=== PATIENT | male | born 1965 | race American Indian/Alaskan Native ===

== ENCOUNTER 2020-04-05 21:59 | Inpatient (IN) | payer MEDICARE ==
[2020-04-06] MEDS ORDERED: ONDANSETRON 4 MG/2 ML INJ IV ONE (01:53)
[2020-04-06] MEDS ORDERED: MORPHINE 4 MG/1 ML INJ IV ONE (01:53)
[2020-04-06] MEDS ORDERED: ASPIRIN 325 MG TAB PO ONE (01:53)
--- NOTE | 2020-04-06 02:37 | XRay Report ---
CHEST 1 VIEW INDICATION: dyspnea, chest pain; bilateral leg swelling. COMPARISON: 4 days prior FINDINGS: Support devices: None. Heart: Stable cardiomegaly. Lungs/Pleura: Minimal edema. No consolidation or effusion. Additional findings: None. IMPRESSION: 1. Stable cardiomegaly with minimal edema. Signer Name: Chad Gomez MD Signed: 04/06/2020 2:33 AM Workstation Name: [id number]
[2020-04-06 02:45] LABS: Basophils % (Auto) 0.8 % (0.0-1.8); Eosinophils # (Auto) 0.3 K/mm3 (0.0-0.4); Eosinophils % (Auto) 4.7 % (0.0-4.3); Hematocrit 34.4 % (35.5-45.6); Hemoglobin 11.4 gm/dl (11.8-15.2); Lymphocytes # (Auto) 0.5 K/mm3 (1.2-5.4); Lymphocytes % (Auto) 9.3 % (13.4-35.0); Mean Corpuscular HGB Conc 33 % (32-34); Mean Corpuscular Volume 91 fl (84-94); Monocytes # (Auto) 0.5 K/mm3 (0.0-0.8); Monocytes % (Auto) 7.8 % (0.0-7.3); Platelet Count 207 K/mm3 (140-440); Red Blood Count 3.78 M/mm3 (3.65-5.03); Red Cell Distribution Width 17.2 % (13.2-15.2)
[2020-04-06 03:09] LABS: Albumin 3.9 g/dL (3.9-5)
--- NOTE | 2020-04-06 03:10 | Emergency Department Report ---
HPI - General Chief Complaint: Urogenital-Male Time Seen by Provider: 04/06/20 01:56 - HPI HPI: 54-year-old -Italian male presents to the emergency department via EMS with a complaint of shortness of breath, some chest tightness, and worsening of generalized and scrotal swelling that he has been dealing with. The patient was here on 04/02 and admitted for similar symptoms and his last dialysis appears to be that day. He is currently unassigned to any trade manager or dialysis clinic. He has hemodialysis access to the left groin. He is a tobacco smoker. He also has a history of CHF, COPD. He has not taken anything for his symptoms prior to presentation today. ED Past Medical Hx - Past Medical History Hx Congestive Heart Failure: Yes Hx Renal Disease: Yes Hx COPD: Yes (Patient states likely) Additional medical history: Hemodialysis - Surgical History Additional Surgical History: Placement of dialysis access - Social History Smoking Status: Never Smoker Substance Use Type: None ED Review of Systems ROS: Stated complaint: SHARAN TESTICAL SWELLING Other details as noted in HPI Comment: All other systems reviewed and negative Constitutional: denies: chills, fever Eyes: denies: eye pain, vision change ENT: denies: ear pain, throat pain Respiratory: shortness of breath. denies: cough Cardiovascular: chest pain, edema Gastrointestinal: denies: abdominal pain, vomiting Genitourinary: testicular pain. denies: dysuria Musculoskeletal: denies: back pain, arthralgia Skin: denies: rash, lesions Neurological: denies: headache, weakness Physical Exam - Physical Exam Vital Signs: Vital Signs 04/05/20 22:31 Temperature 98.0 F Pulse Rate 83 Respiratory 20 Rate Blood Pressure 128/84 O2 Sat by Pulse 97 Oximetry Physical Exam: GENERAL: The patient is well-developed well-nourished. HENT: Normocephalic. Atraumatic. Patient has moist mucous membranes. EYES: Extraocular motions are intact. NECK: Supple. Trachea is midline. CHEST/LUNGS: Coarse breath sounds. No tachypnea or accessory muscle use. There is no respiratory distress noted. HEART/CARDIOVASCULAR: Regular. There is no tachycardia. There is no murmur. ABDOMEN: Abdomen is soft, nontender. Patient has normal bowel sounds. There is no abdominal distention. SKIN: Skin is warm and dry. There is nonpitting edema to the bilateral lower extremities, the groin and lower portion of the abdomen. NEURO: The patient is awake, alert, and oriented. The patient is cooperative. The patient has no focal neurologic deficits. Normal speech. MUSCULOSKELETAL: There is no tenderness or deformity. There is no limitation range of motion. : There is moderate to severe nonpitting edema of the scrotum. No erythema, fluctuance, rash or lesions. ED Course Vital Signs 04/05/20 22:31 Temperature 98.0 F Pulse Rate 83 Respiratory 20 Rate Blood Pressure 128/84 O2 Sat by Pulse 97 Oximetry - Reevaluation(s) Reevaluation #1: 04/06/20 05:54 Labs 04/06/20 04/06/20 04/06/20 02:16 02:23 02:23 WBC 5.8 RBC 3.78 Hgb 11.4 L Hct 34.4 L MCV 91 MCH 30 MCHC 33 RDW 17.2 H Plt Count 207 Lymph % (Auto) 9.3 L [place] % (Auto) 7.8 H Eos % (Auto) 4.7 H Baso % (Auto) 0.8 Lymph # 0.5 L [place] # 0.5 Eos # 0.3 Baso # 0.0 Seg Neutrophils % 77.4 H Seg Neutrophils # 4.5 Sodium 139 Potassium 5.4 H Chloride 96.8 L Carbon Dioxide 22 Anion Gap 26 BUN 66 H Creatinine 9.3 H Estimated GFR 7 BUN/Creatinine Ratio 7 Glucose 93 Calcium 5.5 L* Total Bilirubin 0.30 AST 16 ALT 13 Alkaline Phosphatase 89 Troponin T 0.069 H Total Protein 7.6 Albumin 3.9 Albumin/Globulin Ratio 1.1 Triglycerides 55 Cholesterol 114 LDL Cholesterol Direct 67 HDL Cholesterol 45 Cholesterol/HDL Ratio 2.53 ED Medical Decision Making - Lab Data Result diagrams: 04/06/20 02:23 04/06/20 02:23 - EKG Data -: EKG Interpreted by Me EKG shows normal: sinus rhythm, axis, intervals (Prolonged QTC), QRS complexes (Low voltage QRS), ST-T waves (Flattened T waves) - EKG Data When compared to previous EKG there are: no significant change Interpretation: unchanged when compared t (04/02/20) - Radiology Data Radiology results: report reviewed, image reviewed interpreted by me: Chest x-ray shows some pulmonary vascular congestion and cardiomegaly. No pneumonia or pneumothorax. Scrotal Ultrasound HISTORY: Testicular pain and swelling. TECHNIQUE: Grayscale and color imaging performed. COMPARISON: None FINDINGS: Both testicles are normal in size and appearance. There is severe diffuse scrotal wall edema with trace bilateral hydroceles which are likely reactive. Each epididymis is normal. IMPRESSION: Severe diffuse scrotal wall edema. Normal testicles. - Medical Decision Making This patient presents with some shortness of breath, chest tightness and increased edema, especially to the groin. A testicular ultrasound was done that shows significant scrotal wall edema but no testicular abnormalities, including no torsion. EKG does not show any signs of ST elevation [place]. Chest x-ray shows some pulmonary vascular congestion but no pneumonia, pneumothorax, or overt pleural effusions. Patient's labs shows renal insufficiency consistent with his end-stage renal disease on hemodialysis. First troponin is slightly elevated at 0.069. This troponin elevation may be secondary to his chronic renal insufficiency. However, given his complaint of chest tightness, the patient will be admitted to the hospital for further evaluation and treatment, and may need to receive dialysis as well. He has been presented to the overnight hospitalist, Dr. Prado. Critical Care Time: No Critical care attestation.: If time is entered above; I have spent that time in minutes in the direct care of this critically ill patient, excluding procedure time. ED Disposition Clinical Impression: End-stage renal disease needing dialysis, Anasarca, Hyperkalemia, Scrotal edema, Acute chest pain Disposition: OP ADMIT IP TO THIS HOSP Is pt being admited?: Yes Condition: Fair Time of Disposition: 04:51 Heart Score - HEART Score History: Slightly suspicious EKG: Non-specific Age: 45-65 Risk factors: 1-2 risk factors Troponin: 1-3x normal limit HEART Score: 4 - Critical Actions Critical Actions: 4-6 pts:12-16.6% risk of adverse cardiac event. Should be admitted
[2020-04-06] MEDS ORDERED: IPRATROPIUM/ALBUTEROL SULFATE 3 ML AMPUL.NEB IH ONE ×2 (03:12→06:14)
[2020-04-06 03:19] LABS: Calcium 5.5 mg/dL (8.4-10.2)
--- NOTE | 2020-04-06 04:20 | Ultrasound Report ---
Scrotal Ultrasound HISTORY: Testicular pain and swelling. TECHNIQUE: Grayscale and color imaging performed. COMPARISON: None FINDINGS: Both testicles are normal in size and appearance. There is severe diffuse scrotal wall robby a with trace bilateral hydroceles which are likely reactive. Each epididymis is normal. IMPRESSION: Severe diffuse scrotal wall edema. Normal testicles. Signer Name: Chad Gomez MD Signed: 04/06/2020 4:16 AM Workstation Name: [id number]
[2020-04-06 05:07] LABS: Chol/HDL Ratio 2.53 %
--- NOTE | 2020-04-06 07:42 | History and Physical Report ---
History of Present Illness Date of examination: 04/06/20 Date of admission: 04/06/20 Chief complaint: CHEST PAIN, MISSED DIALYSIS History of present illness: Patient is a 54-year-old -[place]aur[place] male presenting to the hospital complaining of shortness of breath, some chest tightness with worsening generalized scrotal swelling. The patient with underlying history of hypertension, congestive heart failure, COPD end-stage renal disease unfortunately does not follow with any [place] last dialysis was done at this hospital before that it was done at [facility]. Patient also reports that he is homeless. Grossly noncompliant. The chest pain he reported he reports is a 3/10 in intensity only worse with lying down flat. He denies any exertional chest pain but notes exertional dyspnea. Past History Past Medical History: COPD, hypertension, hyperlipidemia Past Surgical History: Other (Patient unknown if he has had any prior surgery. Except a left upper extremity AV graft) Social history: no significant social history Family history: no significant family history Medications and Allergies Allergies Allergy/AdvReac Type Severity Reaction Status Date / Time No Known Allergies Allergy Unverified 04/02/20 06:54 Review of Systems Constitutional: weight gain, fatigue, weakness, lethargy, no fever, no chills, no sweats, no malaise Cardiovascular: chest pain, orthopnea, edema, shortness of breath, no palpi tations, no rapid/irregular heart beat Respiratory: shortness of breath, congestion, no cough, no cough with sputum, no excessive sputum Gastrointestinal: no abdominal pain Musculoskeletal: no neck stiffness, no neck pain, no shooting arm pain, no arm numbness/tingling, no shooting leg pain Integumentary: no rash, no pruritis, no redness, no sores, no wounds Neurological: no transient paralysis, no weakness, no parathesias, no numbness Psychiatric: change in appetite Endocrine: no excessive thirst Hematologic/Lymphatic: no easy bruising Allergic/Immunologic: no urticaria Exam - Physical Exam Narrative exam: VITAL SIGNS: Reviewed. GENERAL: The patient appears normally developed, disheveled in appearance with anasarca vital signs as documented. HEAD: No signs of head trauma. EYES: Pupils are equal. Extraocular motions intact. EARS: Hearing grossly intact. MOUTH: Oropharynx is normal. NECK: No adenopathy, no JVD. CHEST: Chest with clear breath sounds bilaterally. No wheezes, rales, or rhonchi. CARDIAC: Regular rate and rhythm. S1 and S2, without murmurs, gallops, or rubs. VASCULAR: No Edema. Peripheral pulses normal and equal in all extremities. ABDOMEN: Soft, non tender and non distended. No rebound or guarding, and no masses palpated. Bowel Sounds normal. MUSCULOSKELETAL: Good range of motion of all major joints. Extremities without clubbing, cyanosis or edema. NEUROLOGIC EXAM: Alert and oriented x 3 No focal sensory or strength deficits. Speech normal. Follows commands. PSYCHIATRIC: Mood normal. SKIN: detail exam as documented in skin assessment - Constitutional Vitals: Temp Pulse Resp BP Pulse Ox 98.0 F 83 15 128/84 97 04/05/20 22:31 04/06/20 03:13 04/06/20 03:13 04/05/20 22:31 04/05/20 22:31 Results - Labs CBC & Chem 7: 04/06/20 02:23 04/06/20 02:23 Labs: Laboratory Last Values WBC 5.8 K/mm3 (4.5-11.0) 04/06/20 02:23 RBC 3.78 M/mm3 (3.65-5.03) 04/06/20 02:23 Hgb 11.4 gm/dl (11.8-15.2) L 04/06/20 02:23 Hct 34.4 % (35.5-45.6) L 04/06/20 02:23 MCV 91 fl (84-94) 04/06/20 02:23 MCH 30 pg (28-32) 04/06/20 02:23 MCHC 33 % (32-34) 04/06/20 02:23 RDW 17.2 % (13.2-15.2) H 04/06/20 02:23 Plt Count 207 K/mm3 (140-440) 04/06/20 02:23 Lymph % (Auto) 9.3 % (13.4-35.0) L 04/06/20 02:23 [place] % (Auto) 7.8 % (0.0-7.3) H 04/06/20 02:23 Eos % (Auto) 4.7 % (0.0-4.3) H 04/06/20 02:23 Baso % (Auto) 0.8 % (0.0-1.8) 04/06/20 02:23 Lymph # 0.5 K/mm3 (1.2-5.4) L 04/06/20 02:23 [place] # 0.5 K/mm3 (0.0-0.8) 04/06/20 02:23 Eos # 0.3 K/mm3 (0.0-0.4) 04/06/20 02:23 Baso # 0.0 K/mm3 (0.0-0.1) 04/06/20 02:23 Seg Neutrophils % 77.4 % (40.0-70.0) H 04/06/20 02:23 Seg Neutrophils # 4.5 K/mm3 (1.8-7.7) 04/06/20 02:23 Sodium 139 mmol/L (137-145) 04/06/20 02:23 Potassium 5.4 mmol/L (3.6-5.0) H 04/06/20 02:23 Chloride 96.8 mmol/L (98-107) L 04/06/20 02:23 Carbon Dioxide 22 mmol/L (22-30) 04/06/20 02:23 Anion Gap 26 mmol/L 04/06/20 02:23 BUN 66 mg/dL (9-20) H 04/06/20 02:23 Creatinine 9.3 mg/dL (0.8-1.5) H 04/06/20 02:23 Estimated GFR 7 ml/min 04/06/20 02:23 BUN/Creatinine Ratio 7 % 04/06/20 02:23 Glucose 93 mg/dL (75-100) 04/06/20 02:23 Calcium 5.5 mg/dL (8.4-10.2) L* 04/06/20 02:23 Total Bilirubin 0.30 mg/dL (0.1-1.2) 04/06/20 02:23 AST 16 units/L (5-40) 04/06/20 02:23 ALT 13 units/L (7-56) 04/06/20 02:23 Alkaline Phosphatase 89 units/L (35-129) 04/06/20 02:23 Troponin T 0.069 ng/mL (0.00-0.029) H 04/06/20 02:16 Total Protein 7.6 g/dL (6.3-8.2) 04/06/20 02:23 Albumin 3.9 g/dL (3.9-5) 04/06/20 02:23 Albumin/Globulin Ratio 1.1 % 04/06/20 02:23 Triglycerides 55 mg/dL (2-149) 04/06/20 02:16 Cholesterol 114 mg/dL (50-199) 04/06/20 02:16 LDL Cholesterol Direct 67 mg/dL (50-130) 04/06/20 02:16 HDL Cholesterol 45 mg/dL (40-59) 04/06/20 02:16 Cholesterol/HDL Ratio 2.53 % 04/06/20 02:16 Assessment and Plan Assessment and plan: Patient is a 54-year-old -[place]aur[place] male presenting to the hospital complaining of shortness of breath, some chest tightness with worsening generalized scrotal swelling. The patient with underlying history of hypertension, congestive heart failure, COPD end-stage renal disease unfortunately does not follow with any [place] last dialysis was done at this hospital before that it was done at [facility]. Patient also reports that he is homeless. Grossly noncompliant. The chest pain he reported he reports is a 3/10 in intensity only worse with lying down flat. He denies any exertional chest pain but notes exertional dyspnea. Atypical Chest pain Volume overload Pulmonary Vascular Congestion Type 2 [place] ESRD on hemodialysis Hyperkalemia Generalized anasarca Hypocalcemia Plan: Admit to telemetry Obtain nephrology and cardiology consult Case management for assistance considering homelessness Obtain and resume appropriate home medications Strict I's and O's and daily weights Monitor electrolytes Extensive counseling provided to the patient about need for medication compliance and health compliance in general DVT and GI prophylaxis Advance Directives: Yes Plan of care discussed with patient/family: Yes
[2020-04-06] MEDS ORDERED: ACETAMINOPHEN 325 MG TAB PO PRN (08:00)
[2020-04-06] MEDS ORDERED: NITROGLYCERIN 0.4 MG TAB SUBL SL PRN (08:00)
[2020-04-06] MEDS ORDERED: MORPHINE 4 MG/1 ML INJ IV PRN (08:00)
[2020-04-06] MEDS ORDERED: ONDANSETRON 4 MG/2 ML INJ IV PRN (08:00)
[2020-04-06] MEDS ORDERED: MORPHINE 2 MG/1 ML INJ ONE (09:26)
[2020-04-06] MEDS: MORPHINE 2 MG/1 ML INJ IV PRN (10:02)
[2020-04-06] MEDS: SENNOSIDES 8.6 MG TAB PO SCH ×2 (10:02→21:46)
--- NOTE | 2020-04-06 10:59 | Consultation ---
History of Present Illness Consult date: 04/06/20 Consult reason: elevated troponin History of present illness: This is a 54-year old male with end-stage renal disease on dialysis. Patient was recently hospitalized with anasarca, volume overload secondary to missed dialysis session but left AMA before outpatient dialysis clinic could be arranged. Patient returns with volume overload and is re-admitted for management. Nephrology consultation is pending. A cardiac consultation has been requested for mild elevation of troponin. This is likely in the setting of renal disease. Patient is somnolent. There were no reports of chest pain. An ECG is sinus rhythm with low voltage, nonspecific T wave abnormalities. Medications and Allergies Allergies Allergy/AdvReac Type Severity Reaction Status Date / Time No Known Allergies Allergy Unverified 04/02/20 06:54 Active Meds: Active Medications Acetaminophen (Tylenol) 650 mg PO Q4H PRN PRN Reason: Pain MILD(1-3)/Fever >100.5/[place] Atorvastatin Calcium (Lipitor) 40 mg PO QHS [facility] Morphine Sulfate (Morphine) 2 mg IV Q4H PRN PRN Reason: Pain, Moderate (4-6) Last Admin: 04/06/20 10:02 Dose: 2 mg Documented by: Morphine Sulfate (Morphine) 4 mg IV Q4H PRN PRN Reason: Pain , Severe (7-10) Nitroglycerin (Nitrostat) 0.4 mg SL Q5M PRN PRN Reason: Chest Pain Ondansetron HCl (Zofran) 4 mg IV Q4H PRN PRN Reason: Nausea And Vomiting Senna (Senokot) 8.6 mg PO Q12HR [facility] Last Admin: 04/06/20 10:02 Dose: 8.6 mg Documented by: Sodium Chloride (Sodium Chloride Flush Syringe 10 Ml) 10 ml IV BID [facility] Last Admin: 04/06/20 10:02 Dose: 10 ml Documented by: Sodium Chloride (Sodium Chloride Flush Syringe 10 Ml) 10 ml IV PRN PRN PRN Reason: LINE FLUSH Sodium Chloride (Sodium Chloride Flush Syringe 10 Ml) 10 ml IV PRN PRN PRN Reason: LINE FLUSH Physical Examination Vital Signs Temp Pulse Resp BP Pulse Ox 98.0 F 83 20 128/84 97 04/05/20 22:31 04/05/20 22:31 04/05/20 22:31 04/05/20 22:31 04/05/20 22:31 Cardiac: Positive: Reg Rate and Rhythm Results 04/06/20 02:23 04/06/20 02:23 Cardiac Enzymes 04/06/20 Range/Units 02:23 AST 16 (5-40) units/L Lipids 04/06/20 Range/Units 02:16 Triglycerides 55 (2-149) mg/dL Cholesterol 114 (50-199) mg/dL HDL Cholesterol 45 (40-59) mg/dL Cholesterol/HDL Ratio 2.53 % CBC 04/06/20 Range/Units 02:23 WBC 5.8 (4.5-11.0) K/mm3 RBC 3.78 (3.65-5.03) M/mm3 Hgb 11.4 L (11.8-15.2) gm/dl Hct 34.4 L (35.5-45.6) % Plt Count 207 (140-440) K/mm3 Lymph # 0.5 L (1.2-5.4) K/mm3 [place] # 0.5 (0.0-0.8) K/mm3 Eos # 0.3 (0.0-0.4) K/mm3 Baso # 0.0 (0.0-0.1) K/mm3 Comprehensive Metabolic Panel 04/06/20 Range/Units 02:23 Sodium 139 (137-145) mmol/L Potassium 5.4 H (3.6-5.0) mmol/L Chloride 96.8 L (98-107) mmol/L Carbon Dioxide 22 (22-30) mmol/L BUN 66 H (9-20) mg/dL Creatinine 9.3 H (0.8-1.5) mg/dL Glucose 93 (75-100) mg/dL Calcium 5.5 L* (8.4-10.2) mg/dL AST 16 (5-40) units/L ALT 13 (7-56) units/L Alkaline Phosphatase 89 (35-129) units/L Total Protein 7.6 (6.3-8.2) g/dL Albumin 3.9 (3.9-5) g/dL Assessment and Plan Elevated troponin, nonspecific likely in the setting of renal failure Volume overload End stage renal disease
[2020-04-06] MEDS ORDERED: SODIUM CHLORIDE 0.9% 100 ML IV PRN (14:30)
[2020-04-06] MEDS ORDERED: SODIUM CHLORIDE*PRIMING MACHINE ONLY FOR DIALYSIS MC ONE (19:25)
[2020-04-06] MEDS: MORPHINE 4 MG/1 ML INJ IV PRN (21:47)
[2020-04-07] MEDS: MORPHINE 4 MG/1 ML INJ IV PRN ×3 (04:13→20:02)
[2020-04-07 05:34] LABS: Basophils % (Auto) 0.6 % (0.0-1.8); Eosinophils # (Auto) 0.2 K/mm3 (0.0-0.4); Eosinophils % (Auto) 5.4 % (0.0-4.3); Hematocrit 32.5 % (35.5-45.6); Hemoglobin 10.6 gm/dl (11.8-15.2); Lymphocytes # (Auto) 0.5 K/mm3 (1.2-5.4); Lymphocytes % (Auto) 11.3 % (13.4-35.0); Mean Corpuscular HGB Conc 33 % (32-34); Mean Corpuscular Volume 92 fl (84-94); Monocytes # (Auto) 0.4 K/mm3 (0.0-0.8); Platelet Count 195 K/mm3 (140-440); Red Blood Count 3.54 M/mm3 (3.65-5.03); Red Cell Distribution Width 17.3 % (13.2-15.2)
[2020-04-07] MEDS ORDERED: SODIUM CHLORIDE 0.9% 100 ML IV PRN (08:02)
--- NOTE | 2020-04-07 08:21 | Progress Note ---
Assessment and Plan Assessment and plan: Patient is a 54-year-old -[place] male presenting to the hospital complaining of shortness of breath, some chest tightness with worsening generalized scrotal swelling. The patient with underlying history of hypertension, congestive heart failure, COPD end-stage renal disease unfortunately does not follow with any geriatric nursing assistant last dialysis was done at this hospital before that it was done at [facility]. Patient also reports that he is homeless. Grossly noncompliant. The chest pain he reported he reports is a 3/10 in intensity only worse with lying down flat. He denies any exertional chest pain but notes exertional dyspnea. Echo reviewed EF of 20 to 25% moderate pulmonary hypertension moderate to severe tricuspid regurgitation moderate to severe mitral regurgitation Atypical Chest pain secondary to volume overload Volume overload Pulmonary Vascular Congestion Acute on chronic systolic congestive heart failure secondary to volume overload Dilated cardiomyopathy Pronounced scrotal edema Type 2 SC ESRD on hemodialysis Hyperkalemia Generalized anasarca Hypocalcemia Left femoral permacath Anemia of chronic disease Plan: Continue HD per Nephrology Continues with a sense of entitlement and wants things done his own way. He did have dialysis done yesterday 03/07/2020 and today again. Is planned to have dialysis tomorrow also due to severe anasarca Care for permacath discussed in detail with the patient. Compliance stressed again 50 minutes of counseling provided Scrotal support Obtain nephrology Case management for assistance considering homelessness Obtain and resume appropriate home medications Strict I's and O's and daily weights Monitor electrolytes Extensive counseling provided to the patient about need for medication complian ce and health compliance in general DVT and GI prophylaxis History Interval history: Patient seen and examined this morning he was not happy that the transporter did not want to transport him on his bed to dialysis. Despite my explanation the patient is adamant about this. Otherwise he denies any chest pain he reports "I am still swollen". Hospitalist Physical - Physical exam Narrative exam: VITAL SIGNS: Reviewed. GENERAL: The patient appears normally developed, anasarca vital signs as documented. HEAD: No signs of head trauma. EYES: Pupils are equal. Extraocular motions intact. EARS: Hearing grossly intact. MOUTH: Oropharynx is normal. NECK: No adenopathy, no JVD. CHEST: Chest with clear breath sounds bilaterally. No wheezes, rales, or rhonchi. CARDIAC: Regular rate and rhythm. S1 and S2, without murmurs, gallops, or rubs. VASCULAR: No Edema. Peripheral pulses normal and equal in all extremities. ABDOMEN: Soft, non tender and non distended. No rebound or guarding, and no masses palpated. Bowel Sounds normal. MUSCULOSKELETAL: Left femoral line enlarged scrotum but nontender no erythema. Good range of motion of all major joints. Extremities without clubbing, cyanosis or edema. NEUROLOGIC EXAM: Alert and oriented x 3 No focal sensory or strength deficits. Speech normal. Follows commands. PSYCHIATRIC: Mood normal. SKIN: detail exam as documented in skin assessment - Constitutional Vitals: Temp Pulse Resp BP Pulse Ox 97.5 F L 80 18 123/82 98 04/07/20 03:46 04/07/20 04:26 04/07/20 03:46 04/07/20 03:46 04/07/20 03:46 HEART Score - HEART Score EKG: Non-specific Age: 45-65 Risk factors: 1-2 risk factors Troponin: Troponin T 0.069 ng/mL (0.00-0.029) H 04/06/20 02:16 Troponin: 1-3x normal limit - Critical Actions Critical Actions: 4-6 pts:12-16.6% risk of adverse cardiac event. Should be admitted Results - Labs CBC & Chem 7: 04/07/20 04:47 04/07/20 04:47 Labs: Laboratory Last Values WBC 4.5 K/mm3 (4.5-11.0) 04/07/20 04:47 RBC 3.54 M/mm3 (3.65-5.03) L 04/07/20 04:47 Hgb 10.6 gm/dl (11.8-15.2) L 04/07/20 04:47 Hct 32.5 % (35.5-45.6) L 04/07/20 04:47 MCV 92 fl (84-94) 04/07/20 04:47 MCH 30 pg (28-32) 04/07/20 04:47 MCHC 33 % (32-34) 04/07/20 04:47 RDW 17.3 % (13.2-15.2) H 04/07/20 04:47 Plt Count 195 K/mm3 (140-440) 04/07/20 04:47 Lymph % (Auto) 11.3 % (13.4-35.0) L 04/07/20 04:47 Meriwether % (Auto) 8.0 % (0.0-7.3) H 04/07/20 04:47 Eos % (Auto) 5.4 % (0.0-4.3) H 04/07/20 04:47 Baso % (Auto) 0.6 % (0.0-1.8) 04/07/20 04:47 Lymph # 0.5 K/mm3 (1.2-5.4) L 04/07/20 04:47 Meriwether # 0.4 K/mm3 (0.0-0.8) 04/07/20 04:47 Eos # 0.2 K/mm3 (0.0-0.4) 04/07/20 04:47 Baso # 0.0 K/mm3 (0.0-0.1) 04/07/20 04:47 Seg Neutrophils % 74.7 % (40.0-70.0) H 04/07/20 04:47 Seg Neutrophils # 3.4 K/mm3 (1.8-7.7) 04/07/20 04:47 Sodium 136 mmol/L (137-145) L 04/07/20 04:47 Potassium 5.0 mmol/L (3.6-5.0) 04/07/20 04:47 Chloride 95.9 mmol/L (98-107) L 04/07/20 04:47 Carbon Dioxide 24 mmol/L (22-30) 04/07/20 04:47 Anion Gap 21 mmol/L 04/07/20 04:47 BUN 46 mg/dL (9-20) H 04/07/20 04:47 Creatinine 7.7 mg/dL (0.8-1.5) H 04/07/20 04:47 Estimated GFR 9 ml/min 04/07/20 04:47 BUN/Creatinine Ratio 6 % 04/07/20 04:47 Glucose 107 mg/dL (75-100) H 04/07/20 04:47 Calcium 6.0 mg/dL (8.4-10.2) L 04/07/20 04:47 Total Bilirubin 0.30 mg/dL (0.1-1.2) 04/06/20 02:23 AST 16 units/L (5-40) 04/06/20 02:23 ALT 13 units/L (7-56) 04/06/20 02:23 Alkaline Phosphatase 89 units/L (35-129) 04/06/20 02:23 Troponin T 0.069 ng/mL (0.00-0.029) H 04/06/20 02:16 Total Protein 7.6 g/dL (6.3-8.2) 04/06/20 02:23 Albumin 3.9 g/dL (3.9-5) 04/06/20 02:23 Albumin/Globulin Ratio 1.1 % 04/06/20 02:23 Triglycerides 55 mg/dL (2-149) 04/06/20 02:16 Cholesterol 114 mg/dL (50-199) 04/06/20 02:16 LDL Cholesterol Direct 67 mg/dL (50-130) 04/06/20 02:16 HDL Cholesterol 45 mg/dL (40-59) 04/06/20 02:16 Cholesterol/HDL Ratio 2.53 % 04/06/20 02:16 - Diagnostic Impressions Diagnostic Impressions: Echocardiogram 04/06/20 12:31 Transthoracic Echocardiogram Conclusions *4-chamber dilated cardiomyopathy. *Global left ventricular systolic function is severely decreased. *The estimated ejection fraction is 20-25%. *Mild concentric left ventricular hypertrophy is observed. *There is moderate to severe mitral regurgitation. *There is moderate to severe tricuspid regurgitation. *There is at least moderate pulmonary hypertension. *The right ventricular systolic pressure is calculated at 52 mmHg. Findings Left Ventricle: The left ventricular chamber size is moderately dilated. Mild concentric left ventricular hypertrophy is observed. Global left ventricular systolic function is severely decreased. The estimated ejection fraction is 20-25%. Left Atrium: The left atrium is moderately dilated. Right Ventricle: The right ventricle is mildly dilated. Right Atrium: The right atrium is mildly dilated. Aortic Valve: The aortic valve is trileaflet. The aortic valve leaflets are mildly thickened. There is no evidence of aortic regurgitation. There is no evidence of aortic stenosis. Mitral Valve: The mitral valve leaflets are mildly thickened. There is moderate to severe mitral regurgitation. There is no evidence of mitral stenosis. Tricuspid Valve: The tricuspid valve leaflets are normal. There is moderate to severe tricuspid regurgitation. The right ventricular systolic pressure is calculated at 52 mmHg. There is evidence of moderate pulmonary hypertension. Pulmonic Valve: There is mild pulmonic regurgitation. Pericardium: There is no pericardial effusion. Aorta: There is no dilatation of the ascending aorta. There is no dilatation of the aortic root. Venous: The inferior vena cava appears normal in size. Measurements Chambers 2D Name Value Normal Range IVSd (2D) 0.83 cm (0.6 - 1.1) LVPWd (2D) 0.85 cm (0.6 - 1.1) LVIDd (2D) 6.33 cm (3.7 - 5.6) LVIDs (2D) 5.16 cm (2 - 3.8) LV FS (2D) 18.42 % - EF Teichholz (2D) 37.34 % - Ao root diameter (2D) 3.66 cm (2 - 3.7) Volumes/Mass Name Value Normal Range LA ESV SP 4CH (A/L) 63.31 ml - LA ESV SP 2CH (A/L) 64.57 ml - LA ESV BP (A/L) 66.59 ml - LA ESV SP 4CH (MOD) 59.55 ml - LA ESV SP 2CH (MOD) 60.41 ml - Diastolic/Systolic Function Name Value Normal Range MV E-wave Vmax 1.38 m/sec - MV deceleration time 182.92 msec - MV A-wave Vmax 0.54 m/sec - MV E:A ratio 2.53 ratio - Aortic Valve Name Value Normal Range AV Vmax 1.17 m/sec - AV VTI 21.79 cm - AV peak gradient 5.49 mmHg - AV mean gradient 2.87 mmHg - LVOT diameter 2.05 cm - LVOT Vmax 0.7 m/sec - LVOT VTI 16.23 cm - LVOT peak gradient 1.94 mmHg - LVOT mean gradient 1.11 mmHg - SV LVOT 53.42 ml - MICH (continuity Vmax) 1.96 cm2 - MICH (continuity VTI) 2.45 cm2 - Mitral Valve Name Value Normal Range MR Vmax 4.03 m/sec - MR VTI 120.84 cm - Tricuspid Valve Name Value Normal Range TR Vmax 3.32 m/sec - TR peak gradient 44.07 mmHg - RVSP 52 mmHg - IVC diameter 2.01 cm (1.2 - 2.3) Pulmonic Valve/Qp:Qs Name Value Normal Range PV Vmax 0.87 m/sec - PV peak gradient 3.05 mmHg - WA end-diastolic Vmax 1.22 m/sec - PV acceleration time 102.76 msec - Lee/IV: IV Catheter Type [Right Hand] INT / Saline Lock IV Catheter Type [Left Leg] INT / Saline Lock Active Medications - Current Medications Current Medications: Generic Name Dose Route Start Last Admin Trade Name Freq PRN Reason Stop Dose Admin Acetaminophen 650 mg 04/06/20 08:00 Tylenol PO Q4H PRN Pain MILD(1-3)/Fever >100.5/MALDONADO Atorvastatin Calcium 40 mg 04/06/20 22:00 04/06/20 21:46 Lipitor PO 40 mg QHS [facility] Administration Sodium Chloride 100 mls @ 999 mls/hr 04/06/20 14:30 Nacl 0.9% IV PEDRITO PRN Hypotension Sodium Chloride 100 mls @ 999 mls/hr 04/07/20 08:02 Nacl 0.9% IV PEDRITO PRN Hypotension Morphine Sulfate 2 mg 04/06/20 08:00 04/06/20 10:02 Morphine IV 2 mg Q4H PRN Administration Pain, Moderate (4-6) Morphine Sulfate 4 mg 04/06/20 08:25 04/07/20 04:13 Morphine IV 4 mg Q4H PRN Administration Pain , Severe (7-10) Nitroglycerin 0.4 mg 04/06/20 08:00 Nitrostat SL Q5M PRN Chest Pain Ondansetron HCl 4 mg 04/06/20 08:00 Zofran IV Q4H PRN Nausea And Vomiting Pneumococcal Polyvalent Vaccine 0.5 ml 04/07/20 12:00 Pneumovax 23 IM 04/07/20 12:01 .ONCE ONE Senna 8.6 mg 04/06/20 10:00 04/06/20 21:46 Senokot PO 8.6 mg Q12HR [facility]IO Administration Sodium Chloride 10 ml 04/06/20 10:00 04/06/20 21:46 Sodium Chloride Flush Syringe 10 Ml IV 10 ml BID [facility]ORIO Administration Sodium Chloride 10 ml 04/06/20 08:00 Sodium Chloride Flush Syringe 10 Ml IV PRN PRN LINE FLUSH Sodium Chloride 10 ml 04/06/20 08:00 Sodium Chloride Flush Syringe 10 Ml IV PRN PRN LINE FLUSH
[2020-04-07] MEDS: SENNOSIDES 8.6 MG TAB PO SCH ×2 (09:10→22:29)
--- NOTE | 2020-04-07 09:51 | XRay Report ---
CHEST 1 VIEW INDICATION / CLINICAL INFORMATION: volume overload. COMPARISON: 04/06/2020 FINDINGS: SUPPORT DEVICES: None. HEART / MEDIASTINUM: There is prominence the cardiac silhouette LUNGS / PLEURA: There is mild venous congestion and mild interstitial edema.. No pneumothorax. ADDITIONAL FINDINGS: No significant additional findings. IMPRESSION: 1. No significant change. Signer Name: Mikael Pantoja MD Signed: 04/07/2020 9:46 AM Workstation Name: [id number]
--- NOTE | 2020-04-07 09:52 | Progress Note ---
Assessment and Plan Elevated troponin, nonspecific likely in the setting of renal failure Volume overload End stage renal disease Dilated Cardiomyopathy, hx per pt an echo this admission reports a 4 chamber dilated cardiomyopathy. There is at least moderate MR, at least moderate TR and moderate pulmonary hypertension, RSVP 52 mmHg. LVEF 20-25%. Dialysis for fluid management. Medical management for dilated cardiomyopathy as tolerated. Obtain prior cardiac records for review. Subjective Date of service: 04/07/20 Interval history: Patient is resting in bed comfortably. No distress noted. For planned dialysis today. Objective Vital Signs Temp Pulse Resp BP BP Pulse Ox 04/07/20 08:32 97.8 F 22 97/65 04/07/20 04:26 80 04/07/20 03:46 97.5 F L 77 18 123/82 98 04/06/20 23:24 97.4 F L 79 18 124/81 97 04/06/20 20:19 97.5 F L 79 20 124/85 97 04/06/20 19:25 98.2 F 75 18 136/80 04/06/20 18:31 74 128/78 04/06/20 18:15 54 L 132/94 04/06/20 18:00 67 124/80 04/06/20 17:45 69 104/66 04/06/20 17:30 69 109/81 04/06/20 17:15 78 116/81 04/06/20 17:00 77 115/70 04/06/20 16:45 76 107/71 04/06/20 16:30 77 119/100 04/06/20 16:15 73 129/82 04/06/20 16:00 73 127/82 04/06/20 15:45 79 148/90 04/06/20 15:35 98.0 F 73 18 115/73 04/06/20 10:32 18 04/06/20 10:02 20 - Physical Examination General: No Apparent Distress HEENT: Positive: PERRL Neck: Positive: trachea midline Cardiac: Positive: Reg Rate and Rhythm - Labs and Meds CBC 04/07/20 Range/Units 04:47 WBC 4.5 (4.5-11.0) K/mm3 RBC 3.54 L (3.65-5.03) M/mm3 Hgb 10.6 L (11.8-15.2) gm/dl Hct 32.5 L (35.5-45.6) % Plt Count 195 (140-440) K/mm3 Lymph # 0.5 L (1.2-5.4) K/mm3 [place] # 0.4 (0.0-0.8) K/mm3 Eos # 0.2 (0.0-0.4) K/mm3 Baso # 0.0 (0.0-0.1) K/mm3 Comprehensive Metabolic Panel 04/07/20 Range/Units 04:47 Sodium 136 L (137-145) mmol/L Potassium 5.0 (3.6-5.0) mmol/L Chloride 95.9 L (98-107) mmol/L Carbon Dioxide 24 (22-30) mmol/L BUN 46 H (9-20) mg/dL Creatinine 7.7 H (0.8-1.5) mg/dL Glucose 107 H (75-100) mg/dL Calcium 6.0 L (8.4-10.2) mg/dL
[2020-04-07] MEDS ORDERED: hydrALAZINE 25 MG TAB PO SCH (11:00)
[2020-04-07] MEDS ORDERED: PNEUMOCOCCAL 23 Valent 0.5 ML VIAL IM ONE (12:00)
--- NOTE | 2020-04-07 14:15 | Consultation ---
History of Present Illness - Reason for Consult Consult date: 04/07/20 end stage renal disease - History of Present Illness Pleasant 54 y/o obese AAM with PMHx of ESRD in the setting of HTN, CHF, non compliance, presents to the ED secondary to volume overload. He does not have a regular dialysis unit at this time, primarily stemming from his overall non compliance with treatments. he dialyzes via a left femoral permcath which per patient was placed more than 3 years ago. He does not rememb er ever having it exchanged. Patient was dialyzed yesterday and was brought back this afternoon for extra sequential UF treatment. Past History Past Medical History: COPD, hypertension, hyperlipidemia Past Surgical History: Other (Patient unknown if he has had any prior surgery. Except a left upper extremity AV graft) Social history: no significant social history Family history: no significant family history Medications and Allergies Allergies Allergy/AdvReac Type Severity Reaction Status Date / Time No Known Allergies Allergy Unverified 04/02/20 06:54 Active Meds: Active Medications Acetaminophen (Tylenol) 650 mg PO Q4H PRN PRN Reason: Pain MILD(1-3)/Fever >100.5/MALDONADO Aspirin (Baby Aspirin) 81 mg PO QDAY [facility] Atorvastatin Calcium (Lipitor) 40 mg PO QHS [facility] Last Admin: 04/06/20 21:46 Dose: 40 mg Documented by: Carvedilol (Coreg) 3.125 mg PO BID [facility] Hydralazine HCl (Apresoline) 25 mg PO Q12HR [facility] Sodium Chloride (Nacl 0.9%) 100 mls @ 999 mls/hr IV PEDRITO PRN PRN Reason: Hypotension Morphine Sulfate (Morphine) 2 mg IV Q4H PRN PRN Reason: Pain, Moderate (4-6) Last Admin: 04/06/20 10:02 Dose: 2 mg Documented by: Morphine Sulfate (Morphine) 4 mg IV Q4H PRN PRN Reason: Pain , Severe (7-10) Last Admin: 04/07/20 09:14 Dose: 4 mg Documented by: Nitroglycerin (Nitrostat) 0.4 mg SL Q5M PRN PRN Reason: Chest Pain Ondansetron HCl (Zofran) 4 mg IV Q4H PRN PRN Reason: Nausea And Vomiting Senna (Senokot) 8.6 mg PO Q12HR [facility] Last Admin: 04/07/20 09:10 Dose: 8.6 mg Documented by: Sodium Chloride (Sodium Chloride Flush Syringe 10 Ml) 10 ml IV BID [facility] Last Admin: 04/07/20 09:10 Dose: 10 ml Documented by: Sodium Chloride (Sodium Chloride Flush Syringe 10 Ml) 10 ml IV PRN PRN PRN Reason: LINE FLUSH Review of Systems All systems: negative Constitutional: fatigue, weakness Cardiovascular: shortness of breath, leg edema Exam - Vital Signs Vital signs: Vital Signs Temp Pulse Resp BP Pulse Ox 98.0 F 83 20 128/84 97 04/05/20 22:31 04/05/20 22:31 04/05/20 22:31 04/05/20 22:31 04/05/20 22:31 - General Appearance General appearance: well-developed, well-nourished, obese EENT: ATNC, PERRL Neck: Present: neck supple Respiratory: Decreased Breath Sounds Heart: regular, S1S2 Gastrointestinal: Present: normal Integumentary: other (scrotal edema, B/L LE edema, (2+ pitting) ) Neurologic: no focal deficit Musculoskeletal: Present: deferred Psychiatric: cooperative Results - Lab Results 04/07/20 04:47 04/07/20 04:47 Most recent lab results Calcium 6.0 mg/dL (8.4-10.2) L 04/07/20 04:47 Assessment and Plan - Patient Problems (1) End-stage renal disease needing dialysis Current Visit: Yes Status: Chronic Plan to address problem: Will place on TTS HD schedule, and assess daily for HD needs in order to optimize his volume status. (2) Anasarca Current Visit: Yes Status: Acute Plan to address problem: Will attempt to optimize his volume status with daily HD for three days. He is receiving his second consecutive session today, for sequential UF. (3) Hyperkalemia Current Visit: Yes Status: Chronic Plan to address problem: Dialyzed with 2K bath. Counseled on importance of low K diet. (4) Scrotal edema Current Visit: Yes Status: Acute Plan to address problem: In the setting of significant volume overload. Will monitor to see for improvement as we aggressively remove with HD and extra sequential UF sessions. (5) Pulmonary edema Current Visit: No Status: Acute Qualifiers: Chronicity: acute Qualified Code(s): J81.0 - Acute pulmonary edema Plan to address problem: S/P Isolated UF session today for 3L goal. Plan to have HD tomorrow with goal of 2-3L UF as tolerated.
[2020-04-07] MEDS ORDERED: SODIUM CHLORIDE*PRIMING MACHINE ONLY FOR DIALYSIS MC ONE (15:37)
[2020-04-07] MEDS: carvediloL 3.125 MG TAB PO SCH ×2 (16:30→22:49)
[2020-04-07] MEDS: ASPIRIN 81 MG TAB CHEW PO SCH (16:34)
[2020-04-07] MEDS: ISOSORB DINIT/HYDRALAZINE 20-37.5MG TAB PO SCH (22:49)
[2020-04-08] MEDS: MORPHINE 2 MG/1 ML INJ IV PRN ×2 (01:55→09:32)
[2020-04-08 05:34] LABS: Hematocrit 32.3 % (35.5-45.6); Hemoglobin 10.7 gm/dl (11.8-15.2); Mean Corpuscular HGB Conc 33 % (32-34); Mean Corpuscular Volume 92 fl (84-94); Platelet Count 176 K/mm3 (140-440); Red Blood Count 3.52 M/mm3 (3.65-5.03); Red Cell Distribution Width 16.7 % (13.2-15.2)
[2020-04-08 06:03] LABS: Calcium 5.6 mg/dL (8.4-10.2)
[2020-04-08] MEDS ORDERED: CALCIUM GLUCONATE 2,000 MG in SODIUM CHLORIDE 0.9% 100 ML IV ONE (06:16)
[2020-04-08] MEDS: ISOSORB DINIT/HYDRALAZINE 20-37.5MG TAB PO SCH ×3 (06:28→21:30)
[2020-04-08] MEDS ORDERED: CALCIUM CHLORIDE 1,000 MG in SODIUM CHLORIDE 0.9% 100 ML IV ONE (08:30)
[2020-04-08] MEDS ORDERED: SODIUM POLYSTYRENE 15 GM/60 ML ORAL LIQD PO ONE (08:30)
[2020-04-08] MEDS: ASPIRIN 81 MG TAB CHEW PO SCH (09:30)
[2020-04-08] MEDS: SENNOSIDES 8.6 MG TAB PO SCH ×2 (09:31→21:31)
[2020-04-08] MEDS: carvediloL 3.125 MG TAB PO SCH ×2 (09:31→21:30)
--- NOTE | 2020-04-08 10:11 | Progress Note ---
Assessment and Plan - Patient Problems (1) Acute on chronic systolic heart failure Current Visit: Yes Status: Acute Plan to address problem: The patient has chronic systolic left ventricular failure, currently his ejection fraction is 20 to 25%. Heart failure was exacerbated by several missed dialysis sessions. Before engaging in further ischemic work-up, we will request the medical records from [place], to review any recent cardiac ischemic work-up. Subjective Date of service: 04/08/20 Interval history: The patient is comfortable, reports persistence of scrotal edema, but shortness of breath has improved. He now remembers that within the past 6 months he had what appears to have been a pharmacologic stress test with myocardial perfusion imaging at [place], in response to his diagnosis of congestive heart failure. Objective Vital Signs Temp Pulse Resp BP BP Pulse Ox 04/08/20 09:46 96 04/08/20 09:32 17 04/08/20 09:31 78 110/89 04/08/20 05:24 98.6 F 78 20 101/63 94 04/08/20 02:16 76 04/08/20 01:55 20 04/08/20 00:08 98.5 F 74 20 109/72 97 04/07/20 22:00 100 04/07/20 20:05 97.7 F 76 20 102/70 96 04/07/20 16:00 97.5 F L 85 19 136/88 98 04/07/20 15:00 97.7 F 70 18 105/74 04/07/20 14:55 70 105/74 04/07/20 14:45 68 105/58 04/07/20 14:30 68 107/60 04/07/20 14:15 70 97/60 04/07/20 14:00 71 110/61 04/07/20 13:45 72 99/52 04/07/20 13:30 74 94/52 04/07/20 13:15 69 107/66 04/07/20 13:00 73 105/71 04/07/20 12:45 75 120/68 04/07/20 12:30 76 127/69 04/07/20 12:25 74 123/70 04/07/20 12:20 97.5 F L 76 18 115/60 04/07/20 12:00 97.2 F L 78 18 132/86 99 - Physical Examination General: No Apparent Distress HEENT: Positive: PERRL Neck: Positive: neck supple Cardiac: Positive: Reg Rate and Rhythm Lungs: Positive: Decreased Breath Sounds Neuro: Positive: Grossly Intact Abdomen: Positive: Soft Skin: Positive: Clear Extremities: Present: +2 Edema - Labs and Meds CBC 04/08/20 Range/Units 04:36 WBC 4.7 (4.5-11.0) K/mm3 RBC 3.52 L (3.65-5.03) M/mm3 Hgb 10.7 L (11.8-15.2) gm/dl Hct 32.3 L (35.5-45.6) % Plt Count 176 (140-440) K/mm3 Comprehensive Metabolic Panel 04/08/20 Range/Units 04:36 Sodium 131 L (137-145) mmol/L Potassium 6.0 H (3.6-5.0) mmol/L Chloride 93.3 L (98-107) mmol/L Carbon Dioxide 21 L (22-30) mmol/L BUN 55 H (9-20) mg/dL Creatinine 8.4 H (0.8-1.5) mg/dL Glucose 106 H (75-100) mg/dL Calcium 5.6 L* (8.4-10.2) mg/dL
--- NOTE | 2020-04-08 10:27 | Progress Note ---
Assessment and Plan - Patient Problems (1) End-stage renal disease needing dialysis Current Visit: Yes Status: Chronic Plan to address problem: Cont TTS HD schedule, and assess daily for HD needs in order to optimize his volume status. (2) Anasarca Current Visit: Yes Status: Acute Plan to address problem: he had additional HD on 04/08 with sequential UF for volume optimization (3) Hyperkalemia Current Visit: Yes Status: Chronic Plan to address problem: To dialyze with 2K bath. Counseled on importance of low K diet. (4) Scrotal edema Current Visit: Yes Status: Acute Plan to address problem: In the setting of significant volume overload. Will monitor to see for improvement as we aggressively remove with HD and extra sequential UF sessions. (5) Pulmonary edema Current Visit: No Status: Acute Qualifiers: Chronicity: acute Qualified Code(s): J81.0 - Acute pulmonary edema Plan to address problem: Plan to have HD today with goal of 2-3L UF as tolerated. Subjective Date of service: 04/08/20 Principal diagnosis: ESRD Interval history: pt awake, alert, in no acute distress Objective - Vital Signs Vital signs: Vital Signs - 12hr 04/08/20 04/08/20 04/08/20 00:08 01:55 02:16 Temperature 98.5 F Pulse Rate 74 76 Respiratory 20 20 Rate Blood Pressure 109/72 O2 Sat by Pulse 97 Oximetry 04/08/20 04/08/20 04/08/20 05:24 09:31 09:32 Temperature 98.6 F Pulse Rate 78 78 Respiratory 20 17 Rate Blood Pressure 101/63 110/89 O2 Sat by Pulse 94 Oximetry 04/08/20 09:46 Temperature Pulse Rate Respiratory Rate Blood Pressure O2 Sat by Pulse 96 Oximetry - General Appearance General appearance: well-developed, well-nourished, appears stated age EENT: ATNC, PERRL, mucous membranes moist Neck: no JVD Respiratory: Present: Decreased Breath Sounds Cardiology: regular, S1S2 Gastrointestinal: normoactive bowel sounds, obese Integumentary: no rash Neurologic: no focal deficit, alert and oriented x3, strength 5/5, CN 3-12 intact Psychiatric: mood/affect appropriate, cooperative - Lab 04/08/20 04:36 04/08/20 04:36 Most recent lab results Calcium 5.6 mg/dL (8.4-10.2) L* 04/08/20 04:36 Medications & Allergies - Medications Allergies/Adverse Reactions: Allergies No Known Allergies Allergy (Unverified 04/02/20 06:54) Active Medications: Generic Name Dose Route Start Last Admin Trade Name Freq PRN Reason Stop Dose Admin Acetaminophen 650 mg 04/06/20 08:00 Tylenol PO Q4H PRN Pain MILD(1-3)/Fever >100.5/MALDONADO Aspirin 81 mg 04/07/20 11:00 04/08/20 09:30 Baby Aspirin PO 81 mg QDAY [facility] Administration Atorvastatin Calcium 40 mg 04/06/20 22:00 04/07/20 22:29 Lipitor PO 40 mg QHS [facility] Administration Carvedilol 3.125 mg 04/07/20 11:00 04/08/20 09:31 Coreg PO 3.125 mg BID [facility] Administration Sodium Chloride 100 mls @ 999 mls/hr 04/08/20 10:30 Nacl 0.9% IV PEDRITO PRN Hypotension Isosorbide Dinitrate/Hydralazine 1 each 04/07/20 22:00 04/08/20 06:28 Bidil 20/37.5mg PO Not Given Q8HR [facility] Morphine Sulfate 2 mg 04/06/20 08:00 04/08/20 09:32 Morphine IV 2 mg Q4H PRN Administration Pain, Moderate (4-6) Morphine Sulfate 4 mg 04/06/20 08:25 04/07/20 20:02 Morphine IV 4 mg Q4H PRN Administration Pain , Severe (7-10) Nitroglycerin 0.4 mg 04/06/20 08:00 Nitrostat SL Q5M PRN Chest Pain Ondansetron HCl 4 mg 04/06/20 08:00 Zofran IV Q4H PRN Nausea And Vomiting Senna 8.6 mg 04/06/20 10:00 04/08/20 09:31 Senokot PO 8.6 mg Q12HR [facility] Administration Sodium Chloride 10 ml 04/06/20 10:00 04/07/20 22:28 Sodium Chloride Flush Syringe 10 Ml IV 10 ml BID [facility] Administration Sodium Chloride 10 ml 04/06/20 08:00 04/07/20 20:03 Sodium Chloride Flush Syringe 10 Ml IV 10 ml PRN PRN Administration LINE FLUSH
[2020-04-08] MEDS ORDERED: SODIUM CHLORIDE 0.9% 100 ML IV PRN (10:30)
--- NOTE | 2020-04-08 11:56 | Progress Note ---
Assessment and Plan Assessment and plan: Patient is a 54-year-old -[place] male presenting to the hospital complaining of shortness of breath, some chest tightness with worsening generalized scrotal swelling. The patient with underlying history of hypertension, congestive heart failure, COPD end-stage renal disease unfortunately does not follow with any programming coordinator last dialysis was done at this hospital before that it was done at [facility]. Patient also reports that he is homeless. Grossly noncompliant. The chest pain he reported he reports is a 3/10 in intensity only worse with lying down flat. He denies any exertional chest pain but notes exertional dyspnea. Echo reviewed EF of 20 to 25% moderate pulmonary hypertension moderate to severe tricuspid regurgitation moderate to severe mitral regurgitation 04/08/20: chest pain is resolved, respiratory rate is also improved, still with anascar and difficulty ambulating. Replace calcium, Testicular ultrasound shows just edema and mild bilateral hydrocele. possible additional dialysis today for a third day. Atypical Chest pain secondary to volume overload-pain is resolved Volume overload Pulmonary Vascular Congestion Acute on chronic systolic congestive heart failure secondary to volume overload Dilated cardiomyopathy Pronounced scrotal edema Type 2 ME ESRD on hemodialysis Hyperkalemia Generalized anasarca Hypocalcemia Left femoral permacath Anemia of chronic disease Plan: Continue HD per Nephrology Continues with a sense of entitlement and wants things done his own way. He did have dialysis done yesterday 03/07/2020 and today again. Is planned to have dialysis tomorrow also due to severe anasarca Care for permacath discussed in detail with the patient. Compliance stressed again 50 minutes of counseling provided Scrotal support Obtain nephrology Case management for assistance considering homelessness Obtain and resume appropriate home medications Strict I's and O's and daily weights Monitor electrolytes Extensive counseling provided to the patient about need for medication compliance and health compliance in general DVT and GI prophylaxis History Interval history: Patient seen and examined this morning " I cant walk around with my Nuts this big" no complaints of testicular pain but pressure due to the edema Hospitalist Physical - Physical exam Narrative exam: VITAL SIGNS: Reviewed. GENERAL: The patient appears normally developed, anasarca vital signs as documented. HEAD: No signs of head trauma. EYES: Pupils are equal. Extraocular motions intact. EARS: Hearing grossly intact. MOUTH: Oropharynx is normal. NECK: No adenopathy, no JVD. CHEST: Chest with clear breath sounds bilaterally. No wheezes, rales, or rhonchi. CARDIAC: Regular rate and rhythm. S1 and S2, without murmurs, gallops, or rubs. VASCULAR: ++Edema. Peripheral pulses normal and equal in all extremities. ABDOMEN: Soft, non tender and non distended. No rebound or guarding, and no masses palpated. Bowel Sounds normal. MUSCULOSKELETAL: Left femoral line. enlarged scrotum but nontender no erythema. Good range of motion of all major joints. Extremities without clubbing, cyanosis. ++ edema. NEUROLOGIC EXAM: Alert and oriented x 3 No focal sensory or strength deficits. Speech normal. Follows commands. PSYCHIATRIC: Mood normal. SKIN: detail exam as documented in skin assessment - Constitutional Vitals: Temp Pulse Resp BP Pulse Ox 98.6 F 78 17 110/89 96 04/08/20 05:24 04/08/20 09:31 04/08/20 09:32 04/08/20 09:31 04/08/20 09:46 HEART Score - HEART Score EKG: Non-specific Age: 45-65 Risk factors: 1-2 risk factors Troponin: Troponin T 0.069 ng/mL (0.00-0.029) H 04/06/20 02:16 Troponin: 1-3x normal limit - Critical Actions Critical Actions: 4-6 pts:12-16.6% risk of adverse cardiac event. Should be admitted Results - Labs CBC & Chem 7: 04/08/20 04:36 04/08/20 04:36 Labs: Laboratory Last Values WBC 4.7 K/mm3 (4.5-11.0) 04/08/20 04:36 RBC 3.52 M/mm3 (3.65-5.03) L 04/08/20 04:36 Hgb 10.7 gm/dl (11.8-15.2) L 04/08/20 04:36 Hct 32.3 % (35.5-45.6) L 04/08/20 04:36 MCV 92 fl (84-94) 04/08/20 04:36 MCH 30 pg (28-32) 04/08/20 04:36 MCHC 33 % (32-34) 04/08/20 04:36 RDW 16.7 % (13.2-15.2) H 04/08/20 04:36 Plt Count 176 K/mm3 (140-440) 04/08/20 04:36 Lymph % (Auto) 11.3 % (13.4-35.0) L 04/07/20 04:47 [place] % (Auto) 8.0 % (0.0-7.3) H 04/07/20 04:47 Eos % (Auto) 5.4 % (0.0-4.3) H 04/07/20 04:47 Baso % (Auto) 0.6 % (0.0-1.8) 04/07/20 04:47 Lymph # 0.5 K/mm3 (1.2-5.4) L 04/07/20 04:47 [place] # 0.4 K/mm3 (0.0-0.8) 04/07/20 04:47 Eos # 0.2 K/mm3 (0.0-0.4) 04/07/20 04:47 Baso # 0.0 K/mm3 (0.0-0.1) 04/07/20 04:47 Seg Neutrophils % 74.7 % (40.0-70.0) H 04/07/20 04:47 Seg Neutrophils # 3.4 K/mm3 (1.8-7.7) 04/07/20 04:47 Sodium 131 mmol/L (137-145) L 04/08/20 04:36 Potassium 6.0 mmol/L (3.6-5.0) H 04/08/20 04:36 Chloride 93.3 mmol/L (98-107) L 04/08/20 04:36 Carbon Dioxide 21 mmol/L (22-30) L 04/08/20 04:36 Anion Gap 23 mmol/L 04/08/20 04:36 BUN 55 mg/dL (9-20) H 04/08/20 04:36 Creatinine 8.4 mg/dL (0.8-1.5) H 04/08/20 04:36 Estimated GFR 8 ml/min 04/08/20 04:36 BUN/Creatinine Ratio 7 % 04/08/20 04:36 Glucose 106 mg/dL (75-100) H 04/08/20 04:36 Calcium 5.6 mg/dL (8.4-10.2) L* 04/08/20 04:36 Total Bilirubin 0.30 mg/dL (0.1-1.2) 04/06/20 02:23 AST 16 units/L (5-40) 04/06/20 02:23 ALT 13 units/L (7-56) 04/06/20 02:23 Alkaline Phosphatase 89 units/L (35-129) 04/06/20 02:23 Troponin T 0.069 ng/mL (0.00-0.029) H 04/06/20 02:16 Total Protein 7.6 g/dL (6.3-8.2) 04/06/20 02:23 Albumin 3.9 g/dL (3.9-5) 04/06/20 02:23 Albumin/Globulin Ratio 1.1 % 04/06/20 02:23 Triglycerides 55 mg/dL (2-149) 04/06/20 02:16 Cholesterol 114 mg/dL (50-199) 04/06/20 02:16 LDL Cholesterol Direct 67 mg/dL (50-130) 04/06/20 02:16 HDL Cholesterol 45 mg/dL (40-59) 04/06/20 02:16 Cholesterol/HDL Ratio 2.53 % 04/06/20 02:16 Nasal Screen MRSA (PCR) Negative (Negative) 04/07/20 04:25 - Diagnostic Impressions Diagnostic Impressions: Echocardiogram 04/06/20 12:31 Transthoracic Echocardiogram Conclusions *4-chamber dilated cardiomyopathy. *Global left ventricular systolic function is severely decreased. *The estimated ejection fraction is 20-25%. *Mild concentric left ventricular hypertrophy is observed. *There is moderate to severe mitral regurgitation. *There is moderate to severe tricuspid regurgitation. *There is at least moderate pulmonary hypertension. *The right ventricular systolic pressure is calculated at 52 mmHg. Findings Left Ventricle: The left ventricular chamber size is moderately dilated. Mild concentric left ventricular hypertrophy is observed. Global left ventricular systolic function is severely decreased. The estimated ejection fraction is 20-25%. Left Atrium: The left atrium is moderately dilated. Right Ventricle: The right ventricle is mildly dilated. Right Atrium: The right atrium is mildly dilated. Aortic Valve: The aortic valve is trileaflet. The aortic valve leaflets are mildly thickened. There is no evidence of aortic regurgitation. There is no evidence of aortic stenosis. Mitral Valve: The mitral valve leaflets are mildly thickened. There is moderate to severe mitral regurgitation. There is no evidence of mitral stenosis. Tricuspid Valve: The tricuspid valve leaflets are normal. There is moderate to severe tricuspid regurgitation. The right ventricular systolic pressure is calculated at 52 mmHg. There is evidence of moderate pulmonary hypertension. Pulmonic Valve: There is mild pulmonic regurgitation. Pericardium: There is no pericardial effusion. Aorta: There is no dilatation of the ascending aorta. There is no dilatation of the aortic root. Venous: The inferior vena cava appears normal in size. Measurements Chambers 2D Name Value Normal Range IVSd (2D) 0.83 cm (0.6 - 1.1) LVPWd (2D) 0.85 cm (0.6 - 1.1) LVIDd (2D) 6.33 cm (3.7 - 5.6) LVIDs (2D) 5.16 cm (2 - 3.8) LV FS (2D) 18.42 % - EF Teichholz (2D) 37.34 % - Ao root diameter (2D) 3.66 cm (2 - 3.7) Volumes/Mass Name Value Normal Range LA ESV SP 4CH (A/L) 63.31 ml - LA ESV SP 2CH (A/L) 64.57 ml - LA ESV BP (A/L) 66.59 ml - LA ESV SP 4CH (MOD) 59.55 ml - LA ESV SP 2CH (MOD) 60.41 ml - Diastolic/Systolic Function Name Value Normal Range MV E-wave Vmax 1.38 m/sec - MV deceleration time 182.92 msec - MV A-wave Vmax 0.54 m/sec - MV E:A ratio 2.53 ratio - Aortic Valve Name Value Normal Range AV Vmax 1.17 m/sec - AV VTI 21.79 cm - AV peak gradient 5.49 mmHg - AV mean gradient 2.87 mmHg - LVOT diameter 2.05 cm - LVOT Vmax 0.7 m/sec - LVOT VTI 16.23 cm - LVOT peak gradient 1.94 mmHg - LVOT mean gradient 1.11 mmHg - SV LVOT 53.42 ml - MICH (continuity Vmax) 1.96 cm2 - MICH (continuity VTI) 2.45 cm2 - Mitral Valve Name Value Normal Range MR Vmax 4.03 m/sec - MR VTI 120.84 cm - Tricuspid Valve Name Value Normal Range TR Vmax 3.32 m/sec - TR peak gradient 44.07 mmHg - RVSP 52 mmHg - IVC diameter 2.01 cm (1.2 - 2.3) Pulmonic Valve/Qp:Qs Name Value Normal Range PV Vmax 0.87 m/sec - PV peak gradient 3.05 mmHg - NJ end-diastolic Vmax 1.22 m/sec - PV acceleration time 102.76 msec - Lee/IV: IV Catheter Type [Right Hand] INT / Saline Lock IV Catheter Type [Left Leg] INT / Saline Lock Active Medications - Current Medications Current Medications: Generic Name Dose Route Start Last Admin Trade Name Freq PRN Reason Stop Dose Admin Acetaminophen 650 mg 04/06/20 08:00 Tylenol PO Q4H PRN Pain MILD(1-3)/Fever >100.5/MALDONADO Aspirin 81 mg 04/07/20 11:00 04/08/20 09:30 Baby Aspirin PO 81 mg QDAY LIBORIO Administration Atorvastatin Calcium 40 mg 04/06/20 22:00 04/07/20 22:29 Lipitor PO 40 mg QHS LIBORIO Administration Carvedilol 3.125 mg 04/07/20 11:00 04/08/20 09:31 Coreg PO 3.125 mg BID LIBORIO Administration Sodium Chloride 100 mls @ 999 mls/hr 04/08/20 10:30 Nacl 0.9% IV PEDRITO PRN Hypotension Isosorbide Dinitrate/Hydralazine 1 each 04/07/20 22:00 04/08/20 06:28 Bidil 20/37.5mg PO Not Given Q8HR [facility] Morphine Sulfate 2 mg 04/06/20 08:00 04/08/20 09:32 Morphine IV 2 mg Q4H PRN Administration Pain, Moderate (4-6) Morphine Sulfate 4 mg 04/06/20 08:25 04/07/20 20:02 Morphine IV 4 mg Q4H PRN Administration Pain , Severe (7-10) Nitroglycerin 0.4 mg 04/06/20 08:00 Nitrostat SL Q5M PRN Chest Pain Ondansetron HCl 4 mg 04/06/20 08:00 Zofran IV Q4H PRN Nausea And Vomiting Senna 8.6 mg 04/06/20 10:00 04/08/20 09:31 Senokot PO 8.6 mg Q12HR LIBORIO Administration Sodium Chloride 10 ml 04/06/20 10:00 04/07/20 22:28 Sodium Chloride Flush Syringe 10 Ml IV 10 ml BID LIBORIO Administration Sodium Chloride 10 ml 04/06/20 08:00 04/07/20 20:03 Sodium Chloride Flush Syringe 10 Ml IV 10 ml PRN PRN Administration LINE FLUSH Nutrition/Malnutrition Assess - Dietary Evaluation Nutrition/Malnutrition Findings: Nutrition Notes Start: 04/07/20 14:04 Freq: Status: Active Protocol: Document 04/07/20 14:04 LM (Rec: 04/07/20 14:09 LM [id number]) Nutrition Notes Need for Assessment generated from: MD Order Initial or Follow up Brief Note Current Diagnosis CKD (stage V CKD),COPD, Hypertension Current Diet Renal Labs/Tests Na 136 BUN 46 Cr 7.7 Pertinent Medications Reviewed Height 5 ft 9 in Weight 121 kg Cocoa Body Weight (kg) 72.72 BMI 39.4 Weight Status Obese Subjective/Other Information MD consult for malnutrition. Unable to reach pt 2x. Pt in HD. Per H&P pt is homeless. Pt with edema. Fluid Accumulation Mild (non-severe) Nutrition Intervention Follow-Up By: 04/10/20 Additional Comments F/U for assessment
[2020-04-08] MEDS: MORPHINE 4 MG/1 ML INJ IV PRN ×2 (13:37→19:59)
[2020-04-09 04:42] LABS: Hematocrit 32.2 % (35.5-45.6); Hemoglobin 10.9 gm/dl (11.8-15.2); Mean Corpuscular HGB Conc 34 % (32-34); Mean Corpuscular Volume 90 fl (84-94); Red Blood Count 3.59 M/mm3 (3.65-5.03); Red Cell Distribution Width 16.4 % (13.2-15.2)
[2020-04-09 04:46] LABS: Platelet Count 178 K/mm3 (140-440)
[2020-04-09] MEDS: ISOSORB DINIT/HYDRALAZINE 20-37.5MG TAB PO SCH ×4 (06:23→21:46)
[2020-04-09] MEDS ORDERED: DEXTROSE 50% IN WATER (25GM) 50 ML VIAL IV STA (07:15)
[2020-04-09] MEDS ORDERED: SODIUM BICARBONATE 2 MEQ/2 ML SYRINGE IV STA (07:15)
[2020-04-09] MEDS ORDERED: INSULIN NPH/REGULAR 70/30 INJ SUB-Q ONE (08:00)
[2020-04-09] MEDS ORDERED: CALCIUM GLUCONATE 1,000 MG in SODIUM CHLORIDE 0.9% 100 ML IV ONE (08:00)
[2020-04-09] MEDS ORDERED: SODIUM BICARB 8.4% 50 MEQ/50 ML SYRINGE IV ONE (08:00)
[2020-04-09] MEDS ORDERED: DEXTROSE 50% IN WATER (25GM) 50 ML SYRINGE IV ONE (08:00)
[2020-04-09] MEDS ORDERED: SODIUM POLYSTYRENE 15 GM/60 ML ORAL LIQD PO ONE (08:30)
[2020-04-09] MEDS: SENNOSIDES 8.6 MG TAB PO SCH ×2 (09:15→21:46)
[2020-04-09] MEDS: ASPIRIN 81 MG TAB CHEW PO SCH (09:15)
[2020-04-09] MEDS: carvediloL 3.125 MG TAB PO SCH ×2 (09:16→21:46)
--- NOTE | 2020-04-09 10:22 | Progress Note ---
Assessment and Plan - Patient Problems (1) End-stage renal disease needing dialysis Current Visit: Yes Status: Chronic Plan to address problem: another HD today for correction of hyperkalemia and volume control, to cont HD TTS schedule thereafter (2) Anasarca Current Visit: Yes Status: Acute Plan to address problem: he had additional HD on 04/08 with sequential UF for volume optimization (3) Hyperkalemia Current Visit: Yes Status: Chronic Plan to address problem: To dialyze with 1K bath first hour then 2K bath. Counseled on importance of low K diet. (4) Scrotal edema Current Visit: Yes Status: Acute Plan to address problem: In the setting of significant volume overload. Will monitor to see for improvement as we aggressively remove with HD and extra sequential UF sessions. (5) Pulmonary edema Current Visit: No Status: Acute Qualifiers: Chronicity: acute Qualified Code(s): J81.0 - Acute pulmonary edema Plan to address problem: Plan to have HD today with goal of 2-3L UF as tolerated. Subjective Date of service: 04/09/20 Principal diagnosis: ESRD Interval history: pt awake, alert, in no acute distress. had HD yesterday however persistent hyperkalemia noted this AM Objective - Vital Signs Vital signs: Vital Signs - 12hr 04/08/20 04/09/20 04/09/20 23:29 04:42 06:24 Temperature 98.0 F 98.0 F Pulse Rate 75 74 Respiratory 18 18 Rate Blood Pressure 97/71 98/60 98/60 O2 Sat by Pulse 100 97 Oximetry 04/09/20 04/09/20 04/09/20 07:55 09:05 09:16 Temperature 98.6 F Pulse Rate 75 71 Respiratory 20 Rate Blood Pressure 92/56 110/64 O2 Sat by Pulse 97 97 Oximetry - General Appearance General appearance: well-developed, well-nourished, appears stated age EENT: ATNC, PERRL, mucous membranes moist Neck: no JVD Respiratory: Present: Decreased Breath Sounds Cardiology: regular, S1S2 Gastrointestinal: normoactive bowel sounds Integumentary: no rash, other (+ edema ) Neurologic: no focal deficit, alert and oriented x3, strength 5/5, CN 3-12 intact Psychiatric: mood/affect appropriate, cooperative - Lab 04/09/20 03:52 04/09/20 03:52 Most recent lab results Calcium 6.0 mg/dL (8.4-10.2) L 04/09/20 03:52 Medications & Allergies - Medications Allergies/Adverse Reactions: Allergies No Known Allergies Allergy (Unverified 04/02/20 06:54) Active Medications: Generic Name Dose Route Start Last Admin Trade Name Freq PRN Reason Stop Dose Admin Acetaminophen 650 mg 04/06/20 08:00 Tylenol PO Q4H PRN Pain MILD(1-3)/Fever >100.5/MALDONADO Aspirin 81 mg 04/07/20 11:00 04/09/20 09:15 Baby Aspirin PO 81 mg QDAY LIBORIO Administration Atorvastatin Calcium 40 mg 04/06/20 22:00 04/08/20 21:30 Lipitor PO 40 mg QHS LIBORIO Administration Carvedilol 3.125 mg 04/07/20 11:00 04/09/20 09:16 Coreg PO 3.125 mg BID LIBORIO Administration Sodium Chloride 100 mls @ 999 mls/hr 04/09/20 11:00 Nacl 0.9% IV PEDRITO PRN Hypotension Isosorbide Dinitrate/Hydralazine 1 each 04/07/20 22:00 04/09/20 06:24 Bidil 20/37.5mg PO Not Given Q8HR [place] Morphine Sulfate 2 mg 04/06/20 08:00 04/08/20 09:32 Morphine IV 2 mg Q4H PRN Administration Pain, Moderate (4-6) Morphine Sulfate 4 mg 04/06/20 08:25 04/08/20 19:59 Morphine IV 4 mg Q4H PRN Administration Pain , Severe (7-10) Nitroglycerin 0.4 mg 04/06/20 08:00 Nitrostat SL Q5M PRN Chest Pain Ondansetron HCl 4 mg 04/06/20 08:00 Zofran IV Q4H PRN Nausea And Vomiting Senna 8.6 mg 04/06/20 10:00 04/09/20 09:15 Senokot PO 8.6 mg Q12HR [place]OR[place] Administration Sodium Chloride 10 ml 04/06/20 10:00 04/09/20 09:16 Sodium Chloride Flush Syringe 10 Ml IV 10 ml BID LIBORIO Administration Sodium Chloride 10 ml 04/06/20 08:00 04/07/20 20:03 Sodium Chloride Flush Syringe 10 Ml IV 10 ml PRN PRN Administration LINE FLUSH
[2020-04-09] MEDS ORDERED: SODIUM CHLORIDE 0.9% 100 ML IV PRN (11:00)
[2020-04-09] MEDS: MORPHINE 2 MG/1 ML INJ IV PRN (12:51)
--- NOTE | 2020-04-09 13:25 | Progress Note ---
Assessment and Plan Assessment and plan: Patient is a 54-year-old -[place] male presenting to the hospital complaining of shortness of breath, some chest tightness with worsening generalized scrotal swelling. 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 Patient also reports that he is homeless. Grossly noncompliant. The chest pain he reported he reports is a 3/10 in intensity only worse with lying down flat. He denies any exertional chest pain but notes exertional dyspnea. Echo reviewed EF of 20 to 25% moderate pulmonary hypertension moderate to severe tricuspid regurgitation moderate to severe mitral regurgitation 04/08/20: chest pain is resolved, respiratory rate is also improved, still with anascar and difficulty ambulating. Replace calcium, Testicular ultrasound shows just edema and mild bilateral hydrocele. possible additional dialysis today for a third day. 04/09: Continue HD, kayxalate today again for Persistent Hyperkalemia. Atypical Chest pain secondary to volume overload-pain is resolved Volume overload Pulmonary Vascular Congestion Acute on chronic systolic congestive heart failure secondary to volume overload Dilated cardiomyopathy Pronounced scrotal edema Type 2 IA ESRD on hemodialysis Hyperkalemia Generalized anasarca Hypocalcemia Left femoral permacath Anemia of chronic disease Plan: Continue HD per Nephrology Continues with a sense of entitlement and wants things done his own way. He did have dialysis done yesterday 03/07/2020 and today again. Is planned to maldonado ve dialysis tomorrow also due to severe anasarca Care for permacath discussed in detail with the patient. Compliance stressed again 50 minutes of counseling provided Scrotal support Obtain nephrology Case management for assistance considering homelessness Obtain and resume appropriate home medications Strict I's and O's and daily weights Monitor electrolytes Extensive counseling provided to the patient about need for medication compliance and health compliance in general DVT and GI prophylaxis History Interval history: Patient seen and examined this morning. Noted ambulating although with slow. No worsening symptoms Hospitalist Physical - Physical exam Narrative exam: VITAL SIGNS: Reviewed. GENERAL: The patient appears normally developed, anasarca vital signs as documented. HEAD: No signs of head trauma. EYES: Pupils are equal. Extraocular motions intact. EARS: Hearing grossly intact. MOUTH: Oropharynx is normal. NECK: No adenopathy, no JVD. CHEST: Chest with clear breath sounds bilaterally. No wheezes, rales, or rhonchi. CARDIAC: Regular rate and rhythm. S1 and S2, without murmurs, gallops, or rubs. VASCULAR: +Edema. Peripheral pulses normal and equal in all extremities. ABDOMEN: Soft, non tender and non distended. No rebound or guarding, and no masses palpated. Bowel Sounds normal. MUSCULOSKELETAL: Left femoral line. enlarged scrotum but nontender no erythema. Good range of motion of all major joints. Extremities without clubbing, c yanosis. + edema. NEUROLOGIC EXAM: Alert and oriented x 3 No focal sensory or strength deficits . Speech normal. Follows commands. PSYCHIATRIC: Mood normal. SKIN: detail exam as documented in skin assessment - Constitutional Vitals: Temp Pulse Resp BP Pulse Ox 98.6 F 72 16 102/60 100 04/09/20 11:13 04/09/20 12:00 04/09/20 12:51 04/09/20 11:13 04/09/20 11:13 HEART Score - HEART Score EKG: Non-specific Age: 45-65 Risk factors: 1-2 risk factors Troponin: Troponin T 0.069 ng/mL (0.00-0.029) H 04/06/20 02:16 Troponin: 1-3x normal limit - Critical Actions Critical Actions: 4-6 pts:12-16.6% risk of adverse cardiac event. Should be admitted Results - Labs CBC & Chem 7: 04/09/20 03:52 04/09/20 03:52 Labs: Laboratory Last Values WBC 4.6 K/mm3 (4.5-11.0) 04/09/20 03:52 RBC 3.59 M/mm3 (3.65-5.03) L 04/09/20 03:52 Hgb 10.9 gm/dl (11.8-15.2) L 04/09/20 03:52 Hct 32.2 % (35.5-45.6) L 04/09/20 03:52 MCV 90 fl (84-94) 04/09/20 03:52 MCH 31 pg (28-32) 04/09/20 03:52 MCHC 34 % (32-34) 04/09/20 03:52 RDW 16.4 % (13.2-15.2) H 04/09/20 03:52 Plt Count 178 K/mm3 (140-440) 04/09/20 03:52 Lymph % (Auto) 11.3 % (13.4-35.0) L 04/07/20 04:47 Parke % (Auto) 8.0 % (0.0-7.3) H 04/07/20 04:47 Eos % (Auto) 5.4 % (0.0-4.3) H 04/07/20 04:47 Baso % (Auto) 0.6 % (0.0-1.8) 04/07/20 04:47 Lymph # 0.5 K/mm3 (1.2-5.4) L 04/07/20 04:47 Parke # 0.4 K/mm3 (0.0-0.8) 04/07/20 04:47 Eos # 0.2 K/mm3 (0.0-0.4) 04/07/20 04:47 Baso # 0.0 K/mm3 (0.0-0.1) 04/07/20 04:47 Seg Neutrophils % 74.7 % (40.0-70.0) H 04/07/20 04:47 Seg Neutrophils # 3.4 K/mm3 (1.8-7.7) 04/07/20 04:47 Sodium 124 mmol/L (137-145) L D 04/09/20 03:52 Potassium 6.1 mmol/L (3.6-5.0) H* 04/09/20 03:52 Chloride 89.4 mmol/L (98-107) L 04/09/20 03:52 Carbon Dioxide 18 mmol/L (22-30) L 04/09/20 03:52 Anion Gap 23 mmol/L 04/09/20 03:52 BUN 37 mg/dL (9-20) H 04/09/20 03:52 Creatinine 6.3 mg/dL (0.8-1.5) H 04/09/20 03:52 Estimated GFR 11 ml/min 04/09/20 03:52 BUN/Creatinine Ratio 6 % 04/09/20 03:52 Glucose 87 mg/dL (75-100) 04/09/20 03:52 Calcium 6.0 mg/dL (8.4-10.2) L 04/09/20 03:52 Total Bilirubin 0.30 mg/dL (0.1-1.2) 04/06/20 02:23 AST 16 units/L (5-40) 04/06/20 02:23 ALT 13 units/L (7-56) 04/06/20 02:23 Alkaline Phosphatase 89 units/L (35-129) 04/06/20 02:23 Troponin T 0.069 ng/mL (0.00-0.029) H 04/06/20 02:16 Total Protein 7.6 g/dL (6.3-8.2) 04/06/20 02:23 Albumin 3.9 g/dL (3.9-5) 04/06/20 02:23 Albumin/Globulin Ratio 1.1 % 04/06/20 02:23 Triglycerides 55 mg/dL (2-149) 04/06/20 02:16 Cholesterol 114 mg/dL (50-199) 04/06/20 02:16 LDL Cholesterol Direct 67 mg/dL (50-130) 04/06/20 02:16 HDL Cholesterol 45 mg/dL (40-59) 04/06/20 02:16 Cholesterol/HDL Ratio 2.53 % 04/06/20 02:16 Nasal Screen MRSA (PCR) Negative (Negative) 04/07/20 04:25 - Diagnostic Impressions Diagnostic Impressions: Echocardiogram 04/06/20 12:31 Transthoracic Echocardiogram Conclusions *4-chamber dilated cardiomyopathy. *Global left ventricular systolic function is severely decreased. *The estimated ejection fraction is 20-25%. *Mild concentric left ventricular hypertrophy is observed. *There is moderate to severe mitral regurgitation. *There is moderate to severe tricuspid regurgitation. *There is at least moderate pulmonary hypertension. *The right ventricular systolic pressure is calculated at 52 mmHg. Findings Left Ventricle: The left ventricular chamber size is moderately dilated. Mild concentric left ventricular hypertrophy is observed. Global left ventricular systolic function is severely decreased. The estimated ejection fraction is 20-25%. Left Atrium: The left atrium is moderately dilated. Right Ventricle: The right ventricle is mildly dilated. Right Atrium: The right atrium is mildly dilated. Aortic Valve: The aortic valve is trileaflet. The aortic valve leaflets are mildly thickened. There is no evidence of aortic regurgitation. There is no evidence of aortic stenosis. Mitral Valve: The mitral valve leaflets are mildly thickened. There is moderate to severe mitral regurgitation. There is no evidence of mitral stenosis. Tricuspid Valve: The tricuspid valve leaflets are normal. There is moderate to severe tricuspid regurgitation. The right ventricular systolic pressure is calculated at 52 mmHg. There is evidence of moderate pulmonary hypertension. Pulmonic Valve: There is mild pulmonic regurgitation. Pericardium: There is no pericardial effusion. Aorta: There is no dilatation of the ascending aorta. There is no dilatation of the aortic root. Venous: The inferior vena cava appears normal in size. Measurements Chambers 2D Name Value Normal Range IVSd (2D) 0.83 cm (0.6 - 1.1) LVPWd (2D) 0.85 cm (0.6 - 1.1) LVIDd (2D) 6.33 cm (3.7 - 5.6) LVIDs (2D) 5.16 cm (2 - 3.8) LV FS (2D) 18.42 % - EF Teichholz (2D) 37.34 % - Ao root diameter (2D) 3.66 cm (2 - 3.7) Volumes/Mass Name Value Normal Range LA ESV SP 4CH (A/L) 63.31 ml - LA ESV SP 2CH (A/L) 64.57 ml - LA ESV BP (A/L) 66.59 ml - LA ESV SP 4CH (MOD) 59.55 ml - LA ESV SP 2CH (MOD) 60.41 ml - Diastolic/Systolic Function Name Value Normal Range MV E-wave Vmax 1.38 m/sec - MV deceleration time 182.92 msec - MV A-wave Vmax 0.54 m/sec - MV E:A ratio 2.53 ratio - Aortic Valve Name Value Normal Range AV Vmax 1.17 m/sec - AV VTI 21.79 cm - AV peak gradient 5.49 mmHg - AV mean gradient 2.87 mmHg - LVOT diameter 2.05 cm - LVOT Vmax 0.7 m/sec - LVOT VTI 16.23 cm - LVOT peak gradient 1.94 mmHg - LVOT mean gradient 1.11 mmHg - SV LVOT 53.42 ml - MICH (continuity Vmax) 1.96 cm2 - MICH (continuity VTI) 2.45 cm2 - Mitral Valve Name Value Normal Range MR Vmax 4.03 m/sec - MR VTI 120.84 cm - Tricuspid Valve Name Value Normal Range TR Vmax 3.32 m/sec - TR peak gradient 44.07 mmHg - RVSP 52 mmHg - IVC diameter 2.01 cm (1.2 - 2.3) Pulmonic Valve/Qp:Qs Name Value Normal Range PV Vmax 0.87 m/sec - PV peak gradient 3.05 mmHg - FL end-diastolic Vmax 1.22 m/sec - PV acceleration time 102.76 msec - Lee/IV: Voiding Method Toilet IV Catheter Type [Right Hand] INT / Saline Lock IV Catheter Type [Left Leg] INT / Saline Lock Active Medications - Current Medications Current Medications: Generic Name Dose Route Start Last Admin Trade Name Freq PRN Reason Stop Dose Admin Acetaminophen 650 mg 04/06/20 08:00 Tylenol PO Q4H PRN Pain MILD(1-3)/Fever >100.5/MALDONADO Aspirin 81 mg 04/07/20 11:00 04/09/20 09:15 Baby Aspirin PO 81 mg QDAY LIBORIO Administration Atorvastatin Calcium 40 mg 04/06/20 22:00 04/08/20 21:30 Lipitor PO 40 mg QHS LIBORIO Administration Carvedilol 3.125 mg 04/07/20 11:00 04/09/20 09:16 Coreg PO 3.125 mg BID LIBORIO Administration Sodium Chloride 100 mls @ 999 mls/hr 04/09/20 11:00 Nacl 0.9% IV PEDRITO PRN Hypotension Isosorbide Dinitrate/Hydralazine 1 each 04/07/20 22:00 04/09/20 06:24 Bidil 20/37.5mg PO Not Given Q8HR LIBORIO Morphine Sulfate 2 mg 04/06/20 08:00 04/09/20 12:51 Morphine IV 2 mg Q4H PRN Administration Pain, Moderate (4-6) Morphine Sulfate 4 mg 04/06/20 08:25 04/08/20 19:59 Morphine IV 4 mg Q4H PRN Administration Pain , Severe (7-10) Nitroglycerin 0.4 mg 04/06/20 08:00 Nitrostat SL Q5M PRN Chest Pain Ondansetron HCl 4 mg 04/06/20 08:00 Zofran IV Q4H PRN Nausea And Vomiting Senna 8.6 mg 04/06/20 10:00 04/09/20 09:15 Senokot PO 8.6 mg Q12HR LIBORIO Administration Sodium Chloride 10 ml 04/06/20 10:00 04/09/20 09:16 Sodium Chloride Flush Syringe 10 Ml IV 10 ml BID LIBORIO Administration Sodium Chloride 10 ml 04/06/20 08:00 04/07/20 20:03 Sodium Chloride Flush Syringe 10 Ml IV 10 ml PRN PRN Administration LINE FLUSH Nutrition/Malnutrition Assess - Dietary Evaluation Nutrition/Malnutrition Findings: Nutrition Notes Start: 04/07/20 14:04 Freq: Status: Active Protocol: Document 04/07/20 14:04 LM (Rec: 04/07/20 14:09 LM [id number]) Nutrition Notes Need for Assessment generated from: MD Order Initial or Follow up Brief Note Current Diagnosis CKD (stage V CKD),COPD, Hypertension Current Diet Renal Labs/Tests Na 136 BUN 46 Cr 7.7 Pertinent Medications Reviewed Height 5 ft 9 in Weight 121 kg [place] Body Weight (kg) 72.72 BMI 39.4 Weight Status Obese Subjective/Other Information MD consult for malnutrition. Unable to reach pt 2x. Pt in HD. Per H&P pt is homeless. Pt with edema. Fluid Accumulation Mild (non-severe) Nutrition Intervention Follow-Up By: 04/10/20 Additional Comments F/U for assessment
--- NOTE | 2020-04-09 16:24 | Progress Note ---
Assessment and Plan - Patient Problems (1) Acute on chronic systolic heart failure Current Visit: Yes Status: Acute Plan to address problem: The patient has chronic systolic left ventricular failure, currently his ejection fraction is 20 to 25%. Heart failure was exacerbated by several missed dialysis sessions. Before engaging in further ischemic work-up, we will request the medical records from [place], to review any recent cardiac ischemic work-up. Subjective Date of service: 04/09/20 Principal diagnosis: ESRD Interval history: The patient is comfortable, reports persistence of scrotal edema, but shortness of breath has improved. He now remembers that within the past 6 months he had what appears to have been a pharmacologic stress test with myocardial perfusion imaging at [place], in response to his diagnosis of congestive heart failure. Objective Vital Signs Temp Pulse Pulse Resp BP Pulse Ox 04/09/20 14:59 75 120/74 04/09/20 13:21 14 04/09/20 12:51 16 04/09/20 12:00 72 04/09/20 11:13 98.6 F 78 18 102/60 100 04/09/20 10:00 79 17 97 04/09/20 09:16 71 110/64 04/09/20 09:05 97 04/09/20 07:55 98.6 F 75 20 92/56 97 04/09/20 06:24 98/60 04/09/20 04:42 98.0 F 74 18 98/60 97 04/08/20 23:29 98.0 F 75 18 97/71 100 04/08/20 22:00 83 18 99 04/08/20 21:00 78 04/08/20 19:56 98.0 F 83 18 108/68 99 - Physical Examination General: No Apparent Distress HEENT: Positive: PERRL Neck: Positive: neck supple Cardiac: Positive: Reg Rate and Rhythm Lungs: Positive: Decreased Breath Sounds Neuro: Positive: Grossly Intact Abdomen: Positive: Soft Skin: Positive: Clear Extremities: Present: +2 Edema - Labs and Meds CBC 04/09/20 Range/Units 03:52 WBC 4.6 (4.5-11.0) K/mm3 RBC 3.59 L (3.65-5.03) M/mm3 Hgb 10.9 L (11.8-15.2) gm/dl Hct 32.2 L (35.5-45.6) % Plt Count 178 (140-440) K/mm3 Comprehensive Metabolic Panel 04/09/20 Range/Units 03:52 Sodium 124 L D (137-145) mmol/L Potassium 6.1 H* (3.6-5.0) mmol/L Chloride 89.4 L (98-107) mmol/L Carbon Dioxide 18 L (22-30) mmol/L BUN 37 H (9-20) mg/dL Creatinine 6.3 H (0.8-1.5) mg/dL Glucose 87 (75-100) mg/dL Calcium 6.0 L (8.4-10.2) mg/dL
[2020-04-09] MEDS: MORPHINE 4 MG/1 ML INJ IV PRN (21:47)
[2020-04-10] MEDS: MORPHINE 2 MG/1 ML INJ IV PRN ×2 (03:29→10:00)
[2020-04-10] MEDS: ISOSORB DINIT/HYDRALAZINE 20-37.5MG TAB PO SCH ×3 (05:40→21:16)
[2020-04-10 06:21] LABS: Calcium 5.6 mg/dL (8.4-10.2)
[2020-04-10] MEDS ORDERED: CALCIUM GLUCONATE 2,000 MG in SODIUM CHLORIDE 0.9% 100 ML IV ONE (06:29)
[2020-04-10] MEDS: carvediloL 3.125 MG TAB PO SCH ×3 (08:54→21:17)
[2020-04-10] MEDS: SENNOSIDES 8.6 MG TAB PO SCH ×3 (08:54→21:17)
[2020-04-10] MEDS: ASPIRIN 81 MG TAB CHEW PO SCH ×2 (08:54→09:03)
--- NOTE | 2020-04-10 09:01 | Progress Note ---
Assessment and Plan Assessment and plan: Patient is a 54-year-old -[place] male presenting to the hospital complaining of shortness of breath, some chest tightness with worsening generalized scrotal swelling. The patient with underlying history of hypertension, congestive heart failure, COPD end-stage renal disease unfortunately does not follow with any regional extension service specialist last dialysis was done at this hospital before that it was done at [facility]. Patient also reports that he is homeless. Grossly noncompliant. The chest pain he reported he reports is a 3/10 in intensity only worse with lying down flat. He denies any exertional chest pain but notes exertional dyspnea. Echo reviewed EF of 20 to 25% moderate pulmonary hypertension moderate to severe tricuspid regurgitation moderate to severe mitral regurgitation 04/08/20: chest pain is resolved, respiratory rate is also improved, still with anascar and difficulty ambulating. Replace calcium, Testicular ultrasound shows just edema and mild bilateral hydrocele. possible additional dialysis today for a third day. 04/09: Continue HD, kayxalate today again for Persistent 04/10: Patient continues with refractory hypocalcemia despite multiple replacement on dialysis today receiving calcium gluconate. Also with persistent hyperkalemia will continue with management of dialysis. Patient has had 3 straight days of dialysis will discuss with nephrology if additional will be done today to help with his severe anasarca. Cardiology is awaiting records [facility] to plan for any other ischemic work-up. Due to electrolyte abnormalities patient continues to require inpatient care Atypical Chest pain secondary to volume overload-pain is resolved Volume overload Pulmonary Vascular Congestion Acute on chronic systolic congestive heart failure secondary to volume overload Dilated cardiomyopathy Pronounced scrotal edema Type 2 GA ESRD on hemodialysis Hyperkalemia Generalized anasarca Hypocalcemia Left femoral permacath Anemia of chronic disease Plan: Continue HD per Nephrology Continues with a sense of entitlement and wants things done his own way. He did have dialysis done yesterday 03/07/2020 and today again. Is planned to have dialysis tomorrow also due to severe anasarca Care for permacath discussed in detail with the patient. Compliance stressed again 50 minutes of counseling provided Scrotal support Obtain nephrology Case management for assistance considering homelessness Obtain and resume appropriate home medications Strict I's and O's and daily weights Monitor electrolytes Extensive counseling provided to the patient about need for medication compliance and health compliance in general DVT and GI prophylaxis History Interval history: Patient seen and examined this morning no new complaints. Hospitalist Physical - Physical exam Narrative exam: VITAL SIGNS: Reviewed. GENERAL: The patient appears normally developed, anasarca vital signs as documented. HEAD: No signs of head trauma. EYES: Pupils are equal. Extraocular motions intact. EARS: Hearing grossly intact. MOUTH: Oropharynx is normal. NECK: No adenopathy, no JVD. CHEST: Chest with clear breath sounds bilaterally. No wheezes, rales, or rhonchi. CARDIAC: Regular rate and rhythm. S1 and S2, without murmurs, gallops, or rubs. VASCULAR: +Edema. Peripheral pulses normal and equal in all extremities. ABDOMEN: Soft, non tender and non distended. No rebound or guarding, and no masses palpated. Bowel Sounds normal. MUSCULOSKELETAL: Left femoral line. enlarged scrotum but nontender no erythema. Good range of motion of all major joints. Extremities without clubbing, cyanosis. + edema. NEUROLOGIC EXAM: Alert and oriented x 3 No focal sensory or strength deficits. Speech normal. Follows commands. PSYCHIATRIC: Mood normal. SKIN: detail exam as documented in skin assessment - Constitutional Vitals: Temp Pulse Resp BP Pulse Ox 98.1 F 72 21 119/80 100 04/10/20 07:51 04/10/20 07:51 04/10/20 07:51 04/10/20 07:51 04/10/20 07:51 HEART Score - HEART Score EKG: Non-specific Age: 45-65 Risk factors: 1-2 risk factors Troponin: Troponin T 0.069 ng/mL (0.00-0.029) H 04/06/20 02:16 Troponin: 1-3x normal limit - Critical Actions Critical Actions: 4-6 pts:12-16.6% risk of adverse cardiac event. Should be admitted Results - Labs CBC & Chem 7: 04/09/20 03:52 04/10/20 05:24 Labs: Laboratory Last Values WBC 4.6 K/mm3 (4.5-11.0) 04/09/20 03:52 RBC 3.59 M/mm3 (3.65-5.03) L 04/09/20 03:52 Hgb 10.9 gm/dl (11.8-15.2) L 04/09/20 03:52 Hct 32.2 % (35.5-45.6) L 04/09/20 03:52 MCV 90 fl (84-94) 04/09/20 03:52 MCH 31 pg (28-32) 04/09/20 03:52 MCHC 34 % (32-34) 04/09/20 03:52 RDW 16.4 % (13.2-15.2) H 04/09/20 03:52 Plt Count 178 K/mm3 (140-440) 04/09/20 03:52 Lymph % (Auto) 11.3 % (13.4-35.0) L 04/07/20 04:47 [place] % (Auto) 8.0 % (0.0-7.3) H 04/07/20 04:47 Eos % (Auto) 5.4 % (0.0-4.3) H 04/07/20 04:47 Baso % (Auto) 0.6 % (0.0-1.8) 04/07/20 04:47 Lymph # 0.5 K/mm3 (1.2-5.4) L 04/07/20 04:47 [place] # 0.4 K/mm3 (0.0-0.8) 04/07/20 04:47 Eos # 0.2 K/mm3 (0.0-0.4) 04/07/20 04:47 Baso # 0.0 K/mm3 (0.0-0.1) 04/07/20 04:47 Seg Neutrophils % 74.7 % (40.0-70.0) H 04/07/20 04:47 Seg Neutrophils # 3.4 K/mm3 (1.8-7.7) 04/07/20 04:47 Sodium 129 mmol/L (137-145) L 04/10/20 05:24 Potassium 5.4 mmol/L (3.6-5.0) H 04/10/20 05:24 Chloride 88.9 mmol/L (98-107) L 04/10/20 05:24 Carbon Dioxide 25 mmol/L (22-30) D 04/10/20 05:24 Anion Gap 21 mmol/L 04/10/20 05:24 BUN 48 mg/dL (9-20) H 04/10/20 05:24 Creatinine 7.6 mg/dL (0.8-1.5) H 04/10/20 05:24 Estimated GFR 9 ml/min 04/10/20 05:24 BUN/Creatinine Ratio 6 % 04/10/20 05:24 Glucose 110 mg/dL (75-100) H 04/10/20 05:24 Calcium 5.6 mg/dL (8.4-10.2) L* 04/10/20 05:24 Total Bilirubin 0.30 mg/dL (0.1-1.2) 04/06/20 02:23 AST 16 units/L (5-40) 04/06/20 02:23 ALT 13 units/L (7-56) 04/06/20 02:23 Alkaline Phosphatase 89 units/L (35-129) 04/06/20 02:23 Troponin T 0.069 ng/mL (0.00-0.029) H 04/06/20 02:16 Total Protein 7.6 g/dL (6.3-8.2) 04/06/20 02:23 Albumin 3.9 g/dL (3.9-5) 04/06/20 02:23 Albumin/Globulin Ratio 1.1 % 04/06/20 02:23 Triglycerides 55 mg/dL (2-149) 04/06/20 02:16 Cholesterol 114 mg/dL (50-199) 04/06/20 02:16 LDL Cholesterol Direct 67 mg/dL (50-130) 04/06/20 02:16 HDL Cholesterol 45 mg/dL (40-59) 04/06/20 02:16 Cholesterol/HDL Ratio 2.53 % 04/06/20 02:16 Nasal Screen MRSA (PCR) Negative (Negative) 04/07/20 04:25 - Diagnostic Impressions Diagnostic Impressions: Echocardiogram 04/06/20 12:31 Transthoracic Echocardiogram Conclusions *4-chamber dilated cardiomyopathy. *Global left ventricular systolic function is severely decreased. *The estimated ejection fraction is 20-25%. *Mild concentric left ventricular hypertrophy is observed. *There is moderate to severe mitral regurgitation. *There is moderate to severe tricuspid regurgitation. *There is at least moderate pulmonary hypertension. *The right ventricular systolic pressure is calculated at 52 mmHg. Findings Left Ventricle: The left ventricular chamber size is moderately dilated. Mild concentric left ventricular hypertrophy is observed. Global left ventricular systolic function is severely decreased. The estimated ejection fraction is 20-25%. Left Atrium: The left atrium is moderately dilated. Right Ventricle: The right ventricle is mildly dilated. Right Atrium: The right atrium is mildly dilated. Aortic Valve: The aortic valve is trileaflet. The aortic valve leaflets are mildly thickened. There is no evidence of aortic regurgitation. There is no evidence of aortic stenosis. Mitral Valve: The mitral valve leaflets are mildly thickened. There is moderate to severe mitral regurgitation. There is no evidence of mitral stenosis. Tricuspid Valve: The tricuspid valve leaflets are normal. There is moderate to severe tricuspid regurgitation. The right ventricular systolic pressure is calculated at 52 mmHg. There is evidence of moderate pulmonary hypertension. Pulmonic Valve: There is mild pulmonic regurgitation. Pericardium: There is no pericardial effusion. Aorta: There is no dilatation of the ascending aorta. There is no dilatation of the aortic root. Venous: The inferior vena cava appears normal in size. Measurements Chambers 2D Name Value Normal Range IVSd (2D) 0.83 cm (0.6 - 1.1) LVPWd (2D) 0.85 cm (0.6 - 1.1) LVIDd (2D) 6.33 cm (3.7 - 5.6) LVIDs (2D) 5.16 cm (2 - 3.8) LV FS (2D) 18.42 % - EF Teichholz (2D) 37.34 % - Ao root diameter (2D) 3.66 cm (2 - 3.7) Volumes/Mass Name Value Normal Range LA ESV SP 4CH (A/L) 63.31 ml - LA ESV SP 2CH (A/L) 64.57 ml - LA ESV BP (A/L) 66.59 ml - LA ESV SP 4CH (MOD) 59.55 ml - LA ESV SP 2CH (MOD) 60.41 ml - Diastolic/Systolic Function Name Value Normal Range MV E-wave Vmax 1.38 m/sec - MV deceleration time 182.92 msec - MV A-wave Vmax 0.54 m/sec - MV E:A ratio 2.53 ratio - Aortic Valve Name Value Normal Range AV Vmax 1.17 m/sec - AV VTI 21.79 cm - AV peak gradient 5.49 mmHg - AV mean gradient 2.87 mmHg - LVOT diameter 2.05 cm - LVOT Vmax 0.7 m/sec - LVOT VTI 16.23 cm - LVOT peak gradient 1.94 mmHg - LVOT mean gradient 1.11 mmHg - SV LVOT 53.42 ml - MICH (continuity Vmax) 1.96 cm2 - MICH (continuity VTI) 2.45 cm2 - Mitral Valve Name Value Normal Range MR Vmax 4.03 m/sec - MR VTI 120.84 cm - Tricuspid Valve Name Value Normal Range TR Vmax 3.32 m/sec - TR peak gradient 44.07 mmHg - RVSP 52 mmHg - IVC diameter 2.01 cm (1.2 - 2.3) Pulmonic Valve/Qp:Qs Name Value Normal Range PV Vmax 0.87 m/sec - PV peak gradient 3.05 mmHg - CO end-diastolic Vmax 1.22 m/sec - PV acceleration time 102.76 msec - Lee/IV: Voiding Method Toilet IV Catheter Type [Right Hand] INT / Saline Lock IV Catheter Type [Left Leg] INT / Saline Lock Active Medications - Current Medications Current Medications: Generic Name Dose Route Start Last Admin Trade Name Freq PRN Reason Stop Dose Admin Acetaminophen 650 mg 04/06/20 08:00 Tylenol PO Q4H PRN Pain MILD(1-3)/Fever >100.5/MALDONADO Aspirin 81 mg 04/07/20 11:00 04/10/20 08:54 Baby Aspirin PO 81 mg QDAY LIBOROI Administration Atorvastatin Calcium 40 mg 04/06/20 22:00 04/09/20 21:46 Lipitor PO 40 mg QHS LIBORIO Administration Carvedilol 3.125 mg 04/07/20 11:00 04/10/20 08:54 Coreg PO 3.125 mg BID LIBORIO Administration Sodium Chloride 100 mls @ 999 mls/hr 04/09/20 11:00 Nacl 0.9% IV PEDRITO PRN Hypotension Isosorbide Dinitrate/Hydralazine 1 each 04/07/20 22:00 04/10/20 05:40 Bidil 20/37.5mg PO Not Given Q8HR LIBORIO Morphine Sulfate 2 mg 04/06/20 08:00 04/10/20 03:29 Morphine IV 2 mg Q4H PRN Administration Pain, Moderate (4-6) Morphine Sulfate 4 mg 04/06/20 08:25 04/09/20 21:47 Morphine IV 4 mg Q4H PRN Administration Pain , Severe (7-10) Nitroglycerin 0.4 mg 04/06/20 08:00 Nitrostat SL Q5M PRN Chest Pain Ondansetron HCl 4 mg 04/06/20 08:00 Zofran IV Q4H PRN Nausea And Vomiting Senna 8.6 mg 04/06/20 10:00 04/10/20 08:54 Senokot PO 8.6 mg Q12HR LIBORIO Administration Sodium Chloride 10 ml 04/06/20 10:00 04/10/20 08:54 Sodium Chloride Flush Syringe 10 Ml IV 10 ml BID LIBORIO Administration Sodium Chloride 10 ml 04/06/20 08:00 04/07/20 20:03 Sodium Chloride Flush Syringe 10 Ml IV 10 ml PRN PRN Administration LINE FLUSH Nutrition/Malnutrition Assess - Dietary Evaluation Nutrition/Malnutrition Findings: Nutrition Notes Start: 04/07/20 14:04 Freq: Status: Active Protocol: Document 04/07/20 14:04 LM (Rec: 04/07/20 14:09 LM [id number]) Nutrition Notes Need for Assessment generated from: MD Order Initial or Follow up Brief Note Current Diagnosis CKD (stage V CKD),COPD, Hypertension Current Diet Renal Labs/Tests Na 136 BUN 46 Cr 7.7 Pertinent Medications Reviewed Height 5 ft 9 in Weight 121 kg [place] Body Weight (kg) 72.72 BMI 39.4 Weight Status Obese Subjective/Other Information MD consult for malnutrition. Unable to reach pt 2x. Pt in HD. Per H&P pt is homeless. Pt with edema. Fluid Accumulation Mild (non-severe) Nutrition Intervention Follow-Up By: 04/10/20 Additional Comments F/U for assessment
--- NOTE | 2020-04-10 10:50 | Progress Note ---
Assessment and Plan - Patient Problems (1) Acute on chronic systolic heart failure Current Visit: Yes Status: Acute Plan to address problem: fluid removal on dialysis. Continue beta-blockerand nitrates. (2) Anasarca Current Visit: Yes Status: Acute Plan to address problem: fluid removal on dialysis again today. Should be okay to discharge from renal standpoint after dialysis. Counseled the patient about adherence. (3) End-stage renal disease needing dialysis Current Visit: Yes Status: Chronic Plan to address problem: Hemodialysis again today. (4) Pulmonary edema Current Visit: No Status: Acute Qualifiers: Chronicity: acute Qualified Code(s): J81.0 - Acute pulmonary edema Plan to address problem: improved with fluid removal on dialysis. Subjective Date of service: 04/10/20 Principal diagnosis: ESRD Interval history: patient seen sitting up in bed. Having his breakfast. Denies any complaints. No chest pain or shortness of breath. Feels better Objective - Exam Narrative Exam: middle-aged -Citizen Of [place] male sitting up in bed in no acute distress HEENT: Normocephalic atraumatic, pupils equal round reactive to light Normal oropharynx, Neck: Supple, no venous distention, no goiter CVS: S1S2 RRR No murmur, No rub or gallop Lungs: Clear to auscultation, no use of accessory muscles of respiration Abdomen: Full, soft, nontender, no organomegaly no bruit, bowel sounds are present Extremities: 2+ pitting edema, no cyanosis or clubbing Urinary: Deferred Musculo-skeletal: No joint deformities or swelling Neuro: Awake, alert, no focal deficits - Vital Signs Vital signs: Vital Signs - 12hr 04/09/20 04/10/20 04/10/20 23:09 04:20 04:25 Temperature 98.0 F 98.0 F Pulse Rate 77 76 83 Respiratory 18 18 Rate Blood Pressure 108/72 98/65 O2 Sat by Pulse 96 100 Oximetry 04/10/20 04/10/20 04/10/20 05:40 07:51 09:37 Temperature 98.1 F Pulse Rate 72 Respiratory 21 Rate Blood Pressure 98/65 119/80 O2 Sat by Pulse 100 98 Oximetry - Lab 04/09/20 03:52 04/10/20 05:24 Most recent lab results Calcium 5.6 mg/dL (8.4-10.2) L* 04/10/20 05:24 Medications & Allergies - Medications Allergies/Adverse Reactions: Allergies No Known Allergies Allergy (Unverified 04/02/20 06:54) Active Medications: Generic Name Dose Route Start Last Admin Trade Name Freq PRN Reason Stop Dose Admin Acetaminophen 650 mg 04/06/20 08:00 Tylenol PO Q4H PRN Pain MILD(1-3)/Fever >100.5/MALDONADO Aspirin 81 mg 04/07/20 11:00 04/10/20 09:03 Baby Aspirin PO Not Given QDAY [facility] Atorvastatin Calcium 40 mg 04/06/20 22:00 04/09/20 21:46 Lipitor PO 40 mg QHS LIBORIO Administration Carvedilol 3.125 mg 04/07/20 11:00 04/10/20 10:02 Coreg PO Not Given BID [facility] Sodium Chloride 100 mls @ 999 mls/hr 04/09/20 11:00 Nacl 0.9% IV PEDRITO PRN Hypotension Isosorbide Dinitrate/Hydralazine 1 each 04/07/20 22:00 04/10/20 05:40 Bidil 20/37.5mg PO Not Given Q8HR [facility] Morphine Sulfate 2 mg 04/06/20 08:00 04/10/20 10:00 Morphine IV 2 mg Q4H PRN Administration Pain, Moderate (4-6) Morphine Sulfate 4 mg 04/06/20 08:25 04/09/20 21:47 Morphine IV 4 mg Q4H PRN Administration Pain , Severe (7-10) Nitroglycerin 0.4 mg 04/06/20 08:00 Nitrostat SL Q5M PRN Chest Pain Ondansetron HCl 4 mg 04/06/20 08:00 Zofran IV Q4H PRN Nausea And Vomiting Senna 8.6 mg 04/06/20 10:00 04/10/20 10:03 Senokot PO Not Given Q12HR [facility] Sodium Chloride 10 ml 04/06/20 10:00 04/10/20 10:03 Sodium Chloride Flush Syringe 10 Ml IV Not Given BID LIBORIO Sodium Chloride 10 ml 04/06/20 08:00 04/07/20 20:03 Sodium Chloride Flush Syringe 10 Ml IV 10 ml PRN PRN Administration LINE FLUSH
--- NOTE | 2020-04-10 11:31 | Progress Note ---
Assessment and Plan Elevated troponin, nonspecific likely in the setting of renal failure Volume overload End stage renal disease Dilated Cardiomyopathy, hx per pt an echo this admission reports a 4 chamber dilated cardiomyopathy. There is at least moderate MR, at least moderate TR and moderate pulmonary hypertension, RSVP 52 mmHg. LVEF 20-25%. unable to retrieve cardiac records from [place]. Dialysis for fluid management. Continue medical management for dilated cardiomyopathy as tolerated. Subjective Date of service: 04/10/20 Principal diagnosis: ESRD Interval history: Patient is resting in bed comfortably. No distress noted. For planned dialysis today. Unable to retrieve cardiac records from [place]. Objective Vital Signs Temp Pulse Pulse Resp BP Pulse Ox 04/10/20 09:37 98 04/10/20 07:51 98.1 F 72 21 119/80 100 04/10/20 05:40 98/65 04/10/20 04:25 83 04/10/20 04:20 98.0 F 76 18 98/65 100 04/09/20 23:09 98.0 F 77 18 108/72 96 04/09/20 22:00 73 18 100 04/09/20 19:37 72 04/09/20 19:36 98.0 F 73 18 104/67 100 04/09/20 15:36 97.9 F 85 18 122/73 98 04/09/20 15:00 120/74 04/09/20 14:59 75 120/74 04/09/20 13:21 14 04/09/20 12:51 16 04/09/20 12:00 72 - Physical Examination General: No Apparent Distress HEENT: Positive: PERRL Neck: Positive: neck supple Cardiac: Positive: Reg Rate and Rhythm Neuro: Positive: Grossly Intact Extremities: Present: +1 Edema - Labs and Meds Comprehensive Metabolic Panel 04/10/20 Range/Units 05:24 Sodium 129 L (137-145) mmol/L Potassium 5.4 H (3.6-5.0) mmol/L Chloride 88.9 L (98-107) mmol/L Carbon Dioxide 25 D (22-30) mmol/L BUN 48 H (9-20) mg/dL Creatinine 7.6 H (0.8-1.5) mg/dL Glucose 110 H (75-100) mg/dL Calcium 5.6 L* (8.4-10.2) mg/dL
[2020-04-10 20:01] LABS: Hepatitis B Surface Antigen Non-Reactive (Negative); Hepatitis C Virus Antibody Non-Reactive (NonReactive)
[2020-04-11] MEDS: MORPHINE 2 MG/1 ML INJ IV PRN ×2 (01:13→09:40)
[2020-04-11] MEDS: ISOSORB DINIT/HYDRALAZINE 20-37.5MG TAB PO SCH ×3 (06:03→21:47)
--- NOTE | 2020-04-11 08:44 | Progress Note ---
Assessment and Plan - Patient Problems (1) Acute on chronic systolic heart failure Current Visit: Yes Status: Acute Plan to address problem: fluid removal on dialysis. Continue beta-al and nitrates. (2) Anasarca Current Visit: Yes Status: Acute Plan to address problem: Daily dialysis. May need to consider evaluating for IVC stenosis. Counseled th e patient about adherence. (3) End-stage renal disease needing dialysis Current Visit: Yes Status: Chronic Plan to address problem: Hemodialysis again today. (4) Pulmonary edema Current Visit: No Status: Acute Qualifiers: Chronicity: acute Qualified Code(s): J81.0 - Acute pulmonary edema Plan to address problem: improved with fluid removal on dialysis. Subjective Date of service: 04/11/20 Principal diagnosis: ESRD Interval history: patient seen sitting up in bed. Still complains of swelling especially in the scrotum. "Something is wrong Doc". No chest pain or shortness of breath. Objective - Exam Narrative Exam: middle-aged -[place] male sitting up in bed in no acute distress HEENT: Normocephalic atraumatic, pupils equal round reactive to light Normal oropharynx, Neck: Supple, no venous distention, no goiter CVS: S1S2 RRR No murmur, No rub or gallop Lungs: Diminished breath sounds in the lower zones no use of accessory muscles of respiration Abdomen: Full, soft, nontender, no organomegaly no bruit, bowel sounds are present Extremities: 3+ pitting edema, no cyanosis or clubbing Urinary: Scrotal edema ++ Musculo-skeletal: No joint deformities or swelling Neuro: Awake, alert, no focal deficits - Vital Signs Vital signs: Vital Signs - 12hr 04/10/20 04/10/20 04/10/20 21:16 21:17 21:18 Temperature Pulse Rate 70 70 Respiratory Rate Blood Pressure 121/73 121/73 O2 Sat by Pulse 97 Oximetry 04/10/20 04/10/20 04/11/20 22:00 23:46 03:37 Temperature 97.7 F 97.4 F L Pulse Rate 73 75 Respiratory 18 19 18 Rate Blood Pressure 109/72 103/69 O2 Sat by Pulse 97 93 Oximetry 04/11/20 04/11/20 04/11/20 06:03 08:35 08:38 Temperature 97.7 F Pulse Rate 75 79 74 Respiratory 20 Rate Blood Pressure 103/69 114/72 O2 Sat by Pulse 100 Oximetry - Lab 04/09/20 03:52 04/10/20 05:24 Most recent lab results Calcium 5.6 mg/dL (8.4-10.2) L* 04/10/20 05:24 Medications & Allergies - Medications Allergies/Adverse Reactions: Allergies No Known Allergies Allergy (Unverified 04/02/20 06:54) Active Medications: Generic Name Dose Route Start Last Admin Trade Name Freq PRN Reason Stop Dose Admin Acetaminophen 650 mg 04/06/20 08:00 Tylenol PO Q4H PRN Pain MILD(1-3)/Fever >100.5/MALDONADO Aspirin 81 mg 04/07/20 11:00 04/10/20 09:03 Baby Aspirin PO Not Given QDAY [facility] Atorvastatin Calcium 40 mg 04/06/20 22:00 04/10/20 21:16 Lipitor PO 40 mg QHS LIBORIO Administration Carvedilol 3.125 mg 04/07/20 11:00 04/10/20 21:17 Coreg PO 3.125 mg BID LIBORIO Administration Sodium Chloride 100 mls @ 999 mls/hr 04/09/20 11:00 Nacl 0.9% IV PEDRITO PRN Hypotension Isosorbide Dinitrate/Hydralazine 1 each 04/07/20 22:00 04/11/20 06:03 Bidil 20/37.5mg PO Not Given Q8HR [facility] Morphine Sulfate 2 mg 04/06/20 08:00 04/11/20 01:13 Morphine IV 2 mg Q4H PRN Administration Pain, Moderate (4-6) Morphine Sulfate 4 mg 04/06/20 08:25 04/09/20 21:47 Morphine IV 4 mg Q4H PRN Administration Pain , Severe (7-10) Nitroglycerin 0.4 mg 04/06/20 08:00 Nitrostat SL Q5M PRN Chest Pain Ondansetron HCl 4 mg 04/06/20 08:00 Zofran IV Q4H PRN Nausea And Vomiting Senna 8.6 mg 04/06/20 10:00 04/10/20 21:17 Senokot PO 8.6 mg Q12HR LIBORIO Administration Sodium Chloride 10 ml 04/06/20 10:00 04/10/20 21:17 Sodium Chloride Flush Syringe 10 Ml IV 10 ml BID LIBORIO Administration Sodium Chloride 10 ml 04/06/20 08:00 04/07/20 20:03 Sodium Chloride Flush Syringe 10 Ml IV 10 ml PRN PRN Administration LINE FLUSH
[2020-04-11 09:01] LABS: Hemolysis Index 137
[2020-04-11 09:10] LABS: Calcium TNR mg/dL (8.4-10.2)
[2020-04-11 09:11] LABS: BUN/Creatinine Ratio TNR; Blood Urea Nitrogen TNR mg/dL (9-20)
[2020-04-11] MEDS: SENNOSIDES 8.6 MG TAB PO SCH ×2 (09:31→21:47)
[2020-04-11] MEDS: ASPIRIN 81 MG TAB CHEW PO SCH (09:33)
[2020-04-11] MEDS: carvediloL 3.125 MG TAB PO SCH ×2 (09:34→21:47)
--- NOTE | 2020-04-11 09:34 | Progress Note ---
Assessment and Plan Elevated troponin, nonspecific likely in the setting of renal failure Volume overload End stage renal disease Dilated Cardiomyopathy, hx per pt an echo this admission reports a 4 chamber dilated cardiomyopathy. There is at least moderate MR, at least moderate TR and moderate pulmonary hypertension, RSVP 52 mmHg. LVEF 20-25%. unable to retrieve previous cardiac records from [place] as reported by patient. Recommendations: Dialysis for fluid management. Continue medical management for dilated cardiomyopathy as tolerated. Subjective Date of service: 04/11/20 Principal diagnosis: ESRD Interval history: Patient is resting in bed comfortably. No distress noted. For planned dialysis today. Objective Vital Signs Temp Pulse Resp BP BP Pulse Ox 04/11/20 08:38 74 04/11/20 08:35 97.7 F 79 20 114/72 100 04/11/20 06:03 75 103/69 04/11/20 03:37 97.4 F L 75 18 103/69 93 04/10/20 23:46 97.7 F 73 19 109/72 97 04/10/20 22:00 18 04/10/20 21:18 97 04/10/20 21:17 70 121/73 04/10/20 21:16 70 121/73 04/10/20 19:29 97.4 F L 70 20 121/73 98 04/10/20 16:00 97.3 F L 73 20 126/76 100 04/10/20 15:42 74 04/10/20 12:24 98.9 F 74 20 128/67 98 04/10/20 09:37 98 - Physical Examination General: No Apparent Distress HEENT: Positive: PERRL Neck: Positive: neck supple Cardiac: Positive: Reg Rate and Rhythm Neuro: Positive: Grossly Intact Extremities: Present: +1 Edema - Labs and Meds Comprehensive Metabolic Panel 04/11/20 Range/Units 08:26 Sodium TNR Potassium TNR Chloride TNR Carbon Dioxide TNR BUN TNR Creatinine TNR Glucose TNR Calcium TNR
[2020-04-11 10:48] LABS: Calcium 5.2 mg/dL (8.4-10.2)
[2020-04-11 11:08] LABS: Hematocrit 32.3 % (35.5-45.6); Hemoglobin 10.6 gm/dl (11.8-15.2); Mean Corpuscular HGB Conc 33 % (32-34); Mean Corpuscular Volume 91 fl (84-94); Platelet Count 176 K/mm3 (140-440); Red Blood Count 3.57 M/mm3 (3.65-5.03); Red Cell Distribution Width 16.3 % (13.2-15.2)
[2020-04-11 15:52] LABS: Calcium 8.1 mg/dL (8.4-10.2)
[2020-04-11] MEDS ORDERED: SODIUM CHLORIDE*PRIMING MACHINE ONLY FOR DIALYSIS MC ONE (16:19)
--- NOTE | 2020-04-11 21:06 | Progress Note ---
Assessment and Plan Assessment and plan: Patient is a 54-year-old -[place] male presenting to the hospital complaining of shortness of breath, some chest tightness with worsening generalized scrotal swelling. 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 Patient also reports that he is homeless. Grossly noncompliant. The chest pain he reported he reports is a 3/10 in intensity only worse with lying down flat. He denies any exertional chest pain but notes exertional dyspnea. Echo reviewed EF of 20 to 25% moderate pulmonary hypertension moderate to severe tricuspid regurgitation moderate to severe mitral regurgitation 04/08/20: chest pain is resolved, respiratory rate is also improved, still with anascar and difficulty ambulating. Replace calcium, Testicular ultrasound shows just edema and mild bilateral hydrocele. possible additional dialysis today for a third day. 04/09: Continue HD, kayxalate today again for Persistent 04/10: Patient continues with refractory hypocalcemia despite multiple replacement on dialysis today receiving calcium gluconate. Also with persistent hyperkalemia will continue with management of dialysis. Patient has had 3 straight days of dialysis will discuss with nephrology if additional will be done today to help with his severe anasarca. Cardiology is awaiting records [facility] to plan for any other ischemic work-up. Due to electrolyte abnormalities patient continues to require inpatient care 04/11: Severe hyperkalemia potassium of 10, stat hemodialysis, severe hypocalcemia --Severe hyperkalemia; Stat hemodialysis today, nephrology following Follow electrolytes --ESRD on hemodialysis; HD per schedule and as needed Nephrology following --Atypical Chest pain secondary to volume overload- pain is resolved --NSTEMI; type II Positive troponins probably secondary to end-stage renal disease Cardiology following, medical management --Dilated cardiomyopathy/EF 20 to 25% Hemodialysis for fluid removal, continue current management --Acute on chronic systolic CHF secondary to volume overload EF 20 to 25%, continue anti-failure medications Input output monitoring, hemodialysis --Type 2 MS; Accu-Chek sliding scale coverage ADA diet Insulin as needed --Anemia of chronic disease; Monitor H&H transfuse as needed Procrit during dialysis --Morbid obesity; BMI 39.5 Partly secondary to fluid overload Supportive care Generalized anasarca Hypocalcemia Left femoral permacath Monitor closely and adjust the management as needed Bsa Officer recommendations noted and appreciated Plan of care reviewed with the patient and his nurse History Interval history: Patient seen and examined after she returned from the dialysis Patient feels slightly better still complains of shortness of breath Generalized edema,Denies chest pain nausea Vital signs noted Hospitalist Physical - Constitutional Vitals: Temp Pulse Resp BP Pulse Ox 97.7 F 81 20 117/77 96 04/11/20 20:22 04/11/20 20:22 04/11/20 20:22 04/11/20 20:22 04/11/20 20:42 General appearance: Present: mild distress, well-nourished, obese - EENT Eyes: Present: PERRL, EOM intact - Neck Neck: Present: supple, normal ROM - Respiratory Respiratory effort: normal Respiratory: bilateral: diminished, rales, negative: rhonchi, wheezing - Cardiovascular Rhythm: regular Heart Sounds: Present: S1 & S2 - Extremities Extremities: no ischemia Extremity abnormal: edema - Abdominal General gastrointestinal: soft, non-tender, non-distended, normal bowel sounds - Integumentary Integumentary: Present: clear, warm - Psychiatric Psychiatric: appropriate mood/affect, cooperative - Neurologic Neurologic: moves all extremities HEART Score - HEART Score EKG: Non-specific Age: 45-65 Risk factors: 1-2 risk factors Troponin: Troponin T 0.069 ng/mL (0.00-0.029) H 04/06/20 02:16 Troponin: 1-3x normal limit - Critical Actions Critical Actions: 4-6 pts:12-16.6% risk of adverse cardiac event. Should be admitted Results - Labs CBC & Chem 7: 04/11/20 10:50 04/12/20 14:21 Labs: Laboratory Last Values WBC 5.0 K/mm3 (4.5-11.0) 04/11/20 10:50 RBC 3.57 M/mm3 (3.65-5.03) L 04/11/20 10:50 Hgb 10.6 gm/dl (11.8-15.2) L 04/11/20 10:50 Hct 32.3 % (35.5-45.6) L 04/11/20 10:50 MCV 91 fl (84-94) 04/11/20 10:50 MCH 30 pg (28-32) 04/11/20 10:50 MCHC 33 % (32-34) 04/11/20 10:50 RDW 16.3 % (13.2-15.2) H 04/11/20 10:50 Plt Count 176 K/mm3 (140-440) 04/11/20 10:50 Lymph % (Auto) 11.3 % (13.4-35.0) L 04/07/20 04:47 [place] % (Auto) 8.0 % (0.0-7.3) H 04/07/20 04:47 Eos % (Auto) 5.4 % (0.0-4.3) H 04/07/20 04:47 Baso % (Auto) 0.6 % (0.0-1.8) 04/07/20 04:47 Lymph # 0.5 K/mm3 (1.2-5.4) L 04/07/20 04:47 [place] # 0.4 K/mm3 (0.0-0.8) 04/07/20 04:47 Eos # 0.2 K/mm3 (0.0-0.4) 04/07/20 04:47 Baso # 0.0 K/mm3 (0.0-0.1) 04/07/20 04:47 Seg Neutrophils % 74.7 % (40.0-70.0) H 04/07/20 04:47 Seg Neutrophils # 3.4 K/mm3 (1.8-7.7) 04/07/20 04:47 Sodium 132 mmol/L (137-145) L D 04/11/20 15:23 Potassium 4.6 mmol/L (3.6-5.0) D 04/11/20 15:23 Chloride 92.4 mmol/L (98-107) L 04/11/20 15:23 Carbon Dioxide 25 mmol/L (22-30) 04/11/20 15:23 Anion Gap 19 mmol/L 04/11/20 15:23 BUN 30 mg/dL (9-20) H 04/11/20 15:23 Creatinine 5.6 mg/dL (0.8-1.5) H 04/11/20 15:23 Estimated GFR 13 ml/min 04/11/20 15:23 BUN/Creatinine Ratio 5 % 04/11/20 15:23 Glucose 99 mg/dL (75-100) 04/11/20 15:23 Calcium 8.1 mg/dL (8.4-10.2) L D 04/11/20 15:23 Total Bilirubin 0.30 mg/dL (0.1-1.2) 04/06/20 02:23 AST 16 units/L (5-40) 04/06/20 02:23 ALT 13 units/L (7-56) 04/06/20 02:23 Alkaline Phosphatase 89 units/L (35-129) 04/06/20 02:23 Troponin T 0.069 ng/mL (0.00-0.029) H 04/06/20 02:16 Total Protein 7.6 g/dL (6.3-8.2) 04/06/20 02:23 Albumin 3.9 g/dL (3.9-5) 04/06/20 02:23 Albumin/Globulin Ratio 1.1 % 04/06/20 02:23 Triglycerides 55 mg/dL (2-149) 04/06/20 02:16 Cholesterol 114 mg/dL (50-199) 04/06/20 02:16 LDL Cholesterol Direct 67 mg/dL (50-130) 04/06/20 02:16 HDL Cholesterol 45 mg/dL (40-59) 04/06/20 02:16 Cholesterol/HDL Ratio 2.53 % 04/06/20 02:16 Nasal Screen MRSA (PCR) Negative (Negative) 04/07/20 04:25 Hepatitis A IgM Ab Non-reactive (NonReactive) 04/10/20 19:05 Hep Bs Antigen Non-reactive (Negative) 04/10/20 19:05 Hep B Core IgM Ab Non-reactive (NonReactive) 04/10/20 19:05 Hepatitis C Antibody Non-reactive (NonReactive) 04/10/20 19:05 - Diagnostic Impressions Diagnostic Impressions: Echocardiogram 04/06/20 12:31 Transthoracic Echocardiogram Conclusions *4-chamber dilated cardiomyopathy. *Global left ventricular systolic function is severely decreased. *The estimated ejection fraction is 20-25%. *Mild concentric left ventricular hypertrophy is observed. *There is moderate to severe mitral regurgitation. *There is moderate to severe tricuspid regurgitation. *There is at least moderate pulmonary hypertension. *The right ventricular systolic pressure is calculated at 52 mmHg. Findings Left Ventricle: The left ventricular chamber size is moderately dilated. Mild concentric left ventricular hypertrophy is observed. Global left ventricular systolic function is severely decreased. The estimated ejection fraction is 20-25%. Left Atrium: The left atrium is moderately dilated. Right Ventricle: The right ventricle is mildly dilated. Right Atrium: The right atrium is mildly dilated. Aortic Valve: The aortic valve is trileaflet. The aortic valve leaflets are mildly thickened. There is no evidence of aortic regurgitation. There is no evidence of aortic stenosis. Mitral Valve: The mitral valve leaflets are mildly thickened. There is moderate to severe mitral regurgitation. There is no evidence of mitral stenosis. Tricuspid Valve: The tricuspid valve leaflets are normal. There is moderate to severe tricuspid regurgitation. The right ventricular systolic pressure is calculated at 52 mmHg. There is evidence of moderate pulmonary hypertension. Pulmonic Valve: There is mild pulmonic regurgitation. Pericardium: There is no pericardial effusion. Aorta: There is no dilatation of the ascending aorta. There is no dilatation of the aortic root. Venous: The inferior vena cava appears normal in size. Measurements Chambers 2D Name Value Normal Range IVSd (2D) 0.83 cm (0.6 - 1.1) LVPWd (2D) 0.85 cm (0.6 - 1.1) LVIDd (2D) 6.33 cm (3.7 - 5.6) LVIDs (2D) 5.16 cm (2 - 3.8) LV FS (2D) 18.42 % - EF Teichholz (2D) 37.34 % - Ao root diameter (2D) 3.66 cm (2 - 3.7) Volumes/Mass Name Value Normal Range LA ESV SP 4CH (A/L) 63.31 ml - LA ESV SP 2CH (A/L) 64.57 ml - LA ESV BP (A/L) 66.59 ml - LA ESV SP 4CH (MOD) 59.55 ml - LA ESV SP 2CH (MOD) 60.41 ml - Diastolic/Systolic Function Name Value Normal Range MV E-wave Vmax 1.38 m/sec - MV deceleration time 182.92 msec - MV A-wave Vmax 0.54 m/sec - MV E:A ratio 2.53 ratio - Aortic Valve Name Value Normal Range AV Vmax 1.17 m/sec - AV VTI 21.79 cm - AV peak gradient 5.49 mmHg - AV mean gradient 2.87 mmHg - LVOT diameter 2.05 cm - LVOT Vmax 0.7 m/sec - LVOT VTI 16.23 cm - LVOT peak gradient 1.94 mmHg - LVOT mean gradient 1.11 mmHg - SV LVOT 53.42 ml - MICH (continuity Vmax) 1.96 cm2 - MICH (continuity VTI) 2.45 cm2 - Mitral Valve Name Value Normal Range MR Vmax 4.03 m/sec - MR VTI 120.84 cm - Tricuspid Valve Name Value Normal Range TR Vmax 3.32 m/sec - TR peak gradient 44.07 mmHg - RVSP 52 mmHg - IVC diameter 2.01 cm (1.2 - 2.3) Pulmonic Valve/Qp:Qs Name Value Normal Range PV Vmax 0.87 m/sec - PV peak gradient 3.05 mmHg - NE end-diastolic Vmax 1.22 m/sec - PV acceleration time 102.76 msec - Lee/IV: Voiding Method Toilet IV Catheter Type [Right Hand] INT / Saline Lock IV Catheter Type [Left Leg] INT / Saline Lock Active Medications - Current Medications Current Medications: Generic Name Dose Route Start Last Admin Trade Name Freq PRN Reason Stop Dose Admin Acetaminophen 650 mg 04/06/20 08:00 Tylenol PO Q4H PRN Pain MILD(1-3)/Fever >100.5/MALDONADO Aspirin 81 mg 04/07/20 11:00 04/11/20 09:33 Baby Aspirin PO Not Given QDAY [facility] Atorvastatin Calcium 40 mg 04/06/20 22:00 04/10/20 21:16 Lipitor PO 40 mg QHS [facility] Administration Carvedilol 3.125 mg 04/07/20 11:00 04/11/20 09:34 Coreg PO 3.125 mg BID LIBORIO Administration Sodium Chloride 100 mls @ 999 mls/hr 04/09/20 11:00 Nacl 0.9% IV PEDRITO PRN Hypotension Isosorbide Dinitrate/Hydralazine 1 each 04/07/20 22:00 04/11/20 14:25 Bidil 20/37.5mg PO Not Given Q8HR [facility] Morphine Sulfate 2 mg 04/06/20 08:00 04/11/20 09:40 Morphine IV 2 mg Q4H PRN Administration Pain, Moderate (4-6) Morphine Sulfate 4 mg 04/06/20 08:25 04/09/20 21:47 Morphine IV 4 mg Q4H PRN Administration Pain , Severe (7-10) Nitroglycerin 0.4 mg 04/06/20 08:00 Nitrostat SL Q5M PRN Chest Pain Ondansetron HCl 4 mg 04/06/20 08:00 Zofran IV Q4H PRN Nausea And Vomiting Senna 8.6 mg 04/06/20 10:00 04/11/20 09:31 Senokot PO 8.6 mg Q12HR LIBORIO Administration Sodium Chloride 10 ml 04/06/20 10:00 04/11/20 09:32 Sodium Chloride Flush Syringe 10 Ml IV 10 ml BID LIBORIO Administration Sodium Chloride 10 ml 04/06/20 08:00 04/07/20 20:03 Sodium Chloride Flush Syringe 10 Ml IV 10 ml PRN PRN Administration LINE FLUSH Nutrition/Malnutrition Assess - Dietary Evaluation Nutrition/Malnutrition Findings: Nutrition Notes Start: 04/07/20 14:04 Freq: Status: Active Protocol: Document 04/11/20 14:48 LM (Rec: 04/11/20 14:49 LM [id number]) Nutrition Notes Initial or Follow up Brief Note Current Diagnosis CKD (stage V CKD),COPD, Hypertension Current Diet Renal Subjective/Other Information Pt in HD. Per chart pt has 75- 100% intakes. Nutrition Intervention Follow-Up By: 04/12/20 Additional Comments F/U for full assessment
[2020-04-12] MEDS: MORPHINE 2 MG/1 ML INJ IV PRN ×2 (02:30→13:24)
[2020-04-12] MEDS: ISOSORB DINIT/HYDRALAZINE 20-37.5MG TAB PO SCH ×3 (05:39→23:41)
[2020-04-12] MEDS: ASPIRIN 81 MG TAB CHEW PO SCH ×2 (09:46→13:19)
[2020-04-12] MEDS: SENNOSIDES 8.6 MG TAB PO SCH ×2 (09:46→23:41)
[2020-04-12] MEDS: carvediloL 3.125 MG TAB PO SCH ×3 (09:48→23:46)
--- NOTE | 2020-04-12 10:33 | Progress Note ---
Assessment and Plan Elevated troponin, nonspecific likely in the setting of renal failure Volume overload End stage renal disease Dilated Cardiomyopathy, hx per pt an echo this admission reports a 4 chamber dilated cardiomyopathy. There is at least moderate MR, at least moderate TR and moderate pulmonary hypertension, RSVP 52 mmHg. LVEF 20-25%. unable to retrieve previous cardiac records from [place] as reported by patient. Recommendations: Dialysis for fluid management. Continue medical management for dilated cardiomyopathy as tolerated. Subjective Date of service: 04/12/20 Principal diagnosis: ESRD Interval history: Patient is resting in bed comfortably. No distress noted. Edema is slow to improve. Objective Vital Signs Temp Pulse Resp BP BP Pulse Ox Pulse Ox 04/12/20 09:48 75 112/53 04/12/20 05:39 102/63 04/12/20 04:09 97.8 F 69 18 102/63 96 04/12/20 04:00 97.8 F 69 18 102/63 04/12/20 01:00 78 04/11/20 22:58 98.3 F 78 20 114/78 98 04/11/20 22:00 18 04/11/20 21:47 85 132/73 04/11/20 20:42 96 04/11/20 20:22 97.7 F 81 20 117/77 93 04/11/20 16:51 98.6 F 72 18 120/72 96 04/11/20 14:30 98.0 F 80 18 140/78 99 04/11/20 14:15 82 140/78 04/11/20 14:00 80 142/80 04/11/20 13:45 82 140/80 04/11/20 13:30 81 142/80 04/11/20 13:15 85 150/88 04/11/20 13:00 85 140/80 04/11/20 12:45 83 132/81 04/11/20 12:30 81 140/78 04/11/20 12:15 81 140/78 04/11/20 12:00 78 131/69 04/11/20 11:45 86 121/76 04/11/20 11:30 79 125/69 04/11/20 11:15 76 134/65 04/11/20 11:00 76 133/74 04/11/20 10:45 76 117/74 - Physical Examination General: No Apparent Distress HEENT: Positive: PERRL Cardiac: Positive: Reg Rate and Rhythm Neuro: Positive: Grossly Intact Extremities: Present: +1 Edema - Labs and Meds CBC 04/11/20 Range/Units 10:50 WBC 5.0 (4.5-11.0) K/mm3 RBC 3.57 L (3.65-5.03) M/mm3 Hgb 10.6 L (11.8-15.2) gm/dl Hct 32.3 L (35.5-45.6) % Plt Count 176 (140-440) K/mm3 Comprehensive Metabolic Panel 04/11/20 04/11/20 Range/Units 10:18 15:23 Sodium 125 L 132 L D (137-145) mmol/L Potassium 10.0 H* D 4.6 D (3.6-5.0) mmol/L Chloride 87.8 L 92.4 L (98-107) mmol/L Carbon Dioxide 22 25 (22-30) mmol/L BUN 56 H 30 H (9-20) mg/dL Creatinine 8.8 H 5.6 H (0.8-1.5) mg/dL Glucose 129 H 99 (75-100) mg/dL Calcium 5.2 L* 8.1 L D (8.4-10.2) mg/dL
--- NOTE | 2020-04-12 10:42 | Progress Note ---
Assessment and Plan - Patient Problems (1) Acute on chronic systolic heart failure Current Visit: Yes Status: Acute Plan to address problem: fluid removal on dialysis. Daily Hemodialysis/Isolated UFR. Continue beta- al and nitrates. (2) Anasarca Current Visit: Yes Status: Acute Plan to address problem: Daily dialysis. Will get CT abdomen to exclude IVC stenosis. Counseled the patient about adherence with Rx. (3) End-stage renal disease needing dialysis Current Visit: Yes Status: Chronic Plan to address problem: Hemodialysis again today. (4) Pulmonary edema Current Visit: No Status: Acute Qualifiers: Chronicity: acute Qualified Code(s): J81.0 - Acute pulmonary edema Plan to address problem: improved with fluid removal on dialysis. Subjective Date of service: 04/12/20 Principal diagnosis: ESRD Interval history: patient seen sitting up in bed. Still complains of swelling especially in the scrotum. He feels it is gettging worse . No chest pain or shortness of breath. Objective - Exam Narrative Exam: middle-aged -Armenian male sitting up in bed in no acute distress HEENT: Normocephalic atraumatic, pupils equal round reactive to light Normal oropharynx, Neck: Supple, no venous distention, no goiter CVS: S1S2 RRR No murmur, No rub or gallop Lungs: Diminished breath sounds in the lower zones no use of accessory muscles of respiration Abdomen: Full, soft, nontender, no organomegaly no bruit, bowel sounds are pres ent Extremities: 3+ pitting edema, no cyanosis or clubbing Urinary: Scrotal edema ++ Musculo-skeletal: No joint deformities or swelling Neuro: Awake, alert, no focal deficits - Vital Signs Vital signs: Vital Signs - 12hr 04/11/20 04/12/20 04/12/20 22:58 01:00 04:00 Temperature 98.3 F 97.8 F Pulse Rate 78 78 69 Respiratory 20 18 Rate Blood Pressure 114/78 Blood Pressure 102/63 [Right] O2 Sat by Pulse 98 Oximetry 04/12/20 04/12/20 04/12/20 04:09 05:39 09:48 Temperature 97.8 F Pulse Rate 69 75 Respiratory 18 Rate Blood Pressure 102/63 102/63 112/53 Blood Pressure [Right] O2 Sat by Pulse 96 Oximetry - Lab 04/11/20 10:50 04/11/20 15:23 Most recent lab results Calcium 8.1 mg/dL (8.4-10.2) L D 04/11/20 15:23 Medications & Allergies - Medications Allergies/Adverse Reactions: Allergies No Known Allergies Allergy (Unverified 04/02/20 06:54) Active Medications: Generic Name Dose Route Start Last Admin Trade Name Freq PRN Reason Stop Dose Admin Acetaminophen 650 mg 04/06/20 08:00 Tylenol PO Q4H PRN Pain MILD(1-3)/Fever >100.5/MALDONADO Aspirin 81 mg 04/07/20 11:00 04/11/20 09:33 Baby Aspirin PO Not Given QDAY [facility] Atorvastatin Calcium 40 mg 04/06/20 22:00 04/11/20 21:47 Lipitor PO 40 mg QHS [facility] Administration Calcium Acetate 1,334 mg 04/12/20 14:00 Phoslo PO TID [facility] Carvedilol 3.125 mg 04/07/20 11:00 04/12/20 09:48 Coreg PO Not Given BID [facility] Sodium Chloride 100 mls @ 999 mls/hr 04/09/20 11:00 Nacl 0.9% IV PEDRITO PRN Hypotension Isosorbide Dinitrate/Hydralazine 1 each 04/07/20 22:00 04/12/20 05:39 Bidil 20/37.5mg PO Not Given Q8HR [facility] Morphine Sulfate 2 mg 04/06/20 08:00 04/12/20 02:30 Morphine IV 2 mg Q4H PRN Administration Pain, Moderate (4-6) Morphine Sulfate 4 mg 04/06/20 08:25 04/09/20 21:47 Morphine IV 4 mg Q4H PRN Administration Pain , Severe (7-10) Nitroglycerin 0.4 mg 04/06/20 08:00 Nitrostat SL Q5M PRN Chest Pain Ondansetron HCl 4 mg 04/06/20 08:00 Zofran IV Q4H PRN Nausea And Vomiting Senna 8.6 mg 04/06/20 10:00 04/12/20 09:46 Senokot PO 8.6 mg Q12HR [facility] Administration Sodium Chloride 10 ml 04/06/20 10:00 04/12/20 09:46 Sodium Chloride Flush Syringe 10 Ml IV 10 ml BID [facility] Administration Sodium Chloride 10 ml 04/06/20 08:00 04/07/20 20:03 Sodium Chloride Flush Syringe 10 Ml IV 10 ml PRN PRN Administration LINE FLUSH
[2020-04-12] MEDS ORDERED: LORazepam 2 MG/ML VIAL IV STA (12:43)
[2020-04-12] MEDS: CALCIUM ACETATE 667 MG CAP PO SCH ×2 (12:45→18:45)
--- NOTE | 2020-04-12 15:14 | Progress Note ---
Assessment and Plan Assessment and plan: 04/08/20: chest pain is resolved, respiratory rate is also improved, still with anascar and difficulty ambulating. Replace calcium, Testicular ultrasound shows just edema and mild bilateral hydrocele. possible additional dialysis today for a third day. 04/09: Continue HD, kayxalate today again for Persistent 04/10: Patient continues with refractory hypocalcemia despite multiple replacement on dialysis today receiving calcium gluconate. Also with persistent hyperkalemia will continue with management of dialysis. Patient has had 3 straight days of dialysis will discuss with nephrology if additional will be done today to help with his severe anasarca. Cardiology is awaiting records [facility] to plan for any other ischemic work-up. Due to electrolyte abnormalities patient continues to require inpatient care 04/11: Severe hyperkalemia potassium of 10, stat hemodialysis, severe hypocalcemia 04/12: Patient feels slightly better, continues to have shortness of breath fluid overload, nephrology recommended CTA abdomen and pelvis --Fluid overload, secondary to ESRD As well as severe cardiomyopathy EF of 20 to 25% Management per nephrology and cardiology Optimize medications, HD per schedule --Hypocalcemia; corrected Closely monitor --Severe hyperkalemia; slightly improved Potassium today 5.5, 1 dose Kayexalate Monitor electrolytes --ESRD on hemodialysis; HD per schedule and as needed Nephrology following --Atypical Chest pain secondary to volume overload- pain is resolved --NSTEMI; type II Positive troponins probably secondary to end-stage renal disease Cardiology following, medical management --Dilated cardiomyopathy/EF 20 to 25% Hemodialysis for fluid removal, continue current management --Acute on chronic systolic CHF secondary to volume overload EF 20 to 25%, continue anti-failure medications Input output monitoring, hemodialysis --Type 2 [place]; Accu-Chek sliding scale coverage ADA diet Insulin as needed --Anemia of chronic disease; Monitor H&H transfuse as needed Procrit during dialysis --Morbid obesity; BMI 39.5 Partly due to fluid overload Continue hemodialysis, supportive care Monitor closely and adjust the management as needed Flatware Maker recommendations noted and appreciated Disposition; per nephrology, cardiology DC when medically stable Plan of care reviewed with the patient and his nurse History Interval history: Patient seen and examined in his room this morning Patient's chart, tests and medications reviewed Patient complains of shortness of breath, Denies chest pain Vital signs noted Hospitalist Physical - Constitutional Vitals: Temp Pulse Resp BP Pulse Ox 97.6 F 61 18 118/78 96 04/12/20 13:02 04/12/20 13:08 04/12/20 13:02 04/12/20 13:02 04/12/20 04:09 General appearance: Present: mild distress, well-nourished, obese - EENT Eyes: Present: PERRL, EOM intact - Neck Neck: Present: supple, normal ROM - Respiratory Respiratory effort: normal Respiratory: bilateral: diminished, rales, negative: rhonchi, wheezing - Cardiovascular Rhythm: regular Heart Sounds: Present: S1 & S2 - Extremities Extremities: no ischemia Extremity abnormal: edema - Abdominal General gastrointestinal: soft, non-tender, non-distended, normal bowel sounds - Integumentary Integumentary: Present: clear, warm - Psychiatric Psychiatric: appropriate mood/affect, cooperative - Neurologic Neurologic: moves all extremities HEART Score - HEART Score EKG: Non-specific Age: 45-65 Risk factors: 1-2 risk factors Troponin: Troponin T 0.069 ng/mL (0.00-0.029) H 04/06/20 02:16 Troponin: 1-3x normal limit - Critical Actions Critical Actions: 4-6 pts:12-16.6% risk of adverse cardiac event. Should be adm itted Results - Labs CBC & Chem 7: 04/11/20 10:50 04/12/20 14:21 Labs: Laboratory Last Values WBC 5.0 K/mm3 (4.5-11.0) 04/11/20 10:50 RBC 3.57 M/mm3 (3.65-5.03) L 04/11/20 10:50 Hgb 10.6 gm/dl (11.8-15.2) L 04/11/20 10:50 Hct 32.3 % (35.5-45.6) L 04/11/20 10:50 MCV 91 fl (84-94) 04/11/20 10:50 MCH 30 pg (28-32) 04/11/20 10:50 MCHC 33 % (32-34) 04/11/20 10:50 RDW 16.3 % (13.2-15.2) H 04/11/20 10:50 Plt Count 176 K/mm3 (140-440) 04/11/20 10:50 Lymph % (Auto) 11.3 % (13.4-35.0) L 04/07/20 04:47 [place] % (Auto) 8.0 % (0.0-7.3) H 04/07/20 04:47 Eos % (Auto) 5.4 % (0.0-4.3) H 04/07/20 04:47 Baso % (Auto) 0.6 % (0.0-1.8) 04/07/20 04:47 Lymph # 0.5 K/mm3 (1.2-5.4) L 04/07/20 04:47 [place] # 0.4 K/mm3 (0.0-0.8) 04/07/20 04:47 Eos # 0.2 K/mm3 (0.0-0.4) 04/07/20 04:47 Baso # 0.0 K/mm3 (0.0-0.1) 04/07/20 04:47 Seg Neutrophils % 74.7 % (40.0-70.0) H 04/07/20 04:47 Seg Neutrophils # 3.4 K/mm3 (1.8-7.7) 04/07/20 04:47 Sodium 132 mmol/L (137-145) L D 04/11/20 15:23 Potassium 4.6 mmol/L (3.6-5.0) D 04/11/20 15:23 Chloride 92.4 mmol/L (98-107) L 04/11/20 15:23 Carbon Dioxide 25 mmol/L (22-30) 04/11/20 15:23 Anion Gap 19 mmol/L 04/11/20 15:23 BUN 30 mg/dL (9-20) H 04/11/20 15:23 Creatinine 5.6 mg/dL (0.8-1.5) H 04/11/20 15:23 Estimated GFR 13 ml/min 04/11/20 15:23 BUN/Creatinine Ratio 5 % 04/11/20 15:23 Glucose 99 mg/dL (75-100) 04/11/20 15:23 Calcium 8.1 mg/dL (8.4-10.2) L D 04/11/20 15:23 Ionized Calcium 2.9 mg/dL (4.8-5.6) L* 04/10/20 09:33 Total Bilirubin 0.30 mg/dL (0.1-1.2) 04/06/20 02:23 AST 16 units/L (5-40) 04/06/20 02:23 ALT 13 units/L (7-56) 04/06/20 02:23 Alkaline Phosphatase 89 units/L (35-129) 04/06/20 02:23 Troponin T 0.069 ng/mL (0.00-0.029) H 04/06/20 02:16 Total Protein 7.6 g/dL (6.3-8.2) 04/06/20 02:23 Albumin 3.9 g/dL (3.9-5) 04/06/20 02:23 Albumin/Globulin Ratio 1.1 % 04/06/20 02:23 Triglycerides 55 mg/dL (2-149) 04/06/20 02:16 Cholesterol 114 mg/dL (50-199) 04/06/20 02:16 LDL Cholesterol Direct 67 mg/dL (50-130) 04/06/20 02:16 HDL Cholesterol 45 mg/dL (40-59) 04/06/20 02:16 Cholesterol/HDL Ratio 2.53 % 04/06/20 02:16 Nasal Screen MRSA (PCR) Negative (Negative) 04/07/20 04:25 Hepatitis A IgM Ab Non-reactive (NonReactive) 04/10/20 19:05 Hep Bs Antigen Non-reactive (Negative) 04/10/20 19:05 Hep B Core IgM Ab Non-reactive (NonReactive) 04/10/20 19:05 Hepatitis C Antibody Non-reactive (NonReactive) 04/10/20 19:05 - Diagnostic Impressions Diagnostic Impressions: Echocardiogram 04/06/20 12:31 Transthoracic Echocardiogram Conclusions *4-chamber dilated cardiomyopathy. *Global left ventricular systolic function is severely decreased. *The estimated ejection fraction is 20-25%. *Mild concentric left ventricular hypertrophy is observed. *There is moderate to severe mitral regurgitation. *There is moderate to severe tricuspid regurgitation. *There is at least moderate pulmonary hypertension. *The right ventricular systolic pressure is calculated at 52 mmHg. Findings Left Ventricle: The left ventricular chamber size is moderately dilated. Mild concentric left ventricular hypertrophy is observed. Global left ventricular systolic function is severely decreased. The estimated ejection fraction is 20-25%. Left Atrium: The left atrium is moderately dilated. Right Ventricle: The right ventricle is mildly dilated. Right Atrium: The right atrium is mildly dilated. Aortic Valve: The aortic valve is trileaflet. The aortic valve leaflets are mildly thickened. There is no evidence of aortic regurgitation. There is no evidence of aortic stenosis. Mitral Valve: The mitral valve leaflets are mildly thickened. There is moderate to severe mitral regurgitation. There is no evidence of mitral stenosis. Tricuspid Valve: The tricuspid valve leaflets are normal. There is moderate to severe tricuspid regurgitation. The right ventricular systolic pressure is calculated at 52 mmHg. There is evidence of moderate pulmonary hypertension. Pulmonic Valve: There is mild pulmonic regurgitation. Pericardium: There is no pericardial effusion. Aorta: There is no dilatation of the ascending aorta. There is no dilatation of the aortic root. Venous: The inferior vena cava appears normal in size. Measurements Chambers 2D Name Value Normal Range IVSd (2D) 0.83 cm (0.6 - 1.1) LVPWd (2D) 0.85 cm (0.6 - 1.1) LVIDd (2D) 6.33 cm (3.7 - 5.6) LVIDs (2D) 5.16 cm (2 - 3.8) LV FS (2D) 18.42 % - EF Teichholz (2D) 37.34 % - Ao root diameter (2D) 3.66 cm (2 - 3.7) Volumes/Mass Name Value Normal Range LA ESV SP 4CH (A/L) 63.31 ml - LA ESV SP 2CH (A/L) 64.57 ml - LA ESV BP (A/L) 66.59 ml - LA ESV SP 4CH (MOD) 59.55 ml - LA ESV SP 2CH (MOD) 60.41 ml - Diastolic/Systolic Function Name Value Normal Range MV E-wave Vmax 1.38 m/sec - MV deceleration time 182.92 msec - MV A-wave Vmax 0.54 m/sec - MV E:A ratio 2.53 ratio - Aortic Valve Name Value Normal Range AV Vmax 1.17 m/sec - AV VTI 21.79 cm - AV peak gradient 5.49 mmHg - AV mean gradient 2.87 mmHg - LVOT diameter 2.05 cm - LVOT Vmax 0.7 m/sec - LVOT VTI 16.23 cm - LVOT peak gradient 1.94 mmHg - LVOT mean gradient 1.11 mmHg - SV LVOT 53.42 ml - MICH (continuity Vmax) 1.96 cm2 - MICH (continuity VTI) 2.45 cm2 - Mitral Valve Name Value Normal Range MR Vmax 4.03 m/sec - MR VTI 120.84 cm - Tricuspid Valve Name Value Normal Range TR Vmax 3.32 m/sec - TR peak gradient 44.07 mmHg - RVSP 52 mmHg - IVC diameter 2.01 cm (1.2 - 2.3) Pulmonic Valve/Qp:Qs Name Value Normal Range PV Vmax 0.87 m/sec - PV peak gradient 3.05 mmHg - CO end-diastolic Vmax 1.22 m/sec - PV acceleration time 102.76 msec - Lee/IV: Voiding Method Toilet IV Catheter Type [Right INT / Saline Lock Antecubital] IV Catheter Type [Right Hand] INT / Saline Lock IV Catheter Type [Left Leg] INT / Saline Lock Active Medications - Current Medications Current Medications: Generic Name Dose Route Start Last Admin Trade Name Freq PRN Reason Stop Dose Admin Acetaminophen 650 mg 04/06/20 08:00 Tylenol PO Q4H PRN Pain MILD(1-3)/Fever >100.5/MALDONADO Aspirin 81 mg 04/07/20 11:00 04/12/20 13:19 Baby Aspirin PO Not Given QDAY [facility] Atorvastatin Calcium 40 mg 04/06/20 22:00 04/11/20 21:47 Lipitor PO 40 mg QHS [facility] Administration Calcium Acetate 1,334 mg 04/12/20 12:00 04/12/20 12:45 Phoslo PO Not Given TIDWM [facility] Carvedilol 3.125 mg 04/07/20 11:00 04/12/20 09:48 Coreg PO Not Given BID [facility] Sodium Chloride 100 mls @ 999 mls/hr 04/09/20 11:00 Nacl 0.9% IV PEDRITO PRN Hypotension Isosorbide Dinitrate/Hydralazine 1 each 04/07/20 22:00 04/12/20 15:10 Bidil 20/37.5mg PO Not Given Q8HR [facility] Morphine Sulfate 2 mg 04/06/20 08:00 04/12/20 13:24 Morphine IV 2 mg Q4H PRN Administration Pain, Moderate (4-6) Morphine Sulfate 4 mg 04/06/20 08:25 04/09/20 21:47 Morphine IV 4 mg Q4H PRN Administration Pain , Severe (7-10) Nitroglycerin 0.4 mg 04/06/20 08:00 Nitrostat SL Q5M PRN Chest Pain Ondansetron HCl 4 mg 04/06/20 08:00 Zofran IV Q4H PRN Nausea And Vomiting Senna 8.6 mg 04/06/20 10:00 04/12/20 09:46 Senokot PO 8.6 mg Q12HR LIBORIO Administration Sodium Chloride 10 ml 04/06/20 10:00 04/12/20 09:46 Sodium Chloride Flush Syringe 10 Ml IV 10 ml BID LIBORIO Administration Sodium Chloride 10 ml 04/06/20 08:00 04/07/20 20:03 Sodium Chloride Flush Syringe 10 Ml IV 10 ml PRN PRN Administration LINE FLUSH Nutrition/Malnutrition Assess - Dietary Evaluation Nutrition/Malnutrition Findings: Nutrition Notes Start: 04/07/20 14:04 Freq: Status: Active Protocol: Document 04/12/20 14:29 LM (Rec: 04/12/20 14:32 LM [id number]) Nutrition Notes Initial or Follow up Brief Note Current Diagnosis CKD (stage V CKD),COPD, Hypertension Current Diet Renal Subjective/Other Information Unable to reach pt. Pt receiving HD again today. Nutrition Intervention Follow-Up By: 04/13/20 Additional Comments F/U for full assessment
[2020-04-12] MEDS ORDERED: SODIUM CHLORIDE 0.9% 100 ML IV PRN (15:21)
[2020-04-12 15:42] LABS: Calcium 6.7 mg/dL (8.4-10.2)
--- NOTE | 2020-04-12 16:12 | Cat Scan Report ---
CT angio abdomen pelvis INDICATION / CLINICAL INFORMATION: MAIN: ESRD with swelling LE/Scrotum. R/o IVC Stenosis 100 ML OMNI 300. TECHNIQUE: Axial CT images were obtained after injection of IV contrast using CTA protocol. 3 plane MIP / 3D rec onstructions were produced. All CT scans at this location are performed using CT dose reduction for A JEFF by means of automated exposure control. COMPARISON: None available. FINDINGS: There is basilar atelectasis and moderate right middle lobe consolidation. Cardiomegaly is seen witho ut pericardial effusion. Kidneys are atrophic and cystic consistent with renal failure. The celiac an d SMA axes appear normal. There is minimal plaque formation at the origins of the renal arteries. The BERNARDO is widely patent as well. The infrarenal aorta is unremarkable with minimal plaque formation and no aneurysm. CTA of the pelvis shows unremarkable iliac arteries. Left femoral dialysis catheter is in place with the tip in the region of the inferior vena cava. The study is performed in the arterial phase so I ca nnot definitely evaluate for caval occlusion but the cava is grossly intact. No collateral vessels t o suggest occlusion. There is only slight to moderate subcutaneous edema present in the upper thighs. IMPRESSION: 1. No significant arterial abnormality. A left femoral venous dialysis catheter is in place extending into the inferior vena cava. The IVC is not opacified but I do not see any secondary signs of caval occlusion. Signer Name: Dami De La Vega MD Signed: 04/12/2020 4:07 PM Workstation Name: [id number]
[2020-04-12] MEDS ORDERED: SODIUM POLYSTYRENE 15 GM/60 ML ORAL LIQD PO NR (20:18)
[2020-04-13] MEDS: MORPHINE 2 MG/1 ML INJ IV PRN ×4 (00:53→22:23)
[2020-04-13] MEDS: ISOSORB DINIT/HYDRALAZINE 20-37.5MG TAB PO SCH ×3 (05:03→22:21)
[2020-04-13 05:53] LABS: Calcium 7.3 mg/dL (8.4-10.2)
--- NOTE | 2020-04-13 07:33 | Progress Note ---
Assessment and Plan - Patient Problems (1) Acute on chronic systolic heart failure Current Visit: Yes Status: Acute Plan to address problem: fluid removal on dialysis. Daily Hemodialysis/Isolated UFR. Continue beta- al and nitrates. Reinforced sodium and fluid restriction. Needs a sign at bedside (2) Anasarca Current Visit: Yes Status: Acute Plan to address problem: Daily dialysis. Counseled the patient about adherence with Sodium and fluid restriction. (3) End-stage renal disease needing dialysis Current Visit: Yes Status: Chronic Plan to address problem: Hemodialysis again today. (4) Pulmonary edema Current Visit: No Status: Acute Qualifiers: Chronicity: acute Qualified Code(s): J81.0 - Acute pulmonary edema Plan to address problem: improved with fluid removal on dialysis. (5) Anemia in chronic kidney disease Current Visit: Yes Status: Acute Plan to address problem: Continue erythropoietin with dialysis. Follow-up hemoglobin (6) Hypocalcemia Current Visit: Yes Status: Acute Plan to address problem: Continue dialysis on a high calcium bath with oral calcium supplementation. Follow-up calcium. Check serum intact PTH Subjective Date of service: 04/13/20 Principal diagnosis: ESRD Interval history: patient seen sitting up in bed. Still complains of swelling especially in the scrotum. He feels it is not getting better. No chest pain or shortness of breath. Discussed CT results with him. No IVC stenosis. Objective - Exam Narrative Exam: middle-aged -[place]aj[place] male sitting up in bed in no acute distress HEENT: Normocephalic atraumatic, pupils equal round reactive to light Normal oropharynx, Neck: Supple, no venous distention, no goiter CVS: S1S2 RRR No murmur, No rub or gallop Lungs: Diminished breath sounds in the lower zones no use of accessory muscles of respiration Abdomen: Full, soft, nontender, no organomegaly no bruit, bowel sounds are present Extremities: 3+ pitting edema, no cyanosis or clubbing Urinary: Scrotal edema ++ Musculo-skeletal: No joint deformities or swelling Neuro: Awake, alert, no focal deficits - Vital Signs Vital signs: Vital Signs - 12hr 04/12/20 04/12/20 04/12/20 21:01 22:00 23:41 Temperature Pulse Rate 77 43 L Respiratory Rate Blood Pressure 157/100 O2 Sat by Pulse 100 Oximetry 04/12/20 04/13/2020 23:46 00:00 00:16 Temperature 98.0 F Pulse Rate 43 L 71 Respiratory 18 Rate Blood Pressure 157/100 129/80 O2 Sat by Pulse 97 Oximetry 04/13/20 04/13/20 04/13/20 00:53 03:48 05:03 Temperature 98.1 F Pulse Rate 83 83 Respiratory 20 19 Rate Blood Pressure 115/69 115/69 O2 Sat by Pulse 100 Oximetry 04/13/20 05:04 Temperature Pulse Rate Respiratory 20 Rate Blood Pressure O2 Sat by Pulse Oximetry - Lab 04/11/20 10:50 04/13/20 05:00 Most recent lab results Calcium 7.3 mg/dL (8.4-10.2) L 04/13/20 05:00 Medications & Allergies - Medications Allergies/Adverse Reactions: Allergies No Known Allergies Allergy (Unverified 04/02/20 06:54) Active Medications: Generic Name Dose Route Start Last Admin Trade Name Freq PRN Reason Stop Dose Admin Acetaminophen 650 mg 04/06/20 08:00 Tylenol PO Q4H PRN Pain MILD(1-3)/Fever >100.5/MALDONADO Aspirin 81 mg 04/07/20 11:00 04/12/20 13:19 Baby Aspirin PO Not Given QDAY [facility] Atorvastatin Calcium 40 mg 04/06/20 22:00 04/12/20 23:41 Lipitor PO 40 mg QHS [facility] Administration Calcium Acetate 1,334 mg 04/12/20 12:00 04/12/20 18:45 Phoslo PO Not Given TIDWM [facility] Carvedilol 3.125 mg 04/07/20 11:00 04/12/20 23:46 Coreg PO Not Given BID [facility] Sodium Chloride 100 mls @ 999 mls/hr 04/12/20 15:21 Nacl 0.9% IV PEDRITO PRN Hypotension Isosorbide Dinitrate/Hydralazine 1 each 04/07/20 22:00 04/13/20 05:03 Bidil 20/37.5mg PO 1 each Q8HR [facility] Administration Morphine Sulfate 2 mg 04/06/20 08:00 04/13/20 05:04 Morphine IV 2 mg Q4H PRN Administration Pain, Moderate (4-6) Morphine Sulfate 4 mg 04/06/20 08:25 04/09/20 21:47 Morphine IV 4 mg Q4H PRN Administration Pain , Severe (7-10) Nitroglycerin 0.4 mg 04/06/20 08:00 Nitrostat SL Q5M PRN Chest Pain Ondansetron HCl 4 mg 04/06/20 08:00 Zofran IV Q4H PRN Nausea And Vomiting Senna 8.6 mg 04/06/20 10:00 04/12/20 23:41 Senokot PO 8.6 mg Q12HR [facility] Administration Sodium Chloride 10 ml 04/06/20 10:00 04/13/20 01:27 Sodium Chloride Flush Syringe 10 Ml IV 10 ml BID [facility] Administration Sodium Chloride 10 ml 04/06/20 08:00 04/07/20 20:03 Sodium Chloride Flush Syringe 10 Ml IV 10 ml PRN PRN Administration LINE FLUSH
[2020-04-13] MEDS: CALCIUM ACETATE 667 MG CAP PO SCH ×3 (08:57→16:11)
[2020-04-13] MEDS: ASPIRIN 81 MG TAB CHEW PO SCH ×2 (09:00→09:01)
[2020-04-13] MEDS: SENNOSIDES 8.6 MG TAB PO SCH ×2 (09:00→22:22)
[2020-04-13] MEDS: carvediloL 3.125 MG TAB PO SCH ×2 (09:00→22:22)
--- NOTE | 2020-04-13 10:41 | Progress Note ---
Assessment and Plan Assessment and plan: --Fluid overload, secondary to ESRD As well as severe cardiomyopathy EF of 20 to 25% Management per nephrology and cardiology Optimize medications, HD per schedule --Hypocalcemia; corrected Closely monitor --Severe hyperkalemia; slightly improved Potassium today 5.5, 1 dose Kayexalate Monitor electrolytes --ESRD on hemodialysis; HD per schedule and as needed Nephrology following --Atypical Chest pain secondary to volume overload- pain is resolved --NSTEMI; type II Positive troponins probably secondary to end-stage renal disease Cardiology following, medical management --Dilated cardiomyopathy/EF 20 to 25% Hemodialysis for fluid removal, continue current management --Acute on chronic systolic CHF secondary to volume overload EF 20 to 25%, continue anti-failure medications Input output monitoring, hemodialysis --Type 2 LA; Accu-Chek sliding scale coverage ADA diet Insulin as needed --Anemia of chronic disease; Monitor H&H transfuse as needed Procrit during dialysis --Morbid obesity; BMI 39.5 Partly due to fluid overload Continue hemodialysis, supportive care Monitor closely and adjust the management as needed [employer]el[employer] Rec[employer]iter recommendations noted and appreciated Plan of care reviewed with the patient and his nurse Disposition; discharge when cleared by nephrology History Interval history: Patient seen and examined in his room today, patient's chart and medications reviewed Patient is concerned about scrotal edema, very minimal improvement Denies chest pain or shortness of breath Vital signs reviewed Hospitalist Physical - Constitutional Vitals: Temp Pulse Resp BP Pulse Ox 98.1 F 85 18 102/59 94 04/13/20 07:19 04/13/20 09:00 04/13/20 07:19 04/13/20 09:00 04/13/20 07:19 General appearance: Present: mild distress, well-nourished, obese - EENT Eyes: Present: PERRL, EOM intact - Neck Neck: Present: supple, normal ROM - Respiratory Respiratory effort: normal Respiratory: bilateral: diminished, negative: rales, rhonchi, wheezing - Cardiovascular Rhythm: regular Heart Sounds: Present: S1 & S2 - Extremities Extremities: no ischemia, No edema - Abdominal General gastrointestinal: soft, non-tender, non-distended, normal bowel sounds - Integumentary Integumentary: Present: clear, warm - Psychiatric Psychiatric: appropriate mood/affect, cooperative - Neurologic Neurologic: CNII-XII intact, moves all extremities HEART Score - HEART Score EKG: Non-specific Age: 45-65 Risk factors: 1-2 risk factors Troponin: Troponin T 0.069 ng/mL (0.00-0.029) H 04/06/20 02:16 Troponin: 1-3x normal limit - Critical Actions Critical Actions: 4-6 pts:12-16.6% risk of adverse cardiac event. Should be a dmitted Results - Labs CBC & Chem 7: 04/11/20 10:50 04/13/20 05:00 Labs: Laboratory Last Values WBC 5.0 K/mm3 (4.5-11.0) 04/11/20 10:50 RBC 3.57 M/mm3 (3.65-5.03) L 04/11/20 10:50 Hgb 10.6 gm/dl (11.8-15.2) L 04/11/20 10:50 Hct 32.3 % (35.5-45.6) L 04/11/20 10:50 MCV 91 fl (84-94) 04/11/20 10:50 MCH 30 pg (28-32) 04/11/20 10:50 MCHC 33 % (32-34) 04/11/20 10:50 RDW 16.3 % (13.2-15.2) H 04/11/20 10:50 Plt Count 176 K/mm3 (140-440) 04/11/20 10:50 Lymph % (Auto) 11.3 % (13.4-35.0) L 04/07/20 04:47 [place] % (Auto) 8.0 % (0.0-7.3) H 04/07/20 04:47 Eos % (Auto) 5.4 % (0.0-4.3) H 04/07/20 04:47 Baso % (Auto) 0.6 % (0.0-1.8) 04/07/20 04:47 Lymph # 0.5 K/mm3 (1.2-5.4) L 04/07/20 04:47 [place] # 0.4 K/mm3 (0.0-0.8) 04/07/20 04:47 Eos # 0.2 K/mm3 (0.0-0.4) 04/07/20 04:47 Baso # 0.0 K/mm3 (0.0-0.1) 04/07/20 04:47 Seg Neutrophils % 74.7 % (40.0-70.0) H 04/07/20 04:47 Seg Neutrophils # 3.4 K/mm3 (1.8-7.7) 04/07/20 04:47 Sodium 134 mmol/L (137-145) L 04/13/20 05:00 Potassium 4.7 mmol/L (3.6-5.0) 04/13/20 05:00 Chloride 93.9 mmol/L (98-107) L 04/13/20 05:00 Carbon Dioxide 26 mmol/L (22-30) 04/13/20 05:00 Anion Gap 19 mmol/L 04/13/20 05:00 BUN 34 mg/dL (9-20) H 04/13/20 05:00 Creatinine 6.6 mg/dL (0.8-1.5) H 04/13/20 05:00 Estimated GFR 11 ml/min 04/13/20 05:00 BUN/Creatinine Ratio 5 % 04/13/20 05:00 Glucose 112 mg/dL (75-100) H 04/13/20 05:00 Calcium 7.3 mg/dL (8.4-10.2) L 04/13/20 05:00 Ionized Calcium 2.9 mg/dL (4.8-5.6) L* 04/10/20 09:33 Total Bilirubin 0.30 mg/dL (0.1-1.2) 04/06/20 02:23 AST 16 units/L (5-40) 04/06/20 02:23 ALT 13 units/L (7-56) 04/06/20 02:23 Alkaline Phosphatase 89 units/L (35-129) 04/06/20 02:23 Troponin T 0.069 ng/mL (0.00-0.029) H 04/06/20 02:16 Total Protein 7.6 g/dL (6.3-8.2) 04/06/20 02:23 Albumin 3.9 g/dL (3.9-5) 04/06/20 02:23 Albumin/Globulin Ratio 1.1 % 04/06/20 02:23 Triglycerides 55 mg/dL (2-149) 05/14/20 02:16 Cholesterol 114 mg/dL (50-199) 04/06/20 02:16 LDL Cholesterol Direct 67 mg/dL (50-130) 04/06/20 02:16 HDL Cholesterol 45 mg/dL (40-59) 04/06/20 02:16 Cholesterol/HDL Ratio 2.53 % 04/06/20 02:16 Nasal Screen MRSA (PCR) Negative (Negative) 04/07/20 04:25 Hepatitis A IgM Ab Non-reactive (NonReactive) 04/10/20 19:05 Hep Bs Antigen Non-reactive (Negative) 04/10/20 19:05 Hep B Core IgM Ab Non-reactive (NonReactive) 04/10/20 19:05 Hepatitis C Antibody Non-reactive (NonReactive) 04/10/20 19:05 - Diagnostic Impressions Diagnostic Impressions: Echocardiogram 04/06/20 12:31 Transthoracic Echocardiogram Conclusions *4-chamber dilated cardiomyopathy. *Global left ventricular systolic function is severely decreased. *The estimated ejection fraction is 20-25%. *Mild concentric left ventricular hypertrophy is observed. *There is moderate to severe mitral regurgitation. *There is moderate to severe tricuspid regurgitation. *There is at least moderate pulmonary hypertension. *The right ventricular systolic pressure is calculated at 52 mmHg. Findings Left Ventricle: The left ventricular chamber size is moderately dilated. Mild concentric left ventricular hypertrophy is observed. Global left ventricular systolic function is severely decreased. The estimated ejection fraction is 20-25%. Left Atrium: The left atrium is moderately dilated. Right Ventricle: The right ventricle is mildly dilated. Right Atrium: The right atrium is mildly dilated. Aortic Valve: The aortic valve is trileaflet. The aortic valve leaflets are mildly thickened. There is no evidence of aortic regurgitation. There is no evidence of aortic stenosis. Mitral Valve: The mitral valve leaflets are mildly thickened. There is moderate to severe mitral regurgitation. There is no evidence of mitral stenosis. Tricuspid Valve: The tricuspid valve leaflets are normal. There is moderate to severe tricuspid regurgitation. The right ventricular systolic pressure is calculated at 52 mmHg. There is evidence of moderate pulmonary hypertension. Pulmonic Valve: There is mild pulmonic regurgitation. Pericardium: There is no pericardial effusion. Aorta: There is no dilatation of the ascending aorta. There is no dilatation of the aortic root. Venous: The inferior vena cava appears normal in size. Measurements Chambers 2D Name Value Normal Range IVSd (2D) 0.83 cm (0.6 - 1.1) LVPWd (2D) 0.85 cm (0.6 - 1.1) LVIDd (2D) 6.33 cm (3.7 - 5.6) LVIDs (2D) 5.16 cm (2 - 3.8) LV FS (2D) 18.42 % - EF Teichholz (2D) 37.34 % - Ao root diameter (2D) 3.66 cm (2 - 3.7) Volumes/Mass Name Value Normal Range LA ESV SP 4CH (A/L) 63.31 ml - LA ESV SP 2CH (A/L) 64.57 ml - LA ESV BP (A/L) 66.59 ml - LA ESV SP 4CH (MOD) 59.55 ml - LA ESV SP 2CH (MOD) 60.41 ml - Diastolic/Systolic Function Name Value Normal Range MV E-wave Vmax 1.38 m/sec - MV deceleration time 182.92 msec - MV A-wave Vmax 0.54 m/sec - MV E:A ratio 2.53 ratio - Aortic Valve Name Value Normal Range AV Vmax 1.17 m/sec - AV VTI 21.79 cm - AV peak gradient 5.49 mmHg - AV mean gradient 2.87 mmHg - LVOT diameter 2.05 cm - LVOT Vmax 0.7 m/sec - LVOT VTI 16.23 cm - LVOT peak gradient 1.94 mmHg - LVOT mean gradient 1.11 mmHg - SV LVOT 53.42 ml - MICH (continuity Vmax) 1.96 cm2 - MICH (continuity VTI) 2.45 cm2 - Mitral Valve Name Value Normal Range MR Vmax 4.03 m/sec - MR VTI 120.84 cm - Tricuspid Valve Name Value Normal Range TR Vmax 3.32 m/sec - TR peak gradient 44.07 mmHg - RVSP 52 mmHg - IVC diameter 2.01 cm (1.2 - 2.3) Pulmonic Valve/Qp:Qs Name Value Normal Range PV Vmax 0.87 m/sec - PV peak gradient 3.05 mmHg - CO end-diastolic Vmax 1.22 m/sec - PV acceleration time 102.76 msec - Lee/IV: Voiding Method Toilet IV Catheter Type [Right INT / Saline Lock Antecubital] IV Catheter Type [Right Hand] INT / Saline Lock IV Catheter Type [Left Leg] INT / Saline Lock Active Medications - Current Medications Current Medications: Generic Name Dose Route Start Last Admin Trade Name Freq PRN Reason Stop Dose Admin Acetaminophen 650 mg 04/06/20 08:00 Tylenol PO Q4H PRN Pain MILD(1-3)/Fever >100.5/MALDONADO Aspirin 81 mg 04/07/20 11:00 04/13/20 09:01 Baby Aspirin PO Not Given QDAY LIBORIO Atorvastatin Calcium 40 mg 04/06/20 22:00 04/12/20 23:41 Lipitor PO 40 mg QHS LIBORIO Administration Calcium Acetate 1,334 mg 04/12/20 12:00 04/13/20 08:57 Phoslo PO 1,334 mg TIDWM LIBORIO Administration Carvedilol 3.125 mg 04/07/20 11:00 04/13/20 09:00 Coreg PO 3.125 mg BID LIBORIO Administration Sodium Chloride 100 mls @ 999 mls/hr 04/12/20 15:21 Nacl 0.9% IV PEDRITO PRN Hypotension Isosorbide Dinitrate/Hydralazine 1 each 04/07/20 22:00 04/13/20 05:03 Bidil 20/37.5mg PO 1 each Q8HR LIBORIO Administration Morphine Sulfate 2 mg 04/06/20 08:00 04/13/20 05:04 Morphine IV 2 mg Q4H PRN Administration Pain, Moderate (4-6) Morphine Sulfate 4 mg 04/06/20 08:25 04/09/20 21:47 Morphine IV 4 mg Q4H PRN Administration Pain , Severe (7-10) Nitroglycerin 0.4 mg 04/06/20 08:00 Nitrostat SL Q5M PRN Chest Pain Ondansetron HCl 4 mg 04/06/20 08:00 Zofran IV Q4H PRN Nausea And Vomiting Senna 8.6 mg 04/06/20 10:00 04/13/20 09:00 Senokot PO 8.6 mg Q12HR LIBORIO Administration Sodium Chloride 10 ml 04/06/20 10:00 04/13/20 09:03 Sodium Chloride Flush Syringe 10 Ml IV 10 ml BID LIBORIO Administration Sodium Chloride 10 ml 04/06/20 08:00 04/07/20 20:03 Sodium Chloride Flush Syringe 10 Ml IV 10 ml PRN PRN Administration LINE FLUSH Nutrition/Malnutrition Assess - Dietary Evaluation Nutrition/Malnutrition Findings: Nutrition Notes Start: 04/07/20 14:04 Freq: Status: Active Protocol: Document 04/12/20 14:29 LM (Rec: 04/12/20 14:32 LM [id number]) Nutrition Notes Initial or Follow up Brief Note Current Diagnosis CKD (stage V CKD),COPD, Hypertension Current Diet Renal Subjective/Other Information Unable to reach pt. Pt receiving HD again today. Nutrition Intervention Follow-Up By: 04/13/20 Additional Comments F/U for full assessment
--- NOTE | 2020-04-13 10:57 | Progress Note ---
Assessment and Plan Elevated troponin, nonspecific likely in the setting of renal failure Volume overload End stage renal disease Dilated Cardiomyopathy, hx per pt an echo this admission reports a 4 chamber dilated cardiomyopathy. There is at least moderate MR, at least moderate TR and moderate pulmonary hypertension, RSVP 52 mmHg. LVEF 20-25%. unable to retrieve previous cardiac records from [place] as reported by patient. Recommendations: Dialysis for fluid management. Continue medical management for dilated cardiomyopathy as tolerated. Subjective Date of service: 04/13/20 Principal diagnosis: ESRD Interval history: Patient is resting in bed comfortably. Objective Vital Signs Temp Pulse Resp BP Pulse Ox 04/13/20 09:00 85 102/59 04/13/20 07:19 98.1 F 85 18 102/59 94 04/13/20 05:04 20 04/13/20 05:03 83 115/69 04/13/20 03:48 98.1 F 83 19 115/69 100 04/13/20 00:53 20 04/13/20 00:16 98.0 F 18 129/80 04/13/20 00:00 71 97 04/12/20 23:46 43 L 157/100 04/12/20 23:41 43 L 157/100 04/12/20 22:00 100 04/12/20 21:01 77 04/12/20 19:24 97.8 F 43 L 16 157/100 81 L 04/12/20 18:10 98.0 F 60 18 154/79 04/12/20 18:00 40 L 132/74 04/12/20 17:45 72 130/70 04/12/20 17:30 73 136/71 04/12/20 17:15 69 159/83 04/12/20 17:00 61 134/88 04/12/20 16:45 68 149/78 04/12/20 16:30 67 155/76 04/12/20 16:15 52 L 131/78 04/12/20 16:00 89 142/77 04/12/20 15:45 71 125/73 04/12/20 15:30 70 139/79 04/12/20 15:15 71 133/74 04/12/20 15:00 69 141/77 04/12/20 14:45 71 128/71 04/12/20 14:30 97.6 F 69 18 140/54 04/12/20 13:08 61 04/12/20 13:02 97.6 F 18 118/78 04/12/20 11:35 95 - Physical Examination General: No Apparent Distress HEENT: Positive: PERRL Neck: Positive: neck supple Cardiac: Positive: Reg Rate and Rhythm Neuro: Positive: Grossly Intact Extremities: Present: +1 Edema - Labs and Meds Comprehensive Metabolic Panel 04/12/20 04/13/20 Range/Units 14:21 05:00 Sodium 130 L 134 L (137-145) mmol/L Potassium 5.5 H 4.7 (3.6-5.0) mmol/L Chloride 89.4 L 93.9 L (98-107) mmol/L Carbon Dioxide 25 26 (22-30) mmol/L BUN 41 H 34 H (9-20) mg/dL Creatinine 6.9 H 6.6 H (0.8-1.5) mg/dL Glucose 91 112 H (75-100) mg/dL Calcium 6.7 L D 7.3 L (8.4-10.2) mg/dL
[2020-04-13] MEDS ORDERED: SODIUM CHLORIDE*PRIMING MACHINE ONLY FOR DIALYSIS MC ONE (11:29)
[2020-04-14] MEDS: ISOSORB DINIT/HYDRALAZINE 20-37.5MG TAB PO SCH ×3 (05:06→22:38)
[2020-04-14] MEDS: MORPHINE 2 MG/1 ML INJ IV PRN ×4 (05:12→20:55)
[2020-04-14 05:38] LABS: Calcium 7.4 mg/dL (8.4-10.2)
--- NOTE | 2020-04-14 08:22 | Progress Note ---
Assessment and Plan - Patient Problems (1) Acute on chronic systolic heart failure Current Visit: Yes Status: Acute Plan to address problem: fluid removal on dialysis. Daily Hemodialysis/Isolated UFR. Continue beta- al and nitrates. Reinforced sodium and fluid restriction. (2) Anasarca Current Visit: Yes Status: Acute Plan to address problem: Daily dialysis. Counseled the patient about adherence with Sodium and fluid restriction. (3) End-stage renal disease needing dialysis Current Visit: Yes Status: Chronic Plan to address problem: Hemodialysis again today. (4) Pulmonary edema Current Visit: No Status: Acute Qualifiers: Chronicity: acute Qualified Code(s): J81.0 - Acute pulmonary edema Plan to address problem: improved with fluid removal on dialysis. (5) Anemia in chronic kidney disease Current Visit: Yes Status: Acute Plan to address problem: Continue erythropoietin with dialysis. Follow-up hemoglobin (6) Hypocalcemia Current Visit: Yes Status: Acute Plan to address problem: calcium is improving. Parathyroid hormone level was low. Continue dialysis on a high calcium bath with oral calcium supplementation. Follow-up calcium. Subjective Date of service: 04/14/20 Principal diagnosis: ESRD Interval history: patient seen lying in bed. Still complains of swelling especially in the scrotum. He feels it is not getting better. No chest pain or shortness of breath. Objective - Exam Narrative Exam: middle-aged -[place] male sitting up in bed in no acute distress HEENT: Normocephalic atraumatic, pupils equal round reactive to light Normal oropharynx, Neck: Supple, no venous distention, no goiter CVS: S1S2 RRR No murmur, No rub or gallop Lungs: Diminished breath sounds in the lower zones no use of accessory muscles of respiration Abdomen: Full, soft, nontender, no organomegaly no bruit, bowel sounds are pres ent Extremities: 3+ pitting edema, no cyanosis or clubbing Urinary: Scrotal edema ++ Musculo-skeletal: No joint deformities or swelling Neuro: Awake, alert, no focal deficits - Vital Signs Vital signs: Vital Signs - 12hr 04/13/20 04/13/20 04/13/20 21:03 22:00 22:21 Temperature Pulse Rate 76 Respiratory 18 Rate Respiratory Rate [Back] Blood Pressure 106/73 O2 Sat by Pulse 99 99 Oximetry 04/13/20 04/13/20 04/13/20 22:22 22:23 23:58 Temperature 98.5 F Pulse Rate 76 75 Respiratory 18 20 Rate Respiratory Rate [Back] Blood Pressure 106/73 111/72 O2 Sat by Pulse 100 Oximetry 04/14/20 04/14/20 04/14/20 03:59 05:00 05:06 Temperature 98.1 F Pulse Rate 70 70 Respiratory 18 Rate Respiratory 18 Rate [Back] Blood Pressure 120/76 120/76 O2 Sat by Pulse 96 Oximetry 04/14/20 05:12 Temperature Pulse Rate Respiratory 18 Rate Respiratory Rate [Back] Blood Pressure O2 Sat by Pulse Oximetry - Lab 04/11/20 10:50 04/14/20 04:26 Most recent lab results Calcium 7.4 mg/dL (8.4-10.2) L 04/14/20 04:26 Phosphorus 3.80 mg/dL (2.5-4.5) 04/14/20 04:26 Medications & Allergies - Medications Allergies/Adverse Reactions: Allergies No Known Allergies Allergy (Unverified 04/02/20 06:54) Active Medications: Generic Name Dose Route Start Last Admin Trade Name Freq PRN Reason Stop Dose Admin Acetaminophen 650 mg 04/06/20 08:00 Tylenol PO Q4H PRN Pain MILD(1-3)/Fever >100.5/MALDONADO Aspirin 81 mg 04/07/20 11:00 04/13/20 09:01 Baby Aspirin PO Not Given QDAY [facility] Atorvastatin Calcium 40 mg 04/06/20 22:00 04/13/20 22:22 Lipitor PO 40 mg QHS LIBORIO Administration Calcium Acetate 1,334 mg 04/12/20 12:00 04/13/20 16:11 Phoslo PO 1,334 mg TIDWM LIBORIO Administration Carvedilol 3.125 mg 04/07/20 11:00 04/13/20 22:22 Coreg PO 3.125 mg BID LIBORIO Administration Sodium Chloride 100 mls @ 999 mls/hr 04/12/20 15:21 Nacl 0.9% IV PEDRITO PRN Hypotension Isosorbide Dinitrate/Hydralazine 1 each 04/07/20 22:00 04/14/20 05:06 Bidil 20/37.5mg PO 1 each Q8HR LIBORIO Administration Morphine Sulfate 2 mg 04/06/20 08:00 04/14/20 05:12 Morphine IV 2 mg Q4H PRN Administration Pain, Moderate (4-6) Morphine Sulfate 4 mg 04/06/20 08:25 04/09/20 21:47 Morphine IV 4 mg Q4H PRN Administration Pain , Severe (7-10) Nitroglycerin 0.4 mg 04/06/20 08:00 Nitrostat SL Q5M PRN Chest Pain Ondansetron HCl 4 mg 04/06/20 08:00 Zofran IV Q4H PRN Nausea And Vomiting Senna 8.6 mg 04/06/20 10:00 04/13/20 22:22 Senokot PO 8.6 mg Q12HR LIBORIO Administration Sodium Chloride 10 ml 04/06/20 10:00 04/13/20 22:23 Sodium Chloride Flush Syringe 10 Ml IV 10 ml BID LIBORIO Administration Sodium Chloride 10 ml 04/06/20 08:00 04/07/20 20:03 Sodium Chloride Flush Syringe 10 Ml IV 10 ml PRN PRN Administration LINE FLUSH
[2020-04-14] MEDS: CALCIUM ACETATE 667 MG CAP PO SCH ×3 (08:45→17:32)
[2020-04-14] MEDS: SENNOSIDES 8.6 MG TAB PO SCH ×2 (09:00→22:36)
[2020-04-14] MEDS: carvediloL 3.125 MG TAB PO SCH ×2 (09:01→22:38)
[2020-04-14] MEDS: ASPIRIN 81 MG TAB CHEW PO SCH (09:03)
--- NOTE | 2020-04-14 09:57 | Progress Note ---
Assessment and Plan Elevated troponin, nonspecific likely in the setting of renal failure Volume overload End stage renal disease Dilated Cardiomyopathy, hx per pt an echo this admission reports a 4 chamber dilated cardiomyopathy. There is at least moderate MR, at least moderate TR and moderate pulmonary hypertension, RSVP 52 mmHg. LVEF 20-25%. unable to retrieve previous cardiac records from [place] as reported by patient. Recommendations: Dialysis for fluid management. Continue medical management for dilated cardiomyopathy as tolerated. Otherwise, conservative cardiac management. Subjective Date of service: 04/14/20 Principal diagnosis: ESRD Interval history: Patient is resting in bed comfortably. For dialysis today. Objective Vital Signs Temp Pulse Resp Resp BP BP Pulse Ox 04/14/20 09:25 98 04/14/20 09:01 82 108/62 04/14/20 08:55 18 99 04/14/20 08:07 97.6 F 77 20 108/62 95 04/14/20 08:00 97.6 F 69 20 108/62 98 04/14/20 05:12 18 04/14/20 05:06 70 120/76 04/14/20 05:00 18 04/14/20 03:59 98.1 F 70 18 120/76 96 04/13/20 23:58 98.5 F 75 20 111/72 100 04/13/20 22:23 18 04/13/20 22:22 76 106/73 04/13/20 22:21 76 106/73 04/13/20 22:00 18 99 04/13/20 21:03 99 04/13/20 20:19 98.3 F 76 18 106/73 99 04/13/20 20:10 80 04/13/20 16:11 78 138/96 04/13/20 15:48 98.0 F 80 18 109/64 86 04/13/20 14:40 98.8 F 69 18 138/96 04/13/20 14:30 71 148/44 04/13/20 14:15 76 128/83 04/13/20 14:00 71 122/61 04/13/20 13:45 76 127/70 04/13/20 13:30 72 127/70 04/13/20 13:15 74 127/74 04/13/20 13:00 75 127/72 04/13/20 12:45 76 117/65 05/21/20 12:30 75 117/66 05/21/20 12:15 77 107/66 04/13/20 12:00 76 125/69 04/13/20 11:45 76 111/72 04/13/20 11:30 79 131/71 04/13/20 11:15 74 136/72 04/13/20 11:00 97.9 F 76 18 141/74 Pulse Ox 04/14/20 09:25 04/14/20 09:01 04/14/20 08:55 04/14/20 08:07 04/14/20 08:00 04/14/20 05:12 04/14/20 05:06 04/14/20 05:00 04/14/20 03:59 04/13/20 23:58 04/13/20 22:23 04/13/20 22:22 04/13/20 22:21 04/13/20 22:00 04/13/20 21:03 04/13/20 20:19 04/13/20 20:10 04/13/20 16:11 04/13/20 15:48 04/13/20 14:40 100 04/13/20 14:30 04/13/20 14:15 04/13/20 14:00 04/13/20 13:45 04/13/20 13:30 04/13/20 13:15 04/13/20 13:00 04/13/20 12:45 04/13/20 12:30 04/13/20 12:15 04/13/20 12:00 04/13/20 11:45 04/13/20 11:30 04/13/20 11:15 04/13/20 11:00 100 - Physical Examination General: No Apparent Distress HEENT: Positive: PERRL Neck: Positive: neck supple Cardiac: Positive: Reg Rate and Rhythm Neuro: Positive: Grossly Intact Extremities: Present: +1 Edema - Labs and Meds Comprehensive Metabolic Panel 04/14/20 Range/Units 04:26 Sodium 134 L (137-145) mmol/L Potassium 4.6 (3.6-5.0) mmol/L Chloride 91.8 L (98-107) mmol/L Carbon Dioxide 28 (22-30) mmol/L BUN 27 H (9-20) mg/dL Creatinine 5.3 H (0.8-1.5) mg/dL Glucose 102 H (75-100) mg/dL Calcium 7.4 L (8.4-10.2) mg/dL
--- NOTE | 2020-04-14 11:07 | Progress Note ---
Assessment and Plan Assessment and plan: --Fluid overload, secondary to ESRD As well as severe cardiomyopathy EF of 20 to 25% Nephrology planning daily hemodialysis in view of Extensive fluid overload --ESRD on hemodialysis; Daily HD per nephrology Salt and water restriction --Hypocalcemia; corrected Closely monitor --Severe hyperkalemia; slightly improved Potassium today 5.5, 1 dose Kayexalate Monitor electrolytes --Atypical Chest pain secondary to volume overload- pain is resolved --NSTEMI; type II Positive troponins probably secondary to end-stage renal disease Cardiology following, medical management --Dilated cardiomyopathy/EF 20 to 25% Hemodialysis for fluid removal, continue current management --Acute on chronic systolic CHF secondary to volume overload EF 20 to 25%, continue anti-failure medications Input output monitoring, hemodialysis --Type 2 TN; Accu-Chek sliding scale coverage ADA diet Insulin as needed --Anemia of chronic disease; Monitor H&H transfuse as needed Procrit during dialysis --Morbid obesity; BMI 39.5 Partly due to fluid overload Continue hemodialysis, supportive care Monitor closely and adjust the management as needed 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 And Export 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 recommendations noted and appreciated Plan of care reviewed with the patient and his nurse Disposition; discharge when cleared by nephrology History Interval history: Patient seen and examined at the bedside this morning Patient's chart medications reviewed Patient received hemodialysis today Feels slightly better Denies chest pain Vital signs reviewed Hospitalist Physical - Constitutional Vitals: Temp Pulse Resp BP Pulse Ox 97.6 F 72 18 123/56 98 04/14/20 09:30 04/14/20 10:45 04/14/20 09:30 04/14/20 10:45 04/14/20 09:30 General appearance: Present: mild distress, well-nourished, obese - EENT Eyes: Present: PERRL, EOM intact - Neck Neck: Present: supple, normal ROM - Respiratory Respiratory effort: normal Respiratory: bilateral: diminished, rales, negative: rhonchi, wheezing - Cardiovascular Rhythm: regular Heart Sounds: Present: S1 & S2 - Extremities Extremities: no ischemia, No edema Peripheral Pulses: within normal limits - Integumentary Integumentary: Present: clear, warm - Psychiatric Psychiatric: appropriate mood/affect, cooperative - Neurologic Neurologic: moves all extremities HEART Score - HEART Score EKG: Non-specific Age: 45-65 Risk factors: 1-2 risk factors Troponin: Troponin T 0.069 ng/mL (0.00-0.029) H 04/06/20 02:16 Troponin: 1-3x normal limit - Critical Actions Critical Actions: 4-6 pts:12-16.6% risk of adverse cardiac event. Should be admitted Results - Labs CBC & Chem 7: 04/11/20 10:50 04/14/20 04:26 Labs: Laboratory Last Values WBC 5.0 K/mm3 (4.5-11.0) 04/11/20 10:50 RBC 3.57 M/mm3 (3.65-5.03) L 04/11/20 10:50 Hgb 10.6 gm/dl (11.8-15.2) L 04/11/20 10:50 Hct 32.3 % (35.5-45.6) L 04/11/20 10:50 MCV 91 fl (84-94) 04/11/20 10:50 MCH 30 pg (28-32) 04/11/20 10:50 MCHC 33 % (32-34) 04/11/20 10:50 RDW 16.3 % (13.2-15.2) H 04/11/20 10:50 Plt Count 176 K/mm3 (140-440) 04/11/20 10:50 Lymph % (Auto) 11.3 % (13.4-35.0) L 04/07/20 04:47 [place] % (Auto) 8.0 % (0.0-7.3) H 04/07/20 04:47 Eos % (Auto) 5.4 % (0.0-4.3) H 04/07/20 04:47 Baso % (Auto) 0.6 % (0.0-1.8) 04/07/20 04:47 Lymph # 0.5 K/mm3 (1.2-5.4) L 04/07/20 04:47 [place] # 0.4 K/mm3 (0.0-0.8) 04/07/20 04:47 Eos # 0.2 K/mm3 (0.0-0.4) 04/07/20 04:47 Baso # 0.0 K/mm3 (0.0-0.1) 04/07/20 04:47 Seg Neutrophils % 74.7 % (40.0-70.0) H 04/07/20 04:47 Seg Neutrophils # 3.4 K/mm3 (1.8-7.7) 04/07/20 04:47 Sodium 134 mmol/L (137-145) L 04/14/20 04:26 Potassium 4.6 mmol/L (3.6-5.0) 04/14/20 04:26 Chloride 91.8 mmol/L (98-107) L 04/14/20 04:26 Carbon Dioxide 28 mmol/L (22-30) 04/14/20 04:26 Anion Gap 19 mmol/L 04/14/20 04:26 BUN 27 mg/dL (9-20) H 04/14/20 04:26 Creatinine 5.3 mg/dL (0.8-1.5) H 04/14/20 04:26 Estimated GFR 14 ml/min 04/14/20 04:26 BUN/Creatinine Ratio 5 % 04/14/20 04:26 Glucose 102 mg/dL (75-100) H 04/14/20 04:26 Calcium 7.4 mg/dL (8.4-10.2) L 04/14/20 04:26 Ionized Calcium 2.9 mg/dL (4.8-5.6) L* 04/10/20 09:33 Phosphorus 3.80 mg/dL (2.5-4.5) 04/14/20 04:26 Total Bilirubin 0.30 mg/dL (0.1-1.2) 04/06/20 02:23 AST 16 units/L (5-40) 04/06/20 02:23 ALT 13 units/L (7-56) 04/06/20 02:23 Alkaline Phosphatase 89 units/L (35-129) 04/06/20 02:23 Troponin T 0.069 ng/mL (0.00-0.029) H 04/06/20 02:16 Total Protein 7.6 g/dL (6.3-8.2) 04/06/20 02:23 Albumin 3.9 g/dL (3.9-5) 04/06/20 02:23 Albumin/Globulin Ratio 1.1 % 04/06/20 02:23 Triglycerides 55 mg/dL (2-149) 04/06/20 02:16 Cholesterol 114 mg/dL (50-199) 04/06/20 02:16 LDL Cholesterol Direct 67 mg/dL (50-130) 04/06/20 02:16 HDL Cholesterol 45 mg/dL (40-59) 04/06/20 02:16 Cholesterol/HDL Ratio 2.53 % 04/06/20 02:16 PTH Intact 25.13 pg/mL (15-65) 04/14/20 04:26 Nasal Screen MRSA (PCR) Negative (Negative) 04/07/20 04:25 Hepatitis A IgM Ab Non-reactive (NonReactive) 04/10/20 19:05 Hep Bs Antigen Non-reactive (Negative) 04/10/20 19:05 Hep B Core IgM Ab Non-reactive (NonReactive) 04/10/20 19:05 Hepatitis C Antibody Non-reactive (NonReactive) 04/10/20 19:05 - Diagnostic Impressions Diagnostic Impressions: Echocardiogram 04/06/20 12:31 Transthoracic Echocardiogram Conclusions *4-chamber dilated cardiomyopathy. *Global left ventricular systolic function is severely decreased. *The estimated ejection fraction is 20-25%. *Mild concentric left ventricular hypertrophy is observed. *There is moderate to severe mitral regurgitation. *There is moderate to severe tricuspid regurgitation. *There is at least moderate pulmonary hypertension. *The right ventricular systolic pressure is calculated at 52 mmHg. Findings Left Ventricle: The left ventricular chamber size is moderately dilated. Mild concentric left ventricular hypertrophy is observed. Global left ventricular systolic function is severely decreased. The estimated ejection fraction is 20-25%. Left Atrium: The left atrium is moderately dilated. Right Ventricle: The right ventricle is mildly dilated. Right Atrium: The right atrium is mildly dilated. Aortic Valve: The aortic valve is trileaflet. The aortic valve leaflets are mildly thickened. There is no evidence of aortic regurgitation. There is no evidence of aortic stenosis. Mitral Valve: The mitral valve leaflets are mildly thickened. There is moderate to severe mitral regurgitation. There is no evidence of mitral stenosis. Tricuspid Valve: The tricuspid valve leaflets are normal. There is moderate to severe tricuspid regurgitation. The right ventricular systolic pressure is calculated at 52 mmHg. There is evidence of moderate pulmonary hypertension. Pulmonic Valve: There is mild pulmonic regurgitation. Pericardium: There is no pericardial effusion. Aorta: There is no dilatation of the ascending aorta. There is no dilatation of the aortic root. Venous: The inferior vena cava appears normal in size. Measurements Chambers 2D Name Value Normal Range IVSd (2D) 0.83 cm (0.6 - 1.1) LVPWd (2D) 0.85 cm (0.6 - 1.1) LVIDd (2D) 6.33 cm (3.7 - 5.6) LVIDs (2D) 5.16 cm (2 - 3.8) LV FS (2D) 18.42 % - EF Teichholz (2D) 37.34 % - Ao root diameter (2D) 3.66 cm (2 - 3.7) Volumes/Mass Name Value Normal Range LA ESV SP 4CH (A/L) 63.31 ml - LA ESV SP 2CH (A/L) 64.57 ml - LA ESV BP (A/L) 66.59 ml - LA ESV SP 4CH (MOD) 59.55 ml - LA ESV SP 2CH (MOD) 60.41 ml - Diastolic/Systolic Function Name Value Normal Range MV E-wave Vmax 1.38 m/sec - MV deceleration time 182.92 msec - MV A-wave Vmax 0.54 m/sec - MV E:A ratio 2.53 ratio - Aortic Valve Name Value Normal Range AV Vmax 1.17 m/sec - AV VTI 21.79 cm - AV peak gradient 5.49 mmHg - AV mean gradient 2.87 mmHg - LVOT diameter 2.05 cm - LVOT Vmax 0.7 m/sec - LVOT VTI 16.23 cm - LVOT peak gradient 1.94 mmHg - LVOT mean gradient 1.11 mmHg - SV LVOT 53.42 ml - MICH (continuity Vmax) 1.96 cm2 - MICH (continuity VTI) 2.45 cm2 - Mitral Valve Name Value Normal Range MR Vmax 4.03 m/sec - MR VTI 120.84 cm - Tricuspid Valve Name Value Normal Range TR Vmax 3.32 m/sec - TR peak gradient 44.07 mmHg - RVSP 52 mmHg - IVC diameter 2.01 cm (1.2 - 2.3) Pulmonic Valve/Qp:Qs Name Value Normal Range PV Vmax 0.87 m/sec - PV peak gradient 3.05 mmHg - WV end-diastolic Vmax 1.22 m/sec - PV acceleration time 102.76 msec - Lee/IV: Voiding Method Urinal IV Catheter Type [Right INT / Saline Lock Antecubital] IV Catheter Type [Right Hand] INT / Saline Lock IV Catheter Type [Left Leg] INT / Saline Lock Active Medications - Current Medications Current Medications: Generic Name Dose Route Start Last Admin Trade Name Freq PRN Reason Stop Dose Admin Acetaminophen 650 mg 04/06/20 08:00 Tylenol PO Q4H PRN Pain MILD(1-3)/Fever >100.5/MALDONADO Aspirin 81 mg 04/07/20 11:00 04/14/20 09:03 Baby Aspirin PO Not Given QDAY [facility] Atorvastatin Calcium 40 mg 04/06/20 22:00 04/13/20 22:22 Lipitor PO 40 mg QHS [facility] Administration Calcium Acetate 1,334 mg 04/12/20 12:00 04/14/20 08:45 Phoslo PO 1,334 mg TIDWM [facility] Administration Carvedilol 3.125 mg 04/07/20 11:00 04/14/20 09:01 Coreg PO 3.125 mg BID [facility] Administration Sodium Chloride 100 mls @ 999 mls/hr 04/12/20 15:21 Nacl 0.9% IV PEDRITO PRN Hypotension Isosorbide Dinitrate/Hydralazine 1 each 04/07/20 22:00 04/14/20 05:06 Bidil 20/37.5mg PO 1 each Q8HR [facility] Administration Morphine Sulfate 2 mg 04/06/20 08:00 04/14/20 09:09 Morphine IV 2 mg Q4H PRN Administration Pain, Moderate (4-6) Morphine Sulfate 4 mg 04/06/20 08:25 04/09/20 21:47 Morphine IV 4 mg Q4H PRN Administration Pain , Severe (7-10) Nitroglycerin 0.4 mg 04/06/20 08:00 Nitrostat SL Q5M PRN Chest Pain Ondansetron HCl 4 mg 04/06/20 08:00 Zofran IV Q4H PRN Nausea And Vomiting Senna 8.6 mg 04/06/20 10:00 04/14/20 09:00 Senokot PO 8.6 mg Q12HR [facility] Administration Sodium Chloride 10 ml 04/06/20 10:00 04/14/20 09:01 Sodium Chloride Flush Syringe 10 Ml IV 10 ml BID [facility] Administration Sodium Chloride 10 ml 05/14/20 08:00 04/07/20 20:03 Sodium Chloride Flush Syringe 10 Ml IV 10 ml PRN PRN Administration LINE FLUSH Nutrition/Malnutrition Assess - Dietary Evaluation Nutrition/Malnutrition Findings: Nutrition Notes Start: 04/07/20 14:04 Freq: Status: Active Protocol: Document 04/14/20 10:48 LP (Rec: 04/14/20 10:49 LP [id number]) Nutrition Notes Initial or Follow up Brief Note Subjective/Other Information Pt not in room at time of visit. Pt has HD M,W,F Nutrition Intervention Add Supplement/Snack (indicate name/kcal Nepro daily /protein ) Provides kCal: 425 Provides Protein (gm) 19 Follow-Up By: 04/15/20 Additional Comments Follow for assessment and ONS tolerance
[2020-04-14] MEDS ORDERED: SODIUM CHLORIDE*PRIMING MACHINE ONLY FOR DIALYSIS MC ONE (12:12)
[2020-04-15] MEDS: MORPHINE 2 MG/1 ML INJ IV PRN ×2 (03:49→22:36)
[2020-04-15] MEDS: ISOSORB DINIT/HYDRALAZINE 20-37.5MG TAB PO SCH ×3 (06:38→22:28)
--- NOTE | 2020-04-15 09:07 | Progress Note ---
Assessment and Plan 1. Chronic combined systolic and diastolic heart failure 2. Dilated nonischemic cardiomyopathy left ventricular ejection fraction 20 to 25% 3. Generalized anasarca with scrotal edema 4. End-stage renal disease on hemodialysis 5. Morbid obesity Plan. Currently stable with significant anasarca will need further hemodialysis nephrology for fluid management. Subjective Date of service: 04/15/20 Principal diagnosis: ESRD Interval history: Complains of pain in right thigh. He also complains of scrotal or penis swelling Objective Vital Signs Temp Pulse Pulse Resp Resp BP BP 04/15/20 07:19 98.3 F 73 20 109/71 04/15/20 06:38 75 104/68 04/15/20 06:26 97.7 F 18 04/15/20 06:15 75 104/68 04/15/20 04:19 18 04/15/20 03:49 18 04/15/20 01:38 99/58 04/14/20 22:38 80 108/67 04/14/20 22:37 77 108/67 04/14/20 22:20 74 18 04/14/20 21:25 18 04/14/20 21:04 18 04/14/20 20:55 18 04/14/20 20:43 97.9 F 04/14/20 20:42 74 20 101/56 04/14/20 20:10 73 04/14/20 16:00 97.6 F 79 22 117/72 04/14/20 15:10 73 04/14/20 14:12 70 109/68 04/14/20 13:20 97.7 F 70 16 109/68 04/14/20 13:14 70 109/68 04/14/20 13:07 18 04/14/20 13:00 71 128/70 04/14/20 12:45 65 128/71 04/14/20 12:30 69 119/60 04/14/20 12:15 69 107/64 04/14/20 12:00 97.2 F L 73 20 135/87 116/68 04/14/20 11:45 70 139/78 04/14/20 11:32 72 115/69 04/14/20 11:15 59 L 111/79 04/14/20 11:00 66 145/68 04/14/20 10:45 72 123/56 04/14/20 10:30 74 130/78 04/14/20 10:15 76 114/66 04/14/20 10:00 69 104/66 04/14/20 09:45 77 165/90 04/14/20 09:44 76 155/91 04/14/20 09:39 18 04/14/20 09:30 97.6 F 77 16 143/91 04/14/20 09:25 Pulse Ox Pulse Ox Pulse Ox 04/15/20 07:19 100 04/15/20 06:38 04/15/20 06:26 04/15/20 06:15 98 04/15/20 04:19 04/15/20 03:49 04/15/20 01:38 04/14/20 22:38 04/14/20 22:37 100 04/14/20 22:20 96 04/14/20 21:25 04/14/20 21:04 04/14/20 20:55 04/14/20 20:43 04/14/20 20:42 96 04/14/20 20:10 04/14/20 16:00 99 04/14/20 15:10 04/14/20 14:12 04/14/20 13:20 99 99 04/14/20 13:14 04/14/20 13:07 04/14/20 13:00 04/14/20 12:45 04/14/20 12:30 04/14/20 12:15 04/14/20 12:00 99 04/14/20 11:45 04/14/20 11:32 04/14/20 11:15 04/14/20 11:00 04/14/20 10:45 04/14/20 10:30 04/14/20 10:15 04/14/20 10:00 04/14/20 09:45 04/14/20 09:44 04/14/20 09:39 04/14/20 09:30 98 98 04/14/20 09:25 98 - Physical Examination General: No Apparent Distress, Other (morbidly obese) HEENT: Positive: PERRL Neck: Positive: neck supple, trachea midline, JVD/HJR (7 cm) Cardiac: Positive: Regular Rate, S1/S2, S3, PMI, Dilated, Laterally Displaced Lungs: Positive: clear to auscultation, No Wheeze, Rales, Rhonchi Neuro: Positive: Grossly Intact Abdomen: Positive: Soft Skin: Positive: Clear Extremities: Present: +3 Edema, Other (scrotal edema) - Labs and Meds Comprehensive Metabolic Panel 04/15/20 Range/Units 05:04 Sodium 133 L (137-145) mmol/L Potassium 4.8 (3.6-5.0) mmol/L Chloride 90.4 L (98-107) mmol/L Carbon Dioxide 28 (22-30) mmol/L BUN 37 H (9-20) mg/dL Creatinine 6.4 H (0.8-1.5) mg/dL Glucose 103 H (75-100) mg/dL Calcium 7.0 L (8.4-10.2) mg/dL
[2020-04-15] MEDS: CALCIUM ACETATE 667 MG CAP PO SCH ×3 (09:24→18:03)
[2020-04-15] MEDS: SENNOSIDES 8.6 MG TAB PO SCH ×2 (09:25→22:28)
[2020-04-15] MEDS ORDERED: SODIUM CHLORIDE 0.9% 1000 ML 2,000 ML ONE (11:03)
[2020-04-15] MEDS: carvediloL 3.125 MG TAB PO SCH ×2 (12:10→22:27)
[2020-04-15] MEDS: ASPIRIN 81 MG TAB CHEW PO SCH (12:11)
--- NOTE | 2020-04-15 13:40 | Progress Note ---
Assessment and Plan - Patient Problems (1) End-stage renal disease needing dialysis Current Visit: Yes Status: Chronic Plan to address problem: Will place on TTS HD schedule, and he is obtaining sequential treatments on MWF, in order to fully optimize volume status. (2) Anasarca Current Visit: Yes Status: Acute Plan to address problem: Will attempt to optimize his volume status with aggressive UF with dialysis. (3) Hyperkalemia Current Visit: Yes Status: Chronic Plan to address problem: Resolved with HD Counseled on importance of low K diet. (4) Scrotal edema Current Visit: Yes Status: Acute Plan to address problem: In the setting of significant volume overload. Will monitor to see for improvement as we aggressively remove with HD and extra sequential UF sessions. (5) Pulmonary edema Current Visit: No Status: Acute Qualifiers: Chronicity: acute Qualified Code(s): J81.0 - Acute pulmonary edema Plan to address problem: Improving with aggressive fluid removal during dialysis Subjective Date of service: 04/15/20 Principal diagnosis: ESRD Interval history: Seen on HD today. Tolerating well. UF profile changed to 2, and he is doing well. Goal UF 4L as tolerated. Objective - Vital Signs Vital signs: Vital Signs - 12hr 04/15/20 04/15/20 04/15/20 01:38 03:49 04:19 Temperature Pulse Rate Respiratory 18 18 Rate Blood Pressure 99/58 O2 Sat by Pulse Oximetry O2 Sat by Pulse Oximetry [ Bilateral Bases ] 04/15/20 04/15/20 04/15/20 06:15 06:26 06:38 Temperature 97.7 F Pulse Rate 75 75 Respiratory 18 Rate Blood Pressure 104/68 104/68 O2 Sat by Pulse 98 Oximetry O2 Sat by Pulse Oximetry [ Bilateral Bases ] 04/15/20 04/15/20 04/15/20 07:19 09:45 09:50 Temperature 98.3 F 97.6 F Pulse Rate 73 78 77 Respiratory 20 20 Rate Blood Pressure 109/71 114/72 102/60 O2 Sat by Pulse 100 Oximetry O2 Sat by Pulse 99 Oximetry [ Bilateral Bases ] 04/15/20 04/15/20 04/15/20 10:00 10:15 10:30 Temperature Pulse Rate 73 79 80 Respiratory Rate Blood Pressure 106/57 107/69 107/59 O2 Sat by Pulse Oximetry O2 Sat by Pulse Oximetry [ Bilateral Bases ] 04/15/20 04/15/20 10:45 11:00 Temperature Pulse Rate 76 77 Respiratory Rate Blood Pressure 102/52 102/57 O2 Sat by Pulse Oximetry O2 Sat by Pulse Oximetry [ Bilateral Bases ] - General Appearance General appearance: appears stated age, obese, chronically ill EENT: ATNC Neck: no JVD Respiratory: Present: Clear to Ascultation Cardiology: regular Gastrointestinal: normal Integumentary: no rash Neurologic: no focal deficit, alert and oriented x3 Musculoskeletal: deferred Psychiatric: mood/affect appropriate, cooperative - Lab 04/11/20 10:50 04/15/20 05:04 Most recent lab results Calcium 7.0 mg/dL (8.4-10.2) L 04/15/20 05:04 Phosphorus 3.80 mg/dL (2.5-4.5) 04/14/20 04:26 - Allied health notes Allied health notes reviewed: nursing Medications & Allergies - Medications Allergies/Adverse Reactions: Allergies No Known Allergies Allergy (Unverified 04/02/20 06:54) Active Medications: Generic Name Dose Route Start Last Admin Trade Name Freq PRN Reason Stop Dose Admin Acetaminophen 650 mg 04/06/20 08:00 Tylenol PO Q4H PRN Pain MILD(1-3)/Fever >100.5/MALDONADO Aspirin 81 mg 04/07/20 11:00 04/15/20 12:11 Baby Aspirin PO Not Given QDAY [facility] Atorvastatin Calcium 40 mg 04/06/20 22:00 04/14/20 22:36 Lipitor PO 40 mg QHS [facility] Administration Calcium Acetate 1,334 mg 04/12/20 12:00 04/15/20 12:11 Phoslo PO Not Given TIDWM [facility] Carvedilol 3.125 mg 04/07/20 11:00 04/15/20 12:10 Coreg PO Not Given BID [facility] Sodium Chloride 100 mls @ 999 mls/hr 04/12/20 15:21 Nacl 0.9% IV PEDRITO PRN Hypotension Isosorbide Dinitrate/Hydralazine 1 each 04/07/20 22:00 04/15/20 06:38 Bidil 20/37.5mg PO Not Given Q8HR [facility] Morphine Sulfate 2 mg 04/06/20 08:00 04/15/20 03:49 Morphine IV 2 mg Q4H PRN Administration Pain, Moderate (4-6) Morphine Sulfate 4 mg 04/06/20 08:25 04/09/20 21:47 Morphine IV 4 mg Q4H PRN Administration Pain , Severe (7-10) Nitroglycerin 0.4 mg 04/06/20 08:00 Nitrostat SL Q5M PRN Chest Pain Ondansetron HCl 4 mg 04/06/20 08:00 Zofran IV Q4H PRN Nausea And Vomiting Senna 8.6 mg 04/06/20 10:00 04/15/20 09:25 Senokot PO 8.6 mg Q12HR [facility] Administration Sodium Chloride 10 ml 04/06/20 10:00 04/15/20 12:11 Sodium Chloride Flush Syringe 10 Ml IV Not Given BID [facility] Sodium Chloride 10 ml 04/06/20 08:00 04/07/20 20:03 Sodium Chloride Flush Syringe 10 Ml IV 10 ml PRN PRN Administration LINE FLUSH
--- NOTE | 2020-04-15 19:20 | Progress Note ---
Assessment and Plan Assessment and plan: --ESRD on hemodialysis; received hemodialysis today Daily HD per nephrology Salt and water restriction --Fluid overload, secondary to ESRD As well as severe cardiomyopathy EF of 20 to 25% Nephrology planning daily hemodialysis in view of Extensive fluid overload --Hypocalcemia; continue current management --Severe hyperkalemia; slightly improved Resolved, HD per schedule --Atypical Chest pain secondary to volume overload- pain is resolved --NSTEMI; type II Positive troponins probably secondary to end-stage renal disease Cardiology following, medical management --Dilated cardiomyopathy/EF 20 to 25% Hemodialysis for fluid removal, continue current management --Acute on chronic systolic CHF secondary to volume overload EF 20 to 25%, continue anti-failure medications Input output monitoring, hemodialysis --Type 2 [place]; Accu-Chek sliding scale coverage ADA diet Insulin as needed --Anemia of chronic disease; Monitor H&H transfuse as needed Procrit during dialysis --Morbid obesity; BMI 39.5 Partly due to fluid overload Continue hemodialysis, supportive care Monitor closely and adjust the management as needed Environmental Health Nurse recommendations noted and appreciated Plan of care reviewed with the patient and his nurse Disposition; per nephrology History Interval history: Patient received hemodialysis today Patient feels slightly better Very concerned about scrotal edema Denies any chest pain shortness of breath Vital signs reviewed Hospitalist Physical - Constitutional Vitals: Temp Pulse Resp BP Pulse Ox 98.0 F 87 20 124/73 95 04/15/20 16:47 04/15/20 16:47 04/15/20 16:47 04/15/20 16:47 04/15/20 16:47 General appearance: Present: mild distress, well-nourished, obese - EENT Eyes: Present: PERRL, EOM intact - Neck Neck: Present: supple, normal ROM - Respiratory Respiratory effort: normal Respiratory: bilateral: diminished, negative: rales, rhonchi, wheezing - Cardiovascular Rhythm: regular Heart Sounds: Present: S1 & S2 - Extremities Extremities: no ischemia Extremity abnormal: edema - Abdominal General gastrointestinal: soft, non-tender, non-distended, normal bowel sounds - Integumentary Integumentary: Present: clear, warm - Psychiatric Psychiatric: appropriate mood/affect, cooperative - Neurologic Neurologic: moves all extremities HEART Score - HEART Score EKG: Non-specific Age: 45-65 Risk factors: 1-2 risk factors Troponin: Troponin T 0.069 ng/mL (0.00-0.029) H 04/06/20 02:16 Troponin: 1-3x normal limit - Critical Actions Critical Actions: 4-6 pts:12-16.6% risk of adverse cardiac event. Should be admitted Results - Labs CBC & Chem 7: 04/11/20 10:50 04/15/20 05:04 Labs: Laboratory Last Values WBC 5.0 K/mm3 (4.5-11.0) 04/11/20 10:50 RBC 3.57 M/mm3 (3.65-5.03) L 04/11/20 10:50 Hgb 10.6 gm/dl (11.8-15.2) L 04/11/20 10:50 Hct 32.3 % (35.5-45.6) L 04/11/20 10:50 MCV 91 fl (84-94) 04/11/20 10:50 MCH 30 pg (28-32) 04/11/20 10:50 MCHC 33 % (32-34) 04/11/20 10:50 RDW 16.3 % (13.2-15.2) H 04/11/20 10:50 Plt Count 176 K/mm3 (140-440) 04/11/20 10:50 Lymph % (Auto) 11.3 % (13.4-35.0) L 04/07/20 04:47 [place] % (Auto) 8.0 % (0.0-7.3) H 04/07/20 04:47 Eos % (Auto) 5.4 % (0.0-4.3) H 04/07/20 04:47 Baso % (Auto) 0.6 % (0.0-1.8) 04/07/20 04:47 Lymph # 0.5 K/mm3 (1.2-5.4) L 04/07/20 04:47 [place] # 0.4 K/mm3 (0.0-0.8) 04/07/20 04:47 Eos # 0.2 K/mm3 (0.0-0.4) 04/07/20 04:47 Baso # 0.0 K/mm3 (0.0-0.1) 04/07/20 04:47 Seg Neutrophils % 74.7 % (40.0-70.0) H 04/07/20 04:47 Seg Neutrophils # 3.4 K/mm3 (1.8-7.7) 04/07/20 04:47 Sodium 133 mmol/L (137-145) L 04/15/20 05:04 Potassium 4.8 mmol/L (3.6-5.0) 04/15/20 05:04 Chloride 90.4 mmol/L (98-107) L 04/15/20 05:04 Carbon Dioxide 28 mmol/L (22-30) 04/15/20 05:04 Anion Gap 19 mmol/L 04/15/20 05:04 BUN 37 mg/dL (9-20) H 04/15/20 05:04 Creatinine 6.4 mg/dL (0.8-1.5) H 04/15/20 05:04 Estimated GFR 11 ml/min 04/15/20 05:04 BUN/Creatinine Ratio 6 % 04/15/20 05:04 Glucose 103 mg/dL (75-100) H 04/15/20 05:04 Calcium 7.0 mg/dL (8.4-10.2) L 04/15/20 05:04 Ionized Calcium 2.9 mg/dL (4.8-5.6) L* 04/10/20 09:33 Phosphorus 3.80 mg/dL (2.5-4.5) 04/14/20 04:26 Total Bilirubin 0.30 mg/dL (0.1-1.2) 04/06/20 02:23 AST 16 units/L (5-40) 04/06/20 02:23 ALT 13 units/L (7-56) 04/06/20 02:23 Alkaline Phosphatase 89 units/L (35-129) 04/06/20 02:23 Troponin T 0.069 ng/mL (0.00-0.029) H 04/06/20 02:16 Total Protein 7.6 g/dL (6.3-8.2) 04/06/20 02:23 Albumin 3.9 g/dL (3.9-5) 04/06/20 02:23 Albumin/Globulin Ratio 1.1 % 04/06/20 02:23 Triglycerides 55 mg/dL (2-149) 04/06/20 02:16 Cholesterol 114 mg/dL (50-199) 04/06/20 02:16 LDL Cholesterol Direct 67 mg/dL (50-130) 04/06/20 02:16 HDL Cholesterol 45 mg/dL (40-59) 04/06/20 02:16 Cholesterol/HDL Ratio 2.53 % 04/06/20 02:16 PTH Intact 25.13 pg/mL (15-65) 04/14/20 04:26 Nasal Screen MRSA (PCR) Negative (Negative) 04/07/20 04:25 Hepatitis A IgM Ab Non-reactive (NonReactive) 04/10/20 19:05 Hep Bs Antigen Non-reactive (Negative) 04/10/20 19:05 Hep B Core IgM Ab Non-reactive (NonReactive) 04/10/20 19:05 Hepatitis C Antibody Non-reactive (NonReactive) 04/10/20 19:05 - Diagnostic Impressions Diagnostic Impressions: Echocardiogram 04/06/20 12:31 Transthoracic Echocardiogram Conclusions *4-chamber dilated cardiomyopathy. *Global left ventricular systolic function is severely decreased. *The estimated ejection fraction is 20-25%. *Mild concentric left ventricular hypertrophy is observed. *There is moderate to severe mitral regurgitation. *There is moderate to severe tricuspid regurgitation. *There is at least moderate pulmonary hypertension. *The right ventricular systolic pressure is calculated at 52 mmHg. Findings Left Ventricle: The left ventricular chamber size is moderately dilated. Mild concentric left ventricular hypertrophy is observed. Global left ventricular systolic function is severely decreased. The estimated ejection fraction is 20-25%. Left Atrium: The left atrium is moderately dilated. Right Ventricle: The right ventricle is mildly dilated. Right Atrium: The right atrium is mildly dilated. Aortic Valve: The aortic valve is trileaflet. The aortic valve leaflets are mildly thickened. There is no evidence of aortic regurgitation. There is no evidence of aortic stenosis. Mitral Valve: The mitral valve leaflets are mildly thickened. There is moderate to severe mitral regurgitation. There is no evidence of mitral stenosis. Tricuspid Valve: The tricuspid valve leaflets are normal. There is moderate to severe tricuspid regurgitation. The right ventricular systolic pressure is calculated at 52 mmHg. There is evidence of moderate pulmonary hypertension. Pulmonic Valve: There is mild pulmonic regurgitation. Pericardium: There is no pericardial effusion. Aorta: There is no dilatation of the ascending aorta. There is no dilatation of the aortic root. Venous: The inferior vena cava appears normal in size. Measurements Chambers 2D Name Value Normal Range IVSd (2D) 0.83 cm (0.6 - 1.1) LVPWd (2D) 0.85 cm (0.6 - 1.1) LVIDd (2D) 6.33 cm (3.7 - 5.6) LVIDs (2D) 5.16 cm (2 - 3.8) LV FS (2D) 18.42 % - EF Teichholz (2D) 37.34 % - Ao root diameter (2D) 3.66 cm (2 - 3.7) Volumes/Mass Name Value Normal Range LA ESV SP 4CH (A/L) 63.31 ml - LA ESV SP 2CH (A/L) 64.57 ml - LA ESV BP (A/L) 66.59 ml - LA ESV SP 4CH (MOD) 59.55 ml - LA ESV SP 2CH (MOD) 60.41 ml - Diastolic/Systolic Function Name Value Normal Range MV E-wave Vmax 1.38 m/sec - MV deceleration time 182.92 msec - MV A-wave Vmax 0.54 m/sec - MV E:A ratio 2.53 ratio - Aortic Valve Name Value Normal Range AV Vmax 1.17 m/sec - AV VTI 21.79 cm - AV peak gradient 5.49 mmHg - AV mean gradient 2.87 mmHg - LVOT diameter 2.05 cm - LVOT Vmax 0.7 m/sec - LVOT VTI 16.23 cm - LVOT peak gradient 1.94 mmHg - LVOT mean gradient 1.11 mmHg - SV LVOT 53.42 ml - MICH (continuity Vmax) 1.96 cm2 - MICH (continuity VTI) 2.45 cm2 - Mitral Valve Name Value Normal Range MR Vmax 4.03 m/sec - MR VTI 120.84 cm - Tricuspid Valve Name Value Normal Range TR Vmax 3.32 m/sec - TR peak gradient 44.07 mmHg - RVSP 52 mmHg - IVC diameter 2.01 cm (1.2 - 2.3) Pulmonic Valve/Qp:Qs Name Value Normal Range PV Vmax 0.87 m/sec - PV peak gradient 3.05 mmHg - IN end-diastolic Vmax 1.22 m/sec - PV acceleration time 102.76 msec - Lee/IV: Voiding Method Urinal IV Catheter Type [Right INT / Saline Lock Antecubital] IV Catheter Type [Right Hand] INT / Saline Lock IV Catheter Type [Left Leg] VAS Cath Active Medications - Current Medications Current Medications: Generic Name Dose Route Start Last Admin Trade Name Freq PRN Reason Stop Dose Admin Acetaminophen 650 mg 04/06/20 08:00 Tylenol PO Q4H PRN Pain MILD(1-3)/Fever >100.5/MALDONADO Aspirin 81 mg 04/07/20 11:00 04/15/20 12:11 Baby Aspirin PO Not Given QDAY [facility] Atorvastatin Calcium 40 mg 04/06/20 22:00 04/14/20 22:36 Lipitor PO 40 mg QHS [facility] Administration Calcium Acetate 1,334 mg 04/12/20 12:00 04/15/20 18:03 Phoslo PO 1,334 mg TIDWM [facility] Administration Carvedilol 3.125 mg 04/07/20 11:00 04/15/20 12:10 Coreg PO Not Given BID [facility] Sodium Chloride 100 mls @ 999 mls/hr 04/12/20 15:21 Nacl 0.9% IV PEDRITO PRN Hypotension Isosorbide Dinitrate/Hydralazine 1 each 04/07/20 22:00 04/15/20 14:00 Bidil 20/37.5mg PO Not Given Q8HR [facility] Morphine Sulfate 2 mg 04/06/20 08:00 04/15/20 03:49 Morphine IV 2 mg Q4H PRN Administration Pain, Moderate (4-6) Morphine Sulfate 4 mg 04/06/20 08:25 04/09/20 21:47 Morphine IV 4 mg Q4H PRN Administration Pain , Severe (7-10) Nitroglycerin 0.4 mg 04/06/20 08:00 Nitrostat SL Q5M PRN Chest Pain Ondansetron HCl 4 mg 04/06/20 08:00 Zofran IV Q4H PRN Nausea And Vomiting Senna 8.6 mg 04/06/20 10:00 04/15/20 09:25 Senokot PO 8.6 mg Q12HR [facility] Administration Sodium Chloride 10 ml 04/06/20 10:00 04/15/20 12:11 Sodium Chloride Flush Syringe 10 Ml IV Not Given BID [facility] Sodium Chloride 10 ml 04/06/20 08:00 04/07/20 20:03 Sodium Chloride Flush Syringe 10 Ml IV 10 ml PRN PRN Administration LINE FLUSH Nutrition/Malnutrition Assess - Dietary Evaluation Nutrition/Malnutrition Findings: Nutrition Notes Start: 04/07/20 14:04 Freq: Status: Active Protocol: Document 04/14/20 10:48 LP (Rec: 04/14/20 10:49 LP [id number]) Nutrition Notes Initial or Follow up Brief Note Subjective/Other Information Pt not in room at time of visit. Pt has HD M,W,F Nutrition Intervention Add Supplement/Snack (indicate name/kcal Nepro daily /protein ) Provides kCal: 425 Provides Protein (gm) 19 Follow-Up By: 04/16/20 Additional Comments Follow for assessment and ONS tolerance
[2020-04-16] MEDS: MORPHINE 2 MG/1 ML INJ IV PRN ×2 (02:54→09:48)
[2020-04-16] MEDS: ISOSORB DINIT/HYDRALAZINE 20-37.5MG TAB PO SCH ×3 (07:06→22:49)
[2020-04-16] MEDS: CALCIUM ACETATE 667 MG CAP PO SCH ×3 (08:01→16:24)
[2020-04-16] MEDS: ASPIRIN 81 MG TAB CHEW PO SCH (09:36)
[2020-04-16] MEDS: carvediloL 3.125 MG TAB PO SCH ×2 (09:36→22:34)
[2020-04-16] MEDS: SENNOSIDES 8.6 MG TAB PO SCH ×2 (09:39→22:33)
--- NOTE | 2020-04-16 09:44 | Progress Note ---
Assessment and Plan 1. Chronic combined systolic and diastolic heart failure 2. Dilated nonischemic cardiomyopathy left ventricular ejection fraction 20 to 25% 3. Generalized anasarca with scrotal edema 4. End-stage renal disease on hemodialysis 5. Morbid obesity Plan. Currently stable with significant anasarca will need further hemodialysis nephrology for fluid management. Subjective Date of service: 04/23/20 Principal diagnosis: ESRD Interval history: Complains of pain in right thigh. He also complains of scrotal or penis swelling Objective Vital Signs Temp Pulse Resp BP Pulse Ox Pulse Ox 04/16/20 09:36 77 102/68 04/16/20 08:39 99 04/16/20 07:17 98.0 F 77 20 102/68 99 04/16/20 07:06 65 101/47 04/16/20 03:55 101/47 04/16/20 03:47 98.5 F 78 16 102/62 95 04/16/20 03:24 20 04/16/20 02:54 22 04/15/20 23:38 98.3 F 82 20 107/72 97 04/15/20 22:36 20 04/15/20 22:28 79 110/70 04/15/20 22:27 79 110/70 04/15/20 22:00 200 H 04/15/20 21:13 96 04/15/20 20:28 98.6 F 79 16 110/70 95 04/15/20 16:47 98.0 F 87 20 124/73 95 04/15/20 13:30 98.8 F 85 20 138/66 99 04/15/20 13:15 79 148/102 04/15/20 13:00 84 120/64 04/15/20 12:45 84 102/46 04/15/20 12:30 82 123/64 04/15/20 12:15 80 110/63 04/15/20 12:00 73 116/56 04/15/20 11:45 84 105/54 04/15/20 11:30 79 102/52 04/15/20 11:15 82 94/50 04/15/20 11:00 77 102/57 04/15/20 10:45 76 102/52 04/15/20 10:30 80 107/59 04/15/20 10:15 79 107/69 05/23/20 10:00 73 106/57 97 05/23/20 09:50 77 102/60 04/15/20 09:45 97.6 F 78 20 114/72 99 - Physical Examination General: No Apparent Distress, Other (morbidly obese) HEENT: Positive: PERRL Neck: Positive: neck supple, trachea midline, JVD/HJR (7 cm) Cardiac: Positive: Regular Rate, S1/S2, S3, PMI, Dilated, Laterally Displaced Lungs: Positive: clear to auscultation, No Wheeze, Rales, Rhonchi Neuro: Positive: Grossly Intact Abdomen: Positive: Soft Skin: Positive: Clear Extremities: Present: +4 Edema, Other (scrotal edema) - Allied health notes Allied health notes reviewed: nursing
--- NOTE | 2020-04-16 11:14 | Progress Note ---
Assessment and Plan Assessment and plan: --ESRD on hemodialysis; received hemodialysis today Daily HD per nephrology Salt and water restriction --Fluid overload, secondary to ESRD As well as severe cardiomyopathy EF of 20 to 25% Nephrology planning daily hemodialysis in view of Extensive fluid overload --Hypocalcemia; continue current management --Severe hyperkalemia; slightly improved Resolved, HD per schedule --Atypical Chest pain secondary to volume overload- pain is resolved --NSTEMI; type II Positive troponins probably secondary to end-stage renal disease Cardiology following, medical management --Dilated cardiomyopathy/EF 20 to 25% Hemodialysis for fluid removal, continue current management --Acute on chronic systolic CHF secondary to volume overload EF 20 to 25%, continue anti-failure medications Input output monitoring, hemodialysis --Type 2 [place]; Accu-Chek sliding scale coverage ADA diet Insulin as needed --Anemia of chronic disease; Monitor H&H transfuse as needed Procrit during dialysis --Morbid obesity; BMI 39.5 Partly due to fluid overload Continue hemodialysis, supportive care Monitor closely and adjust the management as needed Sales Engineer recommendations noted and appreciated Plan of care reviewed with the patient and his nurse Disposition; discharge when cleared by nephrology History Interval history: Patient seen and examined at the bedside Patient's chart and medications reviewed Patient feels slightly better Denies chest pain or shortness of breath Vital signs reviewed Hospitalist Physical - Constitutional Vitals: Temp Pulse Resp BP Pulse Ox 98.0 F 75 20 102/68 99 04/16/20 07:17 04/16/20 10:00 04/16/20 07:17 04/16/20 09:36 04/16/20 08:39 General appearance: Present: no acute distress, well-nourished, obese - EENT Eyes: Present: PERRL, EOM intact - Neck Neck: Present: supple, normal ROM - Respiratory Respiratory effort: normal Respiratory: bilateral: diminished, rales, negative: rhonchi, wheezing - Cardiovascular Rhythm: regular Heart Sounds: Present: S1 & S2 - Extremities Extremities: no ischemia Extremity abnormal: edema, other (Scrotal edema slight improvement) - Abdominal General gastrointestinal: soft, non-tender, non-distended, normal bowel sounds - Integumentary Integumentary: Present: clear, warm - Psychiatric Psychiatric: appropriate mood/affect, cooperative - Neurologic Neurologic: moves all extremities HEART Score - HEART Score EKG: Non-specific Age: 45-65 Risk factors: 1-2 risk factors Troponin: Troponin T 0.069 ng/mL (0.00-0.029) H 04/06/20 02:16 Troponin: 1-3x normal limit - Critical Actions Critical Actions: 4-6 pts:12-16.6% risk of adverse cardiac event. Should be admitted Results - Labs CBC & Chem 7: 04/11/20 10:50 04/15/20 05:04 Labs: Laboratory Last Values WBC 5.0 K/mm3 (4.5-11.0) 04/11/20 10:50 RBC 3.57 M/mm3 (3.65-5.03) L 04/11/20 10:50 Hgb 10.6 gm/dl (11.8-15.2) L 04/11/20 10:50 Hct 32.3 % (35.5-45.6) L 04/11/20 10:50 MCV 91 fl (84-94) 04/11/20 10:50 MCH 30 pg (28-32) 04/11/20 10:50 MCHC 33 % (32-34) 04/11/20 10:50 RDW 16.3 % (13.2-15.2) H 04/11/20 10:50 Plt Count 176 K/mm3 (140-440) 04/11/20 10:50 Lymph % (Auto) 11.3 % (13.4-35.0) L 04/07/20 04:47 [place] % (Auto) 8.0 % (0.0-7.3) H 04/07/20 04:47 Eos % (Auto) 5.4 % (0.0-4.3) H 04/07/20 04:47 Baso % (Auto) 0.6 % (0.0-1.8) 04/07/20 04:47 Lymph # 0.5 K/mm3 (1.2-5.4) L 04/07/20 04:47 [place] # 0.4 K/mm3 (0.0-0.8) 04/07/20 04:47 Eos # 0.2 K/mm3 (0.0-0.4) 04/07/20 04:47 Baso # 0.0 K/mm3 (0.0-0.1) 04/07/20 04:47 Seg Neutrophils % 74.7 % (40.0-70.0) H 04/07/20 04:47 Seg Neutrophils # 3.4 K/mm3 (1.8-7.7) 04/07/20 04:47 Sodium 133 mmol/L (137-145) L 04/15/20 05:04 Potassium 4.8 mmol/L (3.6-5.0) 04/15/20 05:04 Chloride 90.4 mmol/L (98-107) L 04/15/20 05:04 Carbon Dioxide 28 mmol/L (22-30) 04/15/20 05:04 Anion Gap 19 mmol/L 04/15/20 05:04 BUN 37 mg/dL (9-20) H 04/15/20 05:04 Creatinine 6.4 mg/dL (0.8-1.5) H 04/15/20 05:04 Estimated GFR 11 ml/min 04/15/20 05:04 BUN/Creatinine Ratio 6 % 04/15/20 05:04 Glucose 103 mg/dL (75-100) H 04/15/20 05:04 Calcium 7.0 mg/dL (8.4-10.2) L 04/15/20 05:04 Ionized Calcium 2.9 mg/dL (4.8-5.6) L* 04/10/20 09:33 Phosphorus 3.80 mg/dL (2.5-4.5) 04/14/20 04:26 Total Bilirubin 0.30 mg/dL (0.1-1.2) 04/06/20 02:23 AST 16 units/L (5-40) 04/06/20 02:23 ALT 13 units/L (7-56) 04/06/20 02:23 Alkaline Phosphatase 89 units/L (35-129) 04/06/20 02:23 Troponin T 0.069 ng/mL (0.00-0.029) H 04/06/20 02:16 Total Protein 7.6 g/dL (6.3-8.2) 04/06/20 02:23 Albumin 3.9 g/dL (3.9-5) 04/06/20 02:23 Albumin/Globulin Ratio 1.1 % 04/06/20 02:23 Triglycerides 55 mg/dL (2-149) 04/06/20 02:16 Cholesterol 114 mg/dL (50-199) 04/06/20 02:16 LDL Cholesterol Direct 67 mg/dL (50-130) 04/06/20 02:16 HDL Cholesterol 45 mg/dL (40-59) 04/06/20 02:16 Cholesterol/HDL Ratio 2.53 % 04/06/20 02:16 PTH Intact 25.13 pg/mL (15-65) 04/14/20 04:26 Nasal Screen MRSA (PCR) Negative (Negative) 04/07/20 04:25 Hepatitis A IgM Ab Non-reactive (NonReactive) 04/10/20 19:05 Hep Bs Antigen Non-reactive (Negative) 04/10/20 19:05 Hep B Core IgM Ab Non-reactive (NonReactive) 04/10/20 19:05 Hepatitis C Antibody Non-reactive (NonReactive) 04/10/20 19:05 - Diagnostic Impressions Diagnostic Impressions: Echocardiogram 04/06/20 12:31 Transthoracic Echocardiogram Conclusions *4-chamber dilated cardiomyopathy. *Global left ventricular systolic function is severely decreased. *The estimated ejection fraction is 20-25%. *Mild concentric left ventricular hypertrophy is observed. *There is moderate to severe mitral regurgitation. *There is moderate to severe tricuspid regurgitation. *There is at least moderate pulmonary hypertension. *The right ventricular systolic pressure is calculated at 52 mmHg. Findings Left Ventricle: The left ventricular chamber size is moderately dilated. Mild concentric left ventricular hypertrophy is observed. Global left ventricular systolic function is severely decreased. The estimated ejection fraction is 20-25%. Left Atrium: The left atrium is moderately dilated. Right Ventricle: The right ventricle is mildly dilated. Right Atrium: The right atrium is mildly dilated. Aortic Valve: The aortic valve is trileaflet. The aortic valve leaflets are mildly thickened. There is no evidence of aortic regurgitation. There is no evidence of aortic stenosis. Mitral Valve: The mitral valve leaflets are mildly thickened. There is moderate to severe mitral regurgitation. There is no evidence of mitral stenosis. Tricuspid Valve: The tricuspid valve leaflets are normal. There is moderate to severe tricuspid regurgitation. The right ventricular systolic pressure is calculated at 52 mmHg. There is evidence of moderate pulmonary hypertension. Pulmonic Valve: There is mild pulmonic regurgitation. Pericardium: There is no pericardial effusion. Aorta: There is no dilatation of the ascending aorta. There is no dilatation of the aortic root. Venous: The inferior vena cava appears normal in size. Measurements Chambers 2D Name Value Normal Range IVSd (2D) 0.83 cm (0.6 - 1.1) LVPWd (2D) 0.85 cm (0.6 - 1.1) LVIDd (2D) 6.33 cm (3.7 - 5.6) LVIDs (2D) 5.16 cm (2 - 3.8) LV FS (2D) 18.42 % - EF Teichholz (2D) 37.34 % - Ao root diameter (2D) 3.66 cm (2 - 3.7) Volumes/Mass Name Value Normal Range LA ESV SP 4CH (A/L) 63.31 ml - LA ESV SP 2CH (A/L) 64.57 ml - LA ESV BP (A/L) 66.59 ml - LA ESV SP 4CH (MOD) 59.55 ml - LA ESV SP 2CH (MOD) 60.41 ml - Diastolic/Systolic Function Name Value Normal Range MV E-wave Vmax 1.38 m/sec - MV deceleration time 182.92 msec - MV A-wave Vmax 0.54 m/sec - MV E:A ratio 2.53 ratio - Aortic Valve Name Value Normal Range AV Vmax 1.17 m/sec - AV VTI 21.79 cm - AV peak gradient 5.49 mmHg - AV mean gradient 2.87 mmHg - LVOT diameter 2.05 cm - LVOT Vmax 0.7 m/sec - LVOT VTI 16.23 cm - LVOT peak gradient 1.94 mmHg - LVOT mean gradient 1.11 mmHg - SV LVOT 53.42 ml - MICH (continuity Vmax) 1.96 cm2 - MICH (continuity VTI) 2.45 cm2 - Mitral Valve Name Value Normal Range MR Vmax 4.03 m/sec - MR VTI 120.84 cm - Tricuspid Valve Name Value Normal Range TR Vmax 3.32 m/sec - TR peak gradient 44.07 mmHg - RVSP 52 mmHg - IVC diameter 2.01 cm (1.2 - 2.3) Pulmonic Valve/Qp:Qs Name Value Normal Range PV Vmax 0.87 m/sec - PV peak gradient 3.05 mmHg - DC end-diastolic Vmax 1.22 m/sec - PV acceleration time 102.76 msec - Lee/IV: Voiding Method Toilet IV Catheter Type [Right INT / Saline Lock Antecubital] IV Catheter Type [Right Hand] INT / Saline Lock IV Catheter Type [Left Leg] VAS Cath Active Medications - Current Medications Current Medications: Generic Name Dose Route Start Last Admin Trade Name Freq PRN Reason Stop Dose Admin Acetaminophen 650 mg 04/06/20 08:00 Tylenol PO Q4H PRN Pain MILD(1-3)/Fever >100.5/MALDONADO Aspirin 81 mg 04/07/20 11:00 04/16/20 09:36 Baby Aspirin PO 81 mg QDAY [facility] Administration Atorvastatin Calcium 40 mg 04/06/20 22:00 04/15/20 22:28 Lipitor PO 40 mg QHS [facility] Administration Calcium Acetate 1,334 mg 04/12/20 12:00 04/16/20 08:01 Phoslo PO 1,334 mg TIDWM [facility] Administration Carvedilol 3.125 mg 04/07/20 11:00 04/16/20 09:36 Coreg PO 3.125 mg BID [facility] Administration Sodium Chloride 100 mls @ 999 mls/hr 04/12/20 15:21 Nacl 0.9% IV PEDRITO PRN Hypotension Isosorbide Dinitrate/Hydralazine 1 each 04/07/20 22:00 04/16/20 07:06 Bidil 20/37.5mg PO Not Given Q8HR [facility] Morphine Sulfate 2 mg 04/06/20 08:00 04/16/20 09:48 Morphine IV 2 mg Q4H PRN Administration Pain, Moderate (4-6) Morphine Sulfate 4 mg 04/06/20 08:25 04/09/20 21:47 Morphine IV 4 mg Q4H PRN Administration Pain , Severe (7-10) Nitroglycerin 0.4 mg 04/06/20 08:00 Nitrostat SL Q5M PRN Chest Pain Ondansetron HCl 4 mg 04/06/20 08:00 Zofran IV Q4H PRN Nausea And Vomiting Senna 8.6 mg 04/06/20 10:00 04/16/20 09:39 Senokot PO 8.6 mg Q12HR [facility] Administration Sodium Chloride 10 ml 04/06/20 10:00 04/15/20 12:11 Sodium Chloride Flush Syringe 10 Ml IV Not Given BID [facility] Sodium Chloride 10 ml 04/06/20 08:00 04/07/20 20:03 Sodium Chloride Flush Syringe 10 Ml IV 10 ml PRN PRN Administration LINE FLUSH Nutrition/Malnutrition Assess - Dietary Evaluation Nutrition/Malnutrition Findings: Nutrition Notes Start: 04/07/20 14:04 Freq: Status: Active Protocol: Document 04/14/20 10:48 LP (Rec: 04/14/20 10:49 LP [id number]) Nutrition Notes Initial or Follow up Brief Note Subjective/Other Information Pt not in room at time of visit. Pt has HD M,W,F Nutrition Intervention Add Supplement/Snack (indicate name/kcal Nepro daily /protein ) Provides kCal: 425 Provides Protein (gm) 19 Follow-Up By: 04/17/20 Additional Comments Follow for assessment and ONS tolerance
[2020-04-16] MEDS: MORPHINE 4 MG/1 ML INJ IV PRN (13:13)
[2020-04-17] MEDS: MORPHINE 2 MG/1 ML INJ IV PRN ×3 (00:27→18:44)
[2020-04-17] MEDS: ISOSORB DINIT/HYDRALAZINE 20-37.5MG TAB PO SCH ×3 (05:16→21:09)
[2020-04-17] MEDS: CALCIUM ACETATE 667 MG CAP PO SCH ×3 (08:57→16:53)
[2020-04-17] MEDS: carvediloL 3.125 MG TAB PO SCH ×2 (09:00→21:09)
[2020-04-17] MEDS: ASPIRIN 81 MG TAB CHEW PO SCH (09:00)
[2020-04-17] MEDS: SENNOSIDES 8.6 MG TAB PO SCH ×2 (09:00→21:10)
[2020-04-17] MEDS ORDERED: MIDODRINE 5 MG TAB PO ONE (10:03)
--- NOTE | 2020-04-17 10:11 | Progress Note ---
Assessment and Plan - Patient Problems (1) End-stage renal disease needing dialysis Current Visit: Yes Status: Chronic Plan to address problem: Will place on TTS HD schedule, and he is obtaining sequential treatments on MWF, in order to fully optimize volume status. (2) Anasarca Current Visit: Yes Status: Acute Plan to address problem: Will attempt to optimize his volume status with aggressive UF with dialysis. (3) Hyperkalemia Current Visit: Yes Status: Chronic Plan to address problem: Resolved with HD Counseled on importance of low K diet. (4) Scrotal edema Current Visit: Yes Status: Acute Plan to address problem: In the setting of significant volume overload. Will monitor to see for improvement as we aggressively remove with HD and extra sequential UF sessions. (5) Pulmonary edema Current Visit: No Status: Acute Qualifiers: Chronicity: acute Qualified Code(s): J81.0 - Acute pulmonary edema Plan to address problem: Improving with aggressive fluid removal during dialysis Subjective Date of service: 04/17/20 Principal diagnosis: ESRD Interval history: Seen at HD today with plan for isolated UF session. Will order midodrine today as his blood pressures are low prior to treatment. He was given morphine prior to coming to the dialysis unit which may have also contributed to hypotension. Objective - Vital Signs Vital signs: Vital Signs - 12hr 04/16/20 04/16/20 04/16/20 22:15 22:34 22:49 Temperature Pulse Rate 80 80 Pulse Rate [ 80 Apical] Respiratory 18 Rate Respiratory Rate [Scrotum] Blood Pressure 105/56 105/56 O2 Sat by Pulse 97 Oximetry 04/16/20 04/17/20 04/17/20 23:15 00:27 00:34 Temperature 97.1 F L Pulse Rate 78 Pulse Rate [ Apical] Respiratory 18 18 Rate Respiratory 18 Rate [Scrotum] Blood Pressure 117/62 O2 Sat by Pulse 100 Oximetry 04/17/20 04/17/20 04/17/20 00:57 04:19 05:16 Temperature 97.7 F Pulse Rate 77 77 Pulse Rate [ Apical] Respiratory 18 19 Rate Respiratory Rate [Scrotum] Blood Pressure 101/58 101/58 O2 Sat by Pulse 98 Oximetry 04/17/20 04/17/20 04/17/20 08:30 09:00 09:30 Temperature Pulse Rate 77 Pulse Rate [ 76 Apical] Respiratory 18 Rate Respiratory Rate [Scrotum] Blood Pressure 102/62 O2 Sat by Pulse 98 97 Oximetry - General Appearance General appearance: well-developed, appears stated age, obese EENT: ATNC Neck: no JVD, no thyromegaly Respiratory: Present: Clear to Ascultation Cardiology: regular, S1S2 Gastrointestinal: normal, normoactive bowel sounds Neurologic: no focal deficit, alert and oriented x3 Psychiatric: mood/affect appropriate, cooperative - Lab 04/11/20 10:50 04/15/20 05:04 Most recent lab results Calcium 7.0 mg/dL (8.4-10.2) L 04/15/20 05:04 Phosphorus 3.80 mg/dL (2.5-4.5) 04/14/20 04:26 - Allied health notes Allied health notes reviewed: nursing Medications & Allergies - Medications Allergies/Adverse Reactions: Allergies No Known Allergies Allergy (Unverified 04/02/20 06:54) Home Medications: Home Medications Medication Instructions Recorded Confirmed Last Taken Type Calcium 600-Vit D3 800 Tablet 600 mg PO BID 04/15/20 04/15/20 04/09/20 08:00 History Calcium Acetate [Phoslo] 1,334 mg PO TID 04/15/20 04/15/20 04/13/20 08:00 History Midodrine [Proamatine] 5 mg PO BID 04/15/20 04/15/20 04/12/20 08:00 History Oxycodone HCl/Acetaminophen 1 each PO Q8HR PRN 04/15/20 04/15/20 04/09/20 08:00 History [Percocet 10/325 mg] Active Medications: Generic Name Dose Route Start Last Admin Trade Name Freq PRN Reason Stop Dose Admin Acetaminophen 650 mg 04/06/20 08:00 Tylenol PO Q4H PRN Pain MILD(1-3)/Fever >100.5/MALDONADO Aspirin 81 mg 04/07/20 11:00 04/17/20 09:00 Baby Aspirin PO Not Given QDAY LIBORIO Atorvastatin Calcium 40 mg 04/06/20 22:00 04/16/20 22:34 Lipitor PO 40 mg QHS LIBORIO Administration Calcium Acetate 1,334 mg 04/12/20 12:00 04/17/20 08:57 Phoslo PO 1,334 mg TIDWM LIBORIO Administration Carvedilol 3.125 mg 04/07/20 11:00 04/17/20 09:00 Coreg PO 3.125 mg BID LIBORIO Administration Sodium Chloride 100 mls @ 999 mls/hr 04/12/20 15:21 Nacl 0.9% IV PEDRITO PRN Hypotension Isosorbide Dinitrate/Hydralazine 1 each 04/07/20 22:00 04/17/20 05:16 Bidil 20/37.5mg PO Not Given Q8HR LIBORIO Morphine Sulfate 2 mg 04/06/20 08:00 04/17/20 09:42 Morphine IV 2 mg Q4H PRN Administration Pain, Moderate (4-6) Morphine Sulfate 4 mg 04/06/20 08:25 04/16/20 13:13 Morphine IV 4 mg Q4H PRN Administration Pain , Severe (7-10) Nitroglycerin 0.4 mg 04/06/20 08:00 Nitrostat SL Q5M PRN Chest Pain Ondansetron HCl 4 mg 04/06/20 08:00 Zofran IV Q4H PRN Nausea And Vomiting Senna 8.6 mg 04/06/20 10:00 04/17/20 09:00 Senokot PO 8.6 mg Q12HR LIBORIO Administration Sodium Chloride 10 ml 04/06/20 10:00 04/17/20 09:00 Sodium Chloride Flush Syringe 10 Ml IV 10 ml BID LIBORIO Administration Sodium Chloride 10 ml 04/06/20 08:00 04/07/20 20:03 Sodium Chloride Flush Syringe 10 Ml IV 10 ml PRN PRN Administration LINE FLUSH
--- NOTE | 2020-04-17 10:18 | Progress Note ---
Assessment and Plan 1. Chronic combined systolic and diastolic heart failure 2. Dilated nonischemic cardiomyopathy left ventricular ejection fraction 20 to 25% 3. Generalized anasarca with scrotal edema 4. End-stage renal disease on hemodialysis 5. Morbid obesity Plan. Currently stable with significant anasarca will need further hemodialysis Nephrology for fluid management. Subjective Date of service: 04/17/20 Principal diagnosis: ESRD Interval history: Complains of pain in right thigh. He also complains of scrotal or penis swelling Objective Vital Signs Temp Pulse Pulse Resp Resp BP Pulse Ox 04/17/20 09:30 76 18 97 04/17/20 09:00 77 102/62 04/17/20 08:30 98 04/17/20 05:16 77 101/58 04/17/20 04:19 97.7 F 77 19 101/58 98 04/17/20 00:57 18 04/17/20 00:34 18 04/17/20 00:27 18 04/16/20 23:15 97.1 F L 78 18 117/62 100 04/16/20 22:49 80 105/56 04/16/20 22:34 80 105/56 04/16/20 22:15 80 18 97 04/16/20 19:40 98.2 F 80 20 105/56 97 04/16/20 19:22 81 04/16/20 16:09 98.9 F 78 20 92/63 99 04/16/20 15:13 89 04/16/20 13:14 84 118/74 04/16/20 12:42 98.5 F 84 20 118/74 97 - Physical Examination General: No Apparent Distress, Other (morbidly obese) HEENT: Positive: PERRL Neck: Positive: neck supple, trachea midline, JVD/HJR (7 cm) Cardiac: Positive: Regular Rate, S1/S2, S3, PMI, Dilated, Laterally Displaced Lungs: Positive: clear to auscultation, No Wheeze, Rales, Rhonchi Neuro: Positive: Grossly Intact Abdomen: Positive: Unremarkable, Soft Skin: Positive: Clear Extremities: Present: +4 Edema, Other (scrotal edema) - Allied health notes Allied health notes reviewed: nursing
[2020-04-17] MEDS ORDERED: SODIUM CHLORIDE*PRIMING MACHINE ONLY FOR DIALYSIS MC ONE (13:15)
--- NOTE | 2020-04-17 18:45 | Progress Note ---
Assessment and Plan Assessment and plan: --ESRD on hemodialysis; received hemodialysis today Daily HD per nephrology, Salt and water restriction --Fluid overload, secondary to ESRD As well as severe cardiomyopathy EF of 20 to 25% Nephrology planning daily hemodialysis in view of Extensive fluid overload --Hypocalcemia; continue current management --Severe hyperkalemia; slightly improved Resolved, HD per schedule --Atypical Chest pain secondary to volume overload/resolved --NSTEMI; type II Positive troponins probably secondary to end-stage renal disease Cardiology following, medical management --Dilated cardiomyopathy/EF 20 to 25% Hemodialysis for fluid removal, continue current management --Acute on chronic systolic CHF secondary to volume overload EF 20 to 25%, continue anti-failure medications Input output monitoring, hemodialysis --Type 2 [place]; Accu-Chek sliding scale coverage ADA diet, Insulin as needed --Anemia of chronic disease; Monitor H&H transfuse as needed,Procrit during dialysis --Morbid obesity; BMI 39.5 Partly due to fluid overload Continue hemodialysis, supportive care Monitor closely and adjust the management as needed Coal Pulverizer Operator recommendations noted and appreciated Plan of care reviewed with the patient and his nurse Disposition; discharge when cleared by nephrology Brief history 54-year-old -[place] was admitted through emergency room with worsening shortness of breath, some chest tightness with worsening generalized scrotal swelling. Patient has history of hypertension, congestive heart failure, COPD end-stage renal disease on hemodialysis , noncompliant , patient also has severe cardiomyopathy with ejection fraction of 20 to 25% with fluid overload generalized anasarca , scrotal edema , nephrology recommended daily hemodialysis as needed . Patient symptoms significantly improved History Interval history: Patient seen and examined at the bedside , patient's chart and medications reviewed Patient received hemodialysis today, feels slightly better, concerned about his scrotal edema Denies chest pain or shortness of breath Vital signs reviewed Hospitalist Physical - Constitutional Vitals: Temp Pulse Resp BP Pulse Ox 98.0 F 75 20 122/66 96 04/17/20 15:00 04/17/20 15:48 04/17/20 15:00 04/17/20 15:48 04/17/20 15:26 General appearance: Present: no acute distress, well-nourished, obese - EENT Eyes: Present: PERRL, EOM intact - Neck Neck: Present: supple, normal ROM - Respiratory Respiratory effort: normal Respiratory: bilateral: diminished, negative: rales, rhonchi, wheezing - Cardiovascular Rhythm: regular Heart Sounds: Present: S1 & S2 - Extremities Extremities: no ischemia, No edema - Abdominal General gastrointestinal: soft, non-tender, non-distended, normal bowel sounds - Integumentary Integumentary: Present: clear, warm - Psychiatric Psychiatric: appropriate mood/affect, agitated - Neurologic Neurologic: moves all extremities HEART Score - HEART Score EKG: Non-specific Age: 45-65 Risk factors: 1-2 risk factors Troponin: Troponin T 0.069 ng/mL (0.00-0.029) H 04/06/20 02:16 Troponin: 1-3x normal limit - Critical Actions Critical Actions: 4-6 pts:12-16.6% risk of adverse cardiac event. Should be admitted Results - Labs CBC & Chem 7: 04/11/20 10:50 04/15/20 05:04 Labs: Laboratory Last Values WBC 5.0 K/mm3 (4.5-11.0) 04/11/20 10:50 RBC 3.57 M/mm3 (3.65-5.03) L 04/11/20 10:50 Hgb 10.6 gm/dl (11.8-15.2) L 04/11/20 10:50 Hct 32.3 % (35.5-45.6) L 04/11/20 10:50 MCV 91 fl (84-94) 04/11/20 10:50 MCH 30 pg (28-32) 04/11/20 10:50 MCHC 33 % (32-34) 04/11/20 10:50 RDW 16.3 % (13.2-15.2) H 04/11/20 10:50 Plt Count 176 K/mm3 (140-440) 04/11/20 10:50 Lymph % (Auto) 11.3 % (13.4-35.0) L 04/07/20 04:47 [place] % (Auto) 8.0 % (0.0-7.3) H 04/07/20 04:47 Eos % (Auto) 5.4 % (0.0-4.3) H 04/07/20 04:47 Baso % (Auto) 0.6 % (0.0-1.8) 04/07/20 04:47 Lymph # 0.5 K/mm3 (1.2-5.4) L 04/07/20 04:47 [place] # 0.4 K/mm3 (0.0-0.8) 04/07/20 04:47 Eos # 0.2 K/mm3 (0.0-0.4) 04/07/20 04:47 Baso # 0.0 K/mm3 (0.0-0.1) 04/07/20 04:47 Seg Neutrophils % 74.7 % (40.0-70.0) H 04/07/20 04:47 Seg Neutrophils # 3.4 K/mm3 (1.8-7.7) 04/07/20 04:47 Sodium 133 mmol/L (137-145) L 04/15/20 05:04 Potassium 4.8 mmol/L (3.6-5.0) 04/15/20 05:04 Chloride 90.4 mmol/L (98-107) L 04/15/20 05:04 Carbon Dioxide 28 mmol/L (22-30) 04/15/20 05:04 Anion Gap 19 mmol/L 04/15/20 05:04 BUN 37 mg/dL (9-20) H 04/15/20 05:04 Creatinine 6.4 mg/dL (0.8-1.5) H 04/15/20 05:04 Estimated GFR 11 ml/min 04/15/20 05:04 BUN/Creatinine Ratio 6 % 04/15/20 05:04 Glucose 103 mg/dL (75-100) H 04/15/20 05:04 Calcium 7.0 mg/dL (8.4-10.2) L 04/15/20 05:04 Ionized Calcium 2.9 mg/dL (4.8-5.6) L* 04/10/20 09:33 Phosphorus 3.80 mg/dL (2.5-4.5) 04/14/20 04:26 Total Bilirubin 0.30 mg/dL (0.1-1.2) 04/06/20 02:23 AST 16 units/L (5-40) 04/06/20 02:23 ALT 13 units/L (7-56) 04/06/20 02:23 Alkaline Phosphatase 89 units/L (35-129) 04/06/20 02:23 Troponin T 0.069 ng/mL (0.00-0.029) H 04/06/20 02:16 Total Protein 7.6 g/dL (6.3-8.2) 04/06/20 02:23 Albumin 3.9 g/dL (3.9-5) 04/06/20 02:23 Albumin/Globulin Ratio 1.1 % 04/06/20 02:23 Triglycerides 55 mg/dL (2-149) 04/06/20 02:16 Cholesterol 114 mg/dL (50-199) 04/06/20 02:16 LDL Cholesterol Direct 67 mg/dL (50-130) 04/06/20 02:16 HDL Cholesterol 45 mg/dL (40-59) 04/06/20 02:16 Cholesterol/HDL Ratio 2.53 % 04/06/20 02:16 PTH Intact 25.13 pg/mL (15-65) 04/14/20 04:26 Nasal Screen MRSA (PCR) Negative (Negative) 04/07/20 04:25 Hepatitis A IgM Ab Non-reactive (NonReactive) 04/10/20 19:05 Hep Bs Antigen Non-reactive (Negative) 04/10/20 19:05 Hep B Core IgM Ab Non-reactive (NonReactive) 04/10/20 19:05 Hepatitis C Antibody Non-reactive (NonReactive) 04/10/20 19:05 - Diagnostic Impressions Diagnostic Impressions: Echocardiogram 04/06/20 12:31 Transthoracic Echocardiogram Conclusions *4-chamber dilated cardiomyopathy. *Global left ventricular systolic function is severely decreased. *The estimated ejection fraction is 20-25%. *Mild concentric left ventricular hypertrophy is observed. *There is moderate to severe mitral regurgitation. *There is moderate to severe tricuspid regurgitation. *There is at least moderate pulmonary hypertension. *The right ventricular systolic pressure is calculated at 52 mmHg. Findings Left Ventricle: The left ventricular chamber size is moderately dilated. Mild concentric left ventricular hypertrophy is observed. Global left ventricular systolic function is severely decreased. The estimated ejection fraction is 20-25%. Left Atrium: The left atrium is moderately dilated. Right Ventricle: The right ventricle is mildly dilated. Right Atrium: The right atrium is mildly dilated. Aortic Valve: The aortic valve is trileaflet. The aortic valve leaflets are mildly thickened. There is no evidence of aortic regurgitation. There is no evidence of aortic stenosis. Mitral Valve: The mitral valve leaflets are mildly thickened. There is moderate to severe mitral regurgitation. There is no evidence of mitral stenosis. Tricuspid Valve: The tricuspid valve leaflets are normal. There is moderate to severe tricuspid regurgitation. The right ventricular systolic pressure is calculated at 52 mmHg. There is evidence of moderate pulmonary hypertension. Pulmonic Valve: There is mild pulmonic regurgitation. Pericardium: There is no pericardial effusion. Aorta: There is no dilatation of the ascending aorta. There is no dilatation of the aortic root. Venous: The inferior vena cava appears normal in size. Measurements Chambers 2D Name Value Normal Range IVSd (2D) 0.83 cm (0.6 - 1.1) LVPWd (2D) 0.85 cm (0.6 - 1.1) LVIDd (2D) 6.33 cm (3.7 - 5.6) LVIDs (2D) 5.16 cm (2 - 3.8) LV FS (2D) 18.42 % - EF Teichholz (2D) 37.34 % - Ao root diameter (2D) 3.66 cm (2 - 3.7) Volumes/Mass Name Value Normal Range LA ESV SP 4CH (A/L) 63.31 ml - LA ESV SP 2CH (A/L) 64.57 ml - LA ESV BP (A/L) 66.59 ml - LA ESV SP 4CH (MOD) 59.55 ml - LA ESV SP 2CH (MOD) 60.41 ml - Diastolic/Systolic Function Name Value Normal Range MV E-wave Vmax 1.38 m/sec - MV deceleration time 182.92 msec - MV A-wave Vmax 0.54 m/sec - MV E:A ratio 2.53 ratio - Aortic Valve Name Value Normal Range AV Vmax 1.17 m/sec - AV VTI 21.79 cm - AV peak gradient 5.49 mmHg - AV mean gradient 2.87 mmHg - LVOT diameter 2.05 cm - LVOT Vmax 0.7 m/sec - LVOT VTI 16.23 cm - LVOT peak gradient 1.94 mmHg - LVOT mean gradient 1.11 mmHg - SV LVOT 53.42 ml - MICH (continuity Vmax) 1.96 cm2 - MICH (continuity VTI) 2.45 cm2 - Mitral Valve Name Value Normal Range MR Vmax 4.03 m/sec - MR VTI 120.84 cm - Tricuspid Valve Name Value Normal Range TR Vmax 3.32 m/sec - TR peak gradient 44.07 mmHg - RVSP 52 mmHg - IVC diameter 2.01 cm (1.2 - 2.3) Pulmonic Valve/Qp:Qs Name Value Normal Range PV Vmax 0.87 m/sec - PV peak gradient 3.05 mmHg - DE end-diastolic Vmax 1.22 m/sec - PV acceleration time 102.76 msec - Lee/IV: Voiding Method Toilet IV Catheter Type [Right INT / Saline Lock Antecubital] IV Catheter Type [Right Hand] INT / Saline Lock IV Catheter Type [Left Leg] VAS Cath Active Medications - Current Medications Current Medications: Generic Name Dose Route Start Last Admin Trade Name Freq PRN Reason Stop Dose Admin Acetaminophen 650 mg 04/06/20 08:00 Tylenol PO Q4H PRN Pain MILD(1-3)/Fever >100.5/MALDONADO Aspirin 81 mg 04/07/20 11:00 04/17/20 09:00 Baby Aspirin PO Not Given QDAY LIBORIO Atorvastatin Calcium 40 mg 04/06/20 22:00 04/16/20 22:34 Lipitor PO 40 mg QHS LIBORIO Administration Calcium Acetate 1,334 mg 04/12/20 12:00 04/17/20 16:53 Phoslo PO 1,334 mg TIDWM LIBORIO Administration Carvedilol 3.125 mg 04/07/20 11:00 04/17/20 09:00 Coreg PO 3.125 mg BID LIBORIO Administration Sodium Chloride 100 mls @ 999 mls/hr 04/12/20 15:21 Nacl 0.9% IV PEDRITO PRN Hypotension Isosorbide Dinitrate/Hydralazine 1 each 04/07/20 22:00 04/17/20 15:48 Bidil 20/37.5mg PO 1 each Q8HR LIBORIO Administration Morphine Sulfate 2 mg 04/06/20 08:00 04/17/20 18:44 Morphine IV 2 mg Q4H PRN Administration Pain, Moderate (4-6) Morphine Sulfate 4 mg 04/06/20 08:25 04/16/20 13:13 Morphine IV 4 mg Q4H PRN Administration Pain , Severe (7-10) Nitroglycerin 0.4 mg 04/06/20 08:00 Nitrostat SL Q5M PRN Chest Pain Ondansetron HCl 4 mg 04/06/20 08:00 Zofran IV Q4H PRN Nausea And Vomiting Senna 8.6 mg 04/06/20 10:00 04/17/20 09:00 Senokot PO 8.6 mg Q12HR LIBORIO Administration Sodium Chloride 10 ml 04/06/20 10:00 04/17/20 09:00 Sodium Chloride Flush Syringe 10 Ml IV 10 ml BID LIBORIO Administration Sodium Chloride 10 ml 04/06/20 08:00 04/07/20 20:03 Sodium Chloride Flush Syringe 10 Ml IV 10 ml PRN PRN Administration LINE FLUSH Nutrition/Malnutrition Assess - Dietary Evaluation Nutrition/Malnutrition Findings: Nutrition Notes Start: 04/07/20 14:04 Freq: Status: Active Protocol: Document 04/17/20 10:26 LP (Rec: 04/17/20 10:27 LP [id number]) Nutrition Notes Initial or Follow up Brief Note Subjective/Other Information Pt has been in HD everyday. Pt consuming 100% of meals. Nutrition Intervention Follow-Up By: 04/20/20 Additional Comments Follow for intakes
[2020-04-18] MEDS: MORPHINE 2 MG/1 ML INJ IV PRN ×3 (01:44→23:10)
[2020-04-18 05:01] LABS: Basophils % (Auto) 0.6 % (0.0-1.8); Eosinophils # (Auto) 0.3 K/mm3 (0.0-0.4); Eosinophils % (Auto) 5.1 % (0.0-4.3); Hematocrit 31.4 % (35.5-45.6); Hemoglobin 10.2 gm/dl (11.8-15.2); Lymphocytes # (Auto) 0.5 K/mm3 (1.2-5.4); Lymphocytes % (Auto) 10.1 % (13.4-35.0); Mean Corpuscular HGB Conc 33 % (32-34); Mean Corpuscular Volume 91 fl (84-94); Monocytes # (Auto) 0.6 K/mm3 (0.0-0.8); Monocytes % (Auto) 11.3 % (0.0-7.3); Platelet Count 168 K/mm3 (140-440); Red Blood Count 3.46 M/mm3 (3.65-5.03); Red Cell Distribution Width 16.9 % (13.2-15.2)
[2020-04-18 05:19] LABS: Calcium 6.8 mg/dL (8.4-10.2)
[2020-04-18] MEDS: ISOSORB DINIT/HYDRALAZINE 20-37.5MG TAB PO SCH ×3 (06:03→21:50)
[2020-04-18] MEDS: CALCIUM ACETATE 667 MG CAP PO SCH ×3 (07:44→16:37)
--- NOTE | 2020-04-18 11:14 | Progress Note ---
Assessment and Plan - Patient Problems (1) Acute on chronic systolic heart failure Current Visit: Yes Status: Acute Plan to address problem: GDMT for chronic systolic HF. Routine dialysis for fluid management. Subjective Date of service: 04/18/20 Principal diagnosis: ESRD Interval history: Patient is comfortable, routine dialysis today. Objective Vital Signs Temp Pulse Pulse Pulse Resp BP BP 04/18/20 10:44 74 04/18/20 07:27 75 75 20 04/18/20 07:13 97.6 F 18 113/62 04/18/20 06:28 72 99/68 99/68 04/18/20 06:03 74 97/63 04/18/20 03:32 97.7 F 74 18 97/63 04/18/20 01:35 106/65 04/17/20 23:06 98.5 F 78 19 107/64 04/17/20 22:00 75 75 75 20 04/17/20 21:09 71 101/59 04/17/20 21:07 101/59 04/17/20 21:04 96/62 04/17/20 20:28 04/17/20 19:45 97.5 F L 75 20 105/50 04/17/20 15:48 75 122/66 04/17/20 15:26 105 H 122/66 04/17/20 15:00 98.0 F 75 20 122/66 04/17/20 13:45 98.8 F 70 18 119/65 04/17/20 13:30 69 109/69 04/17/20 13:15 72 99/65 04/17/20 13:00 70 104/65 04/17/20 12:45 68 110/65 04/17/20 12:30 72 112/61 04/17/20 12:15 74 102/62 04/17/20 12:00 69 98/57 04/17/20 11:45 77 98/56 04/17/20 11:30 78 93/53 04/17/20 11:15 79 87/52 Pulse Ox Pulse Ox Pulse Ox 04/18/20 10:44 04/18/20 07:27 97 04/18/20 07:13 04/18/20 06:28 04/18/20 06:03 04/18/20 03:32 96 04/18/20 01:35 04/17/20 23:06 97 04/17/20 22:00 97 04/17/20 21:09 04/17/20 21:07 04/17/20 21:04 04/17/20 20:28 98 04/17/20 19:45 100 04/17/20 15:48 04/17/20 15:26 96 04/17/20 15:00 100 04/17/20 13:45 2 L 2 L 04/17/20 13:30 04/17/20 13:15 04/17/20 13:00 04/17/20 12:45 04/17/20 12:30 04/17/20 12:15 04/17/20 12:00 04/17/20 11:45 04/17/20 11:30 04/17/20 11:15 - Physical Examination General: No Apparent Distress, Other (morbidly obese) HEENT: Positive: PERRL Neck: Positive: neck supple, trachea midline, JVD/HJR (7 cm) Cardiac: Positive: Irregularly Regular Lungs: Positive: Decreased Breath Sounds Neuro: Positive: Grossly Intact Abdomen: Positive: Unremarkable, Soft Skin: Positive: Clear Extremities: Present: +2 Edema, Other (scrotal edema) - Labs and Meds CBC 04/18/20 Range/Units 04:49 WBC 5.2 (4.5-11.0) K/mm3 RBC 3.46 L (3.65-5.03) M/mm3 Hgb 10.2 L (11.8-15.2) gm/dl Hct 31.4 L (35.5-45.6) % Plt Count 168 (140-440) K/mm3 Lymph # 0.5 L (1.2-5.4) K/mm3 [place] # 0.6 (0.0-0.8) K/mm3 Eos # 0.3 (0.0-0.4) K/mm3 Baso # 0.0 (0.0-0.1) K/mm3 Comprehensive Metabolic Panel 04/18/20 Range/Units 04:49 Sodium 128 L (137-145) mmol/L Potassium 4.9 (3.6-5.0) mmol/L Chloride 87.0 L (98-107) mmol/L Carbon Dioxide 27 (22-30) mmol/L BUN 39 H (9-20) mg/dL Creatinine 6.5 H (0.8-1.5) mg/dL Glucose 101 H (75-100) mg/dL Calcium 6.8 L (8.4-10.2) mg/dL - Allied health notes Allied health notes reviewed: nursing
[2020-04-18] MEDS ORDERED: MIDODRINE 2.5 MG TAB PO PRN (11:36)
--- NOTE | 2020-04-18 11:36 | Progress Note ---
Assessment and Plan - Patient Problems (1) End-stage renal disease needing dialysis Current Visit: Yes Status: Chronic Plan to address problem: Will place on TTS HD schedule, and at this time will discontinue his MWF sequential treatments as his blood pressures are not tolerating well. We have been able to get at least 3.5-4L for the past 6 days. Will continue to remove UF as tolerated. Will maintain on midodrine on days of HD. (2) Anasarca Current Visit: Yes Status: Acute Plan to address problem: Will attempt to optimize his volume status with aggressive UF with dialysis. (3) Hyperkalemia Current Visit: Yes Status: Chronic Plan to address problem: Resolved with HD Counseled on importance of low K diet. (4) Scrotal edema Current Visit: Yes Status: Acute Plan to address problem: In the setting of significant volume overload. Will monitor to see for improvement as we aggressively remove with HD. No significant changes noted at this time. (5) Pulmonary edema Current Visit: No Status: Acute Qualifiers: Chronicity: acute Qualified Code(s): J81.0 - Acute pulmonary edema Plan to address problem: Improving with aggressive fluid removal during dialysis Subjective Date of service: 04/18/20 Principal diagnosis: ESRD Interval history: Seen at HD today . per staff had issues with isolated UF session yesterday with hypotension. Seen back today for regular treatment and he is tolerating better. Still with significant anasarca and edema, with scrotal swelling. Objective - Vital Signs Vital signs: Vital Signs - 12hr 04/18/20 04/18/20 04/18/20 01:35 03:32 06:03 Temperature 97.7 F Pulse Rate 74 74 Pulse Rate [ Apical] Pulse Rate [ From Monitor] Respiratory 18 Rate Blood Pressure 106/65 97/63 97/63 Blood Pressure [Right] O2 Sat by Pulse 96 Oximetry 04/18/20 04/18/20 04/18/20 06:28 07:13 07:27 Temperature 97.6 F Pulse Rate 72 Pulse Rate [ 75 Apical] Pulse Rate [ 75 From Monitor] Respiratory 18 20 Rate Blood Pressure 99/68 113/62 Blood Pressure 99/68 [Right] O2 Sat by Pulse 97 Oximetry 04/18/20 10:44 Temperature Pulse Rate 74 Pulse Rate [ Apical] Pulse Rate [ From Monitor] Respiratory Rate Blood Pressure Blood Pressure [Right] O2 Sat by Pulse Oximetry - General Appearance General appearance: appears stated age, obese EENT: ATNC Neck: no JVD Respiratory: Present: Clear to Ascultation Cardiology: regular, S1S2 Gastrointestinal: normal Integumentary: no rash Neurologic: no focal deficit Psychiatric: mood/affect appropriate, cooperative - Lab 04/18/20 04:49 04/18/20 04:49 Most recent lab results Calcium 6.8 mg/dL (8.4-10.2) L 04/18/20 04:49 Phosphorus 3.80 mg/dL (2.5-4.5) 04/14/20 04:26 - Allied health notes Allied health notes reviewed: nursing Medications & Allergies - Medications Allergies/Adverse Reactions: Allergies No Known Allergies Allergy (Unverified 04/02/20 06:54) Home Medications: Home Medications Medication Instructions Recorded Confirmed Last Taken Type Calcium 600-Vit D3 800 Tablet 600 mg PO BID 04/15/20 04/15/20 04/09/20 08:00 History Calcium Acetate [Phoslo] 1,334 mg PO TID 04/15/20 04/15/20 04/13/20 08:00 History Midodrine [Proamatine] 5 mg PO BID 04/15/20 04/15/20 04/12/20 08:00 History Oxycodone HCl/Acetaminophen 1 each PO Q8HR PRN 04/15/20 04/15/20 04/09/20 08:00 History [Percocet 10/325 mg] Active Medications: Generic Name Dose Route Start Last Admin Trade Name Freq PRN Reason Stop Dose Admin Acetaminophen 650 mg 04/06/20 08:00 Tylenol PO Q4H PRN Pain MILD(1-3)/Fever >100.5/MALDONADO Aspirin 81 mg 04/07/20 11:00 04/17/20 09:00 Baby Aspirin PO Not Given QDAY LIBORIO Atorvastatin Calcium 40 mg 04/06/20 22:00 04/17/20 21:11 Lipitor PO 40 mg QHS LIBORIO Administration Calcium Acetate 1,334 mg 04/12/20 12:00 04/18/20 07:44 Phoslo PO 1,334 mg TIDWM LIBORIO Administration Carvedilol 3.125 mg 04/07/20 11:00 04/17/20 21:09 Coreg PO Not Given BID LIBORIO Sodium Chloride 100 mls @ 999 mls/hr 04/12/20 15:21 Nacl 0.9% IV PEDRITO PRN Hypotension Isosorbide Dinitrate/Hydralazine 1 each 04/07/20 22:00 04/18/20 06:03 Bidil 20/37.5mg PO Not Given Q8HR LIBORIO Morphine Sulfate 2 mg 04/06/20 08:00 04/18/20 01:44 Morphine IV 2 mg Q4H PRN Administration Pain, Moderate (4-6) Morphine Sulfate 4 mg 04/06/20 08:25 04/16/20 13:13 Morphine IV 4 mg Q4H PRN Administration Pain , Severe (7-10) Nitroglycerin 0.4 mg 04/06/20 08:00 Nitrostat SL Q5M PRN Chest Pain Ondansetron HCl 4 mg 04/06/20 08:00 Zofran IV Q4H PRN Nausea And Vomiting Senna 8.6 mg 04/06/20 10:00 04/17/20 21:10 Senokot PO 8.6 mg Q12HR LIBORIO Administration Sodium Chloride 10 ml 04/06/20 10:00 04/17/20 21:10 Sodium Chloride Flush Syringe 10 Ml IV 10 ml BID LIBORIO Administration Sodium Chloride 10 ml 04/06/20 08:00 04/18/20 01:45 Sodium Chloride Flush Syringe 10 Ml IV 10 ml PRN PRN Administration LINE FLUSH
[2020-04-18] MEDS ORDERED: SODIUM CHLORIDE 0.9% 100 ML IV PRN (12:38)
[2020-04-18] MEDS: ASPIRIN 81 MG TAB CHEW PO SCH (13:31)
[2020-04-18] MEDS: carvediloL 3.125 MG TAB PO SCH ×2 (13:31→21:50)
[2020-04-18] MEDS: SENNOSIDES 8.6 MG TAB PO SCH ×2 (14:11→21:52)
--- NOTE | 2020-04-18 14:22 | Vascular Lab Report ---
DUPLEX DOPPLER LOWER EXTREMITY VEINS, RIGHT INDICATION: leg swelling. TECHNIQUE: Duplex doppler imaging was performed through the veins of the right lower extremity using venous comp ression and other maneuvers. COMPARISON: None available. FINDINGS: Common Femoral vein: Negative. Superficial Femoral vein: Negative. Popliteal vein: Negative. Calf veins: Negative. Additional findings: None. IMPRESSION: 1. No sonographic evidence for DVT in the right lower extremity. Signer Name: Ronal Dickson MD Signed: 04/18/2020 2:18 PM Workstation Name: [email or web address]
[2020-04-18] MEDS ORDERED: SODIUM CHLORIDE 0.9% 1000 ML 2,000 ML ONE (14:57)
--- NOTE | 2020-04-18 16:01 | Progress Note ---
Assessment and Plan /ESRD on hemodialysis; received hemodialysis today Daily HD per nephrology, Salt and water restriction /-Fluid overload, secondary to ESRD As well as severe cardiomyopathy EF of 20 to 25% Nephrology planning, s/p daily hemodialysis in view of Extensive fluid overload /Acute on chronic respiratory failure, POA -Continue to volume overload with pulmonary edema -Continue hemodialysis per nephrology and supplemental oxygen /Hypocalcemia; continue current management /Severe hyperkalemia; slightly improved Resolved, HD per schedule /Atypical Chest pain secondary to volume overload/resolved /NSTEMI; type II Positive troponins probably secondary to end-stage renal disease Cardiology following, medical management /-Dilated cardiomyopathy/EF 20 to 25% Hemodialysis for fluid removal, continue current management /Acute on chronic systolic CHF secondary to volume overload EF 20 to 25%, continue anti-failure medications Input output monitoring, hemodialysis /Type 2 DM; Accu-Chek sliding scale coverage ADA diet, Insulin as needed /Anemia of chronic disease; Monitor H&H transfuse as needed, Procrit during dialysis /-Morbid obesity; BMI 39.5 Partly due to fluid overload Continue hemodialysis, supportive care Monitor closely and adjust the management as needed. Supervisor [employer] recommendations noted and appreciated Plan of care reviewed with the patient and his nurse Disposition; discharge when cleared by nephrology 04/18: resumed care. Still with significant anasarca and edema, with scrotal swelling. HD today. Brief history 54-year-old -[place] history of hypertension, congestive heart failure - severe cardiomyopathy with ejection fraction of 20 to 25%, COPD on 3L home O2, end-stage renal disease on hemodialysis but noncompliant with HD w/o any outpt HD setup was admitted through emergency room with worsening shortness of breath, some chest tightness with worsening generalized scrotal swelling. Nephrology consulted and having HD as needed but initialy required daily dialysis. Patient symptoms significantly improved but still has significant scrotal swelling. CM unable to set up outpt HD in the [facility] area. D/c pending on nephrology clearance. Scrotal US: Scrotal wall edema, normal testicle Abdomen/pelvis CTA: no acute findings LE doppler US: no rt LE DVT Hospitalist Physical General appearance: Present: no acute distress, well-nourished, obese - EENT Eyes: Present: PERRL, EOM intact - Neck Neck: Present: supple, normal ROM - Respiratory Respiratory effort: normal Respiratory: bilateral: diminished, negative: rales, rhonchi, wheezing - Cardiovascular Rhythm: regular Heart Sounds: Present: S1 & S2 - Extremities Extremities: no ischemia, + edema - Abdominal General gastrointestinal: soft, non-tender, non-distended, normal bowel sounds Edematous scrotum and penis - Integumentary Integumentary: Present: clear, warm - Psychiatric Psychiatric: appropriate mood/affect, agitated - Neurologic Neurologic: moves all extremities Subjective Date of service: 04/18/20 Principal diagnosis: ESRD Interval history: Patient seen and examined. Medical records and medication list reviewed. No acute event overnight noted by the RN. Patient denies any chest pain but complains of difficulty breathing. Patient is tolerating diet. Still has significant scrotal swelling and penile edema Discussed plan of care at bedside with patient. Objective - Constitutional Vitals: Vital Signs - 12hr 04/18/20 04/18/20 04/18/20 06:03 06:28 07:13 Temperature 97.6 F Pulse Rate 74 72 Pulse Rate [ Apical] Pulse Rate [ From Monitor] Respiratory 18 Rate Blood Pressure 97/63 99/68 113/62 Blood Pressure 99/68 [Right] O2 Sat by Pulse Oximetry O2 Sat by Pulse Oximetry [ Bilateral Bases ] 04/18/20 04/18/20 04/18/20 07:27 08:50 09:10 Temperature 97.6 F Pulse Rate 76 74 Pulse Rate [ 75 Apical] Pulse Rate [ 75 From Monitor] Respiratory 20 20 Rate Blood Pressure 119/81 110/70 Blood Pressure [Right] O2 Sat by Pulse 97 Oximetry O2 Sat by Pulse 2 L Oximetry [ Bilateral Bases ] 04/18/20 04/18/20 04/18/20 09:15 09:30 09:45 Temperature Pulse Rate 74 78 75 Pulse Rate [ Apical] Pulse Rate [ From Monitor] Respiratory Rate Blood Pressure 114/68 99/62 108/53 Blood Pressure [Right] O2 Sat by Pulse Oximetry O2 Sat by Pulse Oximetry [ Bilateral Bases ] 04/18/20 04/18/20 04/18/20 10:00 10:15 10:30 Temperature Pulse Rate 79 77 75 Pulse Rate [ Apical] Pulse Rate [ From Monitor] Respiratory Rate Blood Pressure 105/58 112/63 97/59 Blood Pressure [Right] O2 Sat by Pulse Oximetry O2 Sat by Pulse Oximetry [ Bilateral Bases ] 04/18/20 04/18/20 04/18/20 10:44 10:45 11:00 Temperature Pulse Rate 74 75 76 Pulse Rate [ Apical] Pulse Rate [ From Monitor] Respiratory Rate Blood Pressure 103/67 99/54 Blood Pressure [Right] O2 Sat by Pulse Oximetry O2 Sat by Pulse Oximetry [ Bilateral Bases ] 04/18/20 04/18/20 04/18/20 11:15 11:30 11:45 Temperature Pulse Rate 78 73 76 Pulse Rate [ Apical] Pulse Rate [ From Monitor] Respiratory Rate Blood Pressure 106/52 115/66 99/62 Blood Pressure [Right] O2 Sat by Pulse Oximetry O2 Sat by Pulse Oximetry [ Bilateral Bases ] 04/18/20 04/18/20 04/18/20 12:00 12:15 12:30 Temperature Pulse Rate 78 76 74 Pulse Rate [ Apical] Pulse Rate [ From Monitor] Respiratory Rate Blood Pressure 95/60 125/83 123/96 Blood Pressure [Right] O2 Sat by Pulse Oximetry O2 Sat by Pulse Oximetry [ Bilateral Bases ] 04/18/20 12:45 Temperature 96.9 F L Pulse Rate 78 Pulse Rate [ Apical] Pulse Rate [ From Monitor] Respiratory 20 Rate Blood Pressure 115/77 Blood Pressure [Right] O2 Sat by Pulse Oximetry O2 Sat by Pulse 2 L Oximetry [ Bilateral Bases ] - Labs CBC & Chem 7: 04/18/20 04:49 04/18/20 04:49 Labs: Abnormal lab results 04/18/20 04/18/20 Range/Units 04:49 04:49 RBC 3.46 L (3.65-5.03) M/mm3 Hgb 10.2 L (11.8-15.2) gm/dl Hct 31.4 L (35.5-45.6) % RDW 16.9 H (13.2-15.2) % Lymph % (Auto) 10.1 L (13.4-35.0) % Gaines % (Auto) 11.3 H (0.0-7.3) % Eos % (Auto) 5.1 H (0.0-4.3) % Lymph # 0.5 L (1.2-5.4) K/mm3 Seg Neutrophils % 72.9 H (40.0-70.0) % Sodium 128 L (137-145) mmol/L Chloride 87.0 L (98-107) mmol/L BUN 39 H (9-20) mg/dL Creatinine 6.5 H (0.8-1.5) mg/dL Glucose 101 H (75-100) mg/dL Calcium 6.8 L (8.4-10.2) mg/dL HEART Score - HEART Score EKG: Non-specific Age: 45-65 Risk factors: 1-2 risk factors Troponin: Troponin T 0.069 ng/mL (0.00-0.029) H 04/06/20 02:16 Troponin: 1-3x normal limit - Critical Actions Critical Actions: 4-6 pts:12-16.6% risk of adverse cardiac event. Should be admitted
[2020-04-19] MEDS: MORPHINE 2 MG/1 ML INJ IV PRN ×2 (04:59→12:21)
[2020-04-19] MEDS: ISOSORB DINIT/HYDRALAZINE 20-37.5MG TAB PO SCH ×2 (06:38→14:04)
[2020-04-19] MEDS: CALCIUM ACETATE 667 MG CAP PO SCH ×2 (08:44→12:21)
[2020-04-19] MEDS: SENNOSIDES 8.6 MG TAB PO SCH (10:06)
[2020-04-19] MEDS: ASPIRIN 81 MG TAB CHEW PO SCH (10:06)
[2020-04-19] MEDS: carvediloL 3.125 MG TAB PO SCH (10:09)
--- NOTE | 2020-04-19 12:36 | Progress Note ---
Assessment and Plan - Patient Problems (1) Acute on chronic systolic heart failure Current Visit: Yes Status: Acute Plan to address problem: Guideline directed medical therapy for chronic systolic left ventricular failure. Optimal, routine hemodialysis for fluid and electrolyte management. Subjective Date of service: 04/19/20 Principal diagnosis: ESRD Interval history: Patient is comfortable, no new complaints, no new cardiac issues. Objective Vital Signs Temp Pulse Pulse Pulse Resp BP BP 04/19/20 11:26 98.0 F 77 17 101/55 04/19/20 10:09 76 103/56 04/19/20 09:10 04/19/20 08:07 97.8 F 76 17 103/56 04/19/20 06:38 76 123/68 04/19/20 06:33 76 123/68 04/19/20 03:49 97.8 F 80 18 119/68 04/18/20 23:00 98.8 F 82 19 105/66 04/18/20 22:00 84 84 18 04/18/20 21:50 84 104/60 04/18/20 20:03 81 04/18/20 19:31 98.4 F 84 18 104/60 04/18/20 17:17 98.0 F 18 119/78 04/18/20 12:45 96.9 F L 78 20 115/77 Pulse Ox Pulse Ox 04/19/20 11:26 95 04/19/20 10:09 04/19/20 09:10 97 04/19/20 08:07 97 04/19/20 06:38 04/19/20 06:33 04/19/20 03:49 98 04/18/20 23:00 97 04/18/20 22:00 98 04/18/20 21:50 04/18/20 20:03 04/18/20 19:31 98 04/18/20 17:17 04/18/20 12:45 2 L - Physical Examination General: No Apparent Distress, Other (morbidly obese) HEENT: Positive: PERRL Neck: Positive: neck supple, trachea midline, JVD/HJR (7 cm) Cardiac: Positive: Reg Rate and Rhythm Lungs: Positive: Decreased Breath Sounds Neuro: Positive: Grossly Intact Abdomen: Positive: Soft Skin: Positive: Clear Extremities: Present: +2 Edema, Other (scrotal edema) - Allied health notes Allied health notes reviewed: nursing
--- NOTE | 2020-04-19 15:18 | Discharge Summary ---
Providers - Providers Date of Admission: 04/06/20 08:30 Date of discharge: 04/19/20 Attending physician: SELMA MARTINEZ 04/06/20 Consult to Cardiac Rehabilitation [CONS] Routine Reason For Exam: Phase I 04/06/20 07:37 Consult to Physician [CONS] Routine Comment: Consulting Provider: CRYSTAL VARGAS Physician Instructions: Reason For Exam: ESRD 04/06/20 07:38 Consult to Physician [CONS] Routine Comment: Consulting Provider: NEEMA PIERRE Physician Instructions: Reason For Exam: CHEST PAIN, TYPE 2 MA 04/06/20 07:44 Consult to Dietitian/Nutrition [CONS] Routine Physician Instructions: Reason For Exam: Reason for Consult: Malnutrition Primary care physician: [employer] Hospitalization Condition: Fair Hospital course: 54-year-old -[place] history of hypertension, congestive heart failure - severe cardiomyopathy with ejection fraction of 20 to 25%, COPD on 3L home O2, end-stage renal disease on hemodialysis but noncompliant with HD w/o any outpt HD setup was admitted through emergency room with worsening shortness of breath, some chest tightness with worsening generalized scrotal swelling. Nephrology consulted and having HD as needed but initialy required daily dialysis. Patient symptoms significantly improved but still has scrotal swelling. CM was unable to set up outpt HD in the [facility] area as patient has history of noncompliance no outpatient dialysis center would accept him. Discussed the case with manager dental and case management, and with the patient at bedside. Patient was advised to come to the hospital for his dialysis need 3 times in a week until case management specialist can set up outpatient dialysis center for him. Patient was agreeable with the plan and was discharged home in stable condition with home health. Radiological data: Scrotal US: Scrotal wall edema, normal testicle Abdomen/pelvis CTA: no acute findings LE doppler US: no rt LE DVT 2d echo: EF 20-25% Discharge diagnosis and management: /ESRD on hemodialysis; s/p Daily HD per nephrology, then as needed Placed on salt and water restriction Does not have any outpatient dialysis set up and case management specialist was unable to set up one for him Patient was instructed to come to the hospital for his dialysis need He verbalized understanding and was discharged home in stable condition /-Fluid overload, secondary to ESRD As well as severe cardiomyopathy EF of 20 to 25% Nephrology was following, s/p daily hemodialysis in view of Extensive fluid overload /Acute on chronic respiratory failure, POA -Due to volume overload with pulmonary edema -Status post hemodialysis per nephrology and supplemental oxygen /Hypocalcemia; adjust calcium with dialysis /Severe hyperkalemia; Resolved, HD per schedule /Atypical Chest pain secondary to volume overload/resolved /NSTEMI; type II Positive troponins probably secondary to end-stage renal disease Cardiology following, medical management /-Dilated cardiomyopathy/EF 20 to 25% Hemodialysis for fluid removal, continue current management /Acute on chronic systolic CHF secondary to volume overload EF 20 to 25%, continue anti-failure medications Input output monitoring, hemodialysis /Type 2 DM; Accu-Chek sliding scale coverage ADA diet, Insulin as needed /Anemia of chronic disease; Monitored H&H, Procrit during dialysis /-Morbid obesity; BMI 39.5 Partly due to fluid overload Continue hemodialysis, supportive care Monitor closely and adjust the management as needed. [employer] recommendations noted and appreciated Plan of care reviewed with the patient and his nurse Disposition; home with Hospitalist Physical General appearance: Present: no acute distress, well-nourished, obese - EENT Eyes: Present: PERRL, EOM intact - Neck Neck: Present: supple, normal ROM - Respiratory Respiratory effort: normal Respiratory: bilateral: diminished, negative: rales, rhonchi, wheezing - Cardiovascular Rhythm: regular Heart Sounds: Present: S1 & S2 - Extremities Extremities: no ischemia, + edema - Abdominal General gastrointestinal: soft, non-tender, non-distended, normal bowel sounds Edematous scrotum and penis - Integumentary Integumentary: Present: clear, warm - Psychiatric Psychiatric: appropriate mood/affect, agitated - Neurologic Neurologic: moves all extremities Disposition: TO HOME OR SELFCARE Time spent for discharge: 34 minutes Core Measure Documentation - Palliative Care Palliative Care/ Comfort Measures: Not Applicable - Core Measures Any of the following diagnoses?: none Exam - Constitutional Vitals: Temp Pulse Resp BP Pulse Ox 98.0 F 77 17 101/55 95 04/19/20 11:26 04/19/20 14:04 04/19/20 11:26 04/19/20 14:04 04/19/20 11:26 Plan Activity: advance as tolerated, fall precautions Weight Bearing Status: Non-Weight Bearing Diet: low fat, low salt, diabetic, renal Special Instructions: restrict fluid intake to (1 L per day), home health RN Additional Instructions: Please come to hospital ER for your outpt dialysis need. Follow up with: PRIMARY CARE, [Primary Care Provider] - 3-5 Days Prescriptions: AtorvaSTATin [Lipitor] 40 mg PO QHS #30 tablet Aspirin [Aspirin BABY CHEW TAB] 81 mg PO QDAY #30 tab.chew Calcium 600-Vit D3 800 Tablet 600 mg PO BID #60 Calcium Acetate [Phoslo] 1,334 mg PO TID #90 cap
[2020-04-19 16:08] VITALS: BP 103/62
== END 2020-04-19 16:56 | disposition home or self-care (01) | DRG 280 ==
LOC: ED 21:59 → 4A 04-06 08:30
PROVIDERS: ADMIT Internal Medicine Geriatric Medicine; ATTEND Internal Medicine
PROC: 5A1D70Z Performance of Urinary Filtration, Intermittent, Less than 6 Hours Per Day (ICD-10-PCS; 2020-04-06)
PROC: 3E0234Z Introduction of Serum, Toxoid and Vaccine into Muscle, Percutaneous Approach (ICD-10-PCS; principal; 2020-04-07)
PROC: 5A1D70Z Performance of Urinary Filtration, Intermittent, Less than 6 Hours Per Day (ICD-10-PCS; 2020-04-07)
PROC: 5A1D70Z Performance of Urinary Filtration, Intermittent, Less than 6 Hours Per Day (ICD-10-PCS; 2020-04-08)
PROC: 5A1D70Z Performance of Urinary Filtration, Intermittent, Less than 6 Hours Per Day (ICD-10-PCS; 2020-04-11)
PROC: 5A1D70Z Performance of Urinary Filtration, Intermittent, Less than 6 Hours Per Day (ICD-10-PCS; 2020-04-12)
PROC: 5A1D70Z Performance of Urinary Filtration, Intermittent, Less than 6 Hours Per Day (ICD-10-PCS; 2020-04-13)
PROC: 5A1D70Z Performance of Urinary Filtration, Intermittent, Less than 6 Hours Per Day (ICD-10-PCS; 2020-04-14)
PROC: 5A1D70Z Performance of Urinary Filtration, Intermittent, Less than 6 Hours Per Day (ICD-10-PCS; 2020-04-15)
PROC: 5A1D70Z Performance of Urinary Filtration, Intermittent, Less than 6 Hours Per Day (ICD-10-PCS; 2020-04-17)
PROC: 5A1D70Z Performance of Urinary Filtration, Intermittent, Less than 6 Hours Per Day (ICD-10-PCS; 2020-04-18)
DX: I13.2 Hypertensive heart and chronic kidney disease with heart failure and with stage 5 chronic kidney disease, or end stage renal disease (principal); I21.A1 Myocardial infarction type 2; N18.6 End stage renal disease; I50.23 Acute on chronic systolic (congestive) heart failure; J81.0 Acute pulmonary edema; J96.20 Acute and chronic respiratory failure, unspecified whether with hypoxia or hypercapnia; I50.32 Chronic diastolic (congestive) heart failure; I42.8 Other cardiomyopathies; I42.0 Dilated cardiomyopathy; F17.200 Nicotine dependence, unspecified, uncomplicated; J44.9 Chronic obstructive pulmonary disease, unspecified; N50.89 Other specified disorders of the male genital organs; E78.5 Hyperlipidemia, unspecified; E87.70 Fluid overload, unspecified; E83.51 Hypocalcemia; D63.8 Anemia in other chronic diseases classified elsewhere; I27.20 Pulmonary hypertension, unspecified; E66.01 Morbid (severe) obesity due to excess calories; E87.5 Hyperkalemia; Z23 Encounter for immunization; Z59.0 Homelessness; Z68.39 Body mass index [BMI] 39.0-39.9, adult; Z99.2 Dependence on renal dialysis; Z91.15 Patient's noncompliance with renal dialysis
CPT/HCPCS: 36415; 71045; 74174; 80048; 80053; 80061; 80074; 82330; 83970; 84100; 84484; 85025; 85027; 87641; 90471; 90732; 93005; 93306; 93975; 94760; G0378; A9270-GY; G0009; J0610; J1815; J2060; J2270; J2405; J7030; Q9967

== ENCOUNTER 2020-04-30 02:27 | Inpatient (IN) | payer MEDICARE ==
[2020-04-30 04:19] LABS: Basophils # (Auto) 0.1 K/mm3 (0.0-0.1); Eosinophils # (Auto) 0.2 K/mm3 (0.0-0.4); Eosinophils % (Auto) 2.7 % (0.0-4.3); Hemoglobin 11.1 gm/dl (11.8-15.2); Lymphocytes # (Auto) 0.7 K/mm3 (1.2-5.4); Lymphocytes % (Auto) 10.5 % (13.4-35.0); Mean Corpuscular HGB Conc 33 % (32-34); Mean Corpuscular Volume 89 fl (84-94); Monocytes # (Auto) 0.5 K/mm3 (0.0-0.8); Monocytes % (Auto) 7.9 % (0.0-7.3); Platelet Count 256 K/mm3 (140-440); Red Blood Count 3.83 M/mm3 (3.65-5.03); Red Cell Distribution Width 17.4 % (13.2-15.2)
[2020-04-30 04:38] LABS: Albumin 3.6 g/dL (3.9-5); Calcium 6.8 mg/dL (8.4-10.2)
[2020-05-01 04:33] LABS: Hematocrit 30.2 % (35.5-45.6); Hemoglobin 9.8 gm/dl (11.8-15.2); Mean Corpuscular HGB Conc 33 % (32-34); Mean Corpuscular Volume 89 fl (84-94); Platelet Count 247 K/mm3 (140-440); Red Blood Count 3.41 M/mm3 (3.65-5.03); Red Cell Distribution Width 17.2 % (13.2-15.2)
[2020-05-01 04:53] LABS: Calcium 6.9 mg/dL (8.4-10.2)
[2020-05-01 10:05] LABS: Hematocrit 32.2 % (35.5-45.6); Hemoglobin 10.5 gm/dl (11.8-15.2); Mean Corpuscular HGB Conc 33 % (32-34); Mean Corpuscular Volume 89 fl (84-94); Platelet Count 230 K/mm3 (140-440); Red Blood Count 3.62 M/mm3 (3.65-5.03); Red Cell Distribution Width 17.4 % (13.2-15.2)
[2020-05-01 18:50] LABS: Hematocrit 32.9 % (35.5-45.6); Hemoglobin 10.6 gm/dl (11.8-15.2)
[2020-05-02 02:31] LABS: Hematocrit 30.9 % (35.5-45.6)
[2020-05-02 02:39] LABS: Calcium 7.5 mg/dL (8.4-10.2)
[2020-05-02 15:27] VITALS: BP 126/70
== END 2020-05-02 17:10 | disposition home or self-care (01) | DRG 291 ==
LOC: ED 02:27 → 4A 06:10
PROVIDERS: ADMIT Internal Medicine; ATTEND Hospitalist
PROC: 5A1D70Z Performance of Urinary Filtration, Intermittent, Less than 6 Hours Per Day (ICD-10-PCS; principal; 2020-04-30)
PROC: 5A1D70Z Performance of Urinary Filtration, Intermittent, Less than 6 Hours Per Day (ICD-10-PCS; 2020-05-01)
PROC: 5A1D70Z Performance of Urinary Filtration, Intermittent, Less than 6 Hours Per Day (ICD-10-PCS; 2020-05-02)
DX: I13.2 Hypertensive heart and chronic kidney disease with heart failure and with stage 5 chronic kidney disease, or end stage renal disease (principal); I50.23 Acute on chronic systolic (congestive) heart failure; N18.6 End stage renal disease; J96.20 Acute and chronic respiratory failure, unspecified whether with hypoxia or hypercapnia; J81.0 Acute pulmonary edema; K92.1 Melena; Z68.41 Body mass index [BMI] 40.0-44.9, adult; E87.5 Hyperkalemia; E66.01 Morbid (severe) obesity due to excess calories; Z71.3 Dietary counseling and surveillance; I25.2 Old myocardial infarction; J44.9 Chronic obstructive pulmonary disease, unspecified; E87.70 Fluid overload, unspecified; E83.51 Hypocalcemia; E11.22 Type 2 diabetes mellitus with diabetic chronic kidney disease; Z99.2 Dependence on renal dialysis; Z91.15 Patient's noncompliance with renal dialysis; Z79.4 Long term (current) use of insulin; E78.5 Hyperlipidemia, unspecified; Z82.49 Family history of ischemic heart disease and other diseases of the circulatory system; Z99.81 Dependence on supplemental oxygen
CPT/HCPCS: 36415; 71045; 71275; 78580; 80048; 80053; 80061; 82270; 82728; 82947; 83615; 84145; 84484; 85014; 85018; 85025; 85027; 85379; 86140; 86850; 86900; 86901; 87040; 87641; 93005; 94640; 94760; 96365; 99406; G0378; A9270-GY; A9540; J0456; J0692; J0696; J1170; J1644; J7030; J7050; Q9967; U0003-CS

== ENCOUNTER 2020-05-04 03:40 | Inpatient (IN) | payer MEDICARE ==
[2020-05-04] MEDS ORDERED: CEFEPIME/NS 1 GM/100 ML 1 GM/100 ML BAG IV ONE (03:50)
--- NOTE | 2020-05-04 03:53 | Emergency Department Report ---
ED General Adult HPI - General Stated complaint: SHARAN PUI?: Yes Time Seen by Provider: 05/04/20 03:47 Source: patient, EMS Mode of arrival: Stretcher Limitations: Physical Limitation - History of Present Illness Initial comments: Patient is a 54-year-old male that presents emergency room with right lower extremity pain, fever and shortness of breath. Patient denies chest pain. Patient denies nausea vomiting. Patient denies diarrhea. Patient states his symptoms started yesterday at 6 PM. Patient states his symptoms are worsening. Patient states his pain is a 10 out of 10. Patient states his shortness of breath is better with rest and worse with exertion. Patient states his pain is better with rest and worse with palpation and movement. Patient states he just recently left the hospital. Patient states he was admitted his last visit to [facility]. Patient denies recent travel. Patient denies recent international travel. Patient denies exposure to the novel coronavirus. Patient denies sick contacts. Patient denies cough. Patient denies diarrhea. Patient denies coming in contact with anybody with symptoms of the novel coronavirus. -: Sudden Consistency: constant Improves with: rest Worsens with: other Associated Symptoms: fever/chills, malaise, shortness of breath. denies: confusion, chest pain, cough, diaphoresis, headaches, loss of appetite, nausea/vomiting, rash, seizure, syncope, weakness Treatments Prior to Arrival: none - Related Data Previous Rx's Medication Instructions Recorded Last Taken Type Aspirin [Aspirin BABY CHEW TAB] 81 mg PO QDAY #30 tab.chew 04/19/20 Unknown Rx AtorvaSTATin [Lipitor] 40 mg PO QHS #30 tablet 04/19/20 Unknown Rx Calcium 600-Vit D3 800 Tablet 600 mg PO BID #60 04/19/20 04/24/20 Rx Calcium Acetate [Phoslo] 1,334 mg PO TID #90 cap 04/19/20 Unknown Rx Midodrine [Proamatine] 5 mg PO BID #60 tablet 04/27/20 Unknown Rx Allergies Allergy/AdvReac Type Severity Reaction Status Date / Time No Known Allergies Allergy Unverified 05/04/20 04:13 ED Review of Systems ROS: Stated complaint: SHARAN Other details as noted in HPI Constitutional: fever, malaise Eyes: denies: eye pain, eye discharge, vision change ENT: denies: ear pain, throat pain Respiratory: shortness of breath, SOB with exertion, SOB at rest. denies: cough, wheezing Cardiovascular: denies: chest pain, palpitations Endocrine: no symptoms reported Gastrointestinal: denies: abdominal pain, nausea, diarrhea Genitourinary: denies: urgency, dysuria Musculoskeletal: denies: back pain, joint swelling, arthralgia Skin: denies: rash, lesions Neurological: denies: headache, weakness, paresthesias Psychiatric: denies: anxiety, depression Hematological/Lymphatic: denies: easy bleeding, easy bruising ED Past Medical Hx - Past Medical History Previous Medical History?: Yes Hx Heart Attack/AMI: Yes Hx Congestive Heart Failure: Yes Hx Renal Disease: Yes (END STAGE RENAL DISEASE) Hx Headaches / Migraines: No Hx Seizures: No Hx COPD: Yes (Patient states likely) Hx Dementia: No Additional medical history: Hemodialysis - Surgical History Past Surgical History?: Yes Additional Surgical History: Placement of dialysis access - Family History Family history: no significant - Social History Smoking Status: Current Some Day Smoker Substance Use Type: None - Medications Home Medications: Home Medications Medication Instructions Recorded Confirmed Last Taken Type Aspirin [Aspirin BABY CHEW TAB] 81 mg PO QDAY #30 tab.chew 04/19/20 04/30/20 Unknown Rx AtorvaSTATin [Lipitor] 40 mg PO QHS #30 tablet 04/19/20 04/30/20 Unknown Rx Calcium 600-Vit D3 800 Tablet 600 mg PO BID #60 04/19/20 04/30/20 04/24/20 Rx Calcium Acetate [Phoslo] 1,334 mg PO TID #90 cap 04/19/20 04/30/20 Unknown Rx Midodrine [Proamatine] 5 mg PO BID #60 tablet 04/27/20 04/30/20 Unknown Rx ED Physical Exam - General Limitations: Physical Limitation General appearance: alert, in no apparent distress - Head Head exam: Present: atraumatic, normocephalic - Eye Eye exam: Present: normal appearance - ENT ENT exam: Present: mucous membranes moist - Neck Neck exam: Present: normal inspection - Respiratory Respiratory exam: Present: normal lung sounds bilaterally. Absent: respiratory distress - Cardiovascular Cardiovascular Exam: Present: regular rate, normal rhythm. Absent: systolic murmur, diastolic murmur, rubs, gallop - GI/Abdominal GI/Abdominal exam: Present: soft, normal bowel sounds - Rectal Rectal exam: Present: deferred - Extremities Exam Extremities exam: Present: normal inspection - Back Exam Back exam: Present: normal inspection - Neurological Exam Neurological exam: Present: alert, oriented X3 - Psychiatric Psychiatric exam: Present: normal affect, normal mood - Skin Skin exam: Present: warm, dry, intact, normal color. Absent: rash ED Course Vital Signs 05/04/20 04:09 Temperature 98.7 F Pulse Rate 81 Respiratory 18 Rate Blood Pressure 106/76 O2 Sat by Pulse 97 Oximetry - Reevaluation(s) Reevaluation #1: Initial evaluation done. Patient found to be hypoxic. Patient placed on oxygen. Patient placed on isolation. 05/04/20 03:35 Reevaluation #2: I discussed all results with patient. I discussed plan of care with patient. Patient agrees with plan of care and admission. Patient to be admitted to the hospitalist service. 05/04/20 05:35 - Consultations Consultation #1: Hospitalist consulted for admission. Hospitalist to admit patient. 05/04/20 05:36 ED Medical Decision Making - Lab Data Result diagrams: 05/04/20 04:02 05/04/20 04:02 - EKG Data -: EKG Interpreted by Me EKG shows normal: sinus rhythm, axis, intervals, QRS complexes, ST-T waves Rate: normal - Radiology Data Radiology results: report reviewed, image reviewed interpreted by me: No acute findings on chest x-ray. - Medical Decision Making Patient is a 54-year-old male that presents emergency room with complaints of fever and shortness of breath. Patient also complains of leg pain. Patient is leg pain is in his right knee. Patient given Dilaudid and his pain improved. Patient also found to be hypoxic and placed on oxygen. Patient's shortness of breath and fever most likely secondary to COVID. Patient admitted to the hospitalist service for further evaluation treatment. Infectious disease consulted and PUI COVID labs ordered. - Differential Diagnosis COVID, fever, shortness of breath, leg pain. Critical Care Time: Yes Critical care time in (mins) excluding proc time.: 35 Critical care attestation.: If time is entered above; I have spent that time in minutes in the direct care of this critically ill patient, excluding procedure time. Critical Care Time: 35 minutes ED Disposition Clinical Impression: SOB (shortness of breath), Suspected COVID-19 virus infection, Elevated troponin, End-stage renal disease needing dialysis, Hypoxia Fever Qualifiers: Fever type: unspecified Qualified Code(s): R50.9 - Fever, unspecified Leg pain Qualifiers: Laterality: right Qualified Code(s): M79.604 - Pain in right leg Disposition: OP ADMIT IP TO THIS HOSP Is pt being admited?: Yes Does the pt Need Aspirin: No Condition: Critical Time of Disposition: 05:33
[2020-05-04] MEDS ORDERED: HYDROmorphone 1 MG/1 ML INJ IV ONE (04:29)
[2020-05-04 04:33] LABS: Basophils % (Auto) 0.6 % (0.0-1.8); Eosinophils # (Auto) 0.3 K/mm3 (0.0-0.4); Eosinophils % (Auto) 4.9 % (0.0-4.3); Hematocrit 34.3 % (35.5-45.6); Hemoglobin 11.2 gm/dl (11.8-15.2); Lymphocytes # (Auto) 0.8 K/mm3 (1.2-5.4); Lymphocytes % (Auto) 13.7 % (13.4-35.0); Mean Corpuscular HGB Conc 33 % (32-34); Mean Corpuscular Volume 88 fl (84-94); Monocytes # (Auto) 0.5 K/mm3 (0.0-0.8); Monocytes % (Auto) 9.5 % (0.0-7.3); Platelet Count 248 K/mm3 (140-440); Red Blood Count 3.88 M/mm3 (3.65-5.03); Red Cell Distribution Width 17.6 % (13.2-15.2)
--- NOTE | 2020-05-04 04:40 | XRay Report ---
CHEST 1 VIEW 05/04/2020 3:53 AM INDICATION / CLINICAL INFORMATION: Dyspnea. COMPARISON: One view of the chest from 04/30/2020. FINDINGS: SUPPORT DEVICES: None. HEART / MEDIASTINUM: No significant abnormality. LUNGS / PLEURA: No significant pulmonary or pleural abnormality. No pneumothorax. ADDITIONAL FINDINGS: No significant additional findings. IMPRESSION: 1. No acute abnormality of the chest. Signer Name: Patricio Baca MD Signed: 05/04/2020 4:35 AM Workstation Name: [id number]
[2020-05-04 05:12] LABS: Albumin 3.8 g/dL (3.9-5); Calcium 7.9 mg/dL (8.4-10.2)
[2020-05-04 06:14] LABS: Chol/HDL Ratio 2.81 %
[2020-05-04 07:03] LABS: C-Reactive Protein 5.9 mg/dL (0.00-1.30)
--- NOTE | 2020-05-04 07:18 | History and Physical Report ---
History of Present Illness Date of examination: 05/04/20 Date of admission: 05/04/20 Chief complaint: Shortness of breath with right knee pain. History of present illness: Patient is a 54-year-old male currently homeless with past medical history of end-stage renal disease, COPD, congestive heart failure, hypertension, noncompliance with dialysis who currently uses the ED for his dialysis needs presents to the emergency room via EMS with complaints of shortness of breath and right knee pain. He does reported that the patient was febrile but there is no documentation of fever noted. As a result he is being admitted to rule out COVID-19 and also to undergo his regular dialysis. Apart from being homeless and multiple hospitalization in the last month there is no other reported coronavirus exposure that the patient is aware of. At time of my exam he denied any chest pain nausea vomiting he denied any fever but felt febrile. He also reports of bilateral pain not just the right knee states that is chronic. He is unable to give me the medications that he takes tells me that is on file here doubt that he is compliant with it. In the ED the patient was found to be hypoxic with oxygen level at 86 percent saturation on room air and was placed on oxygen improved to 92% Past History Past Medical History: CAD, COPD, ESRD, hypertension, hyperlipidemia, renal failure Past Surgical History: Other (Left upper arm old surgery well-healed surgical scar noted, left upper extremity AV graft) Social history: full code. denies: smoking, alcohol abuse, prescription drug abuse, IV drug use Family history: no significant family history Medications and Allergies Allergies Allergy/AdvReac Type Severity Reaction Status Date / Time No Known Allergies Allergy Unverified 05/04/20 04:13 Home Medications Medication Instructions Recorded Confirmed Last Taken Type Aspirin [Aspirin BABY CHEW TAB] 81 mg PO QDAY #30 tab.chew 04/19/20 04/30/20 Unknown Rx AtorvaSTATin [Lipitor] 40 mg PO QHS #30 tablet 04/19/20 04/30/20 Unknown Rx Calcium 600-Vit D3 800 Tablet 600 mg PO BID #60 04/19/20 04/30/20 04/24/20 Rx Calcium Acetate [Phoslo] 1,334 mg PO TID #90 cap 04/19/20 04/30/20 Unknown Rx Midodrine [Proamatine] 5 mg PO BID #60 tablet 04/27/20 04/30/20 Unknown Rx Review of Systems All systems: negative Constitutional: chills, lethargy, no weight loss, no weight gain, no fever, no sweats, no night sweats, no anorexia, no fatigue, no malaise Respiratory: shortness of breath, congestion, no cough, no cough with sputum, no excessive sputum, no wheezing, no pleurisy, no pain, no sleep apnea, no respiratory infections, no home oxygen Gastrointestinal: no abdominal pain, no nausea, no vomiting, no diarrhea, no constipation, no change in bowel habits, no hematemesis, no BRBPR, no melena, no hematochezia, no loss of appetite, no early satiety Genitourinary Male: no hematuria, no incontinence, no erectile dysfunction Musculoskeletal: limitation of motion (Chronic), gait dysfunction (Ambulates with a wheeled walker) Neurological: no head injury, no paralysis, no parathesias, no numbness, no tingling, no tic, no change in speech, no sensory deficit, no loss of vision Endocrine: no heat intolerance, no polydipsia Hematologic/Lymphatic: no easy bruising Allergic/Immunologic: no urticaria, no anaphylaxis Exam - Physical Exam Narrative exam: VITAL SIGNS: Reviewed. GENERAL: The patient appears normally developed, Vital signs as documented. HEAD: No signs of head trauma. EYES: Pupils are equal. Extraocular motions intact. EARS: Hearing grossly intact. MOUTH: Oropharynx is normal. NECK: No adenopathy, no JVD. CHEST: Chest with diminished breath sounds bilaterally. No wheezes, rales, or rhonchi. CARDIAC: Regular rate and rhythm. S1 and S2, without murmurs, gallops, or rubs. VASCULAR: Chronic nonpitting edema. Peripheral pulses normal and equal in all extremities. ABDOMEN: Soft, non tender and non distended. No rebound or guarding, and no masses palpated. Bowel Sounds normal. MUSCULOSKELETAL: Chronic bilateral lower extremity venous changes with mild fluid retention good range of motion of all major joints. Extremities without clubbing, cyanosis. Chronic nonpitting edema. Scrotal edema NEUROLOGIC EXAM: Alert and oriented x 3 No focal sensory or strength deficits. Speech normal. Follows commands. PSYCHIATRIC: Mood normal. SKIN: detail exam as documented in skin assessment - Constitutional Vitals: Temp Pulse Resp BP Pulse Ox 98.7 F 81 9 L 111/66 88 05/04/20 04:09 05/04/20 04:16 05/04/20 04:16 05/04/20 06:45 05/04/20 06:45 HEART Score - HEART Score Troponin: Troponin T 0.112 ng/mL (0.00-0.029) H* 05/04/20 04:02 Results - Labs CBC & Chem 7: 05/04/20 04:02 05/04/20 05:50 Labs: Laboratory Last Values WBC 5.6 K/mm3 (4.5-11.0) 05/04/20 04:02 RBC 3.88 M/mm3 (3.65-5.03) 05/04/20 04:02 Hgb 11.2 gm/dl (11.8-15.2) L 05/04/20 04:02 Hct 34.3 % (35.5-45.6) L 05/04/20 04:02 MCV 88 fl (84-94) 05/04/20 04:02 MCH 29 pg (28-32) 05/04/20 04:02 MCHC 33 % (32-34) 05/04/20 04:02 RDW 17.6 % (13.2-15.2) H 05/04/20 04:02 Plt Count 248 K/mm3 (140-440) 05/04/20 04:02 Lymph % (Auto) 13.7 % (13.4-35.0) 05/04/20 04:02 [place] % (Auto) 9.5 % (0.0-7.3) H 05/04/20 04:02 Eos % (Auto) 4.9 % (0.0-4.3) H 05/04/20 04:02 Baso % (Auto) 0.6 % (0.0-1.8) 05/04/20 04:02 Lymph # 0.8 K/mm3 (1.2-5.4) L 05/04/20 04:02 [place] # 0.5 K/mm3 (0.0-0.8) 05/04/20 04:02 Eos # 0.3 K/mm3 (0.0-0.4) 05/04/20 04:02 Baso # 0.0 K/mm3 (0.0-0.1) 05/04/20 04:02 Seg Neutrophils % 71.3 % (40.0-70.0) H 05/04/20 04:02 Seg Neutrophils # 4.0 K/mm3 (1.8-7.7) 05/04/20 04:02 D-Dimer 1529.45 ng/mlDDU (0-234) H 05/04/20 05:50 Sodium 140 mmol/L (137-145) 05/04/20 04:02 Potassium 4.4 mmol/L (3.6-5.0) 05/04/20 04:02 Chloride 99.9 mmol/L (98-107) 05/04/20 04:02 Carbon Dioxide 26 mmol/L (22-30) 05/04/20 04:02 Anion Gap 19 mmol/L 05/04/20 04:02 BUN 29 mg/dL (9-20) H 05/04/20 04:02 Creatinine 6.8 mg/dL (0.8-1.5) H 05/04/20 04:02 Estimated GFR 10 ml/min 05/04/20 04:02 BUN/Creatinine Ratio 4 % 05/04/20 04:02 Glucose 99 mg/dL (75-100) 05/04/20 05:50 Calcium 7.9 mg/dL (8.4-10.2) L 05/04/20 04:02 Ferritin 138.4 ng/mL (13.0-400.0) 05/04/20 05:50 Total Bilirubin 0.40 mg/dL (0.1-1.2) 05/04/20 04:02 AST 16 units/L (5-40) 05/04/20 04:02 ALT 11 units/L (7-56) 05/04/20 04:02 Alkaline Phosphatase 81 units/L (35-129) 05/04/20 04:02 Lactate Dehydrogenase 190 units/L (91-180) H 05/04/20 05:50 Troponin T 0.112 ng/mL (0.00-0.029) H* 05/04/20 04:02 C-Reactive Protein 5.90 mg/dL (0.00-1.30) H 05/04/20 05:50 Total Protein 7.7 g/dL (6.3-8.2) 05/04/20 04:02 Albumin 3.8 g/dL (3.9-5) L 05/04/20 04:02 Albumin/Globulin Ratio 1.0 % 05/04/20 04:02 Triglycerides 84 mg/dL (2-149) 05/04/20 04:02 Cholesterol 104 mg/dL (50-199) 05/04/20 04:02 LDL Cholesterol Direct 52 mg/dL (50-130) 05/04/20 04:02 HDL Cholesterol 37 mg/dL (40-59) L 05/04/20 04:02 Cholesterol/HDL Ratio 2.81 % 05/04/20 04:02 - Imaging and Cardiology Chest x-ray: image reviewed Lee/IV: IV Catheter Type [Left Leg] INT / Saline Lock Assessment and Plan Assessment and plan: Patient is a 54-year-old male currently homeless with past medical history of end-stage renal disease, COPD, congestive heart failure, hypertension, noncompliance with dialysis who currently uses the ED for his dialysis needs presents to the emergency room via EMS with complaints of shortness of breath and right knee pain. He does reported that the patient was febrile but there is no documentation of fever noted. As a result he is being admitted to rule out COVID-19 and also to undergo his regular dialysis. Apart from being homeless and multiple hospitalization in the last month there is no other reported coronavirus exposure that the patient is aware of. At time of my exam he denied any chest pain nausea vomiting he denied any fever but felt febrile. He also reports of bilateral pain not just the right knee states that is chronic. He is unable to give me the medications that he takes tells me that is on file here doubt that he is compliant with it. In the ED the patient was found to be hypoxic with oxygen level at 86 percent saturation on room air and was placed on oxygen improved to 92% Chest x-ray :FINDINGS: SUPPORT DEVICES: None. HEART / MEDIASTINUM: No significant abnormality. LUNGS / PLEURA: No significant pulmonary or pleural abnormality. No pneumothorax. ADDITIONAL FINDINGS: No significant additional findings. IMPRESSION: 1. No acute abnormality of the chest. Acute hypoxic respiratory failure rule outs novel coronavirus FEVER R/O Sepsis ESRD w/Volume Overload Type II NC with mildly elevated troponin. COPD with mild exacerbation Nonischemic cardiomyopathy with ejection fraction of 20 to 25% Combined diastolic and systolic congestive heart failure stable Anemia Plan Admit to Covid Unit Consult Renal and ID Started on dialysis protocol per nephrology We will start the patient on gabapentin as he has chronic bilateral lower extremity pain and this could likely be neuropathy considering his diagnosis of end-stage renal disease Resume appropriate home medications Obtain VQ scan to rule out pulmonary embolism DVT and GI prophylaxis Case management consult to see if we have made any movement and finding this young man place to live Plan of care discussed with the patient. Consultants notified by me. Advance Directives: Yes Plan of care discussed with patient/family: Yes
[2020-05-04] MEDS ORDERED: ACETAMINOPHEN 325 MG TAB PO PRN (07:32)
[2020-05-04] MEDS ORDERED: ONDANSETRON 4 MG/2 ML INJ IV PRN (07:32)
[2020-05-04] MEDS ORDERED: ALBUTEROL 2.5 MG/3 ML NEBU IH PRN (07:32)
[2020-05-04] MEDS: CALCIUM CARB/VIT D3/MINERALS 600 MG/800 UNITS TAB PO SCH ×2 (09:48→22:53)
[2020-05-04] MEDS: AZITHROMYCIN 500 MG in SODIUM CHLORIDE 0.9% 250ML 250 ML IV SCH (09:48)
[2020-05-04] MEDS: GABAPENTIN 300 MG CAP PO SCH ×2 (09:48→22:54)
[2020-05-04] MEDS: CALCIUM ACETATE 667 MG CAP PO SCH ×3 (09:48→22:54)
[2020-05-04] MEDS: MIDODRINE 5 MG TAB PO SCH ×2 (09:48→22:54)
[2020-05-04] MEDS: ASPIRIN 81 MG TAB CHEW PO SCH (09:48)
[2020-05-04] MEDS ORDERED: SODIUM CHLORIDE 0.9% 100 ML IV PRN (10:23)
[2020-05-04] MEDS ORDERED: HEPARIN 10,000 UNITS/10 ML VIAL IV PRN (10:23)
[2020-05-04] MEDS: BUDESONIDE 0.5 MG/2 ML NEBU IH SCH ×2 (10:32→20:22)
[2020-05-04] MEDS ORDERED: oxyCODONE /ACETAMINOPHEN 5-325MG TAB PO ONE (11:00)
[2020-05-04] MEDS: cefTRIAXone/NS 2 GM/100 ML 2 GM/100 ML BAG IV SCH (11:56)
--- NOTE | 2020-05-04 13:26 | Consultation ---
History of Present Illness - Reason for Consult Consult date: 05/04/20 - History of Present Illness 54 yo M PMHx ESRD on HD, CHF, COPD, HTN admitted to the hospital complaining of SOB and right knee pain. The patient routinely uses ER for his dialysis needs s he is homeless. He reports that he was febrile, though no documentation of the fever exists in the chart. He was admitted due to being a PUI for COVID-19, and to get his HD. He denies any specifc COVID-19 exposures, though as stated he is homeless and frequents the hospital. He ws hypoxic on admission and responding to nasal cannula. Afebrile since admission with a normal white count. Currently receiving ceftriaxone and azithromycin. Blood cultures pending. Imaging personally reviewed: CXR: No acute abnormality. Review of Systems: Bold if positive, otherwise negative General: fevers, chills, rigors HEENT: visual disturbance, diplopia, eye pain Respiratory: cough, sputum, hemoptysis, shortness of breath Cardiovascular: chest pain, syncope Gastrointestinal: nausea, vomiting, diarrhea, abdominal pain Genitourinary: dysuria, hematuria, flank pain Musculoskeletal: neck pain, back pain, joint pain, edema Neurologic: headaches, seizures Hematologic: easy bruising or bleeding Endocrine: night sweats, acute weight loss Skin: rash, jaundice, redness Psychiatric: suicidal, homicidal ideation Past History Past Medical History: CAD, COPD, ESRD, hypertension, hyperlipidemia, renal failure Past Surgical History: Other (Left upper arm old surgery well-healed surgical scar noted, left upper extremity AV graft) Social history: full code. denies: smoking, alcohol abuse, prescription drug abuse, IV drug use Family history: no significant family history Medications and Allergies Allergies Allergy/AdvReac Type Severity Reaction Status Date / Time No Known Allergies Allergy Unverified 05/04/20 04:13 Home Medications Medication Instructions Recorded Confirmed Last Taken Type Aspirin [Aspirin BABY CHEW TAB] 81 mg PO QDAY #30 tab.chew 04/19/20 04/30/20 Unknown Rx AtorvaSTATin [Lipitor] 40 mg PO QHS #30 tablet 04/19/20 04/30/20 Unknown Rx Calcium 600-Vit D3 800 Tablet 600 mg PO BID #60 04/19/20 04/30/20 04/24/20 Rx Calcium Acetate [Phoslo] 1,334 mg PO TID #90 cap 04/19/20 04/30/20 Unknown Rx Midodrine [Proamatine] 5 mg PO BID #60 tablet 04/27/20 04/30/20 Unknown Rx Active Meds: Active Medications Acetaminophen (Tylenol) 650 mg PO Q4H PRN PRN Reason: Pain MILD(1-3)/Fever >100.5/MALDONADO Albuterol (Proventil) 2.5 mg IH Q4HRT PRN PRN Reason: Shortness Of Breath Aspirin (Baby Aspirin) 81 mg PO QDAY [facility] Last Admin: 05/04/20 09:48 Dose: 81 mg Documented by: Atorvastatin Calcium (Lipitor) 40 mg PO QHS [facility] Budesonide (Pulmicort) 0.5 mg IH Q12HRT [facility] Last Admin: 05/04/20 10:32 Dose: 0.5 mg Documented by: Calcium Acetate (Phoslo) 1,334 mg PO TID [facility] Last Admin: 05/04/20 09:48 Dose: 1,334 mg Documented by: Gabapentin (Gabapentin) 300 mg PO BID [facility] Last Admin: 05/04/20 09:48 Dose: 300 mg Documented by: Heparin Sodium (Porcine) (Heparin) 5,000 unit SUB-Q Q8HR [facility] Heparin Sodium (Porcine) (Heparin 10,000 Units/10 Ml) 2,000 unit IV PEDRITO PRN PRN Reason: hemodialysis Ceftriaxone Sodium (Rocephin/Ns 2 Gm/100 Ml) 2 gm in 100 mls @ 200 mls/hr IV Q24HR [facility]; Protocol Last Admin: 05/04/20 11:56 Dose: 200 mls/hr Documented by: Azithromycin 500 mg/ Sodium (Chloride) 250 mls @ 250 mls/hr IV Q24HR [facility]; Protocol Last Admin: 05/04/20 09:48 Dose: 250 mls/hr Documented by: Sodium Chloride (Nacl 0.9%) 100 mls @ 999 mls/hr IV PEDRITO PRN PRN Reason: Hypotension Midodrine (Proamatine) 5 mg PO BID [facility] Last Admin: 05/04/20 09:48 Dose: 5 mg Documented by: Multivitamins/Minerals (Caltrate Plus) 1 each PO BID [facility] Last Admin: 05/04/20 09:48 Dose: 1 each Documented by: Ondansetron HCl (Zofran) 4 mg IV Q8H PRN PRN Reason: Nausea And Vomiting Sodium Chloride (Sodium Chloride Flush Syringe 10 Ml) 10 ml IV BID [facility] Last Admin: 05/04/20 09:49 Dose: 10 ml Documented by: Sodium Chloride (Sodium Chloride Flush Syringe 10 Ml) 10 ml IV PRN PRN PRN Reason: LINE FLUSH Physical Examination - Physical Exam Narrative exam: Physical Exam: Constitutional: Alert, cooperative. No acute distress Head, Ears, Nose: Normocephalic, atraumatic. External ears, nose normal Eyes: Conjunctivae/corneas clear. No icterus. No ptosis. Neck: Supple, no meningeal signs Oral: dentition fair, no thrush Cardiovascular: S1, S2 normal. Respiratory: Good air entry, clear to auscultation bilaterally GI: Soft, non-tender; bowel sounds normal. No peritoneal signs. Musculoskeletal: No pedal edema, no cyanosis. Skin: No rash or abscess Hem/Lymphatic: No palpable cervical or supraclavicular nodes. No lymphangitis Psych: Mood ok. Affect normal Neurological: Awake, alert, oriented. No gross abnormality - Constitutional Vitals: Vital Signs Temp Pulse Resp BP Pulse Ox 98.7 F 76 16 136/75 95 05/04/20 04:09 05/04/20 13:15 05/04/20 12:00 05/04/20 13:15 05/04/20 08:20 Temperature -Last 24 Hours Temperature 98.7 F Results - Labs CBC & Chem 7: 05/04/20 04:02 05/04/20 05:50 Labs: Abnormal lab results 05/04/20 05/04/20 05/04/20 Range/Units 04:02 04:02 05:50 Hgb 11.2 L (11.8-15.2) gm/dl Hct 34.3 L (35.5-45.6) % RDW 17.6 H (13.2-15.2) % Holmes % (Auto) 9.5 H (0.0-7.3) % Eos % (Auto) 4.9 H (0.0-4.3) % Lymph # 0.8 L (1.2-5.4) K/mm3 Seg Neutrophils % 71.3 H (40.0-70.0) % D-Dimer 1529.45 H (0-234) ng/mlDDU BUN 29 H (9-20) mg/dL Creatinine 6.8 H (0.8-1.5) mg/dL Calcium 7.9 L (8.4-10.2) mg/dL Lactate Dehydrogenase (91-180) units/L Troponin T 0.112 H* (0.00-0.029) ng/mL C-Reactive Protein (0.00-1.30) mg/dL Albumin 3.8 L (3.9-5) g/dL HDL Cholesterol 37 L (40-59) mg/dL 05/04/20 Range/Units 05:50 Hgb (11.8-15.2) gm/dl Hct (35.5-45.6) % RDW (13.2-15.2) % Holmes % (Auto) (0.0-7.3) % Eos % (Auto) (0.0-4.3) % Lymph # (1.2-5.4) K/mm3 Seg Neutrophils % (40.0-70.0) % D-Dimer (0-234) ng/mlDDU BUN (9-20) mg/dL Creatinine (0.8-1.5) mg/dL Calcium (8.4-10.2) mg/dL Lactate Dehydrogenase 190 H (91-180) units/L Troponin T (0.00-0.029) ng/mL C-Reactive Protein 5.90 H (0.00-1.30) mg/dL Albumin (3.9-5) g/dL HDL Cholesterol (40-59) mg/dL Assessment and Plan Cultures: Blood culture 05/04/2020 pending A/P: 54 yo M PMHx ESRD on HD, CHF, COPD, HTN admitted as a COVID PUI #Cough: COVID testing negative. CXR is normal. Given his hypoxia will continue empiric antibiotics for now, but will consider stopping shortly. I would also re-test for COVID based on the hypoxia. Afebrile with a normal white count. #ESRD on HD: renally dose antibiotics. Recs: -Continue empiric ceftriaxone and azithromycin -Re-test for COVID-19 Thank you for the consult, we will continue to follow. Jigna King MD [facility] ([facility] M: [phone] O: [phone] F: [phone]
--- NOTE | 2020-05-04 14:02 | Consultation ---
History of Present Illness - Reason for Consult Consult date: 05/04/20 end stage renal disease - History of Present Illness This is a 54 year old male with history significant for Obesity, hypertension, ESRD on HD, CHF with EF 20-25%, COPD and medical noncompliance who presented to [facility] ED 05/04 with complaints of shortness of breath and R knee pain (chronic). Patient is currently not established with any outpatient HD unit primarily due to non-compliance. Patient is homeless. He was recently admitted and discharged on 05/02/20. He did report fever and he was admitted to r/o [facility]- and also to undergo hemodialysis. He denied any chest pain, nausea, vomiting, abd pain, weakness or cough. Hew as last dialyzed on 05/02. In the ED the patient was found to be hypoxic with oxygen level at 86 percent saturation on room air and improved to 92% on O2. Nephrology was consulted for further evaluation and treatment. Past History Past Medical History: CAD, COPD, dialysis, ESRD, heart failure, hypertension, hyperlipidemia Past Surgical History: Other (Left upper arm old surgery well-healed surgical scar noted, left upper extremity AV graft) Social history: full code. denies: smoking, alcohol abuse, prescription drug abuse, IV drug use Family history: no significant family history Medications and Allergies Allergies Allergy/AdvReac Type Severity Reaction Status Date / Time No Known Allergies Allergy Unverified 05/04/20 04:13 Home Medications Medication Instructions Recorded Confirmed Last Taken Type Aspirin [Aspirin BABY CHEW TAB] 81 mg PO QDAY #30 tab.chew 04/19/20 04/30/20 Unknown Rx AtorvaSTATin [Lipitor] 40 mg PO QHS #30 tablet 04/19/20 04/30/20 Unknown Rx Calcium 600-Vit D3 800 Tablet 600 mg PO BID #60 04/19/20 04/30/20 04/24/20 Rx Calcium Acetate [Phoslo] 1,334 mg PO TID #90 cap 04/19/20 04/30/20 Unknown Rx Midodrine [Proamatine] 5 mg PO BID #60 tablet 04/27/20 04/30/20 Unknown Rx Active Meds: Active Medications Acetaminophen (Tylenol) 650 mg PO Q4H PRN PRN Reason: Pain MILD(1-3)/Fever >100.5/MALDONADO Albuterol (Proventil) 2.5 mg IH Q4HRT PRN PRN Reason: Shortness Of Breath Aspirin (Baby Aspirin) 81 mg PO QDAY [facility] Last Admin: 05/04/20 09:48 Dose: 81 mg Documented by: Atorvastatin Calcium (Lipitor) 40 mg PO QHS [facility] Budesonide (Pulmicort) 0.5 mg IH Q12HRT [facility] Last Admin: 05/04/20 10:32 Dose: 0.5 mg Documented by: Calcium Acetate (Phoslo) 1,334 mg PO TID [facility] Last Admin: 05/04/20 09:48 Dose: 1,334 mg Documented by: Gabapentin (Gabapentin) 300 mg PO BID [facility] Last Admin: 05/04/20 09:48 Dose: 300 mg Documented by: Heparin Sodium (Porcine) (Heparin) 5,000 unit SUB-Q Q8HR [facility] Heparin Sodium (Porcine) (Heparin 10,000 Units/10 Ml) 2,000 unit IV PEDRITO PRN PRN Reason: hemodialysis Ceftriaxone Sodium (Rocephin/Ns 2 Gm/100 Ml) 2 gm in 100 mls @ 200 mls/hr IV Q24HR [facility]; Protocol Last Admin: 05/04/20 11:56 Dose: 200 mls/hr Documented by: Azithromycin 500 mg/ Sodium (Chloride) 250 mls @ 250 mls/hr IV Q24HR [facility]; Protocol Last Admin: 05/04/20 09:48 Dose: 250 mls/hr Documented by: Sodium Chloride (Nacl 0.9%) 100 mls @ 999 mls/hr IV PEDRITO PRN PRN Reason: Hypotension Midodrine (Proamatine) 5 mg PO BID [facility] Last Admin: 05/04/20 09:48 Dose: 5 mg Documented by: Multivitamins/Minerals (Caltrate Plus) 1 each PO BID [facility] Last Admin: 05/04/20 09:48 Dose: 1 each Documented by: Ondansetron HCl (Zofran) 4 mg IV Q8H PRN PRN Reason: Nausea And Vomiting Sodium Chloride (Sodium Chloride Flush Syringe 10 Ml) 10 ml IV BID [facility] Last Admin: 05/04/20 09:49 Dose: 10 ml Documented by: Sodium Chloride (Sodium Chloride Flush Syringe 10 Ml) 10 ml IV PRN PRN PRN Reason: LINE FLUSH Review of Systems Constitutional: fever, chills, no weight loss, no weight gain, no anorexia, no weakness Cardiovascular: edema, shortness of breath, high blood pressure, leg edema, no chest pain, no syncope, no lightheadedness Respiratory: shortness of breath, dyspnea on exertion, no cough Gastrointestinal: no abdominal pain, no nausea, no vomiting Integumentary: no rash Neurological: no seizures, no syncope Exam - Vital Signs Vital signs: Vital Signs Pulse Ox 95 05/04/20 03:50 - General Appearance General appearance: well-developed, well-nourished, appears stated age, obese, other (no distress) EENT: ATNC, PERRL, hearing intact Neck: Present: neck supple, trachea midline Respiratory: Clear to Ascultation, Decreased Breath Sounds Heart: regular, S1S2, no murmurs Gastrointestinal: Present: normoactive bowel sounds. Absent: tenderness, distended Integumentary: chronic venous stasis Neurologic: no focal deficit, no asterixis Musculoskeletal: Present: other (LE edema noted, L groin tunnel catheter noted) Results - Lab Results 05/04/20 04:02 05/04/20 05:50 Most recent lab results Calcium 7.9 mg/dL (8.4-10.2) L 05/04/20 04:02 Assessment and Plan 1. End stage renal disease: Was previously on schedule. Currently not established with any outpatient HD unit due to noncompliance. He gets HD in the hospital. Meds dosage based on GFR. Hemodialysis: 05/04. 2. FEN: Volume overload, UF as tolerated, monitor. Monitor lytes and volume status. 3. H/o Fever: COVID-19 test negative. 4. Anemia, POA: Epogen with HD as needed. 5. Hypertension: BP is controlled. Monitor BP closely. 6. Morbid obesity. 7. Chronic systolic CHF: ECHO EF 20-25%. 8. H/o COPD. 9. Medical noncompliance: Counseled.
[2020-05-04] MEDS: HEPARIN 5,000 UNIT/1 ML VIAL SUB-Q SCH ×2 (14:13→22:53)
[2020-05-04] MEDS: oxyCODONE /ACETAMINOPHEN 5-325MG TAB PO PRN (22:56)
[2020-05-05] MEDS: oxyCODONE /ACETAMINOPHEN 5-325MG TAB PO PRN ×2 (05:29→23:51)
[2020-05-05] MEDS: HEPARIN 5,000 UNIT/1 ML VIAL SUB-Q SCH ×3 (05:30→21:20)
[2020-05-05] MEDS: BUDESONIDE 0.5 MG/2 ML NEBU IH SCH ×2 (07:56→20:20)
--- NOTE | 2020-05-05 08:56 | Progress Note ---
Assessment and Plan 1. End stage renal disease: Was previously on schedule. Currently not established with any outpatient HD unit due to noncompliance. He gets HD in the hospital. Meds dosage based on GFR. HD today as pt received IV contrast. Hemodialysis: 05/04, 05/05. 2. FEN: Volume overload, UF as tolerated, monitor. Monitor lytes and volume status. 3. H/o Fever: COVID-19 test negative. 4. Anemia, POA: Epogen with HD as needed. 5. Hypertension: BP is controlled. Monitor BP closely. 6. Morbid obesity. 7. Chronic systolic CHF: ECHO EF 20-25%. 8. H/o COPD. 9. Medical noncompliance: Counseled. Objective: Patient was seen and examined at the bedside. Doing ok. General Appearance: General appearance: well-developed, well-nourished, appears stated age, obese, no distress HEENT: ATNC, PERRL, hearing intact Neck: neck supple, trachea midline Respiratory: Clear to Ascultation, Decreased Breath Sounds Heart: regular, S1S2, no murmur Gastrointestinal: soft, obese, normoactive bowel sounds, not tender Integumentary: chronic venous stasis Neurologic: no focal deficit, no asterixis Ext: trace LE edema noted Hemodialysis access: L groin tunnel catheter noted Subjective Date of service: 05/05/20 Objective - Vital Signs Vital signs: Vital Signs - 12hr 05/04/20 05/05/20 05/05/20 23:54 06:26 07:57 Temperature 97.5 F L 97.9 F Pulse Rate 84 75 Pulse Rate [ 89 Anterior Bilateral] Respiratory 18 18 Rate Respiratory 18 Rate [Anterior Bilateral] Blood Pressure 106/59 106/63 O2 Sat by Pulse 98 97 Oximetry 05/05/20 07:58 Temperature Pulse Rate Pulse Rate [ Anterior Bilateral] Respiratory Rate Respiratory Rate [Anterior Bilateral] Blood Pressure O2 Sat by Pulse 95 Oximetry - Lab 05/04/20 04:02 05/04/20 05:50 Most recent lab results Calcium 7.9 mg/dL (8.4-10.2) L 05/04/20 04:02 Medications & Allergies - Medications Allergies/Adverse Reactions: Allergies No Known Allergies Allergy (Unverified 05/04/20 04:13) Home Medications: Home Medications Medication Instructions Recorded Confirmed Last Taken Type Aspirin [Aspirin BABY CHEW TAB] 81 mg PO QDAY #30 tab.chew 04/19/20 04/30/20 Unknown Rx AtorvaSTATin [Lipitor] 40 mg PO QHS #30 tablet 04/19/20 04/30/20 Unknown Rx Calcium 600-Vit D3 800 Tablet 600 mg PO BID #60 04/19/20 04/30/20 04/24/20 Rx Calcium Acetate [Phoslo] 1,334 mg PO TID #90 cap 04/19/20 04/30/20 Unknown Rx Midodrine [Proamatine] 5 mg PO BID #60 tablet 04/27/20 04/30/20 Unknown Rx Active Medications: Generic Name Dose Route Start Last Admin Trade Name Freq PRN Reason Stop Dose Admin Acetaminophen 650 mg 05/04/20 07:32 Tylenol PO Q4H PRN Pain MILD(1-3)/Fever >100.5/MALDONADO Albuterol 2.5 mg 05/04/20 07:32 Proventil IH Q4HRT PRN Shortness Of Breath Aspirin 81 mg 05/04/20 10:00 05/04/20 09:48 Baby Aspirin PO 81 mg QDAY [facility] Administration Atorvastatin Calcium 40 mg 05/04/20 22:00 05/04/20 22:54 Lipitor PO 40 mg QHS [facility] Administration Budesonide 0.5 mg 05/04/20 08:00 05/05/20 07:56 Pulmicort IH 0.5 mg Q12HRT [facility] Administration Calcium Acetate 1,334 mg 05/04/20 08:00 05/04/20 22:54 Phoslo PO 1,334 mg TID [facility] Administration Gabapentin 300 mg 05/04/20 10:00 05/04/20 22:54 Gabapentin PO 300 mg BID [facility] Administration Heparin Sodium (Porcine) 5,000 unit 05/04/20 14:00 05/05/20 05:30 Heparin SUB-Q 5,000 unit Q8HR [facility] Administration Heparin Sodium (Porcine) 2,000 unit 05/04/20 10:23 Heparin 10,000 Units/10 Ml IV PEDRITO PRN hemodialysis Ceftriaxone Sodium 2 gm in 100 mls @ 200 mls/hr 05/04/20 10:00 05/04/20 11:56 Rocephin/Ns 2 Gm/100 Ml IV 200 mls/hr Q24HR [facility] Administration Protocol Azithromycin 500 mg/ Sodium 250 mls @ 250 mls/hr 05/04/20 10:00 05/04/20 0 9:48 Chloride IV 250 mls/hr Q24HR [facility] Administration Protocol Sodium Chloride 100 mls @ 999 mls/hr 05/04/20 10:23 Nacl 0.9% IV P[facility]O PRN Hypotension Midodrine 5 mg 05/04/20 10:00 05/04/20 22:54 Proamatine PO 5 mg BID [facility] Administration Multivitamins/Minerals 1 each 05/04/20 10:00 05/04/20 22:53 Caltrate Plus PO 1 each BID [facility] Administration Ondansetron HCl 4 mg 05/04/20 07:32 Zofran IV Q8H PRN Nausea And Vomiting Oxycodone/Acetaminophen 1 tab 05/04/20 19:15 05/05/20 05:29 Percocet 5/325 PO 1 tab Q6H PRN Administration Pain, Moderate (4-6) Sodium Chloride 10 ml 05/04/20 10:00 05/04/20 22:55 Sodium Chloride Flush Syringe 10 Ml IV 10 ml BID [facility] Administration Sodium Chloride 10 ml 05/04/20 07:32 Sodium Chloride Flush Syringe 10 Ml IV PRN PRN LINE FLUSH
[2020-05-05] MEDS: cefTRIAXone/NS 2 GM/100 ML 2 GM/100 ML BAG IV SCH (09:08)
[2020-05-05] MEDS: MIDODRINE 5 MG TAB PO SCH ×2 (09:08→21:20)
[2020-05-05] MEDS: CALCIUM CARB/VIT D3/MINERALS 600 MG/800 UNITS TAB PO SCH ×2 (09:08→21:20)
[2020-05-05] MEDS: GABAPENTIN 300 MG CAP PO SCH ×2 (09:08→21:20)
[2020-05-05] MEDS: CALCIUM ACETATE 667 MG CAP PO SCH ×3 (09:08→21:20)
[2020-05-05] MEDS: ASPIRIN 81 MG TAB CHEW PO SCH (09:08)
[2020-05-05] MEDS: AZITHROMYCIN 500 MG in SODIUM CHLORIDE 0.9% 250ML 250 ML IV SCH (09:11)
--- NOTE | 2020-05-05 13:29 | Nuclear Medicine Report ---
NM perfusion only lung scan INDICATION / CLINICAL INFORMATION: pulmonary embolisim. TRACER: Technetium 99m MAA 5 mCi IV injection. COMPARISON: No relevant prior imaging study available. FINDINGS: Moderate perfusion defect corresponding to infiltrate at the lateral right chest. No additional perfu christ abnormality. IMPRESSION: Moderate likelihood for pulmonary embolus. Signer Name: Colt Washington MD Signed: 05/05/2020 1:25 PM Workstation Name: [id number]
[2020-05-05] MEDS ORDERED: SODIUM CHLORIDE 0.9% 100 ML IV PRN (13:41)
--- NOTE | 2020-05-05 13:55 | Cat Scan Report ---
CTA chest with contrast INDICATION : SOB . TECHNIQUE: Axial imaging performed through the chest, with contrast bolus timing set to maximize opa cification of the pulmonary arteries. 3-plane MIP reformatted images were obtained. All CT scans at this location are performed using CT dose reduction for ALARA by means of automated exposure control. 100 mL of intravenous contrast administered. COMPARISON: CTA abdomen from 04/12/2020 FINDINGS: Bolus: Contrast bolus timing is adequate. PTE: No filling defect is present to suggest PTE. Mediastinum: Cardiomegaly with normal-appearing great vessels. Several shoddy mediastinal lymph nod es are present. Lungs: There is patchy consolidation in the periphery of the right upper lobe and in the right middl e lobe, with small right-sided pleural effusion. The left lung is clear. There is otherwise mild resp iratory motion artifact. Upper abdomen: Limited imaging of the upper abdomen shows nothing acute. Bones: Degenerative changes in the spine with nothing acute. The bones appear to be mildly sclerotic diffusely which could be seen with such entities as sickle cell disease. IMPRESSION: 1. Negative for PTE. 2. Patchy consolidation in the periphery of the right upper and middle lobes with small right-sided p leural effusion. Signer Name: Chad Gomez MD Signed: 05/05/2020 1:51 PM Workstation Name: [id number]
--- NOTE | 2020-05-05 15:51 | Progress Note ---
Assessment and Plan Assessment and plan: Patient is a 54-year-old male currently homeless with past medical history of end-stage renal disease, COPD, congestive heart failure, hypertension, noncompliance with dialysis who currently uses the ED for his dialysis needs presents to the emergency room via EMS with complaints of shortness of breath a nd right knee pain. He does reported that the patient was febrile but there is no documentation of fever noted. As a result he is being admitted to rule out COVID-19 and also to undergo his regular dialysis. Apart from being homeless and multiple hospitalization in the last month there is no other reported coronavirus exposure that the patient is aware of. At time of my exam he denied any chest pain nausea vomiting he denied any fever but felt febrile. He also reports of bilateral pain not just the right knee states that is chronic. He is unable to give me the medications that he takes tells me that is on file here doubt that he is compliant with it. In the ED the patient was found to be hypoxic with oxygen level at 86 percent saturation on room air and was placed on oxygen improved to 92% Chest x-ray :FINDINGS: SUPPORT DEVICES: None. HEART / MEDIASTINUM: No si gnificant abnormality. LUNGS / PLEURA: No significant pulmonary or pleural abnormality. No pneumothorax. ADDITIONAL FINDINGS: No significant additional findings. IMPRESSION: 1. No acute abnormality of the chest. Acute hypoxic respiratory failure rule outs novel coronavirus FEVER R/O Sepsis ESRD w/Volume Overload Type II MS with mildly elevated troponin. COPD with mild exacerbation Nonischemic cardiomyopathy with ejection fraction of 20 to 25% Combined diastolic and systolic congestive heart failure stable Anemia Plan 05/05: Due to a fibrillation will obtain CT of the chest to rule out pulmonary embolism due to rising d-dimer. After the CTA and is negative I discussed this with rpg developer and okay with getting CTA and neurology was to have dialysis after d-dimer. Consult Renal and ID Started on dialysis protocol per nephrology Continue the patient on gabapentin as he has chronic bilateral lower extremity pain and this could likely be neuropathy considering his diagnosis of end-stage renal disease Resume appropriate home medications DVT and GI prophylaxis Case management consult to see if we have made any movement and finding this young man place to live Plan of care discussed with the patient. Consultants notified by me. History Interval history: Patient seen and examined resting comfortably although still with some shortness of breath. Hospitalist Physical - Physical exam Narrative exam: VITAL SIGNS: Reviewed. GENERAL: The patient appears normally developed, Vital signs as documented. HEAD: No signs of head trauma. EYES: Pupils are equal. Extraocular motions intact. EARS: Hearing grossly intact. MOUTH: Oropharynx is normal. NECK: No adenopathy, no JVD. CHEST: Chest with diminished breath sounds bilaterally. No wheezes, rales, or rhonchi. CARDIAC: Regular rate and rhythm. S1 and S2, without murmurs, gallops, or rubs. VASCULAR: Chronic nonpitting edema. Peripheral pulses normal and equal in all extremities. ABDOMEN: Soft, non tender and non distended. No rebound or guarding, and no masses palpated. Bowel Sounds normal. MUSCULOSKELETAL: Chronic bilateral lower extremity venous changes with mild fluid retention good range of motion of all major joints. Extremities without clubbing, cyanosis. Chronic nonpitting edema. Scrotal edema NEUROLOGIC EXAM: Alert and oriented x 3 No focal sensory or strength deficits. Speech normal. Follows commands. PSYCHIATRIC: Mood normal. SKIN: detail exam as documented in skin assessment - Constitutional Vitals: Temp Pulse Resp BP Pulse Ox 97.8 F 71 22 108/65 89 05/05/20 14:00 05/05/20 15:30 05/05/20 14:00 05/05/20 15:30 05/05/20 11:47 HEART Score - HEART Score Troponin: Troponin T 0.112 ng/mL (0.00-0.029) H* 05/04/20 04:02 Results - Labs CBC & Chem 7: 05/04/20 04:02 05/04/20 05:50 Labs: Laboratory Last Values WBC 5.6 K/mm3 (4.5-11.0) 05/04/20 04:02 RBC 3.88 M/mm3 (3.65-5.03) 05/04/20 04:02 Hgb 11.2 gm/dl (11.8-15.2) L 05/04/20 04:02 Hct 34.3 % (35.5-45.6) L 05/04/20 04:02 MCV 88 fl (84-94) 05/04/20 04:02 MCH 29 pg (28-32) 05/04/20 04:02 MCHC 33 % (32-34) 05/04/20 04:02 RDW 17.6 % (13.2-15.2) H 05/04/20 04:02 Plt Count 248 K/mm3 (140-440) 05/04/20 04:02 Lymph % (Auto) 13.7 % (13.4-35.0) 05/04/20 04:02 [place] % (Auto) 9.5 % (0.0-7.3) H 05/04/20 04:02 Eos % (Auto) 4.9 % (0.0-4.3) H 05/04/20 04:02 Baso % (Auto) 0.6 % (0.0-1.8) 05/04/20 04:02 Lymph # 0.8 K/mm3 (1.2-5.4) L 05/04/20 04:02 [place] # 0.5 K/mm3 (0.0-0.8) 05/04/20 04:02 Eos # 0.3 K/mm3 (0.0-0.4) 05/04/20 04:02 Baso # 0.0 K/mm3 (0.0-0.1) 05/04/20 04:02 Seg Neutrophils % 71.3 % (40.0-70.0) H 05/04/20 04:02 Seg Neutrophils # 4.0 K/mm3 (1.8-7.7) 05/04/20 04:02 D-Dimer 1710.39 ng/mlDDU (0-234) H 05/05/20 05:48 Sodium 140 mmol/L (137-145) 05/04/20 04:02 Potassium 4.4 mmol/L (3.6-5.0) 05/04/20 04:02 Chloride 99.9 mmol/L (98-107) 05/04/20 04:02 Carbon Dioxide 26 mmol/L (22-30) 05/04/20 04:02 Anion Gap 19 mmol/L 05/04/20 04:02 BUN 29 mg/dL (9-20) H 05/04/20 04:02 Creatinine 6.8 mg/dL (0.8-1.5) H 05/04/20 04:02 Estimated GFR 10 ml/min 05/04/20 04:02 BUN/Creatinine Ratio 4 % 05/04/20 04:02 Glucose 99 mg/dL (75-100) 05/04/20 05:50 Calcium 7.9 mg/dL (8.4-10.2) L 05/04/20 04:02 Ferritin 138.4 ng/mL (13.0-400.0) 05/04/20 05:50 Total Bilirubin 0.40 mg/dL (0.1-1.2) 05/04/20 04:02 AST 16 units/L (5-40) 05/04/20 04:02 ALT 11 units/L (7-56) 05/04/20 04:02 Alkaline Phosphatase 81 units/L (35-129) 05/04/20 04:02 Lactate Dehydrogenase 190 units/L (91-180) H 05/04/20 05:50 Troponin T 0.112 ng/mL (0.00-0.029) H* 05/04/20 04:02 C-Reactive Protein 5.90 mg/dL (0.00-1.30) H 05/04/20 05:50 Total Protein 7.7 g/dL (6.3-8.2) 05/04/20 04:02 Albumin 3.8 g/dL (3.9-5) L 05/04/20 04:02 Albumin/Globulin Ratio 1.0 % 05/04/20 04:02 Triglycerides 84 mg/dL (2-149) 05/04/20 04:02 Cholesterol 104 mg/dL (50-199) 05/04/20 04:02 LDL Cholesterol Direct 52 mg/dL (50-130) 05/04/20 04:02 HDL Cholesterol 37 mg/dL (40-59) L 05/04/20 04:02 Cholesterol/HDL Ratio 2.81 % 05/04/20 04:02 Procalcitonin 0.81 ng/mL (<0.15) 05/04/20 05:41 Coronavirus (PCR) Negative (Negative) 05/04/20 Unknown Blood Type O POSITIVE 05/04/20 13:00 Antibody Screen Negative 05/04/20 13:00 Microbiology: Microbiology 05/04/20 04:02 Peripheral/Venous Blood Culture - Preliminary NO GROWTH AFTER 24 HOURS 05/04/20 04:02 Peripheral/Venous Blood Culture - Preliminary NO GROWTH AFTER 24 HOURS Lee/IV: Voiding Method Toilet IV Catheter Type [Right INT / Saline Lock Antecubital] IV Catheter Type [Left Leg] INT / Saline Lock Active Medications - Current Medications Current Medications: Generic Name Dose Route Start Last Admin Trade Name Freq PRN Reason Stop Dose Admin Acetaminophen 650 mg 05/04/20 07:32 Tylenol PO Q4H PRN Pain MILD(1-3)/Fever >100.5/MALDONADO Albuterol 2.5 mg 05/04/20 07:32 Proventil IH Q4HRT PRN Shortness Of Breath Aspirin 81 mg 05/04/20 10:00 05/05/20 09:08 Baby Aspirin PO 81 mg QDAY LIBORIO Administration Atorvastatin Calcium 40 mg 05/04/20 22:00 05/04/20 22:54 Lipitor PO 40 mg QHS LIBORIO Administration Azithromycin 500 mg 05/06/20 10:00 Zithromax PO QDAY LIBORIO Budesonide 0.5 mg 05/04/20 08:00 05/05/20 07:56 Pulmicort IH 0.5 mg Q12HRT LIBORIO Administration Calcium Acetate 1,334 mg 05/04/20 08:00 05/05/20 14:38 Phoslo PO 1,334 mg TID LIBORIO Administration Gabapentin 300 mg 05/04/20 10:00 05/05/20 09:08 Gabapentin PO 300 mg BID LIBORIO Administration Heparin Sodium (Porcine) 5,000 unit 05/04/20 14:00 05/05/20 14:38 Heparin SUB-Q 5,000 unit Q8HR LIBORIO Administration Heparin Sodium (Porcine) 2,000 unit 05/04/20 10:23 Heparin 10,000 Units/10 Ml IV PEDRITO PRN hemodialysis Ceftriaxone Sodium 2 gm in 100 mls @ 200 mls/hr 05/04/20 10:00 05/05/20 09:08 Rocephin/Ns 2 Gm/100 Ml IV 200 mls/hr Q24HR LIBORIO Administration Protocol Sodium Chloride 100 mls @ 999 mls/hr 05/05/20 13:41 Nacl 0.9% IV PEDRITO PRN Hypotension Midodrine 5 mg 05/04/20 10:00 05/05/20 09:08 Proamatine PO 5 mg BID LIBORIO Administration Multivitamins/Minerals 1 each 05/04/20 10:00 05/05/20 09:08 Caltrate Plus PO 1 each BID LIBORIO Administration Ondansetron HCl 4 mg 05/04/20 07:32 Zofran IV Q8H PRN Nausea And Vomiting Oxycodone/Acetaminophen 1 tab 05/04/20 19:15 05/05/20 05:29 Percocet 5/325 PO 1 tab Q6H PRN Administration Pain, Moderate (4-6) Sodium Chloride 10 ml 05/04/20 10:00 05/05/20 09:09 Sodium Chloride Flush Syringe 10 Ml IV 10 ml BID LIBORIO Administration Sodium Chloride 10 ml 05/04/20 07:32 Sodium Chloride Flush Syringe 10 Ml IV PRN PRN LINE FLUSH
[2020-05-06] MEDS: HEPARIN 5,000 UNIT/1 ML VIAL SUB-Q SCH ×2 (05:19→17:05)
--- NOTE | 2020-05-06 08:29 | Progress Note ---
Assessment and Plan 1. End stage renal disease: Was previously on TTS schedule. Currently not established with any outpatient HD unit due to noncompliance. He gets HD in the hospital. Meds dosage based on GFR. Hemodialysis: 05/04, 05/05, 05/06. 2. FEN: Volume overload, UF as tolerated, monitor. Monitor lytes and volume status. 3. H/o Fever: COVID-19 test negative. Repeat ordered by ID. 4. Anemia, POA: Epogen with HD as needed. 5. Hypotension: On Midodrine. Monitor BP closely. 6. Morbid obesity. 7. Chronic systolic CHF: ECHO EF 20-25%. 8. H/o COPD. 9. Medical noncompliance: Counseled. Objective: Patient was seen and examined at the bedside. Doing ok. General Appearance: General appearance: well-developed, well-nourished, appears stated age, obese, no distress HEENT: ATNC, PERRL, hearing intact Neck: neck supple, trachea midline Respiratory: Clear to Ascultation, Decreased Breath Sounds Heart: regular, S1S2, no murmur Gastrointestinal: soft, obese, normoactive bowel sounds, not tender Integumentary: chronic venous stasis Neurologic: no focal deficit, no asterixis Ext: trace LE edema noted Hemodialysis access: L groin tunnel catheter noted Subjective Date of service: 05/06/20 Objective - Vital Signs Vital signs: Vital Signs - 12hr 05/05/20 05/05/20 05/06/20 22:48 23:51 00:51 Temperature 97.9 F Pulse Rate 79 Respiratory 18 18 18 Rate Blood Pressure 106/61 O2 Sat by Pulse 98 Oximetry 05/06/20 06:10 Temperature 97.4 F L Pulse Rate 77 Respiratory 18 Rate Blood Pressure 106/66 O2 Sat by Pulse 98 Oximetry - Lab 05/04/20 04:02 05/04/20 05:50 Most recent lab results Calcium 7.9 mg/dL (8.4-10.2) L 05/04/20 04:02 Medications & Allergies - Medications Allergies/Adverse Reactions: Allergies No Known Allergies Allergy (Unverified 05/04/20 04:13) Home Medications: Home Medications Medication Instructions Recorded Confirmed Last Taken Type Aspirin [Aspirin BABY CHEW TAB] 81 mg PO QDAY #30 tab.chew 04/19/20 04/30/20 U nknown Rx AtorvaSTATin [Lipitor] 40 mg PO QHS #30 tablet 04/19/20 04/30/20 Unknown Rx Calcium 600-Vit D3 800 Tablet 600 mg PO BID #60 04/19/20 04/30/20 04/24/20 Rx Calcium Acetate [Phoslo] 1,334 mg PO TID #90 cap 04/19/20 04/30/20 Unknown Rx Midodrine [Proamatine] 5 mg PO BID #60 tablet 04/27/20 04/30/20 Unknown Rx Active Medications: Generic Name Dose Route Start Last Admin Trade Name Freq PRN Reason Stop Dose Admin Acetaminophen 650 mg 05/04/20 07:32 Tylenol PO Q4H PRN Pain MILD(1-3)/Fever >100.5/MALDONADO Albuterol 2.5 mg 05/04/20 07:32 Proventil IH Q4HRT PRN Shortness Of Breath Aspirin 81 mg 05/04/20 10:00 05/05/20 09:08 Baby Aspirin PO 81 mg QDAY LIBORIO Administration Atorvastatin Calcium 40 mg 05/04/20 22:00 05/05/20 21:20 Lipitor PO 40 mg QHS LIBORIO Administration Azithromycin 500 mg 05/06/20 10:00 Zithromax PO QDAY LIBORIO Budesonide 0.5 mg 05/04/20 08:00 05/05/20 20:20 Pulmicort IH 0.5 mg Q12HRT LIBORIO Administration Calcium Acetate 1,334 mg 05/04/20 08:00 05/05/20 21:20 Phoslo PO 1,334 mg TID LIBORIO Administration Gabapentin 300 mg 05/04/20 10:00 05/05/20 21:20 Gabapentin PO 300 mg BID LIBORIO Administration Heparin Sodium (Porcine) 5,000 unit 05/04/20 14:00 05/06/20 05:19 Heparin SUB-Q 5,000 unit Q8HR LIBORIO Administration Heparin Sodium (Porcine) 2,000 unit 05/04/20 10:23 Heparin 10,000 Units/10 Ml IV PEDRITO PRN hemodialysis Ceftriaxone Sodium 2 gm in 100 mls @ 200 mls/hr 05/04/20 10:00 05/05/20 09:08 Rocephin/Ns 2 Gm/100 Ml IV 200 mls/hr Q24HR LIBORIO Administration Protocol Sodium Chloride 100 mls @ 999 mls/hr 05/05/20 13:41 Nacl 0.9% IV PEDRITO PRN Hypotension Midodrine 5 mg 05/04/20 10:00 05/05/20 21:20 Proamatine PO 5 mg BID LIBORIO Administration Multivitamins/Minerals 1 each 05/04/20 10:00 05/05/20 21:20 Caltrate Plus PO 1 each BID LIBORIO Administration Ondansetron HCl 4 mg 05/04/20 07:32 Zofran IV Q8H PRN Nausea And Vomiting Oxycodone/Acetaminophen 1 tab 05/04/20 19:15 05/05/20 23:51 Percocet 5/325 PO 1 tab Q6H PRN Administration Pain, Moderate (4-6) Sodium Chloride 10 ml 05/04/20 10:00 05/05/20 23:52 Sodium Chloride Flush Syringe 10 Ml IV 10 ml BID LIBORIO Administration Sodium Chloride 10 ml 05/04/20 07:32 Sodium Chloride Flush Syringe 10 Ml IV PRN PRN LINE FLUSH
[2020-05-06] MEDS ORDERED: AZITHROMYCIN 250 MG TAB PO SCH (10:00)
[2020-05-06] MEDS: cefTRIAXone/NS 2 GM/100 ML 2 GM/100 ML BAG IV SCH (10:05)
[2020-05-06] MEDS: CALCIUM ACETATE 667 MG CAP PO SCH ×2 (10:07→17:06)
[2020-05-06] MEDS: ASPIRIN 81 MG TAB CHEW PO SCH (10:07)
[2020-05-06] MEDS: MIDODRINE 5 MG TAB PO SCH (10:07)
[2020-05-06] MEDS: CALCIUM CARB/VIT D3/MINERALS 600 MG/800 UNITS TAB PO SCH (10:08)
[2020-05-06] MEDS: oxyCODONE /ACETAMINOPHEN 5-325MG TAB PO PRN (10:08)
[2020-05-06] MEDS: GABAPENTIN 300 MG CAP PO SCH (10:10)
--- NOTE | 2020-05-06 10:25 | Discharge Summary ---
Providers - Providers Date of Admission: 05/04/20 06:07 Attending physician: JAIME HUFFMAN MD 05/04/20 05:31 Consult to Physician [CONS] Routine Comment: Consulting Provider: VARUN ZAMAN Physician Instructions: Reason For Exam: fever. suspected covid 05/04/20 07:32 Consult to Physician [CONS] Routine Comment: Consulting Provider: GURPREET VAUGHN Physician Instructions: Reason For Exam: esrd 05/04/20 07:40 Consult to Case Management [CONS] Routine Services Needed at Discharge: Hydrogeologist Notified:: aida Primary care physician: SCUBA DIVER Hospitalization Reason for admission: Volume overload Condition: Stable Hospital course: Patient is a 54-year-old male currently homeless with past medical history of end-stage renal disease, COPD, congestive heart failure, hypertension, noncompliance with dialysis who currently uses the ED for his dialysis needs presents to the emergency room via EMS with complaints of shortness of breath and right knee pain. He does reported that the patient was febrile but there is no documentation of fever noted. As a result he is being admitted to rule out COVID-19 and also to undergo his regular dialysis. Apart from being homeless and multiple hospitalization in the last month there is no other reported coronavirus exposure that the patient is aware of. At time of my exam he denied any chest pain nausea vomiting he denied any fever but felt febrile. He also reports of bilateral pain not just the right knee states that is chronic. He is unable to give me the medications that he takes tells me that is on file here doubt that he is compliant with it. In the ED the patient was found to be hypoxic with oxygen level at 86 percent saturation on room air and was placed on oxygen improved to 92% Chest x-ray :FINDINGS: SUPPORT DEVICES: None. HEART / MEDIASTINUM: No significant abnormality. LUNGS / PLEURA: No significant pulmonary or pleural abnormality. No pneumothorax. ADDITIONAL FINDINGS: No significant additional findings. IMPRESSION: 1. No acute abnormality of the chest. Patient continued with dialysis with improvement of symptoms. No further fever was noted. Patient was treated empirically with antibiotics. CTA was negative for pulmonary embolism but did reveal some patchy infiltrates and small pleural effusion. Patient was started on gabapentin due to chronic bilateral lower extremity pain Acute hypoxic respiratory failure SIRS with organ dysfunction no evidence of sepsis ESRD w/Volume Overload Type II CT with mildly elevated troponin. COPD with mild exacerbation Nonischemic cardiomyopathy with ejection fraction of 20 to 25% Combined diastolic and systolic congestive heart failure stable Neuropathic pain Anemia Small pleural effusion Noncompliance Hypertension Morbid obesity Disposition: DC-01 TO HOME OR SELFCARE Time spent for discharge: 35-minute Core Measure Documentation - Palliative Care Palliative Care/ Comfort Measures: Not Applicable - Core Measures Any of the following diagnoses?: none Exam - Physical Exam Narrative exam: VITAL SIGNS: Reviewed. GENERAL: The patient appears normally developed, Vital signs as documented. HEAD: No signs of head trauma. EYES: Pupils are equal. Extraocular motions intact. EARS: Hearing grossly intact. MOUTH: Oropharynx is normal. NECK: No adenopathy, no JVD. CHEST: Chest with diminished breath sounds bilaterally. No wheezes, rales, or rhonchi. CARDIAC: Regular rate and rhythm. S1 and S2, without murmurs, gallops, or rubs. VASCULAR: Chronic nonpitting edema. Peripheral pulses normal and equal in all extremities. ABDOMEN: Soft, non tender and non distended. No rebound or guarding, and no masses palpated. Bowel Sounds normal. MUSCULOSKELETAL: Chronic bilateral lower extremity venous changes with mild fluid retention good range of motion of all major joints. Extremities without clubbing, cyanosis. Chronic nonpitting edema. Scrotal edema improved compared to last time. NEUROLOGIC EXAM: Alert and oriented x 3 No focal sensory or strength deficits. Speech normal. Follows commands. PSYCHIATRIC: Mood normal. SKIN: detail exam as documented in skin assessment - Constitutional Vitals: Temp Pulse Resp BP Pulse Ox 97.4 F L 77 18 106/66 96 05/06/20 06:10 05/06/20 06:10 05/06/20 06:10 05/06/20 06:10 05/06/20 09:28 Plan Activity: advance as tolerated, fall precautions Diet: renal Special Instructions: record daily weights, record daily BP diary Follow up with: DAVE POWERS MD [Primary Care Provider] - 7 Days GURPREET VAUGHN MD [Staff Physician] - 7 Days Prescriptions: Gabapentin 300 mg PO BID #30 capsule
[2020-05-06] MEDS: BUDESONIDE 0.5 MG/2 ML NEBU IH SCH (11:00)
[2020-05-06 18:21] VITALS: BP 121/76
== END 2020-05-06 18:57 | disposition home or self-care (01) | DRG 189 ==
LOC: ED 03:40 → 3A 06:07
PROVIDERS: ADMIT Internal Medicine Geriatric Medicine; ATTEND Internal Medicine
PROC: 5A1D70Z Performance of Urinary Filtration, Intermittent, Less than 6 Hours Per Day (ICD-10-PCS; principal; 2020-05-04)
PROC: 5A1D70Z Performance of Urinary Filtration, Intermittent, Less than 6 Hours Per Day (ICD-10-PCS; 2020-05-05)
PROC: 5A1D70Z Performance of Urinary Filtration, Intermittent, Less than 6 Hours Per Day (ICD-10-PCS; 2020-05-06)
DX: J96.01 Acute respiratory failure with hypoxia (principal); N18.6 End stage renal disease; I21.A1 Myocardial infarction type 2; R65.11 Systemic inflammatory response syndrome (SIRS) of non-infectious origin with acute organ dysfunction; I50.42 Chronic combined systolic (congestive) and diastolic (congestive) heart failure; J44.1 Chronic obstructive pulmonary disease with (acute) exacerbation; I13.2 Hypertensive heart and chronic kidney disease with heart failure and with stage 5 chronic kidney disease, or end stage renal disease; I42.8 Other cardiomyopathies; D64.9 Anemia, unspecified; E87.70 Fluid overload, unspecified; M79.2 Neuralgia and neuritis, unspecified; E66.01 Morbid (severe) obesity due to excess calories; G89.29 Other chronic pain; M25.561 Pain in right knee; I25.10 Atherosclerotic heart disease of native coronary artery without angina pectoris; E78.5 Hyperlipidemia, unspecified; I95.9 Hypotension, unspecified; Z79.82 Long term (current) use of aspirin; Z91.15 Patient's noncompliance with renal dialysis; Z79.899 Other long term (current) drug therapy; Z68.32 Body mass index [BMI] 32.0-32.9, adult; Z99.2 Dependence on renal dialysis; Z59.0 Homelessness; Z03.818 Encounter for observation for suspected exposure to other biological agents ruled out
CPT/HCPCS: 36415; 71045; 71275; 78580; 80053; 80061; 82728; 82947; 83615; 84145; 84484; 85025; 85379; 86140; 86850; 86900; 86901; 87040; 87641; 93005; 94640; 94760; 96365; 99406; G0378; A9270-GY; A9540; J0456; J0692; J0696; J1170; J1644; J7050; Q9967; U0003-CS

== ENCOUNTER 2020-05-18 03:10 | Observation (INO) | payer MEDICARE ==
--- NOTE | 2020-05-18 04:42 | XRay Report ---
CHEST 1 VIEW INDICATION: dyspnea, missed dialysis COMPARISON: 05/11/2020 FINDINGS: Support devices: None Heart: Upper limits of normal, unchanged. Lungs/Pleura: No acute pulmonary or pleural findings. IMPRESSION: 1. Borderline cardiomegaly. No acute disease. Signer Name: Louie Santana MD Signed: 05/18/2020 4:38 AM Workstation Name: [id number]
--- NOTE | 2020-05-18 05:27 | Emergency Department Report ---
ED Shortness of Breath HPI - General Chief Complaint: Dyspnea/Respdistress Stated Complaint: DIFFICULTY BREATHING Time Seen by Provider: 05/18/20 03:48 Source: patient Mode of arrival: Ambulatory Limitations: No Limitations - History of Present Illness Initial Comments: Patient is a 54-year-old F Fijian male with a past medical history of hypertension and end-stage renal disease who is presenting with need for dialysis. Patient states his niece has not been transporting him to dialysis and he has not had dialysis in the last 2 weeks. Is complaining of some increased shortness of breath. States his chest feels tight. He denies nausea vomiting diarrhea fevers chills cough cold or congestion at this time. - Related Data Previous Rx's Medication Instructions Recorded Last Taken Type Aspirin [Aspirin BABY CHEW TAB] 81 mg PO QDAY #30 tab.chew 04/19/20 Unknown Rx AtorvaSTATin [Lipitor] 40 mg PO QHS #30 tablet 04/19/20 Unknown Rx Calcium 600-Vit D3 800 Tablet 600 mg PO BID #60 04/19/20 04/24/20 Rx Calcium Acetate [Phoslo] 1,334 mg PO TID #90 cap 04/19/20 Unknown Rx Midodrine [Proamatine] 5 mg PO BID #60 tablet 04/27/20 Unknown Rx Gabapentin 300 mg PO BID #30 capsule 05/06/20 Unknown Rx levoFLOXacin [Levaquin TAB] 250 mg PO Q24HR #5 tablet 05/11/20 Unknown Rx Allergies Allergy/AdvReac Type Severity Reaction Status Date / Time No Known Allergies Allergy Unverified 05/04/20 04:13 ED Review of Systems ROS: Stated complaint: DIFFICULTY BREATHING Other details as noted in HPI Comment: All other systems reviewed and negative ED Past Medical Hx - Past Medical History Previous Medical History?: Yes Hx Hypertension: Yes Hx Heart Attack/AMI: Yes Hx Congestive Heart Failure: Yes Hx Renal Disease: Yes (END STAGE RENAL DISEASE) Hx Headaches / Migraines: No Hx Seizures: No Hx COPD: Yes (Patient states likely) Hx Dementia: No Additional medical history: Hemodialysis, - Surgical History Additional Surgical History: Placement of dialysis access - Social History Smoking Status: Former Smoker Substance Use Type: None - Medications Home Medications: Home Medications Medication Instructions Recorded Confirmed Last Taken Type Aspirin [Aspirin BABY CHEW TAB] 81 mg PO QDAY #30 tab.chew 0504/30/20 Unknown Rx AtorvaSTATin [Lipitor] 40 mg PO QHS #30 tablet 04/19/20 04/30/20 Unknown Rx Calcium 600-Vit D3 800 Tablet 600 mg PO BID #60 04/19/20 04/30/20 04/24/20 Rx Calcium Acetate [Phoslo] 1,334 mg PO TID #90 cap 04/19/20 04/30/20 Unknown Rx Midodrine [Proamatine] 5 mg PO BID #60 tablet 04/27/20 04/30/20 Unknown Rx Gabapentin 300 mg PO BID #30 capsule 05/06/20 Unknown Rx levoFLOXacin [Levaquin TAB] 250 mg PO Q24HR #5 tablet 05/11/20 Unknown Rx ED Physical Exam - General Limitations: No Limitations General appearance: alert, in no apparent distress - Head Head exam: Present: atraumatic, normocephalic - Eye Eye exam: Present: normal appearance - ENT ENT exam: Present: mucous membranes moist - Neck Neck exam: Present: normal inspection - Respiratory Respiratory exam: Present: normal lung sounds bilaterally, rhonchi. Absent: respiratory distress, wheezes, rales - Cardiovascular Cardiovascular Exam: Present: regular rate, normal rhythm, normal heart sounds. Absent: systolic murmur, diastolic murmur, rubs, gallop - GI/Abdominal GI/Abdominal exam: Present: soft, normal bowel sounds. Absent: distended, tenderness, guarding - Rectal Rectal exam: Present: deferred - Extremities Exam Extremities exam: Present: normal inspection, other (Bilateral lower extremity edema with pitting) - Back Exam Back exam: Present: normal inspection - Neurological Exam Neurological exam: Present: alert, oriented X3 - Psychiatric Psychiatric exam: Present: normal affect, normal mood - Skin Skin exam: Present: warm, dry, intact, normal color. Absent: rash ED Course Vital Signs 05/18/20 05/18/20 05/18/20 03:17 04:03 04:05 Temperature 98.9 F 98.6 F Pulse Rate 85 74 Respiratory 22 18 18 Rate Blood Pressure 106/77 Blood Pressure 105/66 [Right] O2 Sat by Pulse 93 98 Oximetry ED Medical Decision Making - Lab Data Result diagrams: 05/18/20 04:54 05/18/20 04:54 Lab Results 05/18/20 05/18/20 Range/Units 04:54 04:54 WBC 6.4 (4.5-11.0) K/mm3 RBC 3.91 (3.65-5.03) M/mm3 Hgb 11.5 L (11.8-15.2) gm/dl Hct 36.6 (35.5-45.6) % MCV 94 (84-94) fl MCH 29 (28-32) pg MCHC 31 L (32-34) % RDW 18.7 H (13.2-15.2) % Plt Count 205 (140-440) K/mm3 Lymph % (Auto) Administrative Services Manager [place] % (Auto) Administrative Services Manager Eos % (Auto) Administrative Services Manager Baso % (Auto) Administrative Services Manager Lymph # Administrative Services Manager [place] # Administrative Services Manager Eos # Administrative Services Manager Baso # Administrative Services Manager Seg Neutrophils % Administrative Services Manager Seg Neutrophils # Administrative Services Manager Sodium 134 L (137-145) mmol/L Potassium 5.9 H (3.6-5.0) mmol/L Chloride 94.0 L (98-107) mmol/L Carbon Dioxide 17 L (22-30) mmol/L Anion Gap 29 mmol/L BUN 73 H (9-20) mg/dL Creatinine 13.6 H (0.8-1.5) mg/dL Estimated GFR 5 ml/min BUN/Creatinine Ratio 5 % Glucose 103 H (75-100) mg/dL Calcium 6.0 L (8.4-10.2) mg/dL - Radiology Data CHEST 1 VIEW INDICATION: dyspnea, missed dialysis COMPARISON: 05/11/2020 FINDINGS: Support devices: None Heart: Upper limits of normal, unchanged. Lungs/Pleura: No acute pulmonary or pleural findings. IMPRESSION: 1. Borderline cardiomegaly. No acute disease. Signer Name: Louie Santana MD Signed: 05/18/2020 4:38 AM Workstation Name: [id number] Transcribed By: TM Dictated By: Louie Santana MD Electronically Authenticated By: Louie Santana MD Signed Date/Time: 05/18/20 5741 Per my interpretation there is pulmonary vascular congestion - Medical Decision Making Patient is a 54-year-old F Fijian male who is missed dialysis for the last 2 weeks. His potassium was elevated and this was treated with insulin D50 sodium bicarb and Kayexalate. Patient will be admitted to the hospitalist service for further management. Nephrology has been consulted as well. Critical Care Time: Yes (30) Critical care attestation.: If time is entered above; I have spent that time in minutes in the direct care of this critically ill patient, excluding procedure time. ED Disposition Clinical Impression: End-stage renal disease needing dialysis, SOB (shortness of breath), Hyperkalemia, Missed dialysis, Fluid overload Disposition: OP ADMIT IP TO THIS HOSP Is pt being admited?: Yes Does the pt Need Aspirin: No Condition: Stable Referrals: PRIMARY CARE, [Primary Care Provider] - 3-5 Days Time of Disposition: 06:03
[2020-05-18 05:46] LABS: Hematocrit 36.6 % (35.5-45.6); Hemoglobin 11.5 gm/dl (11.8-15.2); Mean Corpuscular HGB Conc 31 % (32-34); Mean Corpuscular Volume 94 fl (84-94); Platelet Count 205 K/mm3 (140-440); Red Blood Count 3.91 M/mm3 (3.65-5.03); Red Cell Distribution Width 18.7 % (13.2-15.2)
[2020-05-18 05:54] LABS: BUN/Creatinine Ratio 5; Blood Urea Nitrogen 73 mg/dL (9-20); Hemolysis Index 18
[2020-05-18] MEDS ORDERED: SODIUM POLYSTYRENE 15 GM/60 ML ORAL LIQD PO ONE (05:55)
[2020-05-18] MEDS ORDERED: INSULIN REGULAR, HUMAN 100 UNITS/1 ML IV ONE (05:55)
[2020-05-18] MEDS ORDERED: SODIUM BICARB 8.4% 50 MEQ/50 ML SYRINGE IV ONE (05:55)
[2020-05-18] MEDS ORDERED: DEXTROSE 50% IN WATER (25GM) 50 ML SYRINGE IV ONE (05:55)
[2020-05-18] MEDS ORDERED: SODIUM CHLORIDE 0.9% 100 ML IV PRN (07:58)
--- NOTE | 2020-05-18 08:00 | Consultation ---
History of Present Illness - Reason for Consult Consult date: 05/18/20 end stage renal disease, hyperkalemia - History of Present Illness This is a 54 year old male who is known to pur service with history significant for Obesity, hypotension, ESRD on HD, Anemia, CHF with EF 20-25%, COPD and me dical noncompliance who presented to [facility] ED 05/18 for need of hemodialysis. Patient states that he is not able to get a ride to the hospital for dialysis. Patient is currently not established with any outpatient HD unit primarily due to non-compliance and comes to [facility] for hemodialysis. Patient is also homeless. He was recently admitted and discharged on 05/12/20. Pt was last dialyzed on 05/12 in the hospital. He is complaining of some increased shortness of breath. Patient denies fever, chills, nausea, vomiting, abd pain, weakness or cough. Patient was admitted for further evaluation. Nephrology was consulted for further evaluation and treatment. Past History Past Medical History: other (See HPI.) Medications and Allergies Allergies Allergy/AdvReac Type Severity Reaction Status Date / Time No Known Allergies Allergy Unverified 05/04/20 04:13 Home Medications Medication Instructions Recorded Confirmed Last Taken Type Aspirin [Aspirin BABY CHEW TAB] 81 mg PO QDAY #30 tab.chew 04/19/20 04/30/20 Unknown Rx AtorvaSTATin [Lipitor] 40 mg PO QHS #30 tablet 04/19/20 04/30/20 Unknown Rx Calcium 600-Vit D3 800 Tablet 600 mg PO BID #60 04/19/20 04/30/20 04/24/20 Rx Calcium Acetate [Phoslo] 1,334 mg PO TID #90 cap 04/19/20 04/30/20 Unknown Rx Midodrine [Proamatine] 5 mg PO BID #60 tablet 04/27/20 04/30/20 Unknown Rx Gabapentin 300 mg PO BID #30 capsule 05/06/20 Unknown Rx levoFLOXacin [Levaquin TAB] 250 mg PO Q24HR #5 tablet 05/11/20 Unknown Rx Review of Systems Constitutional: no weight loss, no weight gain, no fever, no chills, no anorexia, no fatigue, no weakness Ears, nose, mouth and throat: no epistaxis Cardiovascular: orthopnea, edema, shortness of breath, dyspnea on exertion, leg edema, decreased exercise tolerance, no chest pain, no palpitations, no syncope, no lightheadedness Respiratory: shortness of breath, dyspnea on exertion, no cough, no hemoptysis Gastrointestinal: no abdominal pain, no nausea, no vomiting, no diarrhea Genitourinary Male: no dysuria, no hematuria Integumentary: no wounds Neurological: no syncope, no change in mentation, no confusion Exam - Vital Signs Vital signs: Vital Signs Temp Pulse Resp BP Pulse Ox 98.9 F 85 22 106/77 93 05/18/20 03:17 05/18/20 03:17 05/18/20 03:17 05/18/20 03:17 05/18/20 03:17 - General Appearance General appearance: well-developed, well-nourished, appears stated age, obese, other (no distress) EENT: ATNC, PERRL, mucous membranes moist, hearing intact, vision intact Neck: Present: neck supple, trachea midline Respiratory: Rales Heart: regular, S1S2, no murmurs Gastrointestinal: Present: normoactive bowel sounds. Absent: tenderness, distended Integumentary: chronic venous stasis Neurologic: no focal deficit, no asterixis, alert and oriented x3 Musculoskeletal: Present: other (trace LE edema, L femoral dialysis catheter) Results - Lab Results 05/18/20 04:54 05/18/20 04:54 Most recent lab results Calcium 6.0 mg/dL (8.4-10.2) L 05/18/20 04:54 Assessment and Plan 1. End stage renal disease: Was previously on TTS schedule. Currently not established with any outpatient HD unit due to noncompliance. He gets HD in the hospital. Meds dosage based on GFR. Hemodialysis: 05/11, 05/12. 2. FEN: Hyperkalemia, HD today with 2 K bath. Renal diet discussed. Volume overload, UF as tolerated, monitor. Limit fluid intake. Monitor lytes and volume status. 3. Sob: CXR negative. 4. Anemia, POA: Monitor. 5. Hypotension: On Midodrine. Monitor BP closely. 6. Chronic systolic CHF: ECHO EF 20-25%. 7. H/o COPD. 8. Medical noncompliance: Counseled.
[2020-05-18] MEDS ORDERED: SODIUM CHLORIDE*PRIMING MACHINE ONLY FOR DIALYSIS MC ONE (10:57)
--- NOTE | 2020-05-18 14:47 | History and Physical Report ---
History of Present Illness Date of examination: 05/18/20 Date of admission: 05/18/20 07:08 Chief complaint: sob History of present illness: 54 yo M PMHx ESRD on HD, CHF, COPD, HTN admitted to the hospital complaining of SOB for the past few days. The patient routinely uses the ER for his dialysis needs s he is homeless. Pt stated that he does not have a dialysis clinic, primary medical translator or transportation. He denies CP, N, V, fever or chills. Past History Past Medical History: COPD, dialysis, ESRD, heart failure, hypertension Past Surgical History: No surgical history Social history: no significant social history Family history: no significant family history Medications and Allergies Allergies Allergy/AdvReac Type Severity Reaction Status Date / Time No Known Allergies Allergy Unverified 05/04/20 04:13 Home Medications Medication Instructions Recorded Confirmed Last Taken Type Aspirin [Aspirin BABY CHEW TAB] 81 mg PO QDAY #30 tab.chew 04/19/20 04/30/20 Unknown Rx AtorvaSTATin [Lipitor] 40 mg PO QHS #30 tablet 04/19/20 04/30/20 Unknown Rx Calcium 600-Vit D3 800 Tablet 600 mg PO BID #60 04/19/20 04/30/20 04/24/20 Rx Calcium Acetate [Phoslo] 1,334 mg PO TID #90 cap 04/19/20 04/30/20 Unknown Rx Midodrine [Proamatine] 5 mg PO BID #60 tablet 04/27/20 04/30/20 Unknown Rx Gabapentin 300 mg PO BID #30 capsule 05/06/20 Unknown Rx levoFLOXacin [Levaquin TAB] 250 mg PO Q24HR #5 tablet 05/11/20 Unknown Rx Active Meds: Active Medications Sodium Chloride (Nacl 0.9%) 100 mls @ 999 mls/hr IV PEDRITO PRN PRN Reason: Hypotension Review of Systems All systems: negative Exam - Constitutional Vitals: Temp Pulse Resp BP Pulse Ox 98.2 F 71 18 120/77 99 05/18/20 14:35 05/18/20 14:35 05/18/20 14:35 05/18/20 14:35 05/18/20 08:00 General appearance: Present: no acute distress, well-nourished - EENT Eyes: Present: PERRL ENT: hearing intact, clear oral mucosa - Neck Neck: Present: supple, normal ROM - Respiratory Respiratory effort: normal Respiratory: bilateral: CTA - Cardiovascular Heart Sounds: Present: S1 & S2. Absent: rub, click - Extremities Extremities: pulses symmetrical, No edema Peripheral Pulses: within normal limits - Abdominal General gastrointestinal: Present: soft, non-tender, non-distended, normal bowel sounds Male genitourinary: Present: normal - Integumentary Integumentary: Present: clear, warm, dry - Musculoskeletal Musculoskeletal: gait normal, strength equal bilaterally - Psychiatric Psychiatric: appropriate mood/affect, intact judgment & insight - Neurologic Neurologic: CNII-XII intact, moves all extremities Results - Labs CBC & Chem 7: 05/18/20 04:54 05/18/20 04:54 Labs: Laboratory Last Values WBC 6.4 K/mm3 (4.5-11.0) 05/18/20 04:54 RBC 3.91 M/mm3 (3.65-5.03) 05/18/20 04:54 Hgb 11.5 gm/dl (11.8-15.2) L 05/18/20 04:54 Hct 36.6 % (35.5-45.6) 05/18/20 04:54 MCV 94 fl (84-94) 05/18/20 04:54 MCH 29 pg (28-32) 05/18/20 04:54 MCHC 31 % (32-34) L 05/18/20 04:54 RDW 18.7 % (13.2-15.2) H 05/18/20 04:54 Plt Count 205 K/mm3 (140-440) 05/18/20 04:54 Lymph % (Auto) Rehabilitation Teacher 05/18/20 04:54 [place] % (Auto) Rehabilitation Teacher 05/18/20 04:54 Eos % (Auto) Rehabilitation Teacher 05/18/20 04:54 Baso % (Auto) Rehabilitation Teacher 05/18/20 04:54 Lymph # Rehabilitation Teacher 05/18/20 04:54 [place] # Rehabilitation Teacher 05/18/20 04:54 Eos # Rehabilitation Teacher 05/18/20 04:54 Baso # Rehabilitation Teacher 05/18/20 04:54 Seg Neutrophils % Rehabilitation Teacher 05/18/20 04:54 Seg Neutrophils # Rehabilitation Teacher 05/18/20 04:54 Sodium 134 mmol/L (137-145) L 05/18/20 04:54 Potassium 5.9 mmol/L (3.6-5.0) H 05/18/20 04:54 Chloride 94.0 mmol/L (98-107) L 05/18/20 04:54 Carbon Dioxide 17 mmol/L (22-30) L 05/18/20 04:54 Anion Gap 29 mmol/L 05/18/20 04:54 BUN 73 mg/dL (9-20) H 05/18/20 04:54 Creatinine 13.6 mg/dL (0.8-1.5) H 05/18/20 04:54 Estimated GFR 5 ml/min 05/18/20 04:54 BUN/Creatinine Ratio 5 % 05/18/20 04:54 Glucose 103 mg/dL (75-100) H 05/18/20 04:54 Calcium 6.0 mg/dL (8.4-10.2) L 05/18/20 04:54 NT-Pro-B Natriuret Pep > 69153 pg/mL (0-900) H 05/18/20 04:54 Lee/IV: IV Catheter Type [Left Leg] Peripheral IV Assessment and Plan Assessment and plan: Acute hypoxic resp failure. Etiology sec to volume overload from missed HD End-stage renal disease on hemodialysis. Nephrology consulted. Cont. HD per Renal Chronic systolic heart failure. Cont. HD Dilated cardiomyopathy. Echocardiogram done 03/2020 showed severe cardiomyopathy with LVEF 20-25%, moderate to severe mitral regurgitation and moderate to severe tricuspid regurgitation. Chest pain, atypical. Pt with recent stress thallium test that showed no ischemia. Medical Noncompliance
[2020-05-18] MEDS ORDERED: ONDANSETRON 4 MG/2 ML INJ IV PRN (14:53)
[2020-05-18] MEDS ORDERED: ACETAMINOPHEN 325 MG TAB PO PRN (14:53)
[2020-05-18 16:01] LABS: Hepatitis B Surface Antigen Non-Reactive (Negative); Hepatitis C Virus Antibody Non-Reactive (NonReactive)
[2020-05-19] MEDS: ENOXAPARIN 30 MG/0.3 ML INJ SUB-Q SCH (09:29)
--- NOTE | 2020-05-19 09:42 | Discharge Summary ---
Providers - Providers Date of Admission: 05/18/20 07:08 Date of discharge: 05/19/20 Attending physician: MEGHNA HILL 05/18/20 05:59 Consult to Physician [CONS] Urgent Comment: Dr. Mathur spoke with Dr. Vaughn @ [phone] Consulting Provider: GURPREET VAUGHN Physician Instructions: Reason For Exam: esrd needing dialysis Primary care physician: GROUP EXERCISE INSTRUCTOR Hospitalization Reason for admission: missed HD Condition: Stable Hospital course: This is a 54 year old male who is known to pur service with history significant for Obesity, hypotension, ESRD on HD, Anemia, CHF with EF 20-25%, COPD and medical noncompliance who presented to [facility] ED 05/18 for need of hemodialysis. Patient states that he is not able to get a ride to the hospital for dialysis. Patient is currently not established with any outpatient HD unit primarily due to non-compliance and comes to [facility] for hemodialysis. Patient is also homeless. He was recently admitted and discharged on 05/12/20. Pt was last dialyzed on 05/12 in the hospital. He was complaining of some increased shortness of breath on admission. The patient was admitted with diagnosis of ESRD with missed HD, volume overload, hyperkalemia and medical noncompliance. The patient was seen by nephrology in consultation and received hemodialysis. The patient will receive hemodialysis today and then discharge. Dedicated discharge time 35 minutes Disposition: DC-01 TO HOME OR SELFCARE Time spent for discharge: 35 - Discharge Diagnoses (1) Fluid overload Status: Acute (2) Missed dialysis Status: Acute (3) End-stage renal disease needing dialysis Status: Chronic (4) Hyperkalemia Status: Chronic (5) Noncompliance of patient with renal dialysis Status: Acute Core Measure Documentation - Palliative Care Palliative Care/ Comfort Measures: Not Applicable - Core Measures Any of the following diagnoses?: none Exam - Constitutional Vitals: Temp Pulse Resp BP Pulse Ox 98.5 F 74 20 115/73 95 05/19/20 04:32 05/19/20 04:32 05/19/20 04:32 05/19/20 04:32 05/19/20 04:32 General appearance: Present: no acute distress, well-nourished - EENT Eyes: Present: PERRL ENT: hearing intact, clear oral mucosa - Neck Neck: Present: supple, normal ROM - Respiratory Respiratory effort: normal Respiratory: bilateral: CTA - Cardiovascular Heart Sounds: Present: S1 & S2. Absent: rub, click - Extremities Extremities: pulses symmetrical, No edema Peripheral Pulses: within normal limits - Abdominal General gastrointestinal: Present: soft, non-tender, non-distended, normal bowel sounds Male genitourinary: Present: normal - Integumentary Integumentary: Present: clear, warm, dry - Musculoskeletal Musculoskeletal: gait normal, strength equal bilaterally - Psychiatric Psychiatric: appropriate mood/affect, intact judgment & insight - Neurologic Neurologic: CNII-XII intact, moves all extremities Plan Activity: advance as tolerated Weight Bearing Status: Weight Bear as Tolerated Follow up with: PRIMARY CAREMD [Primary Care Provider] - 3-5 Days GURPREET VAUGHN MD [Staff Physician] - 7 Days Prescriptions: Aspirin [Aspirin BABY CHEW TAB] 81 mg PO QDAY #30 tab.chew Calcium 600-Vit D3 800 Tablet 600 mg PO BID #60 Gabapentin 300 mg PO BID #30 capsule AtorvaSTATin [Lipitor] 40 mg PO QHS #30 tablet Calcium Acetate [Phoslo] 1,334 mg PO TID #90 cap Midodrine [Proamatine] 5 mg PO BID #60 tablet
--- NOTE | 2020-05-19 10:29 | Progress Note ---
Assessment and Plan 1. End stage renal disease: Was previously on TTS schedule. Currently not established with any outpatient HD unit due to noncompliance. He gets HD in the hospital. Meds dosage based on GFR. Hemodialysis: 05/18. 2. FEN: Hyperkalemia, s/p HD 05/18 with 2 K bath. Renal diet discussed. Volume overload, volume status is better, monitor. Limit fluid intake. Monitor lytes and volume status. 3. Sob: CXR negative. Symptoms are better. 4. Anemia, POA: Monitor. 5. Hypotension: BP is stable. Monitor BP closely. 6. Chronic systolic CHF: ECHO EF 20-25%. 7. H/o COPD. 8. Medical noncompliance: Counseled. Subjective Date of service: 05/19/20 Objective - Vital Signs Vital signs: Vital Signs - 12hr 05/19/20 04:32 Temperature 98.5 F Pulse Rate 74 Respiratory 20 Rate Blood Pressure 115/73 O2 Sat by Pulse 95 Oximetry - Lab 05/18/20 04:54 05/18/20 04:54 Most recent lab results Calcium 6.0 mg/dL (8.4-10.2) L 05/18/20 04:54 Medications & Allergies - Medications Allergies/Adverse Reactions: Allergies No Known Allergies Allergy (Unverified 05/04/20 04:13) Home Medications: Home Medications Medication Instructions Recorded Confirmed Last Taken Type Aspirin [Aspirin BABY CHEW TAB] 81 mg PO QDAY #30 tab.chew 04/19/20 04/30/20 Unk nown Rx AtorvaSTATin [Lipitor] 40 mg PO QHS #30 tablet 04/19/20 04/30/20 Unknown Rx Calcium 600-Vit D3 800 Tablet 600 mg PO BID #60 04/19/20 04/30/20 04/24/20 Rx Calcium Acetate [Phoslo] 1,334 mg PO TID #90 cap 04/19/20 04/30/20 Unknown Rx Midodrine [Proamatine] 5 mg PO BID #60 tablet 04/27/20 04/30/20 Unknown Rx Gabapentin 300 mg PO BID #30 capsule 05/06/20 Unknown Rx levoFLOXacin [Levaquin TAB] 250 mg PO Q24HR #5 tablet 05/11/20 Unknown Rx Active Medications: Generic Name Dose Route Start Last Admin Trade Name Freq PRN Reason Stop Dose Admin Acetaminophen 650 mg 05/18/20 14:53 Tylenol PO Q4H PRN Pain MILD(1-3)/Fever >100.5/MALDONADO Enoxaparin Sodium 30 mg 05/19/20 10:00 05/19/20 09:29 Enoxaparin SUB-Q 30 mg QDAY LIBORIO Administration Sodium Chloride 100 mls @ 999 mls/hr 05/18/20 07:58 Nacl 0.9% IV PEDRITO PRN Hypotension Ondansetron HCl 4 mg 05/18/20 14:53 Zofran IV Q8H PRN Nausea And Vomiting Sodium Chloride 10 ml 05/18/20 22:00 05/19/20 09:30 Sodium Chloride Flush Syringe 10 Ml IV 10 ml BID LIBORIO Administration Sodium Chloride 10 ml 05/18/20 14:53 Sodium Chloride Flush Syringe 10 Ml IV PRN PRN LINE FLUSH
--- NOTE | 2020-05-20 09:08 | Progress Note ---
Assessment and Plan Assessment and plan: Acute hypoxic resp failure. Etiology sec to volume overload from missed HD End-stage renal disease on hemodialysis. Nephrology consulted. Cont. HD per Renal Chronic systolic heart failure. Cont. HD Dilated cardiomyopathy. Echocardiogram done 03/2020 showed severe cardiomyopathy with LVEF 20-25%, moderate to severe mitral regurgitation and moderate to severe tricuspid regurgitation. Chest pain, atypical. Pt with recent stress thallium test that showed no ischemia. Medical Noncompliance 05/19/2020. Patient respiratory status has remained stable. Patient will likely discharge this evening. - Patient Problems (1) Fluid overload Current Visit: Yes Status: Acute (2) Missed dialysis Current Visit: Yes Status: Acute (3) End-stage renal disease needing dialysis Current Visit: Yes Status: Chronic (4) Hyperkalemia Current Visit: Yes Status: Chronic (5) Noncompliance of patient with renal dialysis Current Visit: No Status: Acute History Interval history: No new issues overnight. Hospitalist Physical - Constitutional Vitals: Temp Pulse Resp BP Pulse Ox 98.6 F 72 16 101/58 100 05/19/20 21:51 05/19/20 21:51 05/19/20 21:51 05/19/20 21:51 05/19/20 21:51 General appearance: Present: no acute distress, well-nourished - EENT Eyes: Present: PERRL, EOM intact ENT: hearing intact, clear oral mucosa, dentition normal - Neck Neck: Present: supple, normal ROM - Respiratory Respiratory effort: normal Respiratory: bilateral: CTA - Cardiovascular Rhythm: regular Heart Sounds: Present: S1 & S2. Absent: gallop, rub - Extremities Extremities: no ischemia, No edema, Full ROM - Abdominal General gastrointestinal: soft, non-tender, non-distended, normal bowel sounds - Integumentary Integumentary: Present: clear, warm, dry - Neurologic Neurologic: CNII-XII intact, moves all extremities Results - Labs CBC & Chem 7: 05/18/20 04:54 05/18/20 04:54 Labs: Laboratory Last Values WBC 6.4 K/mm3 (4.5-11.0) 05/18/20 04:54 RBC 3.91 M/mm3 (3.65-5.03) 05/18/20 04:54 Hgb 11.5 gm/dl (11.8-15.2) L 05/18/20 04:54 Hct 36.6 % (35.5-45.6) 05/18/20 04:54 MCV 94 fl (84-94) 05/18/20 04:54 MCH 29 pg (28-32) 05/18/20 04:54 MCHC 31 % (32-34) L 05/18/20 04:54 RDW 18.7 % (13.2-15.2) H 05/18/20 04:54 Plt Count 205 K/mm3 (140-440) 05/18/20 04:54 Lymph % (Auto) [facility] 05/18/20 04:54 Dewitt % (Auto) [facility] 05/18/20 04:54 Eos % (Auto) [facility] 05/18/20 04:54 Baso % (Auto) [facility] 05/18/20 04:54 Lymph # [facility] 05/18/20 04:54 Dewitt # [facility] 05/18/20 04:54 Eos # [facility] 05/18/20 04:54 Baso # [facility] 05/18/20 04:54 Seg Neutrophils % [facility] 05/18/20 04:54 Seg Neutrophils # [facility] 05/18/20 04:54 Sodium 134 mmol/L (137-145) L 05/18/20 04:54 Potassium 5.9 mmol/L (3.6-5.0) H 05/18/20 04:54 Chloride 94.0 mmol/L (98-107) L 05/18/20 04:54 Carbon Dioxide 17 mmol/L (22-30) L 05/18/20 04:54 Anion Gap 29 mmol/L 05/18/20 04:54 BUN 73 mg/dL (9-20) H 05/18/20 04:54 Creatinine 13.6 mg/dL (0.8-1.5) H 05/18/20 04:54 Estimated GFR 5 ml/min 05/18/20 04:54 BUN/Creatinine Ratio 5 % 05/18/20 04:54 Glucose 103 mg/dL (75-100) H 05/18/20 04:54 Calcium 6.0 mg/dL (8.4-10.2) L 05/18/20 04:54 NT-Pro-B Natriuret Pep > 12973 pg/mL (0-900) H 05/18/20 04:54 Hepatitis A IgM Ab Non-reactive (NonReactive) 05/18/20 14:55 Hep Bs Antigen Non-reactive (Negative) 05/18/20 14:55 Hep B Core IgM Ab Non-reactive (NonReactive) 05/18/20 14:55 Hepatitis C Antibody Non-reactive (NonReactive) 05/18/20 14:55 Lee/IV: Voiding Method Toilet IV Catheter Type [Left Leg] perma cath Active Medications - Current Medications Current Medications: Generic Name Dose Route Start Last Admin Trade Name Freq PRN Reason Stop Dose Admin Acetaminophen 650 mg 05/18/20 14:53 Tylenol PO Q4H PRN Pain MILD(1-3)/Fever >100.5/MALDONADO Enoxaparin Sodium 30 mg 05/19/20 10:00 05/19/20 09:29 Enoxaparin SUB-Q 30 mg QDAY LIBORIO Administration Sodium Chloride 100 mls @ 999 mls/hr 05/18/20 07:58 Nacl 0.9% IV PEDRITO PRN Hypotension Ondansetron HCl 4 mg 05/18/20 14:53 Zofran IV Q8H PRN Nausea And Vomiting Sodium Chloride 10 ml 05/18/20 22:00 05/19/20 22:00 Sodium Chloride Flush Syringe 10 Ml IV Not Given BID LIBORIO Sodium Chloride 10 ml 05/18/20 14:53 Sodium Chloride Flush Syringe 10 Ml IV PRN PRN LINE FLUSH
[2020-05-20] MEDS: ENOXAPARIN 30 MG/0.3 ML INJ SUB-Q SCH (09:33)
[2020-05-20] MEDS ORDERED: diphenhydrAMINE 50 MG/ML VIAL IV ONE (11:00)
--- NOTE | 2020-05-20 12:03 | Progress Note ---
Assessment and Plan 1. End stage renal disease: Was previously on TTS schedule. Currently not established with any outpatient HD unit due to noncompliance. He gets HD in the hospital. Meds dosage based on GFR. Hemodialysis: 05/18, 05/20. 2. FEN: Hyperkalemia, HD with 2 K bath. Renal diet discussed. Volume overload, volume status is better, monitor. Limit fluid intake. Monitor lytes and volume status. 3. Sob: CXR negative. Symptoms are better. 4. Anemia, POA: Monitor. 5. Hypotension: BP is stable. Monitor BP closely. 6. Chronic systolic CHF: ECHO EF 20-25%. 7. H/o COPD. 8. Medical noncompliance: Counseled. - Subjective: Patient was seen and examined at the bedside while on HD. Doing ok. - General Appearance: General appearance: well-developed, well-nourished, appears stated age, obese, no distress HEENT: ATNC, ALIVIA, mucous membranes moist Neck: neck supple, trachea midline Respiratory: ctab Heart: regular, S1S2, no murmur Gastrointestinal: soft, obese, normoactive bowel sounds, not tender Integumentary: chronic venous stasis Neurologic: sleeping, arousable Ext: no edema Hemodialysis access: L femoral dialysis catheter Subjective Date of service: 05/20/20 Objective - Vital Signs Vital signs: Vital Signs - 12hr 05/20/20 05/20/20 05/20/20 09:55 09:58 10:00 Temperature 98.6 F Pulse Rate 73 73 71 Respiratory 18 Rate Blood Pressure 125/82 125/82 125/78 05/20/20 05/20/20 05/20/20 10:15 10:45 11:00 Temperature Pulse Rate 70 71 71 Respiratory Rate Blood Pressure 106/61 115/70 110/73 05/20/20 05/20/20 05/20/20 11:15 11:30 11:45 Temperature Pulse Rate 72 69 69 Respiratory Rate Blood Pressure 118/66 120/71 111/59 - Lab 05/18/20 04:54 05/18/20 04:54 Most recent lab results Calcium 6.0 mg/dL (8.4-10.2) L 05/18/20 04:54 Medications & Allergies - Medications Allergies/Adverse Reactions: Allergies No Known Allergies Allergy (Unverified 05/04/20 04:13) Home Medications: Home Medications Medication Instructions Recorded Confirmed Last Taken Type levoFLOXacin [Levaquin TAB] 250 mg PO Q24HR #5 tablet 05/11/20 05/19/20 Unknown Rx Acetaminophen [Acetaminophen TAB] 650 mg PO Q4H PRN tablet 05/19/20 Unknown Rx Aspirin [Aspirin BABY CHEW TAB] 81 mg PO QDAY #30 tab.chew 05/19/20 Unknown Rx AtorvaSTATin [Lipitor] 40 mg PO QHS #30 tablet 05/19/20 Unknown Rx Calcium 600-Vit D3 800 Tablet 600 mg PO BID #60 05/19/20 Unknown Rx Calcium Acetate [Phoslo] 1,334 mg PO TID #90 cap 05/19/20 Unknown Rx Gabapentin 300 mg PO BID #30 capsule 05/19/20 Unknown Rx Midodrine [Proamatine] 5 mg PO BID #60 tablet 05/19/20 Unknown Rx Active Medications: Generic Name Dose Route Start Last Admin Trade Name Freq PRN Reason Stop Dose Admin Acetaminophen 650 mg 05/18/20 14:53 Tylenol PO Q4H PRN Pain MILD(1-3)/Fever >100.5/MALDONADO Enoxaparin Sodium 30 mg 05/19/20 10:00 05/20/20 09:33 Enoxaparin SUB-Q 30 mg QDAY LIBORIO Administration Sodium Chloride 100 mls @ 999 mls/hr 05/18/20 07:58 Nacl 0.9% IV PEDRITO PRN Hypotension Ondansetron HCl 4 mg 05/18/20 14:53 Zofran IV Q8H PRN Nausea And Vomiting Sodium Chloride 10 ml 05/18/20 22:00 05/20/20 09:35 Sodium Chloride Flush Syringe 10 Ml IV Not Given BID LIBORIO Sodium Chloride 10 ml 05/18/20 14:53 Sodium Chloride Flush Syringe 10 Ml IV PRN PRN LINE FLUSH
[2020-05-20 14:18] VITALS: BP 116/61
== END 2020-05-20 15:15 | disposition home or self-care (01) ==
LOC: ED 03:10 → INTOOBSV 07:08 → 3A 07:08
PROVIDERS: ADMIT Internal Medicine Geriatric Medicine; ATTEND Hospitalist
DX: E87.70 Fluid overload, unspecified (principal); I13.11 Hypertensive heart and chronic kidney disease without heart failure, with stage 5 chronic kidney disease, or end stage renal disease; N18.6 End stage renal disease; I50.22 Chronic systolic (congestive) heart failure; I42.0 Dilated cardiomyopathy; J96.00 Acute respiratory failure, unspecified whether with hypoxia or hypercapnia; D64.9 Anemia, unspecified; I95.9 Hypotension, unspecified; E87.5 Hyperkalemia; I25.2 Old myocardial infarction; J44.9 Chronic obstructive pulmonary disease, unspecified; Z99.2 Dependence on renal dialysis; Z91.15 Patient's noncompliance with renal dialysis; Z79.82 Long term (current) use of aspirin; Z79.899 Other long term (current) drug therapy
CPT/HCPCS: 36415; 71045; 80048; 80074; 83880; 85025; 93005; 96372; 96374; 96375; 99291; G0257; G0378; J1200; J1650; J7030; J1815

== ENCOUNTER 2020-06-11 00:38 | Observation (INO) | payer MEDICARE ==
[2020-06-11 02:49] LABS: Basophils # (Auto) 0.1 K/mm3 (0.0-0.1); Basophils % (Auto) 1.4 % (0.0-1.8); Eosinophils # (Auto) 0.2 K/mm3 (0.0-0.4); Eosinophils % (Auto) 2.7 % (0.0-4.3); Hematocrit 33.8 % (35.5-45.6); Hemoglobin 10.8 gm/dl (11.8-15.2); Lymphocytes # (Auto) 0.9 K/mm3 (1.2-5.4); Lymphocytes % (Auto) 10.9 % (13.4-35.0); Mean Corpuscular HGB Conc 32 % (32-34); Mean Corpuscular Volume 93 fl (84-94); Monocytes % (Auto) 12.1 % (0.0-7.3); Platelet Count 216 K/mm3 (140-440); Red Blood Count 3.65 M/mm3 (3.65-5.03); Red Cell Distribution Width 19.9 % (13.2-15.2)
[2020-06-11 03:42] LABS: Calcium 6.2 mg/dL (8.4-10.2)
--- NOTE | 2020-06-11 06:59 | XRay Report ---
CHEST 1 VIEW INDICATION / CLINICAL INFORMATION: sob. Dyspnea FINDINGS: SUPPORT DEVICES: None. HEART / MEDIASTINUM: The cardiomediastinal silhouette has not significantly changed in the interim. LUNGS / PLEURA: Persistent bilateral airspace disease, unchanged from 06/04/2020. No new findings. Signer Name: Gene Kulkarni MD Signed: 06/11/2020 6:54 AM Workstation Name: [id number]
--- NOTE | 2020-06-11 07:29 | Emergency Department Report ---
ED General Adult HPI - General Chief complaint: Medical Clearance Stated complaint: NEED DIALYSIS Time Seen by Provider: 06/11/20 06:10 Source: patient Mode of arrival: Stretcher Limitations: No Limitations - History of Present Illness Initial comments: 54-year-old male with history of ESRD, CHF, presents to the ED requesting dialysis. Patient states he no longer has an assigned dialysis center. Patient reports he used to be on a schedule. Patient believes he was last dialyzed 4 days ago. Patient reports shortness of breath. -: Last night Severity scale (0 -10): 0 Consistency: constant Improves with: none Worsens with: none Associated Symptoms: denies: chest pain, nausea/vomiting Treatments Prior to Arrival: none - Related Data Home Medications Medication Instructions Recorded Confirmed Last Taken Oxycodone HCl/Acetaminophen 1 each PO Q6HR PRN 05/27/20 06/06/20 Unknown [Percocet 7.5/325 mg] Previous Rx's Medication Instructions Recorded Last Taken Type Acetaminophen [Acetaminophen TAB] 650 mg PO Q4H PRN tablet 05/19/20 Unknown Rx AtorvaSTATin [Lipitor] 40 mg PO QHS #30 tablet 05/19/20 Unknown Rx Calcium 600-Vit D3 800 Tablet 600 mg PO BID #60 05/19/20 Unknown Rx Calcium Acetate [Phoslo] 1,334 mg PO TID #90 cap 05/19/20 Unknown Rx Gabapentin 300 mg PO BID #30 capsule 05/19/20 Unknown Rx Midodrine [Proamatine] 5 mg PO BID #60 tablet 05/19/20 Unknown Rx Azithromycin [Zithromax TAB] 500 mg PO QDAY #5 tablet 06/06/20 Unknown Rx Allergies Allergy/AdvReac Type Severity Reaction Status Date / Time No Known Allergies Allergy Unverified 05/04/20 04:13 ED Review of Systems ROS: Stated complaint: NEED DIALYSIS Other details as noted in HPI Comment: All other systems reviewed and negative Constitutional: denies: fever Respiratory: shortness of breath Cardiovascular: denies: chest pain Gastrointestinal: denies: nausea, vomiting ED Past Medical Hx - Past Medical History Previous Medical History?: Yes Hx Hypertension: Yes Hx Heart Attack/AMI: Yes Hx Congestive Heart Failure: Yes Hx Diabetes: Yes Hx Deep Vein Thrombosis: Yes Hx Renal Disease: Yes (END STAGE RENAL DISEASE) Hx Headaches / Migraines: No Hx Seizures: No Hx COPD: Yes Hx Dementia: No Additional medical history: Hemodialysis, - Surgical History Past Surgical History?: Yes Additional Surgical History: Placement of dialysis access - Social History Smoking Status: Never Smoker Substance Use Type: None - Medications Home Medications: Home Medications Medication Instructions Recorded Confirmed Last Taken Type Acetaminophen [Acetaminophen TAB] 650 mg PO Q4H PRN tablet 05/19/20 06/06/20 Unknown Rx AtorvaSTATin [Lipitor] 40 mg PO QHS #30 tablet 05/19/20 06/06/20 Unknown Rx Calcium 600-Vit D3 800 Tablet 600 mg PO BID #60 05/19/20 06/06/20 Unknown Rx Calcium Acetate [Phoslo] 1,334 mg PO TID #90 cap 05/19/20 06/06/20 Unknown Rx Gabapentin 300 mg PO BID #30 capsule 05/19/20 06/06/20 Unknown Rx Midodrine [Proamatine] 5 mg PO BID #60 tablet 05/19/20 06/06/20 Unknown Rx Oxycodone HCl/Acetaminophen 1 each PO Q6HR PRN 05/27/20 06/06/20 Unknown History [Percocet 7.5/325 mg] Azithromycin [Zithromax TAB] 500 mg PO QDAY #5 tablet 06/06/20 Unknown Rx ED Physical Exam - General Limitations: No Limitations General appearance: alert, in no apparent distress, other (appears unkempt) - Head Head exam: Present: atraumatic, normocephalic - Eye Eye exam: Present: normal appearance, EOMI - ENT ENT exam: Present: mucous membranes moist - Neck Neck exam: Present: normal inspection - Respiratory Respiratory exam: Present: rales - Cardiovascular Cardiovascular Exam: Present: regular rate, normal rhythm - GI/Abdominal GI/Abdominal exam: Present: soft. Absent: distended, tenderness - Extremities Exam Extremities exam: Present: pedal edema - Neurological Exam Neurological exam: Present: alert, oriented X3 - Psychiatric Psychiatric exam: Present: normal affect, normal mood - Skin Skin exam: Present: warm, dry, intact, normal color ED Course Vital Signs 06/11/20 06/11/20 06/11/20 01:32 04:38 04:39 Temperature 98.6 F Pulse Rate 81 76 Respiratory 18 20 18 Rate Blood Pressure 111/73 Blood Pressure 103/70 [Left] O2 Sat by Pulse 95 94 94 Oximetry 06/11/20 06/11/20 06/11/20 05:00 05:30 06:00 Temperature Pulse Rate 77 75 74 Respiratory 17 17 16 Rate Blood Pressure 105/77 108/79 116/88 Blood Pressure [Left] O2 Sat by Pulse 98 Oximetry 06/11/20 06/11/20 06/11/20 06:30 06:34 07:00 Temperature Pulse Rate 75 76 73 Respiratory 13 20 19 Rate Blood Pressure 120/86 119/89 Blood Pressure 120/86 [Left] O2 Sat by Pulse 71 L 99 Oximetry 06/11/20 06/11/20 06/11/20 07:31 08:00 08:31 Temperature Pulse Rate 71 Respiratory Rate Blood Pressure 127/75 117/77 138/102 Blood Pressure [Left] O2 Sat by Pulse Oximetry 06/11/20 06/11/20 06/11/20 09:00 09:30 10:00 Temperature Pulse Rate Respiratory Rate Blood Pressure 121/71 116/85 117/89 Blood Pressure [Left] O2 Sat by Pulse Oximetry 06/11/20 06/11/20 06/11/20 10:31 11:01 11:30 Temperature Pulse Rate 72 77 77 Respiratory 13 21 22 Rate Blood Pressure 117/89 103/62 119/67 Blood Pressure [Left] O2 Sat by Pulse 96 96 Oximetry 06/11/20 06/11/20 12:00 12:30 Temperature Pulse Rate 73 72 Respiratory 15 15 Rate Blood Pressure 99/61 100/60 Blood Pressure [Left] O2 Sat by Pulse 96 98 Oximetry - Consultations Consultation #1: 06/11/20 07:47 Spoke w/ Dr Ha. Will arrange dialysis. ED Medical Decision Making - Lab Data Result diagrams: 06/11/20 02:14 06/11/20 02:14 - Radiology Data Radiology results: report reviewed, image reviewed - Medical Decision Making ESRD needing dialysis. Potassium 5.4 w/ mild interstitial disease on CXR. Pt gievn insulin, D50, kayexalate. Spoke w/ stem roller operator, will arrange dialysis. - Differential Diagnosis hyperkalemia, pulm edema Critical care attestation.: If time is entered above; I have spent that time in minutes in the direct care of this critically ill patient, excluding procedure time. ED Disposition Clinical Impression: End-stage renal disease needing dialysis, Hyperkalemia Disposition: 09 OP ADMIT IP TO THIS HOSP Is pt being admited?: Yes Condition: Stable Time of Disposition: 07:47
[2020-06-11] MEDS ORDERED: INSULIN REGULAR, HUMAN 100 UNITS/1 ML IV ONE (07:33)
[2020-06-11] MEDS ORDERED: DEXTROSE 50% IN WATER (25GM) 50 ML SYRINGE IV ONE ×2 (07:33→10:09)
[2020-06-11] MEDS ORDERED: SODIUM POLYSTYRENE 15 GM/60 ML ORAL LIQD PO ONE ×2 (07:33→15:11)
[2020-06-11] MEDS ORDERED: INSULIN REGULAR, HUMAN 100 UNITS/1 ML ONE (10:08)
[2020-06-11] MEDS ORDERED: SODIUM POLYSTYRENE 15 GM/60 ML ORAL LIQD ONE (10:09)
--- NOTE | 2020-06-11 10:45 | History and Physical Report ---
History of Present Illness Date of examination: 06/11/20 Date of admission: 06/11/20 08:03 Chief complaint: I need dialysis History of present illness: 54-year-old male extremely poor historian with a past medical history of hypertension, diabetes and end-stage renal disease. Patient states he no longer had a dialysis center. Patient was scheduled to have dialysis Friday and Friday and states he was kicked out of the dialysis center. Patient is ex tremely poor historian answer some questions when he wants. States he became short of breath and knew he needed dialysis. Patient denies any chest pain denies any fever chills nausea vomiting denies any sick contacts however appears that he may live on the street. When asked where he lives he just said here and there and everywhere. Patient also relates some lower extremity swelling. Past History Past Medical History: diabetes, ESRD, GERD, hypertension. denies: arthritis, CAD, cancer, COPD, dialysis, DVT, heart failure, hepatitis, HIV/AIDS, hyperthy roidism, hyperlipidemia, hypothyroidism, liver disease, migraines, PVD, pulmonary embolism, renal failure, seizures, stroke, sarcoidosis Past Surgical History: Other (States only surgical history was Vas-Cath placement) Social history: Lives alone, smoking, full code, other (Possibly on the street). denies: alcohol abuse Family history: no significant family history, other (Patient denies alcohol however his sensorium is that of chronic alcoholism.) Medications and Allergies Allergies Allergy/AdvReac Type Severity Reaction Status Date / Time No Known Allergies Allergy Unverified 05/04/20 04:13 Home Medications Medication Instructions Recorded Confirmed Last Taken Type Acetaminophen [Acetaminophen TAB] 650 mg PO Q4H PRN tablet 05/19/20 06/06/20 Unknown Rx AtorvaSTATin [Lipitor] 40 mg PO QHS #30 tablet 05/19/20 06/06/20 Unknown Rx Calcium 600-Vit D3 800 Tablet 600 mg PO BID #60 05/19/20 06/06/20 Unknown Rx Calcium Acetate [Phoslo] 1,334 mg PO TID #90 cap 05/19/20 06/06/20 Unknown Rx Gabapentin 300 mg PO BID #30 capsule 05/19/20 06/06/20 Unknown Rx Midodrine [Proamatine] 5 mg PO BID #60 tablet 05/19/20 06/06/20 Unknown Rx Oxycodone HCl/Acetaminophen 1 each PO Q6HR PRN 05/27/20 06/06/20 Unknown History [Percocet 7.5/325 mg] Azithromycin [Zithromax TAB] 500 mg PO QDAY #5 tablet 06/06/20 Unknown Rx Review of Systems Constitutional: fatigue, weakness, no weight loss, no anorexia Ears, nose, mouth and throat: dental pain, no ear pain, no ear discharge, no nose pain, no nasal congestion, no dysphagia, no sore throat, no post-nasal drip, no neck fullness/pressure Cardiovascular: shortness of breath, dyspnea on exertion, high blood pressure, leg edema, no chest pain, no orthopnea, no palpitations, no rapid/irregular heart beat, no edema Respiratory: shortness of breath, no excessive sputum, no hemoptysis, no pain, no pain on inspiration Gastrointestinal: no nausea, no hematochezia, no loss of appetite, no dyspepsia/bloating, no early satiety Musculoskeletal: low back pain, no neck pain, no shooting arm pain, no arm numbness/tingling, no morning stiffness, no muscle weakness, no atrophy, no limitation of motion, no prior amputations Neurological: numbness, no transient paralysis, no paralysis, no parathesias, no seizures, no syncope, no migraines, no aphasia, no change in mentation, no confusion, no double vision, no loss of vision, no burning pain Psychiatric: no memory loss, no change in sleep habits, no sleep disturbances, no hypersomnia, no disorientation, no hallucinations, no depression, no irritability, no other Endocrine: no cold intolerance, no polyphagia, no excessive thirst, no weight change, no deepening of the voice Hematologic/Lymphatic: no easy bleeding Allergic/Immunologic: no urticaria Exam - Constitutional Vitals: Temp Pulse Resp BP Pulse Ox 98.6 F 76 20 120/86 99 06/11/20 01:32 06/11/20 06:34 06/11/20 06:34 06/11/20 06:34 06/11/20 06:34 General appearance: Present: no acute distress, disheveled, malodorous - EENT Eyes: Present: PERRL ENT: poor dentition, other (Happy sclera) - Neck Neck: Present: supple - Respiratory Respiratory: bilateral: rhonchi (Few at base) - Cardiovascular Rhythm: regular - Extremities Extremity abnormal: edema, other (Chronic venous stasis changes edema) - Abdominal General gastrointestinal: Present: distended, normal bowel sounds, other (Obese). Absent: hepatomegaly, splenomegaly - Musculoskeletal Musculoskeletal: generalized weakness - Psychiatric Psychiatric: cooperative, other (Extremely poor historian questionable judgment and cognition.) - Neurologic Neurologic: moves all extremities Results - Labs CBC & Chem 7: 06/11/20 02:14 06/11/20 02:14 Labs: Abnormal lab results 06/11/20 06/11/20 Range/Units 02:14 02:14 Hgb 10.8 L (11.8-15.2) gm/dl Hct 33.8 L (35.5-45.6) % RDW 19.9 H (13.2-15.2) % Lymph % (Auto) 10.9 L (13.4-35.0) % Isabela % (Auto) 12.1 H (0.0-7.3) % Lymph # 0.9 L (1.2-5.4) K/mm3 Isabela # 1.0 H (0.0-0.8) K/mm3 Seg Neutrophils % 72.9 H (40.0-70.0) % Potassium 5.4 H (3.6-5.0) mmol/L Carbon Dioxide 14 L (22-30) mmol/L BUN 63 H (9-20) mg/dL Creatinine 11.2 H (0.8-1.5) mg/dL Glucose 148 H (75-100) mg/dL Calcium 6.2 L (8.4-10.2) mg/dL - Imaging and Cardiology Chest x-ray: image reviewed Assessment and Plan - Patient Problems (1) End-stage renal disease needing dialysis Current Visit: Yes Status: Chronic Plan to address problem: Patient end-stage renal disease needing dialysis. Renal has been contacted for emergent dialysis. (2) Hyperkalemia Current Visit: Yes Status: Chronic Plan to address problem: Secondary to missed hemodialysis.. Appears hemodynamically stable at this time. Can be treated with hemodialysis. (3) Anasarca Current Visit: No Status: Acute Plan to address problem: Volume reduction with hemodialysis. Not severe. (4) Anemia in chronic kidney disease Current Visit: No Status: Acute Plan to address problem: No need to transfusion chronic anemia. (5) Missed dialysis Current Visit: No Status: Acute Plan to address problem: Attempt to explain to the patient about compliance issues. Patient most likely has underlying mental condition or alcoholism (6) Morbid obesity with BMI of 40.0-44.9, adult Current Visit: No Status: Acute Plan to address problem: Increase physical activity decrease caloric intake. (7) Nicotine dependence Current Visit: No Status: Acute Qualifiers: Nicotine product type: cigarettes Substance use status: in withdrawal Qualified Code(s): F17.213 - Nicotine dependence, cigarettes, with withdrawal Plan to address problem: We will offer nicotine patch patient refusing at this time. (8) Obesity hypoventilation syndrome Current Visit: No Status: Acute Plan to address problem: We will watch oxygenation closely. O2 nasal cannula patient is not approximately 1.prn
[2020-06-11] MEDS ORDERED: ACETAMINOPHEN 325 MG TAB PO PRN ×2 (11:00→11:30)
--- NOTE | 2020-06-11 11:02 | Consultation ---
History of Present Illness - Reason for Consult Consult date: 06/11/20 end stage renal disease, hyperkalemia - History of Present Illness This is a 54 year old male who is known to our service with history significant for Obesity, hypotension, ESRD on HD, Anemia, CHF with EF 20-25%, COPD and me dical noncompliance who presented to [facility] ED 06/11 for need of hemodialysis and sob. At the time of my evaluation patient feels comfortable and not sob. He has chronic leg swelling. Patient is currently not established with any outpatient HD unit primarily due to non-compliance and comes to [facility] for hemodialysis. Patient is also homeless. He was recently admitted and discharged on 06/06/20. Pt was last dialyzed on 06/06 in the hospital. Patient denies nausea, vomiting, abd pain, weakness, cp, dizziness or hemoptysis. Patient was admitted for further evaluation. Labs significant for K 5.4 and Calcium 6.2. Nephrology was consulted for further evaluation and treatment. Past History Past Medical History: COPD, diabetes, dialysis, ESRD, GERD, heart failure, hypertension, hyperlipidemia, renal failure. denies: arthritis, CAD, cancer, DVT, hepatitis, HIV/AIDS, hyperthyroidism, hypothyroidism, liver disease, migraines, PVD, pulmonary embolism, seizures, stroke, sarcoidosis Past Surgical History: Other (States only surgical history was Vas-Cath placement) Social history: Lives alone, smoking, full code, other (Possibly on the street). denies: alcohol abuse Family history: no significant family history, other (Patient denies alcohol however his sensorium is that of chronic alcoholism.) Medications and Allergies Allergies Allergy/AdvReac Type Severity Reaction Status Date / Time No Known Allergies Allergy Unverified 05/04/20 04:13 Home Medications Medication Instructions Recorded Confirmed Last Taken Type Acetaminophen [Acetaminophen TAB] 650 mg PO Q4H PRN tablet 05/19/20 06/06/20 Unknown Rx AtorvaSTATin [Lipitor] 40 mg PO QHS #30 tablet 05/19/20 06/06/20 Unknown Rx Calcium 600-Vit D3 800 Tablet 600 mg PO BID #60 05/19/20 06/06/20 Unknown Rx Calcium Acetate [Phoslo] 1,334 mg PO TID #90 cap 05/19/20 06/06/20 Unknown Rx Gabapentin 300 mg PO BID #30 capsule 05/19/20 06/06/20 Unknown Rx Midodrine [Proamatine] 5 mg PO BID #60 tablet 05/19/20 06/06/20 Unknown Rx Oxycodone HCl/Acetaminophen 1 each PO Q6HR PRN 05/27/20 06/06/20 Unknown History [Percocet 7.5/325 mg] Azithromycin [Zithromax TAB] 500 mg PO QDAY #5 tablet 06/06/20 Unknown Rx Review of Systems Constitutional: no weight loss, no weight gain, no fever, no chills, no anorexia, no weakness, no poor appetite Cardiovascular: edema, shortness of breath, dyspnea on exertion, leg edema, no chest pain, no orthopnea, no syncope, no lightheadedness, no high blood pressure Respiratory: shortness of breath, dyspnea on exertion, no cough, no cough with sputum, no hemoptysis Gastrointestinal: no abdominal pain, no nausea, no vomiting, no diarrhea, no melena Genitourinary Male: no dysuria, no hematuria Musculoskeletal: no muscle weakness, no muscle cramps Integumentary: no rash, no wounds, no jaundice Neurological: no seizures, no syncope, no convulsions, no change in speech, no change in mentation, no confusion Exam - Vital Signs Vital signs: Vital Signs Temp Pulse Resp BP Pulse Ox 98.6 F 81 18 111/73 95 06/11/20 01:32 06/11/20 01:32 06/11/20 01:32 06/11/20 01:32 06/11/20 01:32 Results - Lab Results 06/11/20 02:14 06/11/20 02:14 Most recent lab results Calcium 6.2 mg/dL (8.4-10.2) L 06/11/20 02:14 Assessment and Plan 1. End stage renal disease: Was previously on TTS schedule. Currently not established with any outpatient HD unit due to noncompliance. He gets HD in the hospital. Meds dosage based on GFR. No acute indication for urgent / emergent HD today. Plan for HD tomorrow. 2. FEN: Hyperkalemia, Insulin-D50 and kayexalate ordered, monitor. Renal diet discussed. Volume overload, UF with HD, monitor. Limit fluid intake. Monitor lytes and volume status. 3. Chronic hypoxic respiratory failure: NCO2. 4. Anemia, POA: Monitor. Epogen as needed. 5. H/o hypotension: Monitor BP closely. Midodrine of needed. 6. Chronic systolic CHF: ECHO EF 20-25%. 7. H/o COPD. 8. Medical noncompliance: Counseled. - General Appearance: General appearance: well-developed, well-nourished, appears stated age, obese, no distress, NC O2 HEENT: ATNC, ALIVIA, mucous membranes moist Neck: neck supple, trachea midline Respiratory: b/l diminished breath sounds Heart: regular, S1S2, no murmur Gastrointestinal: soft, obese, normoactive bowel sounds, not tender Integumentary: chronic venous stasis Neurologic: alert, AOX4, non-focal Ext: 1+ LE edema Hemodialysis access: L femoral dialysis catheter
[2020-06-11] MEDS ORDERED: ONDANSETRON 4 MG/2 ML INJ IV PRN (11:30)
[2020-06-11] MEDS ORDERED: ALBUTEROL 2.5 MG/3 ML NEBU IH PRN (12:00)
[2020-06-11] MEDS ORDERED: NICOTINE 14 MG/24 HR PATCH TD SCH (12:00)
[2020-06-11] MEDS ORDERED: CALCIUM CITRATE/VITAMIN D3 315 MG/250 UNITS TAB PO SCH (14:00)
[2020-06-11] MEDS ORDERED: ENOXAPARIN 30 MG/0.3 ML INJ SUB-Q ONE (15:53)
[2020-06-11] MEDS ORDERED: FAMOTIDINE 20 MG TAB ONE (15:53)
[2020-06-11] MEDS ORDERED: GABAPENTIN 300 MG CAP ONE (15:53)
[2020-06-11] MEDS: FAMOTIDINE 20 MG/2 ML INJ IV SCH (15:57)
[2020-06-11] MEDS: GABAPENTIN 300 MG CAP PO SCH ×2 (15:57→20:59)
[2020-06-11] MEDS: ENOXAPARIN 30 MG/0.3 ML INJ SUB-Q SCH (15:58)
[2020-06-11] MEDS: CALCIUM CARBONATE/VITAMIN D3 500 MG-200 UNIT TAB PO SCH ×2 (15:59→20:59)
[2020-06-11] MEDS: CALCIUM ACETATE 667 MG CAP PO SCH ×3 (15:59→20:59)
[2020-06-11] MEDS ORDERED: oxyCODONE /ACETAMINOPHEN 5-325MG TAB ONE ×2 (17:03→17:06)
[2020-06-11] MEDS: oxyCODONE /ACETAMINOPHEN 5-325MG TAB PO PRN (17:05)
[2020-06-11] MEDS ORDERED: CALCIUM VIT D3 PO SCH (22:00)
[2020-06-12] MEDS: oxyCODONE /ACETAMINOPHEN 5-325MG TAB PO PRN ×3 (03:30→22:07)
[2020-06-12 06:56] LABS: Albumin 3.6 g/dL (3.9-5)
[2020-06-12 07:18] LABS: Calcium 5.8 mg/dL (8.4-10.2)
[2020-06-12] MEDS ORDERED: SODIUM CHLORIDE 0.9% 100 ML IV PRN (07:44)
[2020-06-12] MEDS ORDERED: DEXTROSE 50% IN WATER (25GM) 50 ML SYRINGE IV ONE (07:49)
[2020-06-12] MEDS ORDERED: INSULIN REGULAR, HUMAN 100 UNITS/1 ML IV ONE (07:49)
[2020-06-12] MEDS: CALCIUM ACETATE 667 MG CAP PO SCH ×3 (08:19→22:07)
[2020-06-12] MEDS ORDERED: CALCIUM GLUCONATE 2,000 MG in SODIUM CHLORIDE 0.9% 100 ML IV ONE (08:30)
[2020-06-12] MEDS: CALCIUM CARBONATE/VITAMIN D3 500 MG-200 UNIT TAB PO SCH ×2 (09:16→22:07)
[2020-06-12] MEDS: GABAPENTIN 300 MG CAP PO SCH ×2 (09:16→22:07)
[2020-06-12] MEDS: ENOXAPARIN 30 MG/0.3 ML INJ SUB-Q SCH (09:16)
[2020-06-12] MEDS: FAMOTIDINE 20 MG/2 ML INJ IV SCH (09:16)
--- NOTE | 2020-06-12 10:59 | Progress Note ---
Assessment and Plan 1. End stage renal disease: Was previously on TTS schedule. Currently not established with any outpatient HD unit due to noncompliance. He gets HD in the hospital. Meds dosage based on GFR. Hemodialysis: 06/12. 2. FEN: Hyperkalemia, Insulin-D50 and IV Calcium ordered, HD today, monitor. Renal diet discussed. Volume overload, UF with HD, monitor. Limit fluid intake. Monitor lytes and volume status. 3. Chronic hypoxic respiratory failure: NC O2. 4. Anemia, POA: Monitor. Epogen as needed. 5. H/o hypotension: Monitor BP closely. Midodrine of needed. 6. Chronic systolic CHF: ECHO EF 20-25%. 7. H/o COPD. 8. Medical noncompliance: Counseled. - Subjective: Patient was seen and examined at the bedside. Doing ok. - General Appearance: General appearance: well-developed, well-nourished, appears stated age, obese, no distress, NC O2 HEENT: ATNC, ALIVIA, mucous membranes moist Neck: neck supple, trachea midline Respiratory: b/l diminished breath sounds Heart: regular, S1S2, no murmur Gastrointestinal: soft, obese, normoactive bowel sounds, not tender Integumentary: chronic venous stasis Neurologic: alert, AOX4, non-focal Ext: 1+ LE edema Hemodialysis access: L femoral tunnel hemodialysis catheter Subjective Date of service: 06/12/20 Objective - Vital Signs Vital signs: Vital Signs - 12hr 06/11/20 06/12/20 06/12/20 23:55 01:18 05:04 Temperature 97.7 F 97.6 F Pulse Rate 73 73 71 Respiratory 20 20 Rate Blood Pressure 111/60 101/59 O2 Sat by Pulse 99 98 Oximetry 06/12/20 07:47 Temperature 99.1 F Pulse Rate 72 Respiratory 20 Rate Blood Pressure 98/63 O2 Sat by Pulse 100 Oximetry - Lab 06/11/20 02:14 06/12/20 04:51 Most recent lab results Calcium 5.8 mg/dL (8.4-10.2) L* 06/12/20 04:51 Phosphorus 7.20 mg/dL (2.5-4.5) H 06/12/20 04:51 Medications & Allergies - Medications Allergies/Adverse Reactions: Allergies No Known Allergies Allergy (Unverified 05/04/20 04:13) Home Medications: Home Medications Medication Instructions Recorded Confirmed Last Taken Type Acetaminophen [Acetaminophen TAB] 650 mg PO Q4H PRN tablet 05/19/20 06/06/20 Unknown Rx AtorvaSTATin [Lipitor] 40 mg PO QHS #30 tablet 05/19/20 06/06/20 Unknown Rx Calcium 600-Vit D3 800 Tablet 600 mg PO BID #60 05/19/20 06/06/20 Unknown Rx Calcium Acetate [Phoslo] 1,334 mg PO TID #90 cap 05/19/20 06/06/20 Unknown Rx Gabapentin 300 mg PO BID #30 capsule 05/19/20 06/06/20 Unknown Rx Midodrine [Proamatine] 5 mg PO BID #60 tablet 05/19/20 06/06/20 Unknown Rx Oxycodone HCl/Acetaminophen 1 each PO Q6HR PRN 05/27/20 06/06/20 Unknown History [Percocet 7.5/325 mg] Azithromycin [Zithromax TAB] 500 mg PO QDAY #5 tablet 06/06/20 Unknown Rx Active Medications: Generic Name Dose Route Start Last Admin Trade Name Freq PRN Reason Stop Dose Admin Acetaminophen 650 mg 06/11/20 11:30 Tylenol PO Q4H PRN Pain MILD(1-3)/Fever >100.5/MALDONADO Albuterol 2.5 mg 06/11/20 12:00 Proventil IH Q4HRT PRN Shortness Of Breath Atorvastatin Calcium 40 mg 06/11/20 22:00 06/11/20 20:59 Lipitor PO 40 mg QHS LIBORIO Administration Calcium Acetate 1,334 mg 06/11/20 14:00 06/12/20 08:19 Phoslo PO 1,334 mg TID LIBORIO Administration Calcium/Vitamin D 1 each 06/11/20 14:00 06/12/20 09:16 Oysco D 500 Mg-200 Unit PO 1 each BID LIBORIO Administration Enoxaparin Sodium 30 mg 06/11/20 12:00 06/12/20 09:16 Enoxaparin SUB-Q 30 mg QDAY LIBORIO Administration Famotidine 20 mg 06/11/20 12:00 06/12/20 09:16 Pepcid IV 20 mg DAILY LIBORIO Administration Gabapentin 300 mg 06/11/20 12:00 06/12/20 09:16 Gabapentin PO 300 mg BID LIBORIO Administration Sodium Chloride 100 mls @ 999 mls/hr 06/12/20 07:44 Nacl 0.9% IV PEDRITO PRN Hypotension Ondansetron HCl 4 mg 06/11/20 11:30 Zofran IV Q8H PRN Nausea And Vomiting Oxycodone/Acetaminophen 2 tab 06/11/20 11:30 06/12/20 09:48 Percocet 5/325 PO 2 tab Q6H PRN Administration Pain, Moderate (4-6) Sodium Chloride 10 ml 06/11/20 12:00 06/12/20 09:17 Sodium Chloride Flush Syringe 10 Ml IV 10 ml BID LIBORIO Administration Sodium Chloride 10 ml 06/11/20 11:30 Sodium Chloride Flush Syringe 10 Ml IV PRN PRN LINE FLUSH
[2020-06-12 11:33] LABS: Hepatitis B Surface Antigen Non-Reactive (Negative); Hepatitis C Virus Antibody Non-Reactive (NonReactive)
--- NOTE | 2020-06-12 17:52 | Progress Note ---
Assessment and Plan - Patient Problems (1) End-stage renal disease needing dialysis Current Visit: Yes Status: Chronic Plan to address problem: Patient end-stage renal disease needing dialysis. Renal has been contacted for emergent dialysis. Patient does not have a dialysis center. Case management nephrology to evaluate patient for outpatient dialysis. Not sure if is just secondary to noncompliance. Patient has insurance. (2) Hyperkalemia Current Visit: Yes Status: Chronic Plan to address problem: Secondary to missed hemodialysis.. Appears hemodynamically stable at this time. Can be treated with hemodialysis. (3) Anasarca Current Visit: No Status: Acute Plan to address problem: Volume reduction with hemodialysis. Not severe. (4) Anemia in chronic kidney disease Current Visit: No Status: Acute Plan to address problem: No need to transfusion chronic anemia. (5) Missed dialysis Current Visit: No Status: Acute Plan to address problem: Attempt to explain to the patient about compliance issues. Patient most likely has underlying mental condition or alcoholism (6) Morbid obesity with BMI of 40.0-44.9, adult Current Visit: No Status: Acute Plan to address problem: Increase physical activity decrease caloric intake. (7) Nicotine dependence Current Visit: No Status: Acute Qualifiers: Nicotine product type: cigarettes Substance use status: in withdrawal Qualified Code(s): F17.213 - Nicotine dependence, cigarettes, with withdrawal Plan to address problem: We will offer nicotine patch patient refusing at this time. (8) Obesity hypoventilation syndrome Current Visit: No Status: Acute Plan to address problem: We will watch oxygenation closely. O2 nasal cannula patient is not approximately 1.prn Subjective Date of service: 06/12/20 Principal diagnosis: Missed hemodialysis. Interval history: Patient today scheduled to go to hemodialysis. Patient somewhat short of breath no chest pain no dyspnea exertion. Patient states he just has generalized malaise consistent with him not having dialysis. Objective - Constitutional Vitals: Vital Signs - 12hr 06/12/20 06/12/20 06/12/20 07:47 14:00 15:27 Temperature 99.1 F Pulse Rate 72 72 Respiratory 20 Rate Blood Pressure 98/63 O2 Sat by Pulse 100 98 Oximetry 06/12/20 16:32 Temperature 97.8 F Pulse Rate 73 Respiratory 20 Rate Blood Pressure 135/84 O2 Sat by Pulse 94 Oximetry General appearance: Present: no acute distress, disheveled, other ([place] sclera) - EENT Eyes: PERRL, EOM intact ENT: hearing intact, clear oral mucosa - Respiratory Respiratory: bilateral: rhonchi (Rhonchi diminished breath sounds) - Cardiovascular Rhythm: regular - Gastrointestinal General gastrointestinal: Present: soft, non-tender, non-distended, normal bowel sounds - Integumentary Integumentary: no jaundice, no rash, no clammy - Musculoskeletal Musculoskeletal: generalized weakness - Psychiatric Psychiatric: memory intact, appropriate mood/affect, intact judgment & insight - Labs CBC & Chem 7: 06/11/20 02:14 06/12/20 04:51 Labs: Abnormal lab results 06/12/20 Range/Units 04:51 Potassium 6.1 H* (3.6-5.0) mmol/L Carbon Dioxide 16 L (22-30) mmol/L BUN 70 H (9-20) mg/dL Creatinine 11.7 H (0.8-1.5) mg/dL Glucose 102 H (75-100) mg/dL Calcium 5.8 L* (8.4-10.2) mg/dL Phosphorus 7.20 H (2.5-4.5) mg/dL Albumin 3.6 L (3.9-5) g/dL
[2020-06-13] MEDS ORDERED: SODIUM CHLORIDE 0.9% 100 ML IV PRN (08:41)
[2020-06-13] MEDS: oxyCODONE /ACETAMINOPHEN 5-325MG TAB PO PRN (08:55)
[2020-06-13] MEDS: CALCIUM ACETATE 667 MG CAP PO SCH ×2 (08:55→14:31)
[2020-06-13] MEDS: GABAPENTIN 300 MG CAP PO SCH (09:00)
[2020-06-13] MEDS: ENOXAPARIN 30 MG/0.3 ML INJ SUB-Q SCH (09:00)
[2020-06-13] MEDS: CALCIUM CARBONATE/VITAMIN D3 500 MG-200 UNIT TAB PO SCH (09:00)
[2020-06-13] MEDS ORDERED: FAMOTIDINE 20 MG TAB PO SCH (10:00)
--- NOTE | 2020-06-13 14:05 | Progress Note ---
Assessment and Plan 1. End stage renal disease: Was previously on TTS schedule. Currently not established with any outpatient HD unit due to noncompliance. He gets HD in the hospital. Meds dosage based on GFR. Hemodialysis: 06/12, 06/13. 2. FEN: Hyperkalemia, s/p HD today, monitor. Renal diet discussed. Volume overload, UF with HD, monitor. Limit fluid intake. Monitor lytes and volume status. 3. Chronic hypoxic respiratory failure: NC O2. 4. Anemia, POA: Monitor. Epogen as needed. 5. H/o hypotension: Monitor BP closely. Midodrine of needed. 6. Chronic systolic CHF: ECHO EF 20-25%. 7. H/o COPD. 8. Medical noncompliance: Counseled. - Subjective: Patient was seen and examined at the bedside. Doing ok. - General Appearance: General appearance: well-developed, well-nourished, appears stated age, obese, no distress, NC O2 HEENT: ATNC, ALIVIA, mucous membranes moist Neck: neck supple, trachea midline Respiratory: b/l diminished breath sounds Heart: regular, S1S2, no murmur Gastrointestinal: soft, obese, normoactive bowel sounds, not tender Integumentary: chronic venous stasis Neurologic: alert, AOX4, non-focal Ext: 1+ LE edema Hemodialysis access: L femoral tunnel hemodialysis catheter Subjective Date of service: 06/13/20 Principal diagnosis: Missed hemodialysis. Objective - Vital Signs Vital signs: Vital Signs - 12hr 06/13/20 06/13/20 06/13/20 05:14 07:49 09:10 Temperature 97.8 F 98.4 F Pulse Rate 74 69 76 Respiratory 0 L 20 20 Rate Blood Pressure 99/53 106/61 101/55 O2 Sat by Pulse 98 99 Oximetry O2 Sat by Pulse 99 Oximetry [ Throughout] 06/13/20 06/13/20 06/13/20 09:15 09:30 09:45 Temperature Pulse Rate 73 75 78 Respiratory Rate Blood Pressure 103/53 120/66 113/68 O2 Sat by Pulse Oximetry O2 Sat by Pulse Oximetry [ Throughout] 06/13/20 06/13/20 06/13/20 10:00 10:15 10:30 Temperature Pulse Rate 77 78 87 Respiratory Rate Blood Pressure 114/50 115/53 121/67 O2 Sat by Pulse Oximetry O2 Sat by Pulse Oximetry [ Throughout] 06/13/20 06/13/20 06/13/20 10:45 11:00 11:15 Temperature Pulse Rate 74 74 76 Respiratory Rate Blood Pressure 141/68 144/67 126/66 O2 Sat by Pulse Oximetry O2 Sat by Pulse Oximetry [ Throughout] 06/13/20 06/13/20 06/13/20 11:30 11:45 12:00 Temperature Pulse Rate 76 77 78 Respiratory Rate Blood Pressure 129/60 122/65 118/66 O2 Sat by Pulse Oximetry O2 Sat by Pulse Oximetry [ Throughout] 06/13/20 06/13/20 06/13/20 12:15 12:30 12:45 Temperature Pulse Rate 77 75 70 Respiratory Rate Blood Pressure 141/76 117/63 131/76 O2 Sat by Pulse Oximetry O2 Sat by Pulse Oximetry [ Throughout] 06/13/20 12:51 Temperature 98.4 F Pulse Rate 75 Respiratory 18 Rate Blood Pressure 133/69 O2 Sat by Pulse Oximetry O2 Sat by Pulse Oximetry [ Throughout] - Lab 06/11/20 02:14 06/13/20 15:02 Most recent lab results Calcium 5.8 mg/dL (8.4-10.2) L* 06/12/20 04:51 Phosphorus 7.20 mg/dL (2.5-4.5) H 06/12/20 04:51 Medications & Allergies - Medications Allergies/Adverse Reactions: Allergies No Known Allergies Allergy (Unverified 05/04/20 04:13) Home Medications: Home Medications Medication Instructions Recorded Confirmed Last Taken Type Acetaminophen [Acetaminophen TAB] 650 mg PO Q4H PRN tablet 05/19/20 06/13/20 Unknown Rx AtorvaSTATin [Lipitor] 40 mg PO QHS #30 tablet 05/19/20 06/13/20 Unknown Rx Calcium 600-Vit D3 800 Tablet 600 mg PO BID #60 05/19/20 06/13/20 Unknown Rx Calcium Acetate [Phoslo] 1,334 mg PO TID #90 cap 05/19/20 06/13/20 Unknown Rx Gabapentin 300 mg PO BID #30 capsule 05/19/20 06/13/20 Unknown Rx Midodrine [Proamatine] 5 mg PO BID #60 tablet 05/19/20 06/13/20 Unknown Rx Oxycodone HCl/Acetaminophen 1 each PO Q6HR PRN 05/27/20 06/13/20 Unknown History [Percocet 7.5/325 mg] Active Medications: Generic Name Dose Route Start Last Admin Trade Name Archie PRN Reason Stop Dose Admin Acetaminophen 650 mg 06/11/20 11:30 Tylenol PO Q4H PRN Pain MILD(1-3)/Fever >100.5/MALDONADO Albuterol 2.5 mg 06/11/20 12:00 Proventil IH Q4HRT PRN Shortness Of Breath Atorvastatin Calcium 40 mg 06/11/20 22:00 06/12/20 22:07 Lipitor PO 40 mg QHS LIBORIO Administration Calcium Acetate 1,334 mg 06/11/20 14:00 06/13/20 08:55 Phoslo PO 1,334 mg TID LIBORIO Administration Calcium/Vitamin D 1 each 06/11/20 14:00 06/13/20 09:00 Oysco D 500 Mg-200 Unit PO 1 each BID LIBORIO Administration Enoxaparin Sodium 30 mg 06/11/20 12:00 06/13/20 09:00 Enoxaparin SUB-Q 30 mg QDAY LIBORIO Administration Famotidine 20 mg 06/13/20 10:00 06/13/20 09:00 Pepcid PO 20 mg DAILY LIBORIO Administration Gabapentin 300 mg 06/11/20 12:00 06/13/20 09:00 Gabapentin PO 300 mg BID LIBORIO Administration Sodium Chloride 100 mls @ 999 mls/hr 06/13/20 08:41 Nacl 0.9% IV PEDRITO PRN Hypotension Ondansetron HCl 4 mg 06/11/20 11:30 Zofran IV Q8H PRN Nausea And Vomiting Oxycodone/Acetaminophen 2 tab 06/11/20 11:30 06/13/20 08:55 Percocet 5/325 PO 2 tab Q6H PRN Administration Pain, Moderate (4-6) Sodium Chloride 10 ml 06/11/20 12:00 06/13/20 09:01 Sodium Chloride Flush Syringe 10 Ml IV 10 ml BID LIBORIO Administration Sodium Chloride 10 ml 06/11/20 11:30 Sodium Chloride Flush Syringe 10 Ml IV PRN PRN LINE FLUSH
--- NOTE | 2020-06-13 14:24 | Discharge Summary ---
Providers - Providers Date of Admission: 06/11/20 08:03 Date of discharge: 06/13/20 Attending physician: SELMA MARTINEZ 06/11/20 07:34 Consult to Physician [CONS] Stat Comment: Consulting Provider: GURPREET VAUGHN Physician Instructions: Reason For Exam: esrd Primary care physician: TRANSPORTATION COORDINATOR Hospitalization Condition: Stable Hospital course: This is a 54 year old male who is known to pur service with history significant for Obesity, hypotension, ESRD on HD, Anemia, CHF with EF 20-25%, COPD and medical noncompliance who presented to [facility] ED 06/11 for need of hemodialysis.He was recently admitted and discharged on 06/06/20. Pt was last dialyzed on 06/06 in the hospital. Patient requiring admission secondary to noncompliance with dialysis and not having a dialysis placed outpatient. Patient denies nausea, vomiting, abd pain, weakness, cp, dizziness or hemoptysis. Patient was admitted for further evaluation. Labs significant for K 5.4 and Calcium 6.2. Nephrology was consulted and patient was dialyzed, BMP was monitor. Patient was then discharged home in stable condition. Discharge diagnosis: End-stage renal disease needing dialysis - does not have any outpt HD set up Hyperkalemia Anasarca due to volume overload Anemia in chronic kidney disease Missed dialysis Chronic systolic CHF: ECHO EF 20-25% Nicotine dependence Morbid Obesity Medical noncompliance Disposition: DC-01 TO HOME OR SELFCARE Time spent for discharge: 34 minutes Core Measure Documentation - Palliative Care Palliative Care/ Comfort Measures: Not Applicable - Core Measures Any of the following diagnoses?: none Exam - Physical Exam Narrative exam: General appearance: well-developed, well-nourished, appears stated age, obese, no distress, NC O2 HEENT: ATNC, ALIVIA, mucous membranes moist Neck: neck supple, trachea midline Respiratory: b/l diminished breath sounds Heart: regular, S1S2, no murmur Gastrointestinal: soft, obese, normoactive bowel sounds, not tender Integumentary: chronic venous stasis Neurologic: alert, AOX4, non-focal Ext: 1+ LE edema Hemodialysis access: L femoral tunnel hemodialysis catheter - Constitutional Vitals: Temp Pulse Resp BP Pulse Ox 98.4 F 75 18 133/69 99 06/13/20 12:51 06/13/20 12:51 06/13/20 12:51 06/13/20 12:51 06/13/20 09:10 Plan Activity: advance as tolerated Weight Bearing Status: Weight Bear as Tolerated Diet: low fat, low salt, renal Special Instructions: restrict fluid intake to (1.2 L per day) Follow up with: PRIMARY CARE, [Primary Care Provider] - 3-5 Days
[2020-06-13 15:44] LABS: Calcium 7.5 mg/dL (8.4-10.2)
[2020-06-13 17:32] VITALS: BP 109/80
== END 2020-06-13 18:50 | disposition home or self-care (01) ==
LOC: ED 00:38 → 4A 08:03
PROVIDERS: ADMIT Internal Medicine; ATTEND Internal Medicine
DX: I13.2 Hypertensive heart and chronic kidney disease with heart failure and with stage 5 chronic kidney disease, or end stage renal disease (principal); E11.22 Type 2 diabetes mellitus with diabetic chronic kidney disease; N18.6 End stage renal disease; I50.22 Chronic systolic (congestive) heart failure; D63.1 Anemia in chronic kidney disease; J96.11 Chronic respiratory failure with hypoxia; E87.5 Hyperkalemia; R60.1 Generalized edema; J44.9 Chronic obstructive pulmonary disease, unspecified; E87.70 Fluid overload, unspecified; E78.5 Hyperlipidemia, unspecified; I25.2 Old myocardial infarction; E66.2 Morbid (severe) obesity with alveolar hypoventilation; K21.9 Gastro-esophageal reflux disease without esophagitis; F17.213 Nicotine dependence, cigarettes, with withdrawal; Z86.718 Personal history of other venous thrombosis and embolism; Z91.15 Patient's noncompliance with renal dialysis; Z79.899 Other long term (current) drug therapy; Z68.41 Body mass index [BMI] 40.0-44.9, adult
CPT/HCPCS: 36415; 71045; 80048; 80053; 80074; 84100; 85025; 94760; 96365; 96372; 96375; 96376; 99284; A9270; G0257; G0378; J0610; J1650; J1815

== ENCOUNTER 2020-07-15 23:10 | Inpatient (IN) | payer MEDICARE ==
[2020-07-16 00:33] LABS: Basophils # (Auto) 0.1 K/mm3 (0.0-0.1); Basophils % (Auto) 1.1 % (0.0-1.8); Eosinophils # (Auto) 0.1 K/mm3 (0.0-0.4); Hematocrit 33.2 % (35.5-45.6); Hemoglobin 11.2 gm/dl (11.8-15.2); Lymphocytes # (Auto) 0.6 K/mm3 (1.2-5.4); Lymphocytes % (Auto) 9.7 % (13.4-35.0); Mean Corpuscular HGB Conc 34 % (32-34); Mean Corpuscular Volume 86 fl (84-94); Monocytes # (Auto) 0.6 K/mm3 (0.0-0.8); Monocytes % (Auto) 8.8 % (0.0-7.3); Platelet Count 272 K/mm3 (140-440); Red Blood Count 3.86 M/mm3 (3.65-5.03); Red Cell Distribution Width 19.4 % (13.2-15.2)
[2020-07-16 00:42] LABS: Calcium 5.5 mg/dL (8.4-10.2)
--- NOTE | 2020-07-16 01:55 | Emergency Department Report ---
ED Shortness of Breath HPI - General Chief Complaint: Medical Clearance Stated Complaint: RESP DISTRESS, MISSED DIALYSIS Time Seen by Provider: 07/16/20 01:47 Source: patient Mode of arrival: Stretcher Limitations: Physical Limitation, Other - History of Present Illness Initial Comments: Chief complaint: "I am solid as a rock. My legs are hurting. I have shortness of breath." HPI: This is a 54-year-old male with history of end stage renal disease r equiring dialysis, known noncompliance with renal dialysis, who presents with edematous legs shortness of breath. Last hemodialysis was according to his report. Due to noncompliance patient does not have a personal cloth brushing and sueding supervisor. Additional medical history includes: Hypertension, coronary artery disease, CHF, diabetes mellitus, DVT, COPD MD Complaint: shortness of breath -: Gradual, days(s) (2 days) Severity: moderate Consistency: constant Improves With: oxygen Worsens With: exertion Known History Of: other (End-stage renal disease, noncompliance with dialysis) Context: recent illness (End-stage renal disease noncompliance with dialysis recent hospitalization) Associated Symptoms: other (Leg swelling) Treatments Prior to Arrival: oxygen - Related Data Home Medications Medication Instructions Recorded Confirmed Last Taken Oxycodone HCl/Acetaminophen 1 each PO Q6HR PRN 05/27/20 06/17/20 1 Day Ago [Percocet 7.5/325 mg] ~06/16/20 1 tab Previous Rx's Medication Instructions Recorded Last Taken Type Acetaminophen [Acetaminophen TAB] 650 mg PO Q4H PRN tablet 05/19/20 1 Day Ago Rx ~06/16/20 650 mg AtorvaSTATin [Lipitor] 40 mg PO QHS #30 tablet 05/19/20 1 Day Ago Rx ~06/16/20 40 mg Calcium 600-Vit D3 800 Tablet 600 mg PO BID #60 05/19/20 1 Day Ago Rx ~06/16/20 600 mg Calcium Acetate [Phoslo] 1,334 mg PO TID #90 cap 05/19/20 1 Day Ago Rx ~06/16/20 1,334 mg Gabapentin 300 mg PO BID #30 capsule 05/19/20 1 Day Ago Rx ~06/16/20 300 mg Midodrine [Proamatine] 5 mg PO BID #60 tablet 05/19/20 1 Day Ago Rx ~06/16/20 5 mg Allergies Allergy/AdvReac Type Severity Reaction Status Date / Time No Known Allergies Allergy Unverified 05/04/20 04:13 ED Review of Systems ROS: Stated complaint: RESP DISTRESS, MISSED DIALYSIS Other details as noted in HPI Comment: All other systems reviewed and negative Constitutional: denies: fever, malaise Respiratory: shortness of breath. denies: cough Cardiovascular: denies: chest pain Musculoskeletal: myalgia ED Past Medical Hx - Past Medical History Previous Medical History?: Yes Hx Hypertension: Yes Hx Heart Attack/AMI: Yes Hx Congestive Heart Failure: Yes Hx Diabetes: Yes Hx Deep Vein Thrombosis: Yes Hx Renal Disease: Yes (END STAGE RENAL DISEASE) Hx Headaches / Migraines: No Hx Seizures: No Hx Asthma: No Hx COPD: Yes Hx Dementia: No Hx HIV: No Additional medical history: Hemodialysis, . Chronic Pain - Surgical History Past Surgical History?: Yes Additional Surgical History: Placement of dialysis access - Social History Smoking Status: Current Every Day Smoker Substance Use Type: None - Medications Home Medications: Home Medications Medication Instructions Recorded Confirmed Last Taken Type Acetaminophen [Acetaminophen TAB] 650 mg PO Q4H PRN tablet 05/19/20 06/17/20 1 Day Ago Rx ~06/16/20 650 mg AtorvaSTATin [Lipitor] 40 mg PO QHS #30 tablet 05/19/20 06/17/20 1 Day Ago Rx ~06/16/20 40 mg Calcium 600-Vit D3 800 Tablet 600 mg PO BID #60 05/19/20 06/17/20 1 Day Ago Rx ~06/16/20 600 mg Calcium Acetate [Phoslo] 1,334 mg PO TID #90 cap 05/19/20 06/17/20 1 Day Ago Rx ~06/16/20 1,334 mg Gabapentin 300 mg PO BID #30 capsule 05/19/20 06/17/20 1 Day Ago Rx ~06/16/20 300 mg Midodrine [Proamatine] 5 mg PO BID #60 tablet 05/19/20 06/17/20 1 Day Ago Rx ~06/16/20 5 mg Oxycodone HCl/Acetaminophen 1 each PO Q6HR PRN 05/27/20 06/17/20 1 Day Ago History [Percocet 7.5/325 mg] ~06/16/20 1 tab ED Physical Exam - General Limitations: Physical Limitation, Other General appearance: alert, in no apparent distress, other (Patient is sleeping comfortably, easily arousable) - Head Head exam: Present: atraumatic, normocephalic - Eye Eye exam: Present: normal appearance - ENT ENT exam: Present: mucous membranes moist - Neck Neck exam: Present: normal inspection, full ROM - Respiratory Respiratory exam: Present: normal lung sounds bilaterally. Absent: respiratory distress, wheezes, rales, rhonchi - Cardiovascular Cardiovascular Exam: Present: regular rate, normal rhythm. Absent: systolic murmur, diastolic murmur, rubs, gallop - GI/Abdominal GI/Abdominal exam: Present: soft. Absent: distended, tenderness, guarding, rebound - Rectal Rectal exam: Present: deferred - Extremities Exam Extremities exam: Present: other (Edematous lower extremities from groin to feet, lichenified indurated skin hyperpigmented in the lower extremities) - Neurological Exam Neurological exam: Present: alert, oriented X3 - Psychiatric Psychiatric exam: Present: normal affect, agitated - Skin Skin exam: Present: warm ED Course Vital Signs 07/15/20 07/16/20 23:30 01:40 Temperature 97.4 F L 97.6 F Pulse Rate 75 80 Respiratory 16 14 Rate Blood Pressure 109/81 Blood Pressure 125/85 [Right] O2 Sat by Pulse 100 100 Oximetry ED Medical Decision Making - Lab Data Result diagrams: 07/15/20 23:46 07/16/20 Unknown - Medical Decision Making Mr. Mcmillan presents with shortness of breath hypervolemia. Patient does not have a home dialysis center or personal cloth brushing and sueding supervisor due to homelessness. He comes to emergency department as needed for dialysis according to his own discretion. Patient is not currently in respiratory distress. He does uremic complications including: Hyperkalemia, hypervolemia, acidosis. Dr. Riley consulted. He will arrange dialysis later today. Critical care attestation.: If time is entered above; I have spent that time in minutes in the direct care of this critically ill patient, excluding procedure time. ED Disposition Clinical Impression: End-stage renal disease needing dialysis, Hyperkalemia, Fluid overload Disposition: OP ADMIT IP TO THIS HOSP Is pt being admited?: Yes Does the pt Need Aspirin: No Condition: Stable
[2020-07-16] MEDS ORDERED: DEXTROSE 50% IN WATER (25GM) 50 ML SYRINGE IV PRN (03:22)
[2020-07-16] MEDS ORDERED: ACETAMINOPHEN 325 MG TAB PO PRN (03:22)
[2020-07-16] MEDS ORDERED: MAGNESIUM HYDROXIDE (MOM) ORAL LIQD UDC PO PRN (03:22)
[2020-07-16] MEDS ORDERED: ONDANSETRON 4 MG/2 ML INJ IV PRN (03:22)
--- NOTE | 2020-07-16 03:30 | History and Physical Report ---
History of Present Illness Date of examination: 07/16/20 Date of admission: 07/16/20 02:20 Chief complaint: Shortness of Breath Lower extremity swelling History of present illness: 54-year-old -Citizen Of [place] male with known history of end-stage renal disease on dialysis presented to the emergency room today complaining of shortness of breath and lower extremity swelling. He is known to be noncompliant with his dialysis. Last dialysis was about 4 days ago. Due to his noncompliance patient does not have a personal business objects report developer. He denies any fever or chills, no chest pain, no nausea vomiting, no headache or dizziness. He states his legs hurt from the tightness due to the swelling. Evaluation in the emergency room reveals hyperkalemia of 5.6 Technology Architect has been consulted by the ER physician for possible dialysis. Patient is homeless. Past History Past Medical History: diabetes, ESRD (Dialysis on friday, , friday), heart failure, hypertension, hyperlipidemia, other (DVT) Past Surgical History: Other (Dialysis access.) Social history: smoking (Current deneen;ly smoker) Family history: no significant family history Medications and Allergies Allergies Allergy/AdvReac Type Severity Reaction Status Date / Time No Known Allergies Allergy Unverified 05/04/20 04:13 Home Medications Medication Instructions Recorded Confirmed Last Taken Type Acetaminophen [Acetaminophen TAB] 650 mg PO Q4H PRN tablet 05/19/20 06/17/20 1 Day Ago Rx ~06/16/20 650 mg AtorvaSTATin [Lipitor] 40 mg PO QHS #30 tablet 05/19/20 06/17/20 1 Day Ago Rx ~06/16/20 40 mg Calcium 600-Vit D3 800 Tablet 600 mg PO BID #60 05/19/20 06/17/20 1 Day Ago Rx ~06/16/20 600 mg Calcium Acetate [Phoslo] 1,334 mg PO TID #90 cap 05/19/20 06/17/20 1 Day Ago Rx ~06/16/20 1,334 mg Gabapentin 300 mg PO BID #30 capsule 05/19/20 06/17/20 1 Day Ago Rx ~06/16/20 300 mg Midodrine [Proamatine] 5 mg PO BID #60 tablet 05/19/20 06/17/20 1 Day Ago Rx ~06/16/20 5 mg Oxycodone HCl/Acetaminophen 1 each PO Q6HR PRN 05/27/20 06/17/20 1 Day Ago History [Percocet 7.5/325 mg] ~06/16/20 1 tab Review of Systems Constitutional: no fever, no chills Ears, nose, mouth and throat: no nasal congestion, no sore throat Cardiovascular: no chest pain, no palpitations Respiratory: shortness of breath, no cough Gastrointestinal: no abdominal pain, no nausea, no vomiting, no diarrhea Genitourinary Male: no dysuria, no hematuria, no flank pain Musculoskeletal: no neck pain, no low back pain Integumentary: no rash, no pruritis Neurological: no headaches, no confusion Psychiatric: no anxiety, no depression Exam - Constitutional Vitals: Temp Pulse Resp BP Pulse Ox 97.6 F 77 14 108/54 96 07/16/20 01:40 07/16/20 03:00 07/16/20 03:00 07/16/20 03:00 07/16/20 03:00 General appearance: Present: no acute distress, well-nourished, obese - EENT Eyes: Present: PERRL, EOM intact ENT: hearing intact, clear oral mucosa, dentition normal - Neck Neck: Present: supple, normal ROM - Respiratory Respiratory effort: normal Respiratory: bilateral: diminished - Cardiovascular Rhythm: regular Heart Sounds: Present: S1 & S2. Absent: gallop, systolic murmur, diastolic murmur, rub - Extremities Extremities: no ischemia, pulses intact, pulses symmetrical, Full ROM Extremity abnormal: edema (1+ bilateral lower extremity edema, skin over legs hyperpigmented and feels tight) Peripheral Pulses: within normal limits - Abdominal General gastrointestinal: Present: soft, non-tender, non-distended, normal bowel sounds. Absent: mass - Integumentary Integumentary: Present: clear, warm, dry - Musculoskeletal Musculoskeletal: strength equal bilaterally - Psychiatric Psychiatric: appropriate mood/affect, intact judgment & insight, memory intact, cooperative - Neurologic Neurologic: CNII-XII intact, focal deficits, moves all extremities Results - Labs CBC & Chem 7: 07/15/20 23:46 07/16/20 Unknown Labs: Abnormal lab results 07/15/20 07/16/20 Range/Units 23:46 Unknown Hgb 11.2 L (11.8-15.2) gm/dl Hct 33.2 L (35.5-45.6) % RDW 19.4 H (13.2-15.2) % Lymph % (Auto) 9.7 L (13.4-35.0) % [place] % (Auto) 8.8 H (0.0-7.3) % Lymph # 0.6 L (1.2-5.4) K/mm3 Seg Neutrophils % 78.4 H (40.0-70.0) % Sodium 128 L (137-145) mmol/L Potassium 5.6 H (3.6-5.0) mmol/L Chloride 88.3 L (98-107) mmol/L Carbon Dioxide 15 L (22-30) mmol/L BUN 67 H (9-20) mg/dL Creatinine 9.9 H (0.8-1.3) mg/dL Calcium 5.5 L* (8.4-10.2) mg/dL Assessment and Plan - Patient Problems (1) End-stage renal disease needing dialysis Current Visit: Yes Status: Chronic Plan to address problem: Patient admitted and placed on telemetry. Will await further evaluation by business objects report developer for dialysis. (2) Hyperkalemia Current Visit: Yes Status: Chronic Plan to address problem: Patient to undergo dialysis this a.m. Will monitor potassium level (3) Morbid obesity with BMI of 40.0-44.9, adult Current Visit: No Status: Acute Plan to address problem: We will place dietary consult for evaluation. (4) DVT prophylaxis Current Visit: No Status: Acute Plan to address problem: Patient placed on subcutaneous heparin. (5) Full code status Current Visit: No Status: Acute
--- NOTE | 2020-07-16 09:38 | Event Note ---
Date: 07/16/20 This is a follow-up from an admission earlier this morning. Patient seen and examined. Continue to plan as outlined in H&P. Await nephrology consultation for hemodialysis. Anticipate discharge after hemodialysis if okay with nephrology. Total visit time equals 35 minutes with greater than 50% spent on coordination of care and counseling.
[2020-07-16] MEDS: INSULIN LISPRO 100 UNIT/ML VIAL 3 mL SUB-Q SCH ×3 (10:59→22:02)
--- NOTE | 2020-07-16 11:21 | Consultation ---
History of Present Illness - Reason for Consult Consult date: 07/16/20 end stage renal disease - History of Present Illness patient with ESRD on HD does not have established dialysis clinic due to por compliance, he was admitted yesterday due to worsening of swelling and SOB, last HD was 5 days ago. renal consult was requested for HD management Past History Past Medical History: diabetes, ESRD (Dialysis on friday, , friday), heart failure, hypertension, hyperlipidemia, other (DVT) Past Surgical History: Other (Dialysis access.) Social history: smoking (Current deneen;ly smoker) Family history: no significant family history Medications and Allergies Allergies Allergy/AdvReac Type Severity Reaction Status Date / Time No Known Allergies Allergy Unverified 05/04/20 04:13 Home Medications Medication Instructions Recorded Confirmed Last Taken Type Acetaminophen [Acetaminophen TAB] 650 mg PO Q4H PRN tablet 05/19/20 06/17/20 1 Day Ago Rx ~06/16/20 650 mg AtorvaSTATin [Lipitor] 40 mg PO QHS #30 tablet 05/19/20 06/17/20 1 Day Ago Rx ~06/16/20 40 mg Calcium 600-Vit D3 800 Tablet 600 mg PO BID #60 05/19/20 06/17/20 1 Day Ago Rx ~06/16/20 600 mg Calcium Acetate [Phoslo] 1,334 mg PO TID #90 cap 05/19/20 06/17/20 1 Day Ago Rx ~06/16/20 1,334 mg Gabapentin 300 mg PO BID #30 capsule 05/19/20 06/17/20 1 Day Ago Rx ~06/16/20 300 mg Midodrine [Proamatine] 5 mg PO BID #60 tablet 05/19/20 06/17/20 1 Day Ago Rx ~06/16/20 5 mg Oxycodone HCl/Acetaminophen 1 each PO Q6HR PRN 05/27/20 06/17/20 1 Day Ago History [Percocet 7.5/325 mg] ~06/16/20 1 tab Active Meds: Active Medications Acetaminophen (Tylenol) 650 mg PO Q4H PRN PRN Reason: Pain MILD(1-3)/Fever >100.5/MALDONADO Dextrose (D50w (25gm) Syringe) 0 ml IV Q30MIN PRN; Protocol PRN Reason: Hypoglycemia Insulin Human Lispro (Humalog) 0 unit SUB-Q ACHS LIBORIO; Protocol Last Admin: 07/16/20 10:59 Dose: Not Given Documented by: Magnesium Hydroxide (Milk Of Magnesia) 30 ml PO Q4H PRN PRN Reason: Constipation Morphine Sulfate (Morphine) 2 mg IV Q4H PRN PRN Reason: Pain, Moderate (4-6) Ondansetron HCl (Zofran) 4 mg IV Q8H PRN PRN Reason: Nausea And Vomiting Sodium Chloride (Sodium Chloride Flush Syringe 10 Ml) 10 ml IV BID LIBORIO Sodium Chloride (Sodium Chloride Flush Syringe 10 Ml) 10 ml IV PRN PRN PRN Reason: LINE FLUSH Review of Systems All systems: negative (SOB) Exam - Vital Signs Vital signs: Vital Signs Temp Pulse Resp BP Pulse Ox 97.4 F L 75 16 109/81 100 07/15/20 23:30 07/15/20 23:30 07/15/20 23:30 07/15/20 23:30 07/15/20 23:30 - General Appearance General appearance: well-developed, well-nourished, obese EENT: ATNC, PERRL, mucous membranes moist Neck: Present: neck supple Respiratory: Decreased Breath Sounds Gastrointestinal: Present: normoactive bowel sounds. Absent: tenderness, distended Integumentary: no rash, warm and dry Neurologic: no focal deficit, no asterixis Musculoskeletal: Present: other (edema in BLE) Psychiatric: cooperative Results - Lab Results 07/15/20 23:46 07/16/20 Unknown Most recent lab results Calcium 5.5 mg/dL (8.4-10.2) L* 07/16/20 Unknown Assessment and Plan ESRD on HD Hyponatremia due to hypervolemia Hypocalcemia mild hyperkalemia volume overload STAT HD today for clearance and volume removal will assess dialysis need daily renally dose meds strict I&O daily weight Casper Riley MD [phone]
[2020-07-16] MEDS: MORPHINE 2 MG/1 ML INJ IV PRN ×2 (11:24→14:54)
[2020-07-17 05:32] LABS: Calcium 5.1 mg/dL (8.4-10.2)
[2020-07-17 05:37] LABS: Hematocrit 33.5 % (35.5-45.6); Hemoglobin 11.1 gm/dl (11.8-15.2); Mean Corpuscular HGB Conc 33 % (32-34); Mean Corpuscular Volume 86 fl (84-94); Red Blood Count 3.87 M/mm3 (3.65-5.03); Red Cell Distribution Width 19.9 % (13.2-15.2)
[2020-07-17] MEDS ORDERED: CALCIUM GLUCONATE 1,000 MG in SODIUM CHLORIDE 0.9% 100 ML IV ONE (05:39)
[2020-07-17 05:40] LABS: INR 1.15 (0.87-1.13); Platelet Count 307 K/mm3 (140-440)
[2020-07-17 06:14] LABS: Total Cells Counted 100
[2020-07-17 06:15] LABS: Anisocytosis 1+; Platelet Estimate Consistent w Auto
[2020-07-17] MEDS: INSULIN LISPRO 100 UNIT/ML VIAL 3 mL SUB-Q SCH ×3 (08:00→16:52)
[2020-07-17] MEDS ORDERED: DEXTROSE 50% IN WATER (25GM) 50 ML SYRINGE IV SCH (09:00)
[2020-07-17] MEDS ORDERED: INSULIN REGULAR, HUMAN 100 UNIT/ML 3ML VIAL IV ONE (09:00)
[2020-07-17] MEDS ORDERED: SODIUM POLYSTYRENE 15 GM/60 ML ORAL LIQD PO ONE (09:00)
[2020-07-17] MEDS ORDERED: CALCIUM GLUCONATE 1,000 MG in SODIUM CHLORIDE 0.9% 100 ML IV NR (09:00)
--- NOTE | 2020-07-17 09:07 | Progress Note ---
Assessment and Plan ESRD on HD Hyponatremia due to hypervolemia Hypocalcemia mild hyperkalemia volume overload STAT HD ordered yesterday but was not done for unclear reason, will discuss with HD nurse, ordered STAT again today IV calcium, IV insulin with D50W, STAT ECG and SPS ordered for hyperkalemia will assess dialysis need daily renally dose meds strict I&O daily weight Casper Riley MD [phone] Subjective Date of service: 07/17/20 Principal diagnosis: ESRD on HD Interval history: comfortable, denies acute issues Objective - Vital Signs Vital signs: Vital Signs - 12hr 07/16/20 07/17/20 07/17/20 23:14 00:10 03:50 Temperature 97.9 F Pulse Rate 65 65 75 Respiratory 20 18 Rate Blood Pressure 126/77 Blood Pressure 101/62 [Right] O2 Sat by Pulse 100 91 Oximetry 07/17/20 07:50 Temperature 98.0 F Pulse Rate 69 Respiratory 20 Rate Blood Pressure 103/55 Blood Pressure [Right] O2 Sat by Pulse 98 Oximetry - General Appearance General appearance: well-developed, well-nourished, obese EENT: ATNC, PERRL Neck: no JVD Respiratory: Present: Decreased Breath Sounds. Absent: Rales, Ronchi Cardiology: regular, S1S2 Gastrointestinal: normoactive bowel sounds, no tenderness, no distended Integumentary: no rash, warm and dry Neurologic: no focal deficit, no asterixis Musculoskeletal: other (trace pitting edema in BLE) Psychiatric: cooperative - Lab 07/17/20 04:27 07/17/20 04:27 Most recent lab results Calcium 5.1 mg/dL (8.4-10.2) L* 07/17/20 04:27 Medications & Allergies - Medications Allergies/Adverse Reactions: Allergies No Known Allergies Allergy (Unverified 05/04/20 04:13) Home Medications: Home Medications Medication Instructions Recorded Confirmed Last Taken Type Acetaminophen [Acetaminophen TAB] 650 mg PO Q4H PRN tablet 05/19/20 06/17/20 1 Day Ago Rx ~06/16/20 650 mg AtorvaSTATin [Lipitor] 40 mg PO QHS #30 tablet 05/19/20 06/17/20 1 Day Ago Rx ~06/16/20 40 mg Calcium 600-Vit D3 800 Tablet 600 mg PO BID #60 05/19/20 06/17/20 1 Day Ago Rx ~06/16/20 600 mg Calcium Acetate [Phoslo] 1,334 mg PO TID #90 cap 05/19/20 06/17/20 1 Day Ago Rx ~06/16/20 1,334 mg Gabapentin 300 mg PO BID #30 capsule 05/19/20 06/17/20 1 Day Ago Rx ~06/16/20 300 mg Midodrine [Proamatine] 5 mg PO BID #60 tablet 05/19/20 06/17/20 1 Day Ago Rx ~06/16/20 5 mg Oxycodone HCl/Acetaminophen 1 each PO Q6HR PRN 05/27/20 06/17/20 1 Day Ago History [Percocet 7.5/325 mg] ~06/16/20 1 tab Active Medications: Generic Name Dose Route Start Last Admin Trade Name Freq PRN Reason Stop Dose Admin Acetaminophen 650 mg 07/16/20 03:22 Tylenol PO Q4H PRN Pain MILD(1-3)/Fever >100.5/MALDONADO Dextrose 0 ml 07/16/20 03:22 D50w (25gm) Syringe IV Q30MIN PRN Hypoglycemia Protocol Dextrose 25 ml 07/17/20 09:00 D50w (25gm) Syringe IV 07/18/20 09:01 Q30MIN LIBORIO Protocol Calcium Gluconate 1,000 mg/ 110 mls @ 220 mls/hr 07/17/20 09:00 Sodium Chloride IV 07/17/20 10:00 ONCE NR Insulin Human Lispro 0 unit 07/16/20 07:30 07/16/20 22:02 Humalog SUB-Q Not Given ACHS LIBORIO Protocol Magnesium Hydroxide 30 ml 07/16/20 03:22 Milk Of Magnesia PO Q4H PRN Constipation Morphine Sulfate 2 mg 07/16/20 03:22 07/16/20 14:54 Morphine IV 2 mg Q4H PRN Administration Pain, Moderate (4-6) Ondansetron HCl 4 mg 07/16/20 03:22 Zofran IV Q8H PRN Nausea And Vomiting Sodium Chloride 10 ml 07/16/20 10:00 07/16/20 22:02 Sodium Chloride Flush Syringe 10 Ml IV 10 ml BID LIBORIO Administration Sodium Chloride 10 ml 07/16/20 03:22 Sodium Chloride Flush Syringe 10 Ml IV PRN PRN LINE FLUSH
[2020-07-17] MEDS: MORPHINE 2 MG/1 ML INJ IV PRN ×2 (09:13→17:31)
--- NOTE | 2020-07-17 09:45 | Progress Note ---
Assessment and Plan Assessment and plan: ESRD. Patient on HD. STAT HD ordered yesterday but was not done for unclear reason, ordered STAT again today. Nephrology following. Hyperkalemia. IV calcium, IV insulin with D50W, STAT ECG and SPS ordered for hyperkalemia. Morbid obesity. Volume overload. Hemodialysis per nephrology. Hypertension. Continue home antihypertensive medications. Hyperlipidemia. Continue statin. Diabetes mellitus type 2. Continue Accu-Cheks and sliding scale insulin. Medical noncompliance. Patient has been counseled and educated. History Interval history: No new issues. Hospitalist Physical - Constitutional Vitals: Temp Pulse Resp BP Pulse Ox 98.0 F 69 16 103/55 98 07/17/20 07:50 07/17/20 07:50 07/17/20 09:13 07/17/20 07:50 07/17/20 07:50 General appearance: Present: no acute distress, well-nourished, obese - EENT Eyes: Present: PERRL, EOM intact ENT: hearing intact, clear oral mucosa, dentition normal - Neck Neck: Present: supple, normal ROM - Respiratory Respiratory effort: normal Respiratory: bilateral: CTA - Cardiovascular Rhythm: regular Heart Sounds: Present: S1 & S2. Absent: gallop, rub - Extremities Extremities: no ischemia, No edema, Full ROM - Abdominal General gastrointestinal: soft, non-tender, non-distended, normal bowel sounds - Integumentary Integumentary: Present: clear, warm, dry - Neurologic Neurologic: CNII-XII intact, moves all extremities Results - Labs CBC & Chem 7: 07/17/20 04:27 07/17/20 04:27 Labs: Laboratory Last Values WBC 6.9 K/mm3 (4.5-11.0) 07/17/20 04:27 RBC 3.87 M/mm3 (3.65-5.03) 07/17/20 04:27 Hgb 11.1 gm/dl (11.8-15.2) L 07/17/20 04:27 Hct 33.5 % (35.5-45.6) L 07/17/20 04:27 MCV 86 fl (84-94) 07/17/20 04:27 MCH 29 pg (28-32) 07/17/20 04:27 MCHC 33 % (32-34) 07/17/20 04:27 RDW 19.9 % (13.2-15.2) H 07/17/20 04:27 Plt Count 307 K/mm3 (140-440) 07/17/20 04:27 Lymph % (Auto) 9.7 % (13.4-35.0) L 07/15/20 23:46 [place] % (Auto) Rubber Splicer 07/17/20 04:27 Eos % (Auto) 2.0 % (0.0-4.3) 07/15/20 23:46 Baso % (Auto) 1.1 % (0.0-1.8) 07/15/20 23:46 Lymph # 0.6 K/mm3 (1.2-5.4) L 07/15/20 23:46 [place] # 0.6 K/mm3 (0.0-0.8) 07/15/20 23:46 Eos # 0.1 K/mm3 (0.0-0.4) 07/15/20 23:46 Baso # 0.1 K/mm3 (0.0-0.1) 07/15/20 23:46 Add Manual Diff Complete 07/17/20 04:27 Total Counted 100 07/17/20 04:27 Seg Neutrophils % 78.4 % (40.0-70.0) H 07/15/20 23:46 Seg Neuts % (Manual) 81.0 % (40.0-70.0) H 07/17/20 04:27 Band Neutrophils % 0 % 07/17/20 04:27 Lymphocytes % (Manual) 7.0 % (13.4-35.0) L 07/17/20 04:27 Reactive Lymphs % (Man) 0 % 07/17/20 04:27 Monocytes % (Manual) 7.0 % (0.0-7.3) 07/17/20 04:27 Eosinophils % (Manual) 4.0 % (0.0-4.3) 07/17/20 04:27 Basophils % (Manual) 1.0 % (0.0-1.8) 07/17/20 04:27 Metamyelocytes % 0 % 07/17/20 04:27 Myelocytes % 0 % 07/17/20 04:27 Promyelocytes % 0 % 07/17/20 04:27 Blast Cells % 0 % 07/17/20 04:27 Nucleated RBC % Not Reportable 07/17/20 04:27 Seg Neutrophils # 5.2 K/mm3 (1.8-7.7) 07/15/20 23:46 Seg Neutrophils # Man 5.6 K/mm3 (1.8-7.7) 07/17/20 04:27 Band Neutrophils # 0.0 K/mm3 07/17/20 04:27 Lymphocytes # (Manual) 0.5 K/mm3 (1.2-5.4) L 07/17/20 04:27 Abs React Lymphs (Man) 0.0 K/mm3 07/17/20 04:27 Monocytes # (Manual) 0.5 K/mm3 (0.0-0.8) 07/17/20 04:27 Eosinophils # (Manual) 0.3 K/mm3 (0.0-0.4) 07/17/20 04:27 Basophils # (Manual) 0.1 K/mm3 (0.0-0.1) 07/17/20 04:27 Metamyelocytes # 0.0 K/mm3 07/17/20 04:27 Myelocytes # 0.0 K/mm3 07/17/20 04:27 Promyelocytes # 0.0 K/mm3 07/17/20 04:27 Blast Cells # 0.0 K/mm3 07/17/20 04:27 WBC Morphology Not Reportable 07/17/20 04:27 Hypersegmented Neuts Not Reportable 07/17/20 04:27 Hyposegmented Neuts Not Reportable 07/17/20 04:27 Hypogranular Neuts Not Reportable 07/17/20 04:27 Smudge Cells Not Reportable 07/17/20 04:27 Toxic Granulation Not Reportable 07/17/20 04:27 Toxic Vacuolation Not Reportable 07/17/20 04:27 Dohle Bodies Not Reportable 07/17/20 04:27 Pelger-Huet Anomaly Not Reportable 07/17/20 04:27 Loni Rods Not Reportable 07/17/20 04:27 Platelet Estimate Consistent w auto 07/17/20 04:27 Clumped Platelets Not Reportable 07/17/20 04:27 Plt Clumps, EDTA Not Reportable 07/17/20 04:27 Large Platelets Not Reportable 07/17/20 04:27 Giant Platelets Not Reportable 07/17/20 04:27 Platelet Satelliting Not Reportable 07/17/20 04:27 Plt Morphology Comment Not Reportable 07/17/20 04:27 RBC Morphology Not Reportable 07/17/20 04:27 Dimorphic RBCs Not Reportable 07/17/20 04:27 Polychromasia Not Reportable 07/17/20 04:27 Hypochromasia Not Reportable 07/17/20 04:27 Poikilocytosis Not Reportable 07/17/20 04:27 Anisocytosis 1+ 07/17/20 04:27 Microcytosis Not Reportable 07/17/20 04:27 Macrocytosis Not Reportable 07/17/20 04:27 Spherocytes Not Reportable 07/17/20 04:27 Pappenheimer Bodies Not Reportable 07/17/20 04:27 Sickle Cells Not Reportable 07/17/20 04:27 Target Cells Not Reportable 07/17/20 04:27 Tear Drop Cells Not Reportable 07/17/20 04:27 Ovalocytes Not Reportable 07/17/20 04:27 Helmet Cells Not Reportable 07/17/20 04:27 [place] Bodies Not Reportable 07/17/20 04:27 [place] Rings Not Reportable 07/17/20 04:27 [place] Cells Not Reportable 07/17/20 04:27 Bite Cells Not Reportable 07/17/20 04:27 Crenated Cell Not Reportable 07/17/20 04:27 Elliptocytes Not Reportable 07/17/20 04:27 Acanthocytes (Spur) Not Reportable 07/17/20 04:27 Rouleaux Not Reportable 07/17/20 04:27 Hemoglobin C Crystals Not Reportable 07/17/20 04:27 Schistocytes Not Reportable 07/17/20 04:27 Malaria parasites Not Reportable 07/17/20 04:27 Magdy Bodies Not Reportable 07/17/20 04:27 Hem Pathologist Commnt No 07/17/20 04:27 PT 14.9 Sec. (12.2-14.9) 07/17/20 04:27 INR 1.15 (0.87-1.13) H 07/17/20 04:27 Sodium 128 mmol/L (137-145) L 07/17/20 04:27 Potassium 6.0 mmol/L (3.6-5.0) H 07/17/20 04:27 Chloride 88.0 mmol/L (98-107) L 07/17/20 04:27 Carbon Dioxide 17 mmol/L (22-30) L 07/17/20 04:27 Anion Gap 29 mmol/L 07/17/20 04:27 BUN 71 mg/dL (9-20) H 07/17/20 04:27 Creatinine 10.6 mg/dL (0.8-1.3) H 07/17/20 04:27 Estimated GFR 6 ml/min 07/17/20 04:27 BUN/Creatinine Ratio 7 % 07/17/20 04:27 Glucose 109 mg/dL (75-100) H 07/17/20 04:27 POC Glucose 143 (70-105) H 07/16/20 20:43 Calcium 5.1 mg/dL (8.4-10.2) L* 07/17/20 04:27 Lee/IV: Voiding Method Incontinent IV Catheter Type [Left Femoral VAS Cath ] IV Catheter Type [Right Hand] INT / Saline Lock Active Medications - Current Medications Current Medications: Generic Name Dose Route Start Last Admin Trade Name Freq PRN Reason Stop Dose Admin Acetaminophen 650 mg 07/16/20 03:22 Tylenol PO Q4H PRN Pain MILD(1-3)/Fever >100.5/MALDONADO Dextrose 0 ml 07/16/20 03:22 D50w (25gm) Syringe IV Q30MIN PRN Hypoglycemia Protocol Dextrose 25 ml 07/17/20 09:00 D50w (25gm) Syringe IV 07/18/20 09:01 Q30MIN LIBORIO Protocol Calcium Gluconate 1,000 mg/ 110 mls @ 220 mls/hr 07/17/20 09:00 07/17/20 09:15 Sodium Chloride IV 07/17/20 10:00 220 mls/hr ONCE NR Administration Insulin Human Lispro 0 unit 07/16/20 07:30 07/17/20 08:00 Humalog SUB-Q Not Given ACHS LIBOIRO Protocol Magnesium Hydroxide 30 ml 07/16/20 03:22 Milk Of Magnesia PO Q4H PRN Constipation Morphine Sulfate 2 mg 07/16/20 03:22 07/17/20 09:13 Morphine IV 2 mg Q4H PRN Administration Pain, Moderate (4-6) Ondansetron HCl 4 mg 07/16/20 03:22 Zofran IV Q8H PRN Nausea And Vomiting Sodium Chloride 10 ml 07/16/20 10:00 07/17/20 09:30 Sodium Chloride Flush Syringe 10 Ml IV 10 ml BID LIBORIO Administration Sodium Chloride 10 ml 07/16/20 03:22 Sodium Chloride Flush Syringe 10 Ml IV PRN PRN LINE FLUSH Nutrition/Malnutrition Assess - Dietary Evaluation Nutrition/Malnutrition Findings: Nutrition Notes Start: 07/16/20 11:22 Freq: Status: Active Protocol: Document 07/16/20 11:22 LM (Rec: 07/16/20 11:27 LM [id number]) Nutrition Notes Need for Assessment 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 Pt was struggling to speak at time of visit. 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 Nutrition Intervention Change Diet Order: cardiac/consistent CHO/renal Follow-Up By: 07/19/20 Additional Comments F/U for diet education
[2020-07-17] MEDS ORDERED: SODIUM CHLORIDE 0.9% 100 ML IV PRN (12:12)
[2020-07-17] MEDS ORDERED: ALBUMIN HUMAN 25% (25 GM/100 ML) INJ IV PRN (12:12)
[2020-07-17 13:26] LABS: Hepatitis B Surface Antigen Non-Reactive (Negative); Hepatitis C Virus Antibody Non-Reactive (NonReactive)
[2020-07-18] MEDS: MORPHINE 2 MG/1 ML INJ IV PRN ×2 (00:46→09:35)
[2020-07-18] MEDS: INSULIN LISPRO 100 UNIT/ML VIAL 3 mL SUB-Q SCH ×3 (01:42→13:42)
[2020-07-18 08:24] LABS: Basophils % (Auto) 0.4 % (0.0-1.8); Eosinophils # (Auto) 0.1 K/mm3 (0.0-0.4); Eosinophils % (Auto) 2.5 % (0.0-4.3); Hematocrit 29.9 % (35.5-45.6); Hemoglobin 9.9 gm/dl (11.8-15.2); Lymphocytes # (Auto) 0.4 K/mm3 (1.2-5.4); Mean Corpuscular HGB Conc 33 % (32-34); Mean Corpuscular Volume 87 fl (84-94); Monocytes # (Auto) 0.7 K/mm3 (0.0-0.8); Monocytes % (Auto) 13.1 % (0.0-7.3); Platelet Count 258 K/mm3 (140-440); Red Blood Count 3.44 M/mm3 (3.65-5.03); Red Cell Distribution Width 19.6 % (13.2-15.2)
[2020-07-18 08:48] LABS: Calcium 5.6 mg/dL (8.4-10.2)
--- NOTE | 2020-07-18 09:03 | Progress Note ---
Assessment and Plan ESRD on HD Hyponatremia due to hypervolemia Hypocalcemia mild hyperkalemia volume overload no indciation for HD today IV calcium gluconate ordered, started on calcitriol and calcium carbonate between meals will assess dialysis need daily renally dose meds strict I&O daily weight Casper Riley MD [phone] Subjective Date of service: 07/18/20 Principal diagnosis: ESRD on HD Interval history: tolerated HD yesterday Objective - Vital Signs Vital signs: Vital Signs - 12hr 07/17/20 07/17/20 07/18/20 23:51 23:54 05:10 Temperature 98.2 F 98.6 F Pulse Rate 87 85 78 Respiratory 20 22 Rate Blood Pressure 100/62 Blood Pressure 116/74 [Right] O2 Sat by Pulse 100 92 Oximetry 07/18/20 07:19 Temperature 98.0 F Pulse Rate 82 Respiratory 20 Rate Blood Pressure 148/60 Blood Pressure [Right] O2 Sat by Pulse 100 Oximetry - Lab 07/18/20 07:39 07/18/20 07:39 Most recent lab results Calcium 5.6 mg/dL (8.4-10.2) L* 07/18/20 07:39 Medications & Allergies - Medications Allergies/Adverse Reactions: Allergies No Known Allergies Allergy (Unverified 05/04/20 04:13) Home Medications: Home Medications Medication Instructions Recorded Confirmed Last Taken Type Acetaminophen [Acetaminophen TAB] 650 mg PO Q4H PRN tablet 05/19/20 06/17/20 1 Day Ago Rx ~06/16/20 650 mg AtorvaSTATin [Lipitor] 40 mg PO QHS #30 tablet 05/19/20 06/17/20 1 Day Ago Rx ~06/16/20 40 mg Calcium 600-Vit D3 800 Tablet 600 mg PO BID #60 05/19/20 06/17/20 1 Day Ago Rx ~06/16/20 600 mg Calcium Acetate [Phoslo] 1,334 mg PO TID #90 cap 05/19/20 06/17/20 1 Day Ago Rx ~06/16/20 1,334 mg Gabapentin 300 mg PO BID #30 capsule 05/19/20 06/17/20 1 Day Ago Rx ~06/16/20 300 mg Midodrine [Proamatine] 5 mg PO BID #60 tablet 05/19/20 06/17/20 1 Day Ago Rx ~06/16/20 5 mg Oxycodone HCl/Acetaminophen 1 each PO Q6HR PRN 05/27/20 06/17/20 1 Day Ago History [Percocet 7.5/325 mg] ~06/16/20 1 tab Active Medications: Generic Name Dose Route Start Last Admin Trade Name Freq PRN Reason Stop Dose Admin Acetaminophen 650 mg 07/16/20 03:22 Tylenol PO Q4H PRN Pain MILD(1-3)/Fever >100.5/MALDONADO Albumin Human 25 gm 07/17/20 12:12 Alburx 25% (Albumin) IV PEDRITO PRN Hypotension Calcitriol 0.5 mcg 07/18/20 10:00 Rocaltrol PO QDAY [facility] Calcium Carbonate/Glycine 1,250 mg 07/18/20 14:00 Oscal PO TID [facility] Dextrose 0 ml 07/16/20 03:22 D50w (25gm) Syringe IV Q30MIN PRN Hypoglycemia Protocol Sodium Chloride 100 mls @ 999 mls/hr 07/17/20 12:12 Nacl 0.9% IV PEDRITO PRN Hypotension Calcium Gluconate 1,000 mg/ 110 mls @ 660 mls/hr 07/18/20 08:59 Sodium Chloride IV 07/18/20 09:08 ONCE ONE Insulin Human Lispro 0 unit 07/16/20 07:30 07/18/20 08:21 Humalog SUB-Q Not Given ACHS [facility] Protocol Magnesium Hydroxide 30 ml 07/16/20 03:22 Milk Of Magnesia PO Q4H PRN Constipation Morphine Sulfate 2 mg 07/16/20 03:22 07/18/20 00:46 Morphine IV 2 mg Q4H PRN Administration Pain, Moderate (4-6) Ondansetron HCl 4 mg 07/16/20 03:22 Zofran IV Q8H PRN Nausea And Vomiting Sodium Chloride 10 ml 07/16/20 10:00 07/18/20 00:34 Sodium Chloride Flush Syringe 10 Ml IV 10 ml BID LIBORIO Administration Sodium Chloride 10 ml 07/16/20 03:22 Sodium Chloride Flush Syringe 10 Ml IV PRN PRN LINE FLUSH
--- NOTE | 2020-07-18 09:33 | Discharge Summary ---
Providers - Providers Date of Admission: 07/17/20 13:49 Attending physician: JAIME HUFFMAN MD 07/16/20 02:21 Consult to Physician [CONS] Stat Comment: Consulting Provider: TORRIE MONTANO Physician Instructions: Reason For Exam: ESRD requiring dialysis 07/16/20 03:22 Consult to Dietitian/Nutrition [CONS] Routine Physician Instructions: Reason For Exam: Reason for Consult: Diet education Primary care physician: BREAKER LAYER Hospitalization Reason for admission: Volume overload Condition: Stable Hospital course: 54-year-old -[place] male with known history of end-stage renal disease on dialysis presented to the emergency room today complaining of shortness of breath and lower extremity swelling. He is known to be noncompliant with his dialysis. Last dialysis was about 4 days ago. 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 He denies any fever or chills, no chest pain, no nausea vomiting, no headache or dizziness. He states his legs hurt from the tightness due to the swelling. Patient unfortunately has not been able to establish with outside dialysis and continues to use the hospital for his dialysis. This is due to noncompliance but appears to be doing very well with compliance coming for dialysis in the hospital case management continues to work on placement. Potassium is improved. He is sitting up in bed today with no current complaints. Did not emphasize need for any refill on his pain medications. Evaluation in the emergency room reveals hyperkalemia of 5.6 Account Assistant has been consulted by the ER physician for possible dialysis. Patient is homeless. ESRD. Patient on HD. STAT HD ordered yesterday but was not done for unclear reason, ordered STAT again today. Nephrology following. Hyperkalemia. Morbid obesity. Volume overload. Hemodialysis per nephrology. Hypertension. Continue home antihypertensive medications. Hyperlipidemia. Continue statin. Diabetes mellitus type 2. Continue Accu-Cheks and sliding scale insulin. Medical noncompliance. Patient has been counseled and educated. Chronic pain syndrome Disposition: TO HOME OR SELFCARE Time spent for discharge: 35 mins Core Measure Documentation - Palliative Care Palliative Care/ Comfort Measures: Not Applicable - Core Measures Any of the following diagnoses?: none Exam - Physical Exam Narrative exam: VITAL SIGNS: Reviewed. GENERAL: The patient appears normally developed, morbidly obese vital signs as documented. HEAD: No signs of head trauma. EYES: Pupils are equal. Extraocular motions intact. EARS: Hearing grossly intact. MOUTH: Oropharynx is normal. NECK: No adenopathy, no JVD. CHEST: Chest with clear breath sounds bilaterally. No wheezes, rales, or rhonchi. CARDIAC: Regular rate and rhythm. S1 and S2, without murmurs, gallops, or rubs. VASCULAR: No Edema. Peripheral pulses normal and equal in all extremities. ABDOMEN: Soft, non tender and non distended. No rebound or guarding, and no masses palpated. Bowel Sounds normal. MUSCULOSKELETAL: Good range of motion of all major joints. Extremities without clubbing, cyanosis. Chronic edema bilateral lower extremity. NEUROLOGIC EXAM: Alert and oriented x 3 No focal sensory or strength deficits. Speech normal. Follows commands. PSYCHIATRIC: Mood normal. SKIN: detail exam as documented in skin assessment Scrotal edema otherwise improved from previous. - Constitutional Vitals: Temp Pulse Resp BP Pulse Ox 98.0 F 82 20 148/60 100 07/18/20 07:19 07/18/20 07:19 07/18/20 07:19 07/18/20 07:19 07/18/20 07:19 Plan Activity: advance as tolerated, fall precautions Diet: low fat, diabetic, renal Special Instructions: restrict fluid intake to (1000 cc/day), record daily BP diary Follow up with: DAVE POWERS MD [Primary Care Provider] - 7 Days TORRIE MONTANO MD [Staff Physician] - 7 Days
[2020-07-18] MEDS ORDERED: CALCITRIOL 0.5 MCG CAP PO SCH (10:00)
[2020-07-18] MEDS ORDERED: CALCIUM GLUCONATE 1,000 MG in SODIUM CHLORIDE 0.9% 100 ML IV ONE (10:00)
[2020-07-18] MEDS ORDERED: CALCIUM CARBONATE 1250 MG TAB PO SCH (14:00)
[2020-07-18 15:09] VITALS: BP 141/84
== END 2020-07-18 14:35 | disposition home or self-care (01) | DRG 640 ==
LOC: ED 23:10 → 4A 07-16 02:20 → OBSVTOIN 07-17 13:49
PROVIDERS: ADMIT Internal Medicine Geriatric Medicine; ATTEND Internal Medicine
PROC: 5A1D70Z Performance of Urinary Filtration, Intermittent, Less than 6 Hours Per Day (ICD-10-PCS; principal; 2020-07-17)
PROC: 5A1D70Z Performance of Urinary Filtration, Intermittent, Less than 6 Hours Per Day (ICD-10-PCS; 2020-07-18)
DX: E87.5 Hyperkalemia (principal); N18.6 End stage renal disease; Z68.41 Body mass index [BMI] 40.0-44.9, adult; I13.2 Hypertensive heart and chronic kidney disease with heart failure and with stage 5 chronic kidney disease, or end stage renal disease; E87.70 Fluid overload, unspecified; E87.2 Acidosis; E66.01 Morbid (severe) obesity due to excess calories; E87.1 Hypo-osmolality and hyponatremia; F17.210 Nicotine dependence, cigarettes, uncomplicated; I25.10 Atherosclerotic heart disease of native coronary artery without angina pectoris; E11.22 Type 2 diabetes mellitus with diabetic chronic kidney disease; J44.9 Chronic obstructive pulmonary disease, unspecified; E78.5 Hyperlipidemia, unspecified; E83.51 Hypocalcemia; G89.4 Chronic pain syndrome; I50.9 Heart failure, unspecified; Z99.2 Dependence on renal dialysis; Z91.15 Patient's noncompliance with renal dialysis; Z79.4 Long term (current) use of insulin; Z86.718 Personal history of other venous thrombosis and embolism; Z71.6 Tobacco abuse counseling; I25.2 Old myocardial infarction
CPT/HCPCS: 36415; 80048; 80074; 82962; 85007; 85025; 85610; 93005; 99406; G0378; J0610; J1815; J2270; P9047

== ENCOUNTER 2020-07-20 09:55 | Observation (INO) | payer MEDICARE ==
--- NOTE | 2020-07-20 10:52 | Emergency Department Report ---
Blank Doc - Documentation Documentation: 54-year-old male that presents with generlized swelling and SOB. Missed dialy sis today. This initial assessment/diagnostic orders/clinical plan/treatment(s) is/are subject to change based on patient's health status, clinical progression and re- assessment by fellow clinical providers in the ED. Further treatment and workup at subsequent clinical providers discretion. Patient/guardians urged not to elope from the ED as their condition may be serious if not clinically assessed and managed. Initial orders include: 1- Patient sent to MAIN ED for further evaluation and treatment 2- cardiac workup
--- NOTE | 2020-07-20 11:35 | XRay Report ---
CHEST PA AND LATERAL VIEWS INDICATION: Chest Pain. COMPARISON: 06/27/2020 FINDINGS: Support devices: None. Heart: Stable. Lungs/Pleura: No consolidation or effusion. Mild diffuse interstitial markings are somewhat to the pr ior. IMPRESSION: 1. No significant change. Signer Name: Ronal Dickson MD Signed: 07/20/2020 11:30 AM Workstation Name: [employer]
[2020-07-20 12:15] LABS: Basophils # (Auto) 0.1 K/mm3 (0.0-0.1); Basophils % (Auto) 0.8 % (0.0-1.8); Eosinophils # (Auto) 0.1 K/mm3 (0.0-0.4); Eosinophils % (Auto) 1.8 % (0.0-4.3); Hematocrit 35.2 % (35.5-45.6); Hemoglobin 11.5 gm/dl (11.8-15.2); Lymphocytes # (Auto) 0.5 K/mm3 (1.2-5.4); Lymphocytes % (Auto) 8.1 % (13.4-35.0); Mean Corpuscular HGB Conc 33 % (32-34); Mean Corpuscular Volume 87 fl (84-94); Monocytes # (Auto) 0.7 K/mm3 (0.0-0.8); Monocytes % (Auto) 11.2 % (0.0-7.3); Platelet Count 307 K/mm3 (140-440); Red Blood Count 4.06 M/mm3 (3.65-5.03); Red Cell Distribution Width 19.5 % (13.2-15.2)
[2020-07-20 12:25] LABS: INR 1.27 (0.87-1.13)
[2020-07-20 12:26] LABS: Partial Thromboplastin Time 40.5 Sec. (24.2-36.6)
[2020-07-20 12:41] LABS: Albumin 3.4 g/dL (3.9-5)
[2020-07-20 13:04] LABS: Chol/HDL Ratio 2.45 %
--- NOTE | 2020-07-20 22:01 | Emergency Department Report ---
ED Shortness of Breath HPI - General Chief Complaint: Dyspnea/Respdistress Stated Complaint: SHARAN Time Seen by Provider: 07/20/20 10:44 Source: patient Mode of arrival: Wheelchair Limitations: No Limitations - History of Present Illness Initial Comments: Chief complaint "I am full of fluid." HPI: This is a 54-year-old male with a history of end-stage renal disease on hemodialysis, systolic heart failure, morbid obesity, hypertension, noncompliance with renal dialysis who presents with leg and scrotal swelling. He states that "I am hard as a rock." Patient was recently discharged 2 days ago for similar concerns. He also has shortness of breath. He denies any pain. However he is unable to walk due to lower extremity swelling. MD Complaint: shortness of breath -: Gradual, days(s) (2) Severity: moderate Consistency: constant Improves With: rest Worsens With: exertion Associated Symptoms: other (Scrotal leg swelling) Treatments Prior to Arrival: none - Related Data Home Medications Medication Instructions Recorded Confirmed Last Taken Oxycodone HCl/Acetaminophen 1 each PO Q6HR PRN 05/27/20 06/17/20 1 Day Ago [Percocet 7.5/325 mg] ~06/16/20 1 tab Previous Rx's Medication Instructions Recorded Last Taken Type Acetaminophen [Acetaminophen TAB] 650 mg PO Q4H PRN tablet 05/19/20 1 Day Ago Rx ~06/16/20 650 mg AtorvaSTATin [Lipitor] 40 mg PO QHS #30 tablet 05/19/20 1 Day Ago Rx ~06/16/20 40 mg Calcium 600-Vit D3 800 Tablet 600 mg PO BID #60 05/19/20 1 Day Ago Rx ~06/16/20 600 mg Calcium Acetate [Phoslo] 1,334 mg PO TID #90 cap 05/19/20 1 Day Ago Rx ~06/16/20 1,334 mg Gabapentin 300 mg PO BID #30 capsule 05/19/20 1 Day Ago Rx ~06/16/20 300 mg Midodrine [Proamatine] 5 mg PO BID #60 tablet 05/19/20 1 Day Ago Rx ~06/16/20 5 mg Allergies Allergy/AdvReac Type Severity Reaction Status Date / Time No Known Allergies Allergy Unverified 05/04/20 04:13 ED Review of Systems ROS: Stated complaint: SHARAN Other details as noted in HPI Comment: All other systems reviewed and negative Constitutional: denies: fever, malaise Respiratory: shortness of breath. denies: cough Gastrointestinal: denies: abdominal pain, nausea, vomiting Skin: rash, lesions ED Past Medical Hx - Past Medical History Previous Medical History?: Yes Hx Hypertension: Yes Hx Heart Attack/AMI: Yes Hx Congestive Heart Failure: Yes Hx Diabetes: Yes Hx Deep Vein Thrombosis: Yes Hx Renal Disease: Yes (END STAGE RENAL DISEASE) Hx Headaches / Migraines: No Hx Seizures: No Hx Asthma: No Hx COPD: Yes Hx Dementia: No Hx HIV: No Additional medical history: Hemodialysis, . Chronic Pain - Surgical History Past Surgical History?: Yes Additional Surgical History: Placement of dialysis access - Social History Smoking Status: Current Every Day Smoker - Medications Home Medications: Home Medications Medication Instructions Recorded Confirmed Last Taken Type Acetaminophen [Acetaminophen TAB] 650 mg PO Q4H PRN tablet 05/19/20 06/17/20 1 Day Ago Rx ~06/16/20 650 mg AtorvaSTATin [Lipitor] 40 mg PO QHS #30 tablet 05/19/20 06/17/20 1 Day Ago Rx ~06/16/20 40 mg Calcium 600-Vit D3 800 Tablet 600 mg PO BID #60 05/19/20 06/17/20 1 Day Ago Rx ~06/16/20 600 mg Calcium Acetate [Phoslo] 1,334 mg PO TID #90 cap 05/19/20 06/17/20 1 Day Ago Rx ~06/16/20 1,334 mg Gabapentin 300 mg PO BID #30 capsule 05/19/20 06/17/20 1 Day Ago Rx ~06/16/20 300 mg Midodrine [Proamatine] 5 mg PO BID #60 tablet 05/19/20 06/17/20 1 Day Ago Rx ~06/16/20 5 mg Oxycodone HCl/Acetaminophen 1 each PO Q6HR PRN 05/27/20 06/17/20 1 Day Ago History [Percocet 7.5/325 mg] ~06/16/20 1 tab ED Physical Exam - General Limitations: No Limitations General appearance: alert, in no apparent distress, other (Appears chronically ill) - Head Head exam: Present: atraumatic, normocephalic - Eye Eye exam: Present: normal appearance, conjunctival injection - ENT ENT exam: Present: mucous membranes moist - Neck Neck exam: Present: normal inspection - Respiratory Respiratory exam: Present: normal lung sounds bilaterally. Absent: respiratory distress, wheezes - Cardiovascular Cardiovascular Exam: Present: regular rate, normal rhythm, normal heart sounds. Absent: rubs, gallop - GI/Abdominal GI/Abdominal exam: Present: soft, normal bowel sounds. Absent: distended, tenderness, guarding, rebound - Rectal Rectal exam: Present: deferred - exam: Present: scrotal swelling, other (Scrotal swelling with edematous penile shaft) - Extremities Exam Extremities exam: Present: other (Tense edema, lichenified skin from feet to groin,) - Neurological Exam Neurological exam: Present: alert, oriented X3 - Psychiatric Psychiatric exam: Present: normal affect, normal mood - Skin Skin exam: Present: warm, dry, intact, normal color. Absent: rash ED Course Vital Signs 07/20/20 07/20/20 07/20/20 10:41 22:15 22:16 Temperature 97.4 F L Pulse Rate 80 Respiratory 20 18 Rate Blood Pressure 109/75 Blood Pressure 95/58 [Right] O2 Sat by Pulse 100 98 99 Oximetry 07/20/20 07/20/20 07/20/20 22:30 22:38 23:00 Temperature Pulse Rate Respiratory Rate Blood Pressure 120/72 120/72 112/62 Blood Pressure [Right] O2 Sat by Pulse 98 100 98 Oximetry 07/20/20 07/21/20 07/21/20 23:30 00:00 00:30 Temperature Pulse Rate Respiratory Rate Blood Pressure 112/62 121/73 113/79 Blood Pressure [Right] O2 Sat by Pulse 98 96 98 Oximetry 07/21/20 01:00 Temperature Pulse Rate Respiratory Rate Blood Pressure 105/84 Blood Pressure [Right] O2 Sat by Pulse 98 Oximetry ED Medical Decision Making - Lab Data Result diagrams: 07/20/20 11:24 07/20/20 11:24 Laboratory Results - last 24 hr 07/20/20 07/20/20 07/20/20 11:24 11:24 11:24 WBC 6.6 RBC 4.06 Hgb 11.5 L Hct 35.2 L MCV 87 MCH 28 MCHC 33 RDW 19.5 H Plt Count 307 Lymph % (Auto) 8.1 L [place] % (Auto) 11.2 H Eos % (Auto) 1.8 Baso % (Auto) 0.8 Lymph # 0.5 L [place] # 0.7 Eos # 0.1 Baso # 0.1 Seg Neutrophils % 78.1 H Seg Neutrophils # 5.2 PT 16.1 H INR 1.27 H APTT 40.5 H Sodium 130 L Potassium 4.4 Chloride 90.8 L Carbon Dioxide 19 L Anion Gap 25 BUN 43 H Creatinine 7.7 H Estimated GFR 9 BUN/Creatinine Ratio 6 Glucose 107 H Calcium 6.0 L Total Bilirubin 0.50 AST 27 ALT 16 Alkaline Phosphatase 141 H Troponin T 0.107 H* NT-Pro-B Natriuret Pep 93186 H Total Protein 7.7 Albumin 3.4 L Albumin/Globulin Ratio 0.8 Triglycerides 75 Cholesterol 98 LDL Cholesterol Direct 42 L HDL Cholesterol 40 Cholesterol/HDL Ratio 2.45 07/20/20 13:50 WBC RBC Hgb Hct MCV MCH MCHC RDW Plt Count Lymph % (Auto) [place] % (Auto) Eos % (Auto) Baso % (Auto) Lymph # [place] # Eos # Baso # Seg Neutrophils % Seg Neutrophils # PT INR APTT Sodium Potassium Chloride Carbon Dioxide Anion Gap BUN Creatinine Estimated GFR BUN/Creatinine Ratio Glucose Calcium Total Bilirubin AST ALT Alkaline Phosphatase Troponin T 0.102 H* NT-Pro-B Natriuret Pep Total Protein Albumin Albumin/Globulin Ratio Triglycerides Cholesterol LDL Cholesterol Direct HDL Cholesterol Cholesterol/HDL Ratio - Radiology Data Radiology results: report reviewed Chest radiograph: Mild interstitial edema unchanged from prior exam - Medical Decision Making Presently also has a history of end-stage renal disease on hemodialysis and known noncompliance. Patient presents with hypervolemia manifested as shortness of breath, pulmonary edema, severe lower extremity edema. Patient will be a dmitted to the hospitalist service. Dr. Fu respiratory manager agreed to consult. Critical care attestation.: If time is entered above; I have spent that time in minutes in the direct care of this critically ill patient, excluding procedure time. ED Disposition Clinical Impression: End-stage renal disease needing dialysis, Fluid overload, SOB (shortness of breath), Missed dialysis Pulmonary edema Qualifiers: Chronicity: acute Qualified Code(s): J81.0 - Acute pulmonary edema Disposition: OP ADMIT IP TO THIS HOSP Is pt being admited?: Yes Does the pt Need Aspirin: No Condition: Stable
[2020-07-20] MEDS ORDERED: DEXTROSE 50% IN WATER (25GM) 50 ML SYRINGE IV PRN (23:52)
[2020-07-20] MEDS ORDERED: ACETAMINOPHEN 325 MG TAB PO PRN (23:52)
[2020-07-20] MEDS ORDERED: MAGNESIUM HYDROXIDE (MOM) ORAL LIQD UDC PO PRN (23:52)
[2020-07-20] MEDS ORDERED: ONDANSETRON 4 MG/2 ML INJ IV PRN (23:52)
--- NOTE | 2020-07-21 00:02 | History and Physical Report ---
History of Present Illness Date of examination: 07/20/20 Date of admission: 07/20/20 22:34 Chief complaint: Shortness Of Breath History of present illness: 54-year-old male with known history of end-stage renal disease, morbid obesity, hypertension, congestive heart failure and history of noncompliance with dialysis presents to the emergency room today complaining of lower extremity swelling. Was just recently discharged from the hospital few days ago with hernandez lar complaints. He has been having shortness of breath, he also states that his legs are quite swollen and feels hard. He denies any chest pain, no nausea vomiting, no headache or dizziness. Work-up in the emergency room today reveals pulmonary edema. 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 uF has been consulted by the ER physician. Past History Past Medical History: diabetes, DVT, ESRD (On dialysis-Tue,Thur,Sat), heart failure, hypertension Past Surgical History: Other (IV Access) Social history: smoking (Current daily smoker) Family history: no significant family history Medications and Allergies Allergies Allergy/AdvReac Type Severity Reaction Status Date / Time No Known Allergies Allergy Unverified 05/04/20 04:13 Home Medications Medication Instructions Recorded Confirmed Last Taken Type Acetaminophen [Acetaminophen TAB] 650 mg PO Q4H PRN tablet 05/19/20 06/17/20 1 Day Ago Rx ~06/16/20 650 mg AtorvaSTATin [Lipitor] 40 mg PO QHS #30 tablet 05/19/20 06/17/20 1 Day Ago Rx ~06/16/20 40 mg Calcium 600-Vit D3 800 Tablet 600 mg PO BID #60 05/19/20 06/17/20 1 Day Ago Rx ~06/16/20 600 mg Calcium Acetate [Phoslo] 1,334 mg PO TID #90 cap 05/19/20 06/17/20 1 Day Ago Rx ~06/16/20 1,334 mg Gabapentin 300 mg PO BID #30 capsule 05/19/20 06/17/20 1 Day Ago Rx ~06/16/20 300 mg Midodrine [Proamatine] 5 mg PO BID #60 tablet 05/19/20 06/17/20 1 Day Ago Rx ~06/16/20 5 mg Oxycodone HCl/Acetaminophen 1 each PO Q6HR PRN 05/27/20 06/17/20 1 Day Ago History [Percocet 7.5/325 mg] ~06/16/20 1 tab Active Meds: Active Medications Acetaminophen (Tylenol) 650 mg PO Q4H PRN PRN Reason: Pain MILD(1-3)/Fever >100.5/MALDONADO Dextrose (D50w (25gm) Syringe) 50 ml IV Q30MIN PRN; Protocol PRN Reason: Hypoglycemia Dextrose (D50w (25gm) Syringe) 50 ml IV Q30MIN PRN; Protocol PRN Reason: Hypoglycemia Insulin Human Lispro (Humalog) 0 unit SUB-Q ACHS LIBORIO; Protocol Magnesium Hydroxide (Milk Of Magnesia) 30 ml PO Q4H PRN PRN Reason: Constipation Morphine Sulfate (Morphine) 2 mg IV Q4H PRN PRN Reason: Pain, Moderate (4-6) Ondansetron HCl (Zofran) 4 mg IV Q8H PRN PRN Reason: Nausea And Vomiting Sodium Chloride (Sodium Chloride Flush Syringe 10 Ml) 10 ml IV BID LIBORIO Sodium Chloride (Sodium Chloride Flush Syringe 10 Ml) 10 ml IV PRN PRN PRN Reason: LINE FLUSH Review of Systems Constitutional: no fever, no chills Ears, nose, mouth and throat: no nasal congestion, no sore throat Cardiovascular: no chest pain, no palpitations Respiratory: shortness of breath, no cough Gastrointestinal: no abdominal pain, no nausea, no vomiting, no diarrhea Genitourinary Male: no dysuria, no hematuria, no flank pain Musculoskeletal: no neck pain, no low back pain Integumentary: no rash, no pruritis Neurological: no headaches, no confusion Psychiatric: no anxiety, no depression Exam - Constitutional Vitals: Temp Pulse Resp BP Pulse Ox 97.4 F L 80 18 120/72 98 07/20/20 10:41 07/20/20 10:41 07/20/20 22:15 07/20/20 22:30 07/20/20 22:30 General appearance: Present: no acute distress, well-nourished, obese - EENT Eyes: Present: PERRL, EOM intact. Absent: scleral icterus ENT: hearing intact, clear oral mucosa, dentition normal - Neck Neck: Present: supple, normal ROM - Respiratory Respiratory effort: normal Respiratory: bilateral: diminished - Cardiovascular Rhythm: regular Heart Sounds: Present: S1 & S2. Absent: gallop, systolic murmur, diastolic murmur, rub - Extremities Extremities: no ischemia, pulses intact, pulses symmetrical, Full ROM Extremity abnormal: edema (3+ bilateral lower extremity edema) Peripheral Pulses: within normal limits - Abdominal General gastrointestinal: Present: soft, non-tender, non-distended, normal bowel sounds. Absent: mass Male genitourinary: Present: scrotal edema - Integumentary Integumentary: Present: clear, warm, dry - Musculoskeletal Musculoskeletal: strength equal bilaterally - Psychiatric Psychiatric: appropriate mood/affect, intact judgment & insight, memory intact - Neurologic Neurologic: CNII-XII intact, no focal deficits, moves all extremities HEART Score - HEART Score Troponin: Troponin T 0.102 ng/mL (0.00-0.029) H* 07/20/20 13:50 Results - Labs CBC & Chem 7: 07/21/20 05:30 07/20/20 11:24 Labs: Abnormal lab results 07/20/20 07/20/20 07/20/20 Range/Units 11:24 11:24 11:24 Hgb 11.5 L (11.8-15.2) gm/dl Hct 35.2 L (35.5-45.6) % RDW 19.5 H (13.2-15.2) % Lymph % (Auto) 8.1 L (13.4-35.0) % [place] % (Auto) 11.2 H (0.0-7.3) % Lymph # 0.5 L (1.2-5.4) K/mm3 Seg Neutrophils % 78.1 H (40.0-70.0) % PT 16.1 H (12.2-14.9) Sec. INR 1.27 H (0.87-1.13) APTT 40.5 H (24.2-36.6) Sec. Sodium 130 L (137-145) mmol/L Chloride 90.8 L (98-107) mmol/L Carbon Dioxide 19 L (22-30) mmol/L BUN 43 H (9-20) mg/dL Creatinine 7.7 H (0.8-1.3) mg/dL Glucose 107 H (75-100) mg/dL Calcium 6.0 L (8.4-10.2) mg/dL Alkaline Phosphatase 141 H (35-129) units/L Troponin T 0.107 H* (0.00-0.029) ng/mL NT-Pro-B Natriuret Pep 90688 H (0-900) pg/mL Albumin 3.4 L (3.9-5) g/dL LDL Cholesterol Direct 42 L (50-130) mg/dL 07/20/20 Range/Units 13:50 Hgb (11.8-15.2) gm/dl Hct (35.5-45.6) % RDW (13.2-15.2) % Lymph % (Auto) (13.4-35.0) % [place] % (Auto) (0.0-7.3) % Lymph # (1.2-5.4) K/mm3 Seg Neutrophils % (40.0-70.0) % PT (12.2-14.9) Sec. INR (0.87-1.13) APTT (24.2-36.6) Sec. Sodium (137-145) mmol/L Chloride (98-107) mmol/L Carbon Dioxide (22-30) mmol/L BUN (9-20) mg/dL Creatinine (0.8-1.3) mg/dL Glucose (75-100) mg/dL Calcium (8.4-10.2) mg/dL Alkaline Phosphatase (35-129) units/L Troponin T 0.102 H* (0.00-0.029) ng/mL NT-Pro-B Natriuret Pep (0-900) pg/mL Albumin (3.9-5) g/dL LDL Cholesterol Direct (50-130) mg/dL Assessment and Plan - Patient Problems (1) End-stage renal disease needing dialysis Current Visit: Yes Status: Chronic Plan to address problem: Patient admitted and manager proposal has been consulted for possible dialysis. Patient is known to be noncompliant with his dialysis. (2) Congestive heart failure Current Visit: No Status: Acute Qualifiers: Heart failure type: combined systolic and diastolic Heart failure chronicity: chronic Qualified Code(s): I50.42 - Chronic combined systolic (congestive) and diastolic (congestive) heart failure Plan to address problem: Patient has known history of systolic CHF. He awaits dialysis today. (3) DVT prophylaxis Current Visit: No Status: Acute Plan to address problem: We will place patient on subcutaneous heparin. (4) Full code status Current Visit: No Status: Acute
[2020-07-21] MEDS: MORPHINE 2 MG/1 ML INJ IV PRN ×3 (03:35→21:19)
[2020-07-21 06:37] LABS: Basophils # (Auto) 0.1 K/mm3 (0.0-0.1); Basophils % (Auto) 0.7 % (0.0-1.8); Eosinophils # (Auto) 0.3 K/mm3 (0.0-0.4); Hematocrit 34.7 % (35.5-45.6); Hemoglobin 10.8 gm/dl (11.8-15.2); Lymphocytes # (Auto) 0.7 K/mm3 (1.2-5.4); Lymphocytes % (Auto) 9.9 % (13.4-35.0); Mean Corpuscular HGB Conc 31 % (32-34); Mean Corpuscular Volume 92 fl (84-94); Monocytes % (Auto) 13.3 % (0.0-7.3); Platelet Count 269 K/mm3 (140-440); Red Blood Count 3.78 M/mm3 (3.65-5.03); Red Cell Distribution Width 20.5 % (13.2-15.2)
[2020-07-21 07:20] LABS: Calcium 5.8 mg/dL (8.4-10.2)
[2020-07-21] MEDS ORDERED: SODIUM CHLORIDE 0.9% 100 ML IV PRN (07:30)
[2020-07-21] MEDS: INSULIN LISPRO 100 UNIT/ML VIAL 3 mL SUB-Q SCH ×3 (08:43→21:27)
--- NOTE | 2020-07-21 09:07 | Progress Note ---
Assessment and Plan Assessment and plan: 54-year-old male with known history of end-stage renal disease, morbid obesity, hypertension, congestive heart failure and history of noncompliance with dialysis presents to the emergency room today complaining of lower extremity swelling. Was just recently discharged from the hospital few days ago with similar complaints. He has been having shortness of breath, he also states that his legs are quite swollen and feels hard. He denies any chest pain, no nausea vomiting, no headache or dizziness. Work-up in the emergency room today reveals pulmonary edema. [employer] on-call Dr. Fu has been consulted by the ER physician. (1) End-stage renal disease needing dialysis Current Visit: Yes Status: Chronic Plan to address problem: Patient admitted and driver license technician has been consulted for possible dialysis. Patient had dialysis today Anticipate discharge Patient is known to be noncompliant with his dialysis. (2) Congestive heart failure Current Visit: No Status: Acute Qualifiers: Heart failure type: combined systolic and diastolic Heart failure chronicity: chronic Qualified Code(s): I50.42 - Chronic combined systolic (congestive) and diastolic (congestive) heart failure Plan to address problem: Patient has known history of systolic CHF. He awaits dialysis today. (3)chronic Metabolic Acidosis monitor (4) DVT prophylaxis Current Visit: No Status: Acute Plan to address problem: We will place patient on subcutaneous heparin. (4) Full code status Current Visit: No Status: Acute anticipate discharge in am History Interval history: Patient is a seen and examined, resting comfortable. for HD today Hospitalist Physical - Physical exam Narrative exam: General appearance: Present: no acute distress, well-nourished, obese, GENERALIZED ANASACAR - EENT Eyes: Present: PERRL, EOM intact. Absent: scleral icterus ENT: hearing intact, clear oral mucosa, dentition normal - Neck Neck: Present: supple, normal ROM - Respiratory Respiratory effort: normal Respiratory: bilateral: diminished - Cardiovascular Rhythm: regular Heart Sounds: Present: S1 & S2. Absent: gallop, systolic murmur, diastolic murmur, rub - Extremities Extremities: no ischemia, pulses intact, pulses symmetrical, Full ROM Extremity abnormal: edema (3+ bilateral lower extremity edema) Peripheral Pulses: within normal limits - Abdominal General gastrointestinal: Present: soft, non-tender, non-distended, normal bowel sounds. Absent: mass Male genitourinary: Present: scrotal edema - Integumentary Integumentary: Present: clear, warm, dry - Musculoskeletal Musculoskeletal: strength equal bilaterally - Psychiatric Psychiatric: appropriate mood/affect, intact judgment & insight, memory intact - Neurologic Neurologic: CNII-XII intact, no focal deficits, moves all extremities - Constitutional Vitals: Temp Pulse Resp BP Pulse Ox 98.2 F 67 18 107/59 99 07/21/20 04:01 07/21/20 06:35 07/21/20 04:01 07/21/20 04:01 07/21/20 04:01 General appearance: Present: no acute distress, well-nourished, obese HEART Score - HEART Score Troponin: Troponin T 0.102 ng/mL (0.00-0.029) H* 07/20/20 13:50 Results - Labs CBC & Chem 7: 07/21/20 05:30 07/21/20 05:30 Labs: Laboratory Last Values WBC 7.3 K/mm3 (4.5-11.0) 07/21/20 05:30 RBC 3.78 M/mm3 (3.65-5.03) 07/21/20 05:30 Hgb 10.8 gm/dl (11.8-15.2) L 07/21/20 05:30 Hct 34.7 % (35.5-45.6) L 07/21/20 05:30 MCV 92 fl (84-94) 07/21/20 05:30 MCH 29 pg (28-32) 07/21/20 05:30 MCHC 31 % (32-34) L 07/21/20 05:30 RDW 20.5 % (13.2-15.2) H 07/21/20 05:30 Plt Count 269 K/mm3 (140-440) 07/21/20 05:30 Lymph % (Auto) 9.9 % (13.4-35.0) L 07/21/20 05:30 [place] % (Auto) 13.3 % (0.0-7.3) H 07/21/20 05:30 Eos % (Auto) 4.0 % (0.0-4.3) 07/21/20 05:30 Baso % (Auto) 0.7 % (0.0-1.8) 07/21/20 05:30 Lymph # 0.7 K/mm3 (1.2-5.4) L 07/21/20 05:30 [place] # 1.0 K/mm3 (0.0-0.8) H 07/21/20 05:30 Eos # 0.3 K/mm3 (0.0-0.4) 07/21/20 05:30 Baso # 0.1 K/mm3 (0.0-0.1) 07/21/20 05:30 Seg Neutrophils % 72.1 % (40.0-70.0) H 07/21/20 05:30 Seg Neutrophils # 5.3 K/mm3 (1.8-7.7) 07/21/20 05:30 PT 16.1 Sec. (12.2-14.9) H 07/20/20 11:24 INR 1.27 (0.87-1.13) H 07/20/20 11:24 APTT 40.5 Sec. (24.2-36.6) H 07/20/20 11:24 Sodium 132 mmol/L (137-145) L 07/21/20 05:30 Potassium 4.7 mmol/L (3.6-5.0) 07/21/20 05:30 Chloride 93.0 mmol/L (98-107) L 07/21/20 05:30 Carbon Dioxide 17 mmol/L (22-30) L 07/21/20 05:30 Anion Gap 27 mmol/L 07/21/20 05:30 BUN 47 mg/dL (9-20) H 07/21/20 05:30 Creatinine 8.2 mg/dL (0.8-1.3) H 07/21/20 05:30 Estimated GFR 8 ml/min 07/21/20 05:30 BUN/Creatinine Ratio 6 % 07/21/20 05:30 Glucose 136 mg/dL (75-100) H 07/21/20 05:30 Calcium 5.8 mg/dL (8.4-10.2) L* 07/21/20 05:30 Total Bilirubin 0.50 mg/dL (0.1-1.2) 07/20/20 11:24 AST 27 units/L (5-40) 07/20/20 11:24 ALT 16 units/L (7-56) 07/20/20 11:24 Alkaline Phosphatase 141 units/L (35-129) H 07/20/20 11:24 Troponin T 0.102 ng/mL (0.00-0.029) H* 07/20/20 13:50 NT-Pro-B Natriuret Pep 99839 pg/mL (0-900) H 07/20/20 11:24 Total Protein 7.7 g/dL (6.3-8.2) 07/20/20 11:24 Albumin 3.4 g/dL (3.9-5) L 07/20/20 11:24 Albumin/Globulin Ratio 0.8 % 07/20/20 11:24 Triglycerides 75 mg/dL (2-149) 07/20/20 11:24 Cholesterol 98 mg/dL (50-199) 07/20/20 11:24 LDL Cholesterol Direct 42 mg/dL (50-130) L 07/20/20 11:24 HDL Cholesterol 40 mg/dL (40-59) 07/20/20 11:24 Cholesterol/HDL Ratio 2.45 % 07/20/20 11:24 Lee/IV: Voiding Method Urinal Active Medications - Current Medications Current Medications: Generic Name Dose Route Start Last Admin Trade Name Freq PRN Reason Stop Dose Admin Acetaminophen 650 mg 07/20/20 23:52 Tylenol PO Q4H PRN Pain MILD(1-3)/Fever >100.5/MALDONADO Dextrose 50 ml 07/20/20 23:52 D50w (25gm) Syringe IV Q30MIN PRN Hypoglycemia Protocol Sodium Chloride 100 mls @ 999 mls/hr 07/21/20 07:30 Nacl 0.9% IV PEDRITO PRN Hypotension Insulin Human Lispro 0 unit 07/21/20 07:30 07/21/20 08:43 Humalog SUB-Q Not Given ACHS LIBORIO Protocol Magnesium Hydroxide 30 ml 07/20/20 23:52 Milk Of Magnesia PO Q4H PRN Constipation Morphine Sulfate 2 mg 07/20/20 23:52 07/21/20 03:35 Morphine IV 2 mg Q4H PRN Administration Pain, Moderate (4-6) Ondansetron HCl 4 mg 07/20/20 23:52 Zofran IV Q8H PRN Nausea And Vomiting Sodium Chloride 10 ml 07/21/20 10:00 Sodium Chloride Flush Syringe 10 Ml IV BID LIBORIO Sodium Chloride 10 ml 07/20/20 23:52 Sodium Chloride Flush Syringe 10 Ml IV PRN PRN LINE FLUSH
--- NOTE | 2020-07-21 11:16 | Consultation ---
History of Present Illness - Reason for Consult Consult date: 07/21/20 end stage renal disease Requesting physician: COLLETTE PRESCOTT - History of Present Illness This is a 54 yo M with past medical history of hypertension, obesity, CHF, ESRD, who does not have established dialysis clinic due to non-compliance, now presenting to the ER with complaints of SOB, leg swelling. Was just recently discharged from the hospital few days ago with similar complaints. Renal consult requested for management of ESRD/HD Past History Past Medical History: diabetes, DVT, ESRD (On dialysis-[facility]), heart failure, hypertension Past Surgical History: Other (IV Access) Social history: smoking (Current daily smoker) Family history: no significant family history Medications and Allergies Allergies Allergy/AdvReac Type Severity Reaction Status Date / Time No Known Allergies Allergy Unverified 05/04/20 04:13 Home Medications Medication Instructions Recorded Confirmed Last Taken Type Acetaminophen [Acetaminophen TAB] 650 mg PO Q4H PRN tablet 05/19/20 07/21/20 07/09/20 08:00 Rx AtorvaSTATin [Lipitor] 40 mg PO QHS #30 tablet 05/19/20 07/21/20 07/19/20 21:00 Rx Calcium 600-Vit D3 800 Tablet 600 mg PO BID #60 05/19/20 07/21/20 07/19/20 08:00 Rx Calcium Acetate [Phoslo] 1,334 mg PO TID #90 cap 05/19/20 07/21/20 07/19/20 08:00 Rx Gabapentin 300 mg PO BID #30 capsule 05/19/20 07/21/20 07/19/20 08:00 Rx Midodrine [Proamatine] 5 mg PO BID #60 tablet 05/19/20 07/21/20 07/19/20 08:00 Rx Oxycodone HCl/Acetaminophen 1 each PO Q6HR PRN 05/27/20 07/21/20 07/16/20 12:00 History [Percocet 7.5/325 mg] Active Meds: Active Medications Acetaminophen (Tylenol) 650 mg PO Q4H PRN PRN Reason: Pain MILD(1-3)/Fever >100.5/MALDONADO Dextrose (D50w (25gm) Syringe) 50 ml IV Q30MIN PRN; Protocol PRN Reason: Hypoglycemia Sodium Chloride (Nacl 0.9%) 100 mls @ 999 mls/hr IV PEDRITO PRN PRN Reason: Hypotension Insulin Human Lispro (Humalog) 0 unit SUB-Q ACHS [facility]; Protocol Last Admin: 07/21/20 08:43 Dose: Not Given Documented by: Magnesium Hydroxide (Milk Of Magnesia) 30 ml PO Q4H PRN PRN Reason: Constipation Morphine Sulfate (Morphine) 2 mg IV Q4H PRN PRN Reason: Pain, Moderate (4-6) Last Admin: 07/21/20 09:21 Dose: 2 mg Documented by: Ondansetron HCl (Zofran) 4 mg IV Q8H PRN PRN Reason: Nausea And Vomiting Sodium Chloride (Sodium Chloride Flush Syringe 10 Ml) 10 ml IV BID LIBORIO Last Admin: 07/21/20 09:26 Dose: 10 ml Documented by: Sodium Chloride (Sodium Chloride Flush Syringe 10 Ml) 10 ml IV PRN PRN PRN Reason: LINE FLUSH Review of Systems All systems: negative Constitutional: weakness, malaise Cardiovascular: edema Respiratory: shortness of breath, dyspnea on exertion Exam - Vital Signs Vital signs: Vital Signs Temp Pulse Resp BP Pulse Ox 97.4 F L 80 20 95/58 100 07/20/20 10:41 07/20/20 10:41 07/20/20 10:41 07/20/20 10:41 07/20/20 10:41 - General Appearance General appearance: well-developed, well-nourished, appears stated age EENT: ATNC, PERRL, mucous membranes moist Neck: Present: neck supple Respiratory: Decreased Breath Sounds Heart: regular, S1S2 Gastrointestinal: Present: normoactive bowel sounds Integumentary: no rash, other (+ edema ) Neurologic: no focal deficit, alert and oriented x3, strength 5/5, CN 3-12 intact Psychiatric: mood/affect appropriate, cooperative Results - Lab Results 07/21/20 05:30 07/21/20 05:30 Most recent lab results Calcium 5.8 mg/dL (8.4-10.2) L* 07/21/20 05:30 Assessment and Plan - Patient Problems (1) End-stage renal disease needing dialysis Current Visit: Yes Status: Chronic Plan to address problem: arranged HD with target UF of 3L as tolerated. stable for discharge after HD (2) Fluid overload Current Visit: Yes Status: Acute Qualifiers: Plan to address problem: fluid removal with HD (3) Acidosis, metabolic Current Visit: No Status: Acute Plan to address problem: to be corrected with HD (4) Anemia in chronic kidney disease Current Visit: No Status: Acute Plan to address problem: hb at target, no EUFEMIA required at present
[2020-07-21 15:59] LABS: INR 1.24 (0.87-1.13)
[2020-07-22] MEDS: INSULIN LISPRO 100 UNIT/ML VIAL 3 mL SUB-Q SCH ×4 (07:30→22:21)
[2020-07-22] MEDS: MORPHINE 2 MG/1 ML INJ IV PRN ×2 (09:37→15:15)
[2020-07-22] MEDS ORDERED: SODIUM CHLORIDE 0.9% 100 ML IV PRN (09:59)
--- NOTE | 2020-07-22 10:00 | Progress Note ---
Assessment and Plan - Patient Problems (1) End-stage renal disease needing dialysis Current Visit: Yes Status: Chronic Plan to address problem: persistent fluid overload, with mild respiratory distress in AM. will arrange another HD today with target UF of 2L prior to discharge. (2) Fluid overload Current Visit: Yes Status: Acute Qualifiers: Plan to address problem: fluid removal with HD (3) Acidosis, metabolic Current Visit: No Status: Acute Plan to address problem: to be corrected with HD (4) Anemia in chronic kidney disease Current Visit: No Status: Acute Plan to address problem: hb at target, no EUFEMIA required at present Subjective Date of service: 07/22/20 Principal diagnosis: ESRD Interval history: Pt awake alert, reports persistent fullness of his abd, and mild respiratory distress this AM. denies fever, chills, n/v/d. Objective - Vital Signs Vital signs: Vital Signs - 12hr 07/21/20 07/21/20 07/22/20 23:26 23:42 02:00 Temperature 98.2 F Pulse Rate 81 80 79 Respiratory 20 Rate Blood Pressure 88/46 Blood Pressure 98/77 [Right] O2 Sat by Pulse 100 Oximetry 07/22/20 08:35 Temperature 98.7 F Pulse Rate 86 Respiratory 20 Rate Blood Pressure 102/50 Blood Pressure [Right] O2 Sat by Pulse 98 Oximetry - General Appearance General appearance: well-developed, well-nourished, appears stated age, obese EENT: ATNC, PERRL, mucous membranes moist Neck: no JVD Respiratory: Present: Decreased Breath Sounds Cardiology: regular, S1S2 Gastrointestinal: normoactive bowel sounds Integumentary: no rash, other (+ edema b/l LE ) Neurologic: no focal deficit, alert and oriented x3, strength 5/5, CN 3-12 intact Psychiatric: mood/affect appropriate, cooperative - Lab 07/21/20 05:30 07/21/20 05:30 Most recent lab results Calcium 5.8 mg/dL (8.4-10.2) L* 07/21/20 05:30 Medications & Allergies - Medications Allergies/Adverse Reactions: Allergies No Known Allergies Allergy (Unverified 05/04/20 04:13) Home Medications: Home Medications Medication Instructions Recorded Confirmed Last Taken Type Acetaminophen [Acetaminophen TAB] 650 mg PO Q4H PRN tablet 05/19/20 07/21/20 07/09/20 08:00 Rx AtorvaSTATin [Lipitor] 40 mg PO QHS #30 tablet 05/19/20 07/21/20 07/19/20 21:00 Rx Calcium 600-Vit D3 800 Tablet 600 mg PO BID #60 05/19/20 07/21/20 07/19/20 08:00 Rx Calcium Acetate [Phoslo] 1,334 mg PO TID #90 cap 05/19/20 07/21/20 07/19/20 08:00 Rx Gabapentin 300 mg PO BID #30 capsule 05/19/20 07/21/20 07/19/20 08:00 Rx Midodrine [Proamatine] 5 mg PO BID #60 tablet 05/19/20 07/21/20 07/19/20 08:00 Rx Oxycodone HCl/Acetaminophen 1 each PO Q6HR PRN 05/27/20 07/21/20 07/16/20 12:00 History [Percocet 7.5/325 mg] Active Medications: Generic Name Dose Route Start Last Admin Trade Name Freq PRN Reason Stop Dose Admin Acetaminophen 650 mg 07/20/20 23:52 Tylenol PO Q4H PRN Pain MILD(1-3)/Fever >100.5/MALDONADO Dextrose 50 ml 07/20/20 23:52 D50w (25gm) Syringe IV Q30MIN PRN Hypoglycemia Protocol Sodium Chloride 100 mls @ 999 mls/hr 07/21/20 07:30 Nacl 0.9% IV PEDRITO PRN Hypotension Insulin Human Lispro 0 unit 07/21/20 07:30 07/21/20 21:27 Humalog SUB-Q Not Given ACHS LIBORIO Protocol Magnesium Hydroxide 30 ml 07/20/20 23:52 Milk Of Magnesia PO Q4H PRN Constipation Morphine Sulfate 2 mg 07/20/20 23:52 07/22/20 09:37 Morphine IV 2 mg Q4H PRN Administration Pain, Moderate (4-6) Ondansetron HCl 4 mg 07/20/20 23:52 Zofran IV Q8H PRN Nausea And Vomiting Sodium Chloride 10 ml 07/21/20 10:00 07/21/20 21:27 Sodium Chloride Flush Syringe 10 Ml IV 10 ml BID LIBORIO Administration Sodium Chloride 10 ml 07/20/20 23:52 Sodium Chloride Flush Syringe 10 Ml IV PRN PRN LINE FLUSH
--- NOTE | 2020-07-22 11:18 | Discharge Summary ---
Providers - Providers Date of Admission: 07/20/20 22:34 Attending physician: JAIME HUFFMAN MD 07/20/20 22:18 Consult to Physician [CONS] Stat Comment: Consulting Provider: WILLEM FU Physician Instructions: Reason For Exam: esrd 07/20/20 23:52 Consult to Dietitian/Nutrition [CONS] Routine Physician Instructions: Reason For Exam: Reason for Consult: Diet education Primary care physician: AREA FORESTER Hospitalization Reason for admission: End-stage renal disease Condition: Stable Hospital course: 54-year-old male with known history of end-stage renal disease, morbid obesity, hypertension, congestive heart failure and history of noncompliance with dialysis presents to the emergency room today complaining of lower extremity swelling. Was just recently discharged from the hospital few days ago with similar complaints. He has been having shortness of breath, he also states that his legs are quite swollen and feels hard. He denies any chest pain, no nausea vomiting, no headache or dizziness. Work-up in the emergency room today reveals pulmonary edema. Printer Technician on-call Dr. Fu has been consulted by the ER physician. Patient was dialyzed. Nephrology also plans to dialyze him 1 additional time today prior to discharge. I did have again extensive discussion with the patient about need to be compliant with treatment and resources available within the community. Case management was also called to assist him as he states that he needs an electric scooter the process was also explained to the patient. No adverse event is noted at this time. The risk of continued noncompliance discussed with the patient he verbalized understanding. (1) End-stage renal disease needing dialysis (2) acute exacerbation of chronic systolic congestive heart failure secondary to volume overload (3)chronic Metabolic Acidosis (4) anemia of chronic disease (5) mild hyponatremia (6) morbid obesity Disposition: - TO HOME OR SELFCARE Time spent for discharge: 35 minutes Core Measure Documentation - Palliative Care Palliative Care/ Comfort Measures: Not Applicable - Core Measures Any of the following diagnoses?: none Exam - Physical Exam Narrative exam: General appearance: Present: no acute distress, well-nourished, obese, edematous - EENT Eyes: Present: PERRL, EOM intact. Absent: scleral icterus ENT: hearing intact, clear oral mucosa, dentition normal - Neck Neck: Present: supple, normal ROM - Respiratory Respiratory effort: normal Respiratory: bilateral: diminished - Cardiovascular Rhythm: regular Heart Sounds: Present: S1 & S2. Absent: gallop, systolic murmur, diastolic murmur, rub - Extremities Extremities: no ischemia, pulses intact, pulses symmetrical, Full ROM Extremity abnormal: edema (3+ bilateral lower extremity edema) Peripheral Pulses: within normal limits - Abdominal General gastrointestinal: Present: soft, non-tender, non-distended, normal bowel sounds. Absent: mass Male genitourinary: Present: scrotal edema - Integumentary Integumentary: Present: clear, trace edema - Musculoskeletal Musculoskeletal: strength equal bilaterally - Psychiatric Psychiatric: appropriate mood/affect, intact judgment & insight, memory intact - Neurologic Neurologic: CNII-XII intact, no focal deficits, moves all extremities - Constitutional Vitals: Temp Pulse Resp BP Pulse Ox 98.7 F 86 20 102/50 98 07/22/20 08:35 07/22/20 08:35 07/22/20 08:35 07/22/20 08:35 07/22/20 08:35 Plan Activity: advance as tolerated, fall precautions Diet: low fat, low salt Special Instructions: record daily weights, record daily BP diary Follow up with: DAVE POWERS MD [Primary Care Provider] - 3-5 Days CRYSTAL VARGAS MD [Staff Physician] - 7 Days
[2020-07-23 08:58] VITALS: BP 112/64
[2020-07-23] MEDS: INSULIN LISPRO 100 UNIT/ML VIAL 3 mL SUB-Q SCH (10:13)
--- NOTE | 2020-07-23 10:43 | Progress Note ---
Assessment and Plan Assessment and plan: 54-year-old male with known history of end-stage renal disease, morbid obesity, hypertension, congestive heart failure and history of noncompliance with dialysis presents to the emergency room today complaining of lower extremity swelling. Was just recently discharged from the hospital few days ago with similar complaints. He has been having shortness of breath, he also states that his legs are quite swollen and feels hard. He denies any chest pain, no nausea vomiting, no headache or dizziness. Work-up in the emergency room today reveals pulmonary edema. High Risk Ob on-call Dr. Fu has been consulted by the ER physician. 07/23: Clinically stable, plan for discharge today (1) End-stage renal disease needing dialysis Current Visit: Yes Status: Chronic Plan to address problem: Patient admitted and labor economics professor has been consulted for possible dialysis. Patient had dialysis today Anticipate discharge Patient is known to be noncompliant with his dialysis. (2) Congestive heart failure Current Visit: No Status: Acute Qualifiers: Heart failure type: combined systolic and diastolic Heart failure chronicity: chronic Qualified Code(s): I50.42 - Chronic combined systolic (congestive) and diastolic (congestive) heart failure Plan to address problem: Patient has known history of systolic CHF. He awaits dialysis today. (3)chronic Metabolic Acidosis monitor (4) DVT prophylaxis Current Visit: No Status: Acute Plan to address problem: We will place patient on subcutaneous heparin. (4) Full code status Current Visit: No Status: Acute History Interval history: Patient is a seen and examined, resting comfortable. No new complaints, did not leave yesterday due to transportation Hospitalist Physical - Physical exam Narrative exam: General appearance: Present: no acute distress, well-nourished, obese, edematous - EENT Eyes: Present: PERRL, EOM intact. Absent: scleral icterus ENT: hearing intact, clear oral mucosa, dentition normal - Neck Neck: Present: supple, normal ROM - Respiratory Respiratory effort: normal Respiratory: bilateral: diminished - Cardiovascular Rhythm: regular Heart Sounds: Present: S1 & S2. Absent: gallop, systolic murmur, diastolic murmur, rub - Extremities Extremities: no ischemia, pulses intact, pulses symmetrical, Full ROM Extremity abnormal: edema (3+ bilateral lower extremity edema) Peripheral Pulses: within normal limits - Abdominal General gastrointestinal: Present: soft, non-tender, non-distended, normal bowel sounds. Absent: mass Male genitourinary: Present: scrotal edema - Integumentary Integumentary: Present: clear, trace edema - Musculoskeletal Musculoskeletal: strength equal bilaterally - Psychiatric Psychiatric: appropriate mood/affect, intact judgment & insight, memory intact - Neurologic Neurologic: CNII-XII intact, no focal deficits, moves all extremities - Constitutional Vitals: Temp Pulse Resp BP Pulse Ox 97.5 F L 80 18 112/64 100 07/23/20 07:37 07/23/20 07:37 07/23/20 07:37 07/23/20 07:37 07/23/20 07:37 General appearance: Present: no acute distress, well-nourished, obese HEART Score - HEART Score Troponin: Troponin T 0.102 ng/mL (0.00-0.029) H* 07/20/20 13:50 Results - Labs CBC & Chem 7: 07/21/20 05:30 07/21/20 05:30 Labs: Laboratory Last Values WBC 7.3 K/mm3 (4.5-11.0) 07/21/20 05:30 RBC 3.78 M/mm3 (3.65-5.03) 07/21/20 05:30 Hgb 10.8 gm/dl (11.8-15.2) L 07/21/20 05:30 Hct 34.7 % (35.5-45.6) L 07/21/20 05:30 MCV 92 fl (84-94) 07/21/20 05:30 MCH 29 pg (28-32) 07/21/20 05:30 MCHC 31 % (32-34) L 07/21/20 05:30 RDW 20.5 % (13.2-15.2) H 07/21/20 05:30 Plt Count 269 K/mm3 (140-440) 07/21/20 05:30 Lymph % (Auto) 9.9 % (13.4-35.0) L 07/21/20 05:30 Saline % (Auto) 13.3 % (0.0-7.3) H 07/21/20 05:30 Eos % (Auto) 4.0 % (0.0-4.3) 07/21/20 05:30 Baso % (Auto) 0.7 % (0.0-1.8) 07/21/20 05:30 Lymph # 0.7 K/mm3 (1.2-5.4) L 07/21/20 05:30 Saline # 1.0 K/mm3 (0.0-0.8) H 07/21/20 05:30 Eos # 0.3 K/mm3 (0.0-0.4) 07/21/20 05:30 Baso # 0.1 K/mm3 (0.0-0.1) 07/21/20 05:30 Seg Neutrophils % 72.1 % (40.0-70.0) H 07/21/20 05:30 Seg Neutrophils # 5.3 K/mm3 (1.8-7.7) 07/21/20 05:30 PT 15.8 Sec. (12.2-14.9) H 07/21/20 15:24 INR 1.24 (0.87-1.13) H 07/21/20 15:24 APTT 40.5 Sec. (24.2-36.6) H 07/20/20 11:24 Sodium 132 mmol/L (137-145) L 07/21/20 05:30 Potassium 4.7 mmol/L (3.6-5.0) 07/21/20 05:30 Chloride 93.0 mmol/L (98-107) L 07/21/20 05:30 Carbon Dioxide 17 mmol/L (22-30) L 07/21/20 05:30 Anion Gap 27 mmol/L 07/21/20 05:30 BUN 47 mg/dL (9-20) H 07/21/20 05:30 Creatinine 8.2 mg/dL (0.8-1.3) H 07/21/20 05:30 Estimated GFR 8 ml/min 07/21/20 05:30 BUN/Creatinine Ratio 6 % 07/21/20 05:30 Glucose 136 mg/dL (75-100) H 07/21/20 05:30 POC Glucose 105 (70-105) 07/23/20 07:55 Calcium 5.8 mg/dL (8.4-10.2) L* 07/21/20 05:30 Total Bilirubin 0.50 mg/dL (0.1-1.2) 07/20/20 11:24 AST 27 units/L (5-40) 07/20/20 11:24 ALT 16 units/L (7-56) 07/20/20 11:24 Alkaline Phosphatase 141 units/L (35-129) H 07/20/20 11:24 Troponin T 0.102 ng/mL (0.00-0.029) H* 07/20/20 13:50 NT-Pro-B Natriuret Pep 98410 pg/mL (0-900) H 07/20/20 11:24 Total Protein 7.7 g/dL (6.3-8.2) 07/20/20 11:24 Albumin 3.4 g/dL (3.9-5) L 07/20/20 11:24 Albumin/Globulin Ratio 0.8 % 07/20/20 11:24 Triglycerides 75 mg/dL (2-149) 07/20/20 11:24 Cholesterol 98 mg/dL (50-199) 07/20/20 11:24 LDL Cholesterol Direct 42 mg/dL (50-130) L 07/20/20 11:24 HDL Cholesterol 40 mg/dL (40-59) 07/20/20 11:24 Cholesterol/HDL Ratio 2.45 % 07/20/20 11:24 Nasal Screen MRSA (PCR) Negative (Negative) 07/21/20 05:30 Lee/IV: Voiding Method Urinal IV Catheter Type [Right INT / Saline Lock Forearm] Active Medications - Current Medications Current Medications: Generic Name Dose Route Start Last Admin Trade Name Freq PRN Reason Stop Dose Admin Acetaminophen 650 mg 07/20/20 23:52 Tylenol PO Q4H PRN Pain MILD(1-3)/Fever >100.5/MALDONADO Dextrose 50 ml 07/20/20 23:52 D50w (25gm) Syringe IV Q30MIN PRN Hypoglycemia Protocol Sodium Chloride 100 mls @ 999 mls/hr 07/22/20 09:59 Nacl 0.9% IV PEDRITO PRN Hypotension Insulin Human Lispro 0 unit 07/21/20 07:30 07/23/20 10:13 Humalog SUB-Q Not Given ACHS LIBORIO Protocol Magnesium Hydroxide 30 ml 07/20/20 23:52 Milk Of Magnesia PO Q4H PRN Constipation Morphine Sulfate 2 mg 07/20/20 23:52 07/22/20 15:15 Morphine IV 2 mg Q4H PRN Administration Pain, Moderate (4-6) Ondansetron HCl 4 mg 07/20/20 23:52 Zofran IV Q8H PRN Nausea And Vomiting Sodium Chloride 10 ml 07/21/20 10:00 07/23/20 10:13 Sodium Chloride Flush Syringe 10 Ml IV 10 ml BID LIBORIO Administration Sodium Chloride 10 ml 07/20/20 23:52 Sodium Chloride Flush Syringe 10 Ml IV PRN PRN LINE FLUSH Nutrition/Malnutrition Assess - Dietary Evaluation Nutrition/Malnutrition Findings: Nutrition Notes Start: 07/21/20 09:29 Freq: Status: Active Protocol: Document 07/21/20 09:29 RHIANNON (Rec: 07/21/20 10:33 RHIANNON [id number]) Co-Sign 07/21/20 09:29 LP Nutrition Notes Need for Assessment generated from: Education Initial or Follow up Assessment Current Diagnosis CKD (stage V CKD),Hypertension ,Heart Failure,Hyperlipidemia Other Pertinent Diagnosis Hyponatremia Current Diet Cardiac Labs/Tests Na 132 Ca 6.28 (corrected) Glu 136 BUN 47 Cr 8.2 Pertinent Medications Morphine Height 6 ft Weight 142.1 kg Usual Body Weight 142.1 kg [place] Body Weight (kg) 80.90 BMI 42.5 Intake Prior to Admission Poor Weight change and time frame Pt reported current wt as usual. Pt reports dialysis center is not communicating dry wt to him. Weight Status Morbidly Obese Subjective/Other Information Consulted for diet education. Pt reports he does not have a home and has not eaten in two days. Pt eats whatever he can obtain. Burn Absent Trauma Absent GI Symptoms None Food Allergy No Usual Diet at Home varies Skin Integrity/Comment intact Current % PO Poor (25-49%) Minimum of two criteria No physical signs of malnutrition #1 Nutrition Diagnosis Inadequate oral intake Etiology r/t limited access to food As Evidenced by Signs and Symptoms pt reports food insecurity and not having food in two days. Is patient on ventilator? No Is Patient Ambulatory and/or Out of Bed Yes REE-([facility]-ambulatory/OOB) [ 2988.700 [id number]] Kcal/Kg value to use for calculation 14 Approximate Energy Requirements Using 1988 kcal/Kg Calculation Used for Recommendations Kcal/kg Additional Notes Protein needs are 127-138g (1. 2-1.3g/kg AdBW) Fluid needs are 1-1.5L Nutrition Intervention Change Diet Order: Renal Diet Approved for double protein portions Add Supplement/Snack (indicate name/kcal Nepro Mixed Whitaker /protein ) Provides kCal: 425 Provides Protein (gm) 19 Teaching Recipient Patient Learning Readiness n/a Teaching Methods Discussion Education Handouts Provided n/a Barriers to Learning Financial,Environmental Actions To Overcome Barriers Collaboration with Other Providers Goal #1 Pt will meet 75-100% of estimated energy and protein needs Anticipated Discharge Needs: Recommend food assistance program Follow-Up By: 07/26/20 Additional Comments Intake
== END 2020-07-23 12:29 | disposition home or self-care (01) ==
LOC: ED 09:55 → 4A 22:34
PROVIDERS: ADMIT Internal Medicine Geriatric Medicine; ATTEND Internal Medicine
DX: I13.2 Hypertensive heart and chronic kidney disease with heart failure and with stage 5 chronic kidney disease, or end stage renal disease (principal); I50.42 Chronic combined systolic (congestive) and diastolic (congestive) heart failure; N18.6 End stage renal disease; D63.1 Anemia in chronic kidney disease; J81.1 Chronic pulmonary edema; E87.70 Fluid overload, unspecified; E66.01 Morbid (severe) obesity due to excess calories; E87.2 Acidosis; E87.1 Hypo-osmolality and hyponatremia; F17.210 Nicotine dependence, cigarettes, uncomplicated; Z86.718 Personal history of other venous thrombosis and embolism; Z91.14 Patient's other noncompliance with medication regimen; Z99.2 Dependence on renal dialysis; Z79.4 Long term (current) use of insulin; Z68.41 Body mass index [BMI] 40.0-44.9, adult
CPT/HCPCS: 36415; 71046; 80048; 80053; 80061; 82962; 83880; 84484; 85025; 85610; 85730; 87641; 96374; 96376; 99284; 99406; G0378; J2270

== ENCOUNTER 2020-07-24 19:33 | Observation (INO) | payer MEDICARE ==
--- NOTE | 2020-07-24 21:11 | Emergency Department Report ---
ED General Adult HPI - General Chief complaint: Dyspnea/Respdistress Stated complaint: SHARAN Time Seen by Provider: 07/24/20 19:45 Source: patient, EMS Mode of arrival: Stretcher Limitations: No Limitations - Related Data Home Medications Medication Instructions Recorded Confirmed Last Taken Oxycodone HCl/Acetaminophen 1 each PO Q6HR PRN 05/27/20 07/21/20 07/16/20 12:00 [Percocet 7.5/325 mg] Previous Rx's Medication Instructions Recorded Last Taken Type Acetaminophen [Acetaminophen TAB] 650 mg PO Q4H PRN tablet 05/19/20 07/09/20 08:00 Rx AtorvaSTATin [Lipitor] 40 mg PO QHS #30 tablet 05/19/20 07/19/20 21:00 Rx Calcium 600-Vit D3 800 Tablet 600 mg PO BID #60 05/19/20 07/19/20 08:00 Rx Calcium Acetate [Phoslo] 1,334 mg PO TID #90 cap 05/19/20 07/19/20 08:00 Rx Gabapentin 300 mg PO BID #30 capsule 05/19/20 07/19/20 08:00 Rx Midodrine [Proamatine] 5 mg PO BID #60 tablet 05/19/20 07/19/20 08:00 Rx Allergies Allergy/AdvReac Type Severity Reaction Status Date / Time No Known Allergies Allergy Unverified 05/04/20 04:13 ED Review of Systems ROS: Stated complaint: SHARAN Other details as noted in HPI Constitutional: denies: chills, fever Eyes: denies: eye pain, eye discharge, vision change ENT: denies: ear pain, throat pain Respiratory: shortness of breath. denies: cough, wheezing Cardiovascular: denies: chest pain, palpitations Endocrine: no symptoms reported Gastrointestinal: denies: abdominal pain, nausea, diarrhea Genitourinary: denies: urgency, dysuria Musculoskeletal: denies: back pain, joint swelling, arthralgia Skin: denies: rash, lesions Neurological: denies: headache, weakness, paresthesias Psychiatric: denies: anxiety, depression Hematological/Lymphatic: denies: easy bleeding, easy bruising ED Past Medical Hx - Past Medical History Previous Medical History?: Yes Hx Hypertension: Yes Hx Heart Attack/AMI: Yes Hx Congestive Heart Failure: Yes Hx Diabetes: Yes Hx Deep Vein Thrombosis: Yes Hx Renal Disease: Yes (END STAGE RENAL DISEASE) Hx Headaches / Migraines: No Hx Seizures: No Hx Asthma: No Hx COPD: Yes Hx Dementia: No Hx HIV: No Additional medical history: Hemodialysis, fri-fri-fri. Chronic Pain - Surgical History Past Surgical History?: Yes Additional Surgical History: Placement of dialysis access - Social History Smoking Status: Current Every Day Smoker - Medications Home Medications: Home Medications Medication Instructions Recorded Confirmed Last Taken Type Acetaminophen [Acetaminophen TAB] 650 mg PO Q4H PRN tablet 05/19/20 07/21/20 07/09/20 08:00 Rx AtorvaSTATin [Lipitor] 40 mg PO QHS #30 tablet 05/19/20 07/21/20 07/19/20 21:00 Rx Calcium 600-Vit D3 800 Tablet 600 mg PO BID #60 05/19/20 07/21/20 07/19/20 08:00 Rx Calcium Acetate [Phoslo] 1,334 mg PO TID #90 cap 05/19/20 07/21/20 07/19/20 08:00 Rx Gabapentin 300 mg PO BID #30 capsule 05/19/20 07/21/20 07/19/20 08:00 Rx Midodrine [Proamatine] 5 mg PO BID #60 tablet 05/19/20 07/21/20 07/19/20 08:00 Rx Oxycodone HCl/Acetaminophen 1 each PO Q6HR PRN 05/27/20 07/21/20 07/16/20 12:00 History [Percocet 7.5/325 mg] ED Physical Exam - General Limitations: No Limitations ED Course Vital Signs 07/24/20 07/24/20 07/24/20 19:35 19:45 20:16 Temperature 97.6 F Pulse Rate 93 H 92 H 90 Respiratory 18 19 12 Rate Blood Pressure 119/56 122/56 108/55 Blood Pressure 119/56 [Left] O2 Sat by Pulse 100 100 100 Oximetry 07/24/20 07/24/20 07/24/20 20:30 21:00 21:16 Temperature Pulse Rate 89 87 Respiratory 13 16 Rate Blood Pressure 112/54 101/61 126/71 Blood Pressure [Left] O2 Sat by Pulse 92 98 98 Oximetry 07/24/20 07/24/20 07/24/20 21:30 21:46 22:00 Temperature Pulse Rate Respiratory Rate Blood Pressure 117/65 112/61 100/56 Blood Pressure [Left] O2 Sat by Pulse 98 100 97 Oximetry 07/24/20 07/24/20 07/24/20 22:16 22:30 22:45 Temperature Pulse Rate 87 86 86 Respiratory 17 18 15 Rate Blood Pressure 116/62 100/56 113/71 Blood Pressure [Left] O2 Sat by Pulse 98 99 99 Oximetry 07/24/20 07/24/20 07/24/20 23:00 23:11 23:16 Temperature Pulse Rate 90 85 Respiratory 14 18 17 Rate Blood Pressure 113/71 107/72 Blood Pressure [Left] O2 Sat by Pulse 99 98 Oximetry 07/24/20 07/24/20 07/25/20 23:30 23:45 00:00 Temperature Pulse Rate 87 87 87 Respiratory 19 17 14 Rate Blood Pressure 115/73 111/63 109/73 Blood Pressure [Left] O2 Sat by Pulse 99 97 100 Oximetry ED Medical Decision Making - Lab Data Result diagrams: 07/24/20 21:12 07/24/20 21:12 Critical care attestation.: If time is entered above; I have spent that time in minutes in the direct care of this critically ill patient, excluding procedure time. ED Disposition Condition: Stable
[2020-07-24 21:24] LABS: Basophils # (Auto) 0.1 K/mm3 (0.0-0.1); Basophils % (Auto) 0.9 % (0.0-1.8); Eosinophils # (Auto) 0.2 K/mm3 (0.0-0.4); Hematocrit 29.6 % (35.5-45.6); Hemoglobin 9.6 gm/dl (11.8-15.2); Lymphocytes # (Auto) 0.5 K/mm3 (1.2-5.4); Lymphocytes % (Auto) 7.1 % (13.4-35.0); Mean Corpuscular HGB Conc 33 % (32-34); Mean Corpuscular Volume 86 fl (84-94); Monocytes # (Auto) 0.7 K/mm3 (0.0-0.8); Monocytes % (Auto) 9.7 % (0.0-7.3); Platelet Count 265 K/mm3 (140-440); Red Blood Count 3.46 M/mm3 (3.65-5.03); Red Cell Distribution Width 19.5 % (13.2-15.2)
[2020-07-24 21:38] LABS: INR 1.28 (0.87-1.13)
[2020-07-24 21:39] LABS: Partial Thromboplastin Time 44.5 Sec. (24.2-36.6)
--- NOTE | 2020-07-24 22:09 | XRay Report ---
CHEST 1 VIEW INDICATION: MAIN dyspnea COMPARISON: FINDINGS: SUPPORT DEVICES: None. HEART / MEDIASTINUM: No significant abnormality. LUNGS / PLEURA: Diffuse increased interstitial markings again noted No significant pulmonary or pleur al abnormality. No pneumothorax. ADDITIONAL FINDINGS: IMPRESSION: 1. No interval change as compared to previous exam Signer Name: Corey Snow MD Signed: 07/24/2020 10:05 PM Workstation Name: [id number]
[2020-07-24 22:12] LABS: Albumin 3.4 g/dL (3.9-5)
[2020-07-24] MEDS ORDERED: HYDROcodone/ACETAMINOPHEN 10-325MG TAB PO ONE (23:07)
--- NOTE | 2020-07-25 00:27 | Emergency Department Report ---
ED General Adult HPI - General Chief complaint: Dyspnea/Respdistress Stated complaint: SHARAN Time Seen by Provider: 07/24/20 19:45 Source: patient, EMS Mode of arrival: Stretcher Limitations: No Limitations - History of Present Illness Initial comments: Patient presents to the emergency department the chief complaint of shortness of breath. Patient states he has kidney disease and is on dialysis. Per the patient he was discharged on 22 July with his last dialysis being on the . He was set up to have dialysis on Friday, Friday, Friday. Patient states he did not go to dialysis today because he did not have a ride. Patient states when he lies flat is difficult to breathe. He denies any chest pain. He does endorse shortness of breath. Patient complains of all over body aches which is are chronic in nature for the patient -: Gradual Radiation: non-radiation Severity scale (0 -10): 10 Quality: aching Consistency: constant Improves with: none Worsens with: none Associated Symptoms: denies other symptoms Treatments Prior to Arrival: none - Related Data Home Medications Medication Instructions Recorded Confirmed Last Taken Oxycodone HCl/Acetaminophen 1 each PO Q6HR PRN 05/27/20 07/21/20 07/16/20 12:00 [Percocet 7.5/325 mg] Previous Rx's Medication Instructions Recorded Last Taken Type Acetaminophen [Acetaminophen TAB] 650 mg PO Q4H PRN tablet 05/19/20 07/09/20 08:00 Rx AtorvaSTATin [Lipitor] 40 mg PO QHS #30 tablet 05/19/20 07/19/20 21:00 Rx Calcium 600-Vit D3 800 Tablet 600 mg PO BID #60 05/19/20 07/19/20 08:00 Rx Calcium Acetate [Phoslo] 1,334 mg PO TID #90 cap 05/19/20 07/19/20 08:00 Rx Gabapentin 300 mg PO BID #30 capsule 05/19/20 07/19/20 08:00 Rx Midodrine [Proamatine] 5 mg PO BID #60 tablet 05/19/20 07/19/20 08:00 Rx Allergies Allergy/AdvReac Type Severity Reaction Status Date / Time No Known Allergies Allergy Unverified 05/04/20 04:13 ED Review of Systems ROS: Stated complaint: SHARAN Other details as noted in HPI Constitutional: denies: chills, fever Eyes: denies: eye pain, eye discharge, vision change ENT: denies: ear pain, throat pain Respiratory: shortness of breath. denies: cough, wheezing Cardiovascular: denies: chest pain, palpitations Endocrine: no symptoms reported Gastrointestinal: denies: abdominal pain, nausea, diarrhea Genitourinary: denies: urgency, dysuria Musculoskeletal: denies: back pain, joint swelling, arthralgia Skin: denies: rash, lesions Neurological: denies: headache, weakness, paresthesias Psychiatric: denies: anxiety, depression Hematological/Lymphatic: denies: easy bleeding, easy bruising ED Past Medical Hx - Past Medical History Previous Medical History?: Yes Hx Hypertension: Yes Hx Heart Attack/AMI: Yes Hx Congestive Heart Failure: Yes Hx Diabetes: Yes Hx Deep Vein Thrombosis: Yes Hx Renal Disease: Yes (END STAGE RENAL DISEASE) Hx Headaches / Migraines: No Hx Seizures: No Hx Asthma: No Hx COPD: Yes Hx Dementia: No Hx HIV: No Additional medical history: Hemodialysis, fri-fri-fri. Chronic Pain - Surgical History Past Surgical History?: Yes Additional Surgical History: Placement of dialysis access - Social History Smoking Status: Current Every Day Smoker - Medications Home Medications: Home Medications Medication Instructions Recorded Confirmed Last Taken Type Acetaminophen [Acetaminophen TAB] 650 mg PO Q4H PRN tablet 05/19/20 07/21/20 07/09/20 08:00 Rx AtorvaSTATin [Lipitor] 40 mg PO QHS #30 tablet 05/19/20 07/21/20 07/19/20 21:00 Rx Calcium 600-Vit D3 800 Tablet 600 mg PO BID #60 05/19/20 07/21/20 07/19/20 08:00 Rx Calcium Acetate [Phoslo] 1,334 mg PO TID #90 cap 05/19/20 07/21/20 07/19/20 08:00 Rx Gabapentin 300 mg PO BID #30 capsule 05/19/20 07/21/20 07/19/20 08:00 Rx Midodrine [Proamatine] 5 mg PO BID #60 tablet 05/19/20 07/21/20 07/19/20 08:00 Rx Oxycodone HCl/Acetaminophen 1 each PO Q6HR PRN 05/27/20 07/21/20 07/16/20 12:00 History [Percocet 7.5/325 mg] ED Physical Exam - General Limitations: No Limitations General appearance: alert, in no apparent distress - Head Head exam: Present: atraumatic, normocephalic - Eye Eye exam: Present: normal appearance, PERRL, EOMI - ENT ENT exam: Present: mucous membranes moist - Neck Neck exam: Present: normal inspection - Respiratory Respiratory exam: Present: rales. Absent: respiratory distress - Cardiovascular Cardiovascular Exam: Present: regular rate, normal rhythm. Absent: systolic murmur, diastolic murmur, rubs, gallop - GI/Abdominal GI/Abdominal exam: Present: soft, distended (Distended but soft on exam), normal bowel sounds. Absent: tenderness - Rectal Rectal exam: Present: deferred - Extremities Exam Extremities exam: Present: other (Pitting edema bilaterally) - Back Exam Back exam: Present: normal inspection - Neurological Exam Neurological exam: Present: alert, oriented X3, CN II-XII intact. Absent: motor sensory deficit - Psychiatric Psychiatric exam: Present: normal affect, normal mood - Skin Skin exam: Present: warm, dry, intact, normal color. Absent: rash ED Course Vital Signs 07/24/20 07/24/20 07/24/20 19:35 19:45 20:16 Temperature 97.6 F Pulse Rate 93 H 92 H 90 Respiratory 18 19 12 Rate Blood Pressure 119/56 122/56 108/55 Blood Pressure 119/56 [Left] O2 Sat by Pulse 100 100 100 Oximetry 07/24/20 07/24/20 07/24/20 20:30 21:00 21:16 Temperature Pulse Rate 89 87 Respiratory 13 16 Rate Blood Pressure 112/54 101/61 126/71 Blood Pressure [Left] O2 Sat by Pulse 92 98 98 Oximetry 07/24/20 07/24/20 07/24/20 21:30 21:46 22:00 Temperature Pulse Rate Respiratory Rate Blood Pressure 117/65 112/61 100/56 Blood Pressure [Left] O2 Sat by Pulse 98 100 97 Oximetry 07/24/20 07/24/20 07/24/20 22:16 22:30 22:45 Temperature Pulse Rate 87 86 86 Respiratory 17 18 15 Rate Blood Pressure 116/62 100/56 113/71 Blood Pressure [Left] O2 Sat by Pulse 98 99 99 Oximetry 07/24/20 07/24/20 07/24/20 23:00 23:11 23:16 Temperature Pulse Rate 90 85 Respiratory 14 18 17 Rate Blood Pressure 113/71 107/72 Blood Pressure [Left] O2 Sat by Pulse 99 98 Oximetry 07/24/20 07/24/20 07/25/20 23:30 23:45 00:00 Temperature Pulse Rate 87 87 87 Respiratory 19 17 14 Rate Blood Pressure 115/73 111/63 109/73 Blood Pressure [Left] O2 Sat by Pulse 99 97 100 Oximetry ED Medical Decision Making - Lab Data Result diagrams: 07/24/20 21:12 07/24/20 21:12 Lab Results 07/24/20 07/24/20 07/24/20 Range/Units 21:12 21:12 21:12 WBC 7.4 (4.5-11.0) K/mm3 RBC 3.46 L (3.65-5.03) M/mm3 Hgb 9.6 L (11.8-15.2) gm/dl Hct 29.6 L (35.5-45.6) % MCV 86 (84-94) fl MCH 28 (28-32) pg MCHC 33 (32-34) % RDW 19.5 H (13.2-15.2) % Plt Count 265 (140-440) K/mm3 Lymph % (Auto) 7.1 L (13.4-35.0) % [place] % (Auto) 9.7 H (0.0-7.3) % Eos % (Auto) 3.0 (0.0-4.3) % Baso % (Auto) 0.9 (0.0-1.8) % Lymph # 0.5 L (1.2-5.4) K/mm3 [place] # 0.7 (0.0-0.8) K/mm3 Eos # 0.2 (0.0-0.4) K/mm3 Baso # 0.1 (0.0-0.1) K/mm3 Seg Neutrophils % 79.3 H (40.0-70.0) % Seg Neutrophils # 5.9 (1.8-7.7) K/mm3 PT 16.2 H (12.2-14.9) Sec. INR 1.28 H (0.87-1.13) APTT 44.5 H (24.2-36.6) Sec. Sodium 133 L (137-145) mmol/L Potassium 4.1 (3.6-5.0) mmol/L Chloride 92.9 L (98-107) mmol/L Carbon Dioxide 23 (22-30) mmol/L Anion Gap 21 mmol/L BUN 43 H (9-20) mg/dL Creatinine 7.3 H (0.8-1.3) mg/dL Estimated GFR 10 ml/min BUN/Creatinine Ratio 6 % Glucose 109 H (75-100) mg/dL Calcium 6.0 L (8.4-10.2) mg/dL Total Bilirubin 0.50 (0.1-1.2) mg/dL AST 28 (5-40) units/L ALT 14 (7-56) units/L Alkaline Phosphatase 125 (35-129) units/L Troponin T 0.170 H* D (0.00-0.029) ng/mL NT-Pro-B Natriuret Pep (0-900) pg/mL Total Protein 7.4 (6.3-8.2) g/dL Albumin 3.4 L (3.9-5) g/dL Albumin/Globulin Ratio 0.9 % // Range/Units 21:12 WBC (4.5-11.0) K/mm3 RBC (3.65-5.03) M/mm3 Hgb (11.8-15.2) gm/dl Hct (35.5-45.6) % MCV (84-94) fl MCH (28-32) pg MCHC (32-34) % RDW (13.2-15.2) % Plt Count (140-440) K/mm3 Lymph % (Auto) (13.4-35.0) % [place] % (Auto) (0.0-7.3) % Eos % (Auto) (0.0-4.3) % Baso % (Auto) (0.0-1.8) % Lymph # (1.2-5.4) K/mm3 [place] # (0.0-0.8) K/mm3 Eos # (0.0-0.4) K/mm3 Baso # (0.0-0.1) K/mm3 Seg Neutrophils % (40.0-70.0) % Seg Neutrophils # (1.8-7.7) K/mm3 PT (12.2-14.9) Sec. INR (0.87-1.13) APTT (24.2-36.6) Sec. Sodium (137-145) mmol/L Potassium (3.6-5.0) mmol/L Chloride (98-107) mmol/L Carbon Dioxide (22-30) mmol/L Anion Gap mmol/L BUN (9-20) mg/dL Creatinine (0.8-1.3) mg/dL Estimated GFR ml/min BUN/Creatinine Ratio % Glucose (75-100) mg/dL Calcium (8.4-10.2) mg/dL Total Bilirubin (0.1-1.2) mg/dL AST (5-40) units/L ALT (7-56) units/L Alkaline Phosphatase (35-129) units/L Troponin T (0.00-0.029) ng/mL NT-Pro-B Natriuret Pep 58809 H (0-900) pg/mL Total Protein (6.3-8.2) g/dL Albumin (3.9-5) g/dL Albumin/Globulin Ratio % - Radiology Data Radiology results: report reviewed - Medical Decision Making Patient discussed with Dr. Hudson and dialysis will be scheduled for the early A.M. discussed results with patient Critical care attestation.: If time is entered above; I have spent that time in minutes in the direct care of this critically ill patient, excluding procedure time. ED Disposition Clinical Impression: Volume overload, End-stage renal disease needing dialysis Disposition: OP ADMIT IP TO THIS HOSP Is pt being admited?: Yes Does the pt Need Aspirin: Yes Condition: Fair Referrals: PRIMARY CARE, [Primary Care Provider] - 3-5 Days
[2020-07-25] MEDS ORDERED: ACETAMINOPHEN 325 MG TAB PO PRN (01:15)
[2020-07-25] MEDS ORDERED: ONDANSETRON 4 MG/2 ML INJ IV PRN (01:15)
[2020-07-25] MEDS ORDERED: MAGNESIUM HYDROXIDE (MOM) ORAL LIQD UDC PO PRN (01:15)
[2020-07-25] MEDS ORDERED: DEXTROSE 50% IN WATER (25GM) 50 ML SYRINGE IV PRN (01:15)
--- NOTE | 2020-07-25 01:27 | History and Physical Report ---
History of Present Illness Date of examination: 07/25/20 Date of admission: 07/25/20 00:46 Chief complaint: Shortness of Breath Lower extremity swelling History of present illness: Patient is a 54-year-old male with known history of hypertension, COPD, coronary artery disease with VT in the past, end-stage renal disease on dialysis on Mondays, Wednesdays and Fridays. Patient also has known history of noncompliance with dialysis. He was just recently discharged from here on July 22, 2020 and had his dialysis on 20 July 2020. Patient reports to the emergency room today complaining of shortness of breath and lower extremity swelling. He presented with similar complaints during his recent hospital admission. He denies any fever or chills, no chest pain, no headache or dizziness, no nausea or vomiting, no abdominal pain. Work-up in the emergency room today reveals diffuse interstitial markings on the chest x-ray which looks unchanged from previous. Checker In Dr. Olga Hudson was consulted by the ER physician for possible dialysis. Past History Past Medical History: CAD (H/O VT in the past), COPD, diabetes, dialysis, ESRD, hypertension, hyperlipidemia, other (Chronic pain) Past Surgical History: Other (Dialysis Access ) Social history: smoking (Current daily smoker) Family history: no significant family history Medications and Allergies Allergies Allergy/AdvReac Type Severity Reaction Status Date / Time No Known Allergies Allergy Unverified 05/04/20 04:13 Home Medications Medication Instructions Recorded Confirmed Last Taken Type Acetaminophen [Acetaminophen TAB] 650 mg PO Q4H PRN tablet 05/19/20 07/21/20 07/09/20 08:00 Rx AtorvaSTATin [Lipitor] 40 mg PO QHS #30 tablet 05/19/20 07/21/20 07/19/20 21:00 Rx Calcium 600-Vit D3 800 Tablet 600 mg PO BID #60 05/19/20 07/21/20 07/19/20 08:00 Rx Calcium Acetate [Phoslo] 1,334 mg PO TID #90 cap 05/19/20 07/21/20 07/19/20 08:00 Rx Gabapentin 300 mg PO BID #30 capsule 05/19/20 07/21/20 07/19/20 08:00 Rx Midodrine [Proamatine] 5 mg PO BID #60 tablet 05/19/20 07/21/20 07/19/20 08:00 Rx Oxycodone HCl/Acetaminophen 1 each PO Q6HR PRN 05/27/20 07/21/20 07/16/20 12:00 History [Percocet 7.5/325 mg] Active Meds: Active Medications Acetaminophen (Tylenol) 650 mg PO Q4H PRN PRN Reason: Pain MILD(1-3)/Fever >100.5/MALDONADO Dextrose (D50w (25gm) Syringe) 50 ml IV Q30MIN PRN; Protocol PRN Reason: Hypoglycemia Insulin Human Lispro (Humalog) 0 unit SUB-Q ACHS LIBORIO; Protocol Magnesium Hydroxide (Milk Of Magnesia) 30 ml PO Q4H PRN PRN Reason: Constipation Morphine Sulfate (Morphine) 2 mg IV Q4H PRN PRN Reason: Pain, Moderate (4-6) Ondansetron HCl (Zofran) 4 mg IV Q8H PRN PRN Reason: Nausea And Vomiting Sodium Chloride (Sodium Chloride Flush Syringe 10 Ml) 10 ml IV BID LIBORIO Sodium Chloride (Sodium Chloride Flush Syringe 10 Ml) 10 ml IV PRN PRN PRN Reason: LINE FLUSH Review of Systems Constitutional: no fever, no chills Ears, nose, mouth and throat: no nasal congestion, no sore throat Cardiovascular: no chest pain, no palpitations Respiratory: shortness of breath, no cough Gastrointestinal: no abdominal pain, no nausea, no vomiting, no diarrhea Genitourinary Male: no dysuria, no hematuria, no flank pain Musculoskeletal: no neck pain, no low back pain Integumentary: no rash, no pruritis Neurological: no headaches, no confusion Psychiatric: no anxiety, no depression Exam - Constitutional Vitals: Temp Pulse Resp BP Pulse Ox 967.6 F H 88 16 108/70 97 07/24/20 19:35 07/25/20 00:30 07/25/20 00:30 07/25/20 00:30 07/25/20 00:30 General appearance: Present: no acute distress, well-nourished - EENT Eyes: Present: PERRL, EOM intact. Absent: scleral icterus ENT: hearing intact, clear oral mucosa, dentition normal - Neck Neck: Present: supple, normal ROM - Respiratory Respiratory effort: normal Respiratory: bilateral: diminished - Cardiovascular Rhythm: regular Heart Sounds: Present: S1 & S2. Absent: gallop, systolic murmur, diastolic murmur, rub - Extremities Extremities: no ischemia, pulses intact, pulses symmetrical, Full ROM Extremity abnormal: edema (3+ bilateral lower extremity edema, firm.) Peripheral Pulses: within normal limits - Abdominal General gastrointestinal: Present: soft, non-tender, non-distended, normal bowel sounds. Absent: mass Male genitourinary: Present: scrotal edema - Integumentary Integumentary: Present: clear, warm, dry. Absent: rash - Musculoskeletal Musculoskeletal: strength equal bilaterally, other (Left groin/thigh catheter in place) - Psychiatric Psychiatric: appropriate mood/affect, intact judgment & insight, memory intact, cooperative - Neurologic Neurologic: CNII-XII intact, focal deficits, moves all extremities HEART Score - HEART Score Troponin: Troponin T 0.170 ng/mL (0.00-0.029) H* D 07/24/20 21:12 Results - Labs CBC & Chem 7: 07/24/20 21:12 07/24/20 21:12 Labs: Abnormal lab results 07/24/20 07/24/20 07/24/20 Range/Units 21:12 21:12 21:12 RBC 3.46 L (3.65-5.03) M/mm3 Hgb 9.6 L (11.8-15.2) gm/dl Hct 29.6 L (35.5-45.6) % RDW 19.5 H (13.2-15.2) % Lymph % (Auto) 7.1 L (13.4-35.0) % [place] % (Auto) 9.7 H (0.0-7.3) % Lymph # 0.5 L (1.2-5.4) K/mm3 Seg Neutrophils % 79.3 H (40.0-70.0) % PT 16.2 H (12.2-14.9) Sec. INR 1.28 H (0.87-1.13) APTT 44.5 H (24.2-36.6) Sec. Sodium 133 L (137-145) mmol/L Chloride 92.9 L (98-107) mmol/L BUN 43 H (9-20) mg/dL Creatinine 7.3 H (0.8-1.3) mg/dL Glucose 109 H (75-100) mg/dL Calcium 6.0 L (8.4-10.2) mg/dL Troponin T 0.170 H* D (0.00-0.029) ng/mL NT-Pro-B Natriuret Pep (0-900) pg/mL Albumin 3.4 L (3.9-5) g/dL 07/24/20 Range/Units 21:12 RBC (3.65-5.03) M/mm3 Hgb (11.8-15.2) gm/dl Hct (35.5-45.6) % RDW (13.2-15.2) % Lymph % (Auto) (13.4-35.0) % [place] % (Auto) (0.0-7.3) % Lymph # (1.2-5.4) K/mm3 Seg Neutrophils % (40.0-70.0) % PT (12.2-14.9) Sec. INR (0.87-1.13) APTT (24.2-36.6) Sec. Sodium (137-145) mmol/L Chloride (98-107) mmol/L BUN (9-20) mg/dL Creatinine (0.8-1.3) mg/dL Glucose (75-100) mg/dL Calcium (8.4-10.2) mg/dL Troponin T (0.00-0.029) ng/mL NT-Pro-B Natriuret Pep [id number] H (0-900) pg/mL Albumin (3.9-5) g/dL Assessment and Plan - Patient Problems (1) End-stage renal disease needing dialysis Current Visit: Yes Status: Chronic Plan to address problem: Patient is on dialysis on Mondays, Wednesdays and Fridays. Checker In has been consulted for dialysis. Patient has known history of noncompliance with dialysis. (2) Elevated troponin Current Visit: No Status: Acute Plan to address problem: This appears chronic and probably secondary to the chronic kidney disease.. Patient has denied any chest pain. (3) Hyperlipidemia Current Visit: No Status: Acute Qualifiers: Hyperlipidemia type: mixed hyperlipidemia Qualified Code(s): E78.2 - Mixed hyperlipidemia Plan to address problem: We will resume routine home medications and monitor lipid profile. (4) Hypertension Current Visit: No Status: Acute Qualifiers: Hypertension type: essential hypertension Qualified Code(s): I10 - Essential (primary) hypertension Plan to address problem: Will resume routine home medications and monitor vital signs closely. (5) Noncompliance with renal dialysis Current Visit: No Status: Acute Plan to address problem: Compliance with dialysis encouraged. (6) DVT prophylaxis Current Visit: No Status: Acute Plan to address problem: Patient placed on subcutaneous heparin. (7) Full code status Current Visit: No Status: Acute
[2020-07-25] MEDS ORDERED: MORPHINE 2 MG/1 ML INJ ONE (02:51)
[2020-07-25] MEDS: MORPHINE 2 MG/1 ML INJ IV PRN ×2 (02:52→09:27)
[2020-07-25] MEDS: INSULIN LISPRO 100 UNIT/ML VIAL 3 mL SUB-Q SCH ×3 (08:15→21:42)
[2020-07-25] MEDS ORDERED: SODIUM CHLORIDE 0.9% 100 ML IV PRN ×3 (09:26→13:00)
--- NOTE | 2020-07-25 09:26 | Consultation ---
History of Present Illness - Reason for Consult Consult date: 07/25/20 end stage renal disease Requesting physician: JAIME HUFFMAN - History of Present Illness Patient presented to the emergency department last night with the chief complaint of shortness of breath. Patient states he has kidney disease and is on dialysis. Per the patient he was discharged on 22 July with his last dialysis being on the . He was set up to have dialysis on Friday, Friday, Friday. Patient states he did not go to dialysis today because he did not have a ride. Patient states when he lies flat is difficult to breathe. He denies any chest pain. He does endorse shortness of breath. Patient complains of all over body aches which is are chronic in nature for the patient. Discussed with dialysis nurse. Apparently he did dialyze prior to his discharge on 22 July. Patient states that he used to go to the [facility] in the past. Unclear about his current outpatient dialysis facility. Patient seems to be unwilling to give details Past History Past Medical History: CAD (H/O [place] in the past), COPD, diabetes, dialysis, ESRD, hypertension, hyperlipidemia, other (Chronic pain) Past Surgical History: Other (Dialysis Access ) Social history: smoking (Current daily smoker) Family history: no significant family history Medications and Allergies Allergies Allergy/AdvReac Type Severity Reaction Status Date / Time No Known Allergies Allergy Unverified 05/04/20 04:13 Home Medications Medication Instructions Recorded Confirmed Last Taken Type Acetaminophen [Acetaminophen TAB] 650 mg PO Q4H PRN tablet 05/19/20 07/21/20 07/09/20 08:00 Rx AtorvaSTATin [Lipitor] 40 mg PO QHS #30 tablet 05/19/20 07/21/20 07/19/20 21:00 Rx Calcium 600-Vit D3 800 Tablet 600 mg PO BID #60 05/19/20 07/21/20 07/19/20 08:00 Rx Calcium Acetate [Phoslo] 1,334 mg PO TID #90 cap 05/19/20 07/21/20 07/19/20 08:00 Rx Gabapentin 300 mg PO BID #30 capsule 05/19/20 07/21/20 07/19/20 08:00 Rx Midodrine [Proamatine] 5 mg PO BID #60 tablet 05/19/20 07/21/20 07/19/20 08:00 Rx Oxycodone HCl/Acetaminophen 1 each PO Q6HR PRN 05/27/20 07/21/20 07/16/20 12:00 History [Percocet 7.5/325 mg] Active Meds: Active Medications Acetaminophen (Tylenol) 650 mg PO Q4H PRN PRN Reason: Pain MILD(1-3)/Fever >100.5/MALDONADO Dextrose (D50w (25gm) Syringe) 50 ml IV Q30MIN PRN; Protocol PRN Reason: Hypoglycemia Insulin Human Lispro (Humalog) 0 unit SUB-Q ACHS LIBORIO; Protocol Last Admin: 07/25/20 08:15 Dose: Not Given Documented by: Magnesium Hydroxide (Milk Of Magnesia) 30 ml PO Q4H PRN PRN Reason: Constipation Morphine Sulfate (Morphine) 2 mg IV Q4H PRN PRN Reason: Pain, Moderate (4-6) Last Admin: 07/25/20 02:52 Dose: 2 mg Documented by: Ondansetron HCl (Zofran) 4 mg IV Q8H PRN PRN Reason: Nausea And Vomiting Sodium Chloride (Sodium Chloride Flush Syringe 10 Ml) 10 ml IV BID LIBORIO Sodium Chloride (Sodium Chloride Flush Syringe 10 Ml) 10 ml IV PRN PRN PRN Reason: LINE FLUSH Review of Systems All systems: negative (Negative except as noted above) Exam - Vital Signs Vital signs: Vital Signs Temp Pulse Resp BP Pulse Ox 967.6 F H 93 H 18 119/56 100 07/24/20 19:35 07/24/20 19:35 07/24/20 19:35 07/24/20 19:35 07/24/20 19:35 - General Appearance General appearance: well-developed, well-nourished, appears stated age EENT: PERRL, mucous membranes moist Neck: Present: neck supple, trachea midline. Absent: JVD/HJR, Masses Respiratory: Clear to Ascultation, Decreased Breath Sounds (Diminished breath sounds at the bases) Heart: regular, normal heart rate, S1S2, no murmurs Gastrointestinal: Present: normal, normoactive bowel sounds Integumentary: no rash, other (Left femoral PermCath in place. Patient also has 2+ pitting edema bilaterally) Results - Lab Results 07/24/20 21:12 07/24/20 21:12 Most recent lab results Calcium 6.0 mg/dL (8.4-10.2) L 07/24/20 21:12 Assessment and Plan Impression * End-stage renal disease on maintenance hemodialysis * Fluid overload * COPD * Hypertension * Diabetes * Anemia secondary to ESRD Recommendations * Shall arrange for hemodialysis treatment today and remove fluid as tolerated * He will most likely need additional treatment again tomorrow * Adjust diet and meds for ESRD state * Avoid nephrotoxins * Consider social service consult for outpatient dialysis * Epogen with dialysis * Binders with meals * Thank you very much for the consultation. Shall follow along with you
[2020-07-25] MEDS: EPOETIN ALFA 10,000 UNIT/1 ML INJ IV PRN (11:45)
[2020-07-25] MEDS ORDERED: ALBUMIN HUMAN 25% (25 GM/100 ML) INJ IV PRN (13:00)
--- NOTE | 2020-07-25 14:53 | Event Note ---
Date: 07/25/20 Patient sitting up having breakfast at the time of my visit. Left groin catheter in place. Still with generalized edema. Continue dialysis per Nephrology. Again advised about placement and he states "He wants the freedom to come and go as needed"
[2020-07-26 06:04] LABS: Basophils % (Auto) 0.6 % (0.0-1.8); Eosinophils # (Auto) 0.2 K/mm3 (0.0-0.4); Eosinophils % (Auto) 3.4 % (0.0-4.3); Hemoglobin 8.9 gm/dl (11.8-15.2); Lymphocytes # (Auto) 0.4 K/mm3 (1.2-5.4); Lymphocytes % (Auto) 8.2 % (13.4-35.0); Mean Corpuscular HGB Conc 33 % (32-34); Mean Corpuscular Volume 86 fl (84-94); Monocytes # (Auto) 0.6 K/mm3 (0.0-0.8); Monocytes % (Auto) 11.8 % (0.0-7.3); Platelet Count 207 K/mm3 (140-440); Red Blood Count 3.13 M/mm3 (3.65-5.03); Red Cell Distribution Width 20.3 % (13.2-15.2)
[2020-07-26 06:15] LABS: Calcium 6.2 mg/dL (8.4-10.2)
[2020-07-26 06:25] LABS: INR 1.23 (0.87-1.13)
[2020-07-26] MEDS ORDERED: SODIUM CHLORIDE 0.9% 100 ML IV PRN (09:18)
--- NOTE | 2020-07-26 09:18 | Progress Note ---
Assessment and Plan Impression * End-stage renal disease on maintenance hemodialysis * Fluid overload * COPD * Hypertension * Diabetes * Anemia secondary to ESRD Recommendations * Patient had uneventful hemodialysis treatment yesterday. * Clinically however he is still volume overloaded. Shall arrange for hemodialysis treatment again today and remove fluid as tolerated * Continue dialysis on MWF schedule while inpatient. * Adjust diet and meds for ESRD state * Avoid nephrotoxins * Consider social service consult for outpatient dialysis. Event note from hospitalist noted * Epogen with dialysis * Binders with meals Subjective Date of service: 07/26/20 Interval history: Patient still complains of some shortness of breath. Denies any nausea vomiting or diarrhea. Had dialysis treatment yesterday. Objective - Vital Signs Vital signs: Vital Signs - 12hr 07/25/20 07/26/20 23:28 08:07 Temperature 97.9 F Pulse Rate 76 74 Respiratory 20 Rate Blood Pressure 87/51 90/41 O2 Sat by Pulse 97 93 Oximetry - General Appearance General appearance: well-developed, well-nourished, appears stated age, obese EENT: PERRL, mucous membranes moist Neck: no JVD, no thyromegaly, no carotid bruit, supple Respiratory: Present: Clear to Ascultation, Decreased Breath Sounds (At the bases) Cardiology: regular, normal heart rate Gastrointestinal: normal, normoactive bowel sounds Integumentary: other (Left femoral PermCath in place. 2+ pitting edema bilaterally) - Lab 07/26/20 05:35 07/26/20 05:35 Most recent lab results Calcium 6.2 mg/dL (8.4-10.2) L 07/26/20 05:35 Medications & Allergies - Medications Allergies/Adverse Reactions: Allergies No Known Allergies Allergy (Unverified 05/04/20 04:13) Home Medications: Home Medications Medication Instructions Recorded Confirmed Last Taken Type Acetaminophen [Acetaminophen TAB] 650 mg PO Q4H PRN tablet 05/19/20 07/26/20 07/25/20 Rx AtorvaSTATin [Lipitor] 40 mg PO QHS #30 tablet 05/19/20 07/26/20 07/25/20 Rx Calcium 600-Vit D3 800 Tablet 600 mg PO BID #60 05/19/20 07/26/20 07/25/20 Rx Calcium Acetate [Phoslo] 1,334 mg PO TID #90 cap 05/19/20 07/26/20 07/25/20 Rx Gabapentin 300 mg PO BID #30 capsule 05/19/20 07/26/20 07/19/20 08:00 Rx Midodrine [Proamatine] 5 mg PO BID #60 tablet 05/19/20 07/26/20 07/19/20 08:00 Rx Oxycodone HCl/Acetaminophen 1 each PO Q6HR PRN 05/27/20 07/26/20 07/25/20 History [Percocet 7.5/325 mg] Active Medications: Generic Name Dose Route Start Last Admin Trade Name Freq PRN Reason Stop Dose Admin Acetaminophen 650 mg 07/25/20 01:15 07/26/20 03:38 Tylenol PO 650 mg Q4H PRN Administration Pain MILD(1-3)/Fever >100.5/MALDONADO Albumin Human 25 gm 07/25/20 13:00 Alburx 25% (Albumin) IV PEDRITO PRN Hypotension Dextrose 50 ml 07/25/20 01:15 D50w (25gm) Syringe IV Q30MIN PRN Hypoglycemia Protocol Epoetin Tam 10,000 unit 07/25/20 09:26 07/25/20 11:45 Procrit IV 10,000 unit PEDRITO PRN Administration hemodialysis Sodium Chloride 100 mls @ 999 mls/hr 07/25/20 13:00 Nacl 0.9% IV PEDRITO PRN Hypotension Insulin Human Lispro 0 unit 07/25/20 07:30 07/25/20 21:42 Humalog SUB-Q Not Given ACHS LIBORIO Protocol Magnesium Hydroxide 30 ml 07/25/20 01:15 Milk Of Magnesia PO Q4H PRN Constipation Morphine Sulfate 2 mg 07/25/20 01:15 07/25/20 09:27 Morphine IV 2 mg Q4H PRN Administration Pain, Moderate (4-6) Ondansetron HCl 4 mg 07/25/20 01:15 Zofran IV Q8H PRN Nausea And Vomiting Sodium Chloride 10 ml 07/25/20 10:00 07/25/20 21:42 Sodium Chloride Flush Syringe 10 Ml IV 10 ml BID LIBORIO Administration Sodium Chloride 10 ml 07/25/20 01:15 07/26/20 04:24 Sodium Chloride Flush Syringe 10 Ml IV 10 ml PRN PRN Administration LINE FLUSH
[2020-07-26] MEDS: INSULIN LISPRO 100 UNIT/ML VIAL 3 mL SUB-Q SCH ×4 (09:49→16:54)
--- NOTE | 2020-07-26 10:06 | Discharge Summary ---
Providers - Providers Date of Admission: 07/25/20 00:46 Attending physician: JAIME HUFFMAN MD 07/25/20 00:23 Consult to Physician [CONS] Routine Comment: Dr. Dacosta spoke with Dr. Hudson @ 0022 Consulting Provider: JULY HUDSON Physician Instructions: Reason For Exam: volume overload 07/25/20 01:15 Consult to Dietitian/Nutrition [CONS] Routine Physician Instructions: Reason For Exam: Reason for Consult: Diet education Primary care physician: [facility] Hospitalization Reason for admission: volume overload Condition: Stable Hospital course: Patient is a 54-year-old male with known history of hypertension, COPD, coronary artery disease with [place] in the past, end-stage renal disease on dialysis on Mondays, Wednesdays and Fridays. Patient also has known history of noncompliance with dialysis. He was just recently discharged from here on July 22, 2020 and had his dialysis on 20 July 2020. Patient reports to the emergency room today complaining of shortness of breath and lower extremity swelling. He presented with similar complaints during his recent hospital admission. He denies any fever or chills, no chest pain, no headache or dizziness, no nausea or vomiting, no abdominal pain. Work-up in the emergency room today reveals diffuse interstitial markings on the chest x-ray which looks unchanged from previous. Student Services Coordinator Dr. July Hudson was consulted by the ER physician for possible dialysis. Patient has had multiple admissions to our facility as he is been noncompliant with placement today he is agreeable and provides information from address with the case management is working on for him he states that the address is where he lives and has all his properties. We will continue transportation to the area once the area is verified. He will have additional dialysis today due to volume overload. Anticipate discharge he is not in any worse respiratory distress actually if any is better compared to when he came in. No oxygen requirement at this time. Site of permacat, evaluated no evidence of infection. Again counseling provided to him on the risk of continued noncompliance he verbalized understanding. * Fluid overload * COPD * Hypertension * Hyperlipidemia * Type II NSTEMI * Noncompliance * Diabetes mellitus * Morbid obesity * Anemia secondary to ESRD * End-stage renal disease Disposition: TO HOME OR SELFCARE Time spent for discharge: 35 minutes Core Measure Documentation - Palliative Care Palliative Care/ Comfort Measures: Not Applicable - Core Measures Any of the following diagnoses?: none Exam - Physical Exam Narrative exam: VITAL SIGNS: Reviewed. GENERAL: The patient appears normally developed, anasarca vital signs as documented. HEAD: No signs of head trauma. EYES: Pupils are equal. Extraocular motions intact. EARS: Hearing grossly intact. MOUTH: Oropharynx is normal. NECK: No adenopathy, no JVD. CHEST: Chest with clear breath sounds bilaterally. No wheezes, rales, or rhonchi. CARDIAC: Regular rate and rhythm. S1 and S2, without murmurs, gallops, or rubs. VASCULAR: Left groin permacath +1 edema. Peripheral pulses normal and equal in all extremities. ABDOMEN: Soft, non tender and non distended. No rebound or guarding, and no masses palpated. Bowel Sounds normal. MUSCULOSKELETAL: Good range of motion of all major joints. Extremities without clubbing, cyanosis. Chronic lateral lower extremity edema. NEUROLOGIC EXAM: Alert and oriented x 3 No focal sensory or strength deficits. Speech normal. Follows commands. PSYCHIATRIC: Mood normal. SKIN: detail exam as documented in skin assessment - Constitutional Vitals: Temp Pulse Resp BP Pulse Ox 97.9 F 74 20 90/41 93 07/25/20 23:28 07/26/20 08:07 07/25/20 23:28 07/26/20 08:07 07/26/20 08:07 Plan Activity: advance as tolerated, fall precautions Diet: diabetic, renal Special Instructions: record daily weights, record daily BP diary, record blood sugar diary Additional Instructions: Continue to follow with case management. Continue to follow with clinical resource manager. Follow up with: DAVE POWERS MD [Primary Care Provider] - 3-5 Days BRIONNA VICTORIA MD [Staff Physician] - 7 Days
[2020-07-26] MEDS: MORPHINE 2 MG/1 ML INJ IV PRN (10:33)
[2020-07-26] MEDS: EPOETIN ALFA 10,000 UNIT/1 ML INJ IV PRN (12:47)
[2020-07-26 19:44] VITALS: BP 121/73
== END 2020-07-26 21:15 | disposition home or self-care (01) ==
LOC: ED 19:33 → 4A 07-25 00:46
PROVIDERS: ADMIT Internal Medicine Geriatric Medicine; ATTEND Internal Medicine
DX: E87.70 Fluid overload, unspecified (principal); I13.2 Hypertensive heart and chronic kidney disease with heart failure and with stage 5 chronic kidney disease, or end stage renal disease; E11.22 Type 2 diabetes mellitus with diabetic chronic kidney disease; N18.6 End stage renal disease; I50.9 Heart failure, unspecified; D63.1 Anemia in chronic kidney disease; R79.89 Other specified abnormal findings of blood chemistry; I21.A1 Myocardial infarction type 2; E78.2 Mixed hyperlipidemia; I25.10 Atherosclerotic heart disease of native coronary artery without angina pectoris; J44.9 Chronic obstructive pulmonary disease, unspecified; I25.2 Old myocardial infarction; G89.29 Other chronic pain; E66.01 Morbid (severe) obesity due to excess calories; F17.200 Nicotine dependence, unspecified, uncomplicated; Z86.718 Personal history of other venous thrombosis and embolism; Z99.2 Dependence on renal dialysis; Z91.15 Patient's noncompliance with renal dialysis; Z79.899 Other long term (current) drug therapy; Z68.42 Body mass index [BMI] 45.0-49.9, adult
CPT/HCPCS: 36415; 71045; 80048; 80053; 82962; 83880; 84484; 85025; 85610; 85730; 96374; 96376; 99284; G0257; G0378; J0885; J2270; P9047

== ENCOUNTER 2020-08-02 21:00 | Observation (INO) | payer MEDICARE ==
[2020-08-03] MEDS ORDERED: MORPHINE 2 MG/1 ML INJ IV ONE ×2 (00:59→06:37)
--- NOTE | 2020-08-03 00:59 | Emergency Department Report ---
ED Shortness of Breath HPI - General Chief Complaint: Dyspnea/Respdistress Stated Complaint: PAIN ALL OVER SWELLING Time Seen by Provider: 08/03/20 00:54 Source: patient Mode of arrival: Ambulatory Limitations: No Limitations - History of Present Illness Initial Comments: Patient is a 54-year-old male that presents emergency room for multiple complaints. Patient's complaints include shortness of breath, lower extremity swelling, dizziness, syncope, back pain. Patient states his lower extremities are swollen and are in pain. Patient states the lower extremity and back pain are a 10 out of 10. Patient states is a sharp pain. Patient states its pain is worsening. Patient states the pain is nonradiating. Patient states he swollen all the way up to his lower abdomen. Patient states his shortness of breath is worsening. Patient states shortness of breath is worse with exertion and better with rest. Patient states his dizziness and syncope have improved. Patient states he was sitting down and went to stand up and became dizzy and passed out. Patient states his loss of consciousness was brief. Patient denies trauma. Patient denies dizziness. Patient denies neck pain. Patient denies fever and chills. Patient denies abdominal pain. Patient denies recent travel. Patient denies recent international travel. Patient denies exposure to the novel coronavirus. Patient denies sick contacts. Patient denies fever and chills. Patient denies cough. Patient denies diarrhea. Patient denies coming in contact with anybody with symptoms of the novel coronavirus. Patient states his last dialysis was on August 01. Patient states he has not gone for another dialysis. Patient states he is overloaded with fluid again. MD Complaint: shortness of breath -: Sudden Severity: severe Consistency: constant Improves With: rest Worsens With: exertion Known History Of: congestive heart failure Treatments Prior to Arrival: none - Related Data Home Oxygen Therapy: No Previous Rx's Medication Instructions Recorded Last Taken Type Acetaminophen [Acetaminophen TAB] 650 mg PO Q4H PRN tablet 05/19/20 07/25/20 Rx Calcium 600-Vit D3 800 Tablet 600 mg PO BID #60 05/19/20 07/25/20 Rx Gabapentin 300 mg PO BID #30 capsule 05/19/20 07/19/20 08:00 Rx Midodrine [Proamatine] 5 mg PO BID #60 tablet 05/19/20 07/19/20 08:00 Rx AtorvaSTATin [Lipitor] 40 mg PO QHS #30 tablet 07/28/20 Unknown Rx Calcium Acetate [Phoslo] 1,334 mg PO TID #90 cap 07/28/20 Unknown Rx Allergies Allergy/AdvReac Type Severity Reaction Status Date / Time No Known Allergies Allergy Unverified 05/04/20 04:13 ED Review of Systems ROS: Stated complaint: PAIN ALL OVER SWELLING Other details as noted in HPI Constitutional: denies: chills, fever Eyes: denies: eye pain, eye discharge, vision change ENT: denies: ear pain, throat pain Respiratory: shortness of breath, SOB with exertion, SOB at rest. denies: cough, wheezing Cardiovascular: edema. denies: chest pain, palpitations Endocrine: no symptoms reported Gastrointestinal: denies: abdominal pain, nausea, diarrhea Genitourinary: denies: urgency, dysuria Musculoskeletal: back pain. denies: joint swelling, arthralgia Skin: as per HPI. denies: rash, lesions Neurological: denies: headache, weakness, paresthesias Psychiatric: denies: anxiety, depression Hematological/Lymphatic: denies: easy bleeding, easy bruising ED Past Medical Hx - Past Medical History Previous Medical History?: Yes Hx Hypertension: Yes Hx Heart Attack/AMI: Yes Hx Congestive Heart Failure: Yes Hx Diabetes: Yes Hx Deep Vein Thrombosis: Yes Hx Renal Disease: Yes (END STAGE RENAL DISEASE) Hx Headaches / Migraines: No Hx Seizures: No Hx Asthma: No Hx COPD: Yes Hx Dementia: No Hx HIV: No Additional medical history: Hemodialysis, [id number]-[id number]. Chronic Pain - Surgical History Past Surgical History?: Yes Additional Surgical History: Placement of dialysis access - Family History Family history: no significant - Social History Smoking Status: Never Smoker Substance Use Type: None - Medications Home Medications: Home Medications Medication Instructions Recorded Confirmed Last Taken Type Acetaminophen [Acetaminophen TAB] 650 mg PO Q4H PRN tablet 05/19/20 07/29/20 07/25/20 Rx Calcium 600-Vit D3 800 Tablet 600 mg PO BID #60 05/19/20 07/29/20 07/25/20 Rx Gabapentin 300 mg PO BID #30 capsule 05/19/20 07/29/20 07/19/20 08:00 Rx Midodrine [Proamatine] 5 mg PO BID #60 tablet 05/19/20 07/29/20 07/19/20 08:00 Rx AtorvaSTATin [Lipitor] 40 mg PO QHS #30 tablet 07/28/20 07/29/20 Unknown Rx Calcium Acetate [Phoslo] 1,334 mg PO TID #90 cap 07/28/20 07/29/20 Unknown Rx ED Physical Exam - General Limitations: No Limitations General appearance: alert, in no apparent distress - Head Head exam: Present: atraumatic, normocephalic - Eye Eye exam: Present: normal appearance - ENT ENT exam: Present: mucous membranes moist - Neck Neck exam: Present: normal inspection - Respiratory Respiratory exam: Present: normal lung sounds bilaterally. Absent: respiratory distress - Cardiovascular Cardiovascular Exam: Present: regular rate, normal rhythm. Absent: systolic murmur, diastolic murmur, rubs, gallop - GI/Abdominal GI/Abdominal exam: Present: soft, distended, normal bowel sounds - Rectal Rectal exam: Present: deferred - Extremities Exam Extremities exam: Present: tenderness, pedal edema, other (Entire lower extremity swelling.) - Back Exam Back exam: Present: normal inspection - Neurological Exam Neurological exam: Present: alert, oriented X3 - Psychiatric Psychiatric exam: Present: normal affect, normal mood - Skin Skin exam: Present: warm, dry, intact, normal color. Absent: rash ED Course Vital Signs 08/02/20 08/03/20 08/03/20 22:44 01:16 01:29 Temperature 98.5 F Pulse Rate 91 H 88 Respiratory 18 18 19 Rate Blood Pressure 123/87 Blood Pressure 111/78 [Right] O2 Sat by Pulse 94 100 Oximetry 08/03/20 08/03/20 08/03/20 01:30 01:46 02:00 Temperature Pulse Rate 88 87 87 Respiratory 16 18 17 Rate Blood Pressure 123/87 123/87 123/87 Blood Pressure [Right] O2 Sat by Pulse 100 100 100 Oximetry 08/03/20 08/03/20 08/03/20 02:16 02:30 02:46 Temperature Pulse Rate 83 86 85 Respiratory 19 16 14 Rate Blood Pressure 123/87 123/87 123/87 Blood Pressure [Right] O2 Sat by Pulse 97 93 98 Oximetry 08/03/20 05:00 Temperature Pulse Rate 82 Respiratory 18 Rate Blood Pressure Blood Pressure [Right] O2 Sat by Pulse 97 Oximetry - Reevaluation(s) Reevaluation #1: I discussed all results with patient. I discussed plan of care with patient. Patient agrees with plan of care and admission. Patient to be admitted to the hospitalist service. 08/03/20 04:40 - Consultations Consultation #1: Hospitalist consulted for admission. Hospitalist to admit patient. 08/03/20 04:40 Consultation #2: Nephrology consulted 08/03/20 04:41 ED Medical Decision Making - Lab Data Result diagrams: 08/03/20 01:11 08/03/20 01:11 - EKG Data -: EKG Interpreted by Me EKG shows normal: sinus rhythm, axis, intervals, QRS complexes, ST-T waves Rate: normal - Radiology Data Radiology results: report reviewed, image reviewed interpreted by me: Chest x-ray: No acute findings, no pneumonia, no pneumothorax, no osseous find ings. CT HEAD WITHOUT CONTRAST HISTORY: Syncope COMPARISON: None TECHNIQUE: CT imaging of the head was performed in the axial, sagittal, and coronal projections and bone algorithm in axial projection in the soft tissue algorithm. All CT scans at this location are performed using CT dose reduction for ALARA by means of automated exposure control. CONTRAST: None. FINDINGS: Cerebral and Cerebellar Hemispheres: No evidence of mass or mass effect. No midline shift. No acute hemorrhage. No acute cortical infarction. No extra-axial fluid collection. Ventricles: Normal in size and configuration for age. Osseous Structures: No significant abnormality. Visualized Paranasal Sinuses: No significant abnormality. Additional Findings: None IMPRESSION: 1. No acute intracranial abnormality. NOTE: Acute infarct may not be visible by noncontrast CT. - Medical Decision Making Patient is a 54-year-old male that presents emergency room with complaints of shortness of breath and generalized swelling. Patient has extreme lower extremity edema and anasarca. Patient is volume overloaded. Patient missed dialysis recently. Patient will require in-hospital dialysis. Patient's labs are markable for end-stage renal disease, hyperkalemia, elevated troponin, anemia. Patient admitted to the hospitalist service for further evaluation and treatment. Nephrology consulted. - Differential Diagnosis Missed dialysis, fluid overload, anasarca, leg edema, S OB Critical Care Time: Yes Critical care time in (mins) excluding proc time.: 35 Critical care attestation.: If time is entered above; I have spent that time in minutes in the direct care o f this critically ill patient, excluding procedure time. Critical Care Time: 35 MINUTES ED Disposition Clinical Impression: Anasarca, End-stage renal disease needing dialysis, Missed dialysis, Hyperkalemia, Elevated troponin, Acidosis, Hyponatremia, Dizziness, SOB (shortness of breath) Fluid overload Qualifiers: Hypervolemia type: unspecified Qualified Code(s): E87.70 - Fluid overload, unspecified Anemia Qualifiers: Anemia type: unspecified type Qualified Code(s): D64.9 - Anemia, unspecified Syncope Qualifiers: Syncope type: unspecified Qualified Code(s): R55 - Syncope and collapse Disposition: DC-09 OP ADMIT IP TO THIS HOSP Is pt being admited?: Yes Does the pt Need Aspirin: No Condition: Critical Time of Disposition: 04:33
[2020-08-03 01:36] LABS: Basophils # (Auto) 0.1 K/mm3 (0.0-0.1); Basophils % (Auto) 0.6 % (0.0-1.8); Eosinophils # (Auto) 0.1 K/mm3 (0.0-0.4); Eosinophils % (Auto) 1.4 % (0.0-4.3); Hematocrit 32.4 % (35.5-45.6); Hemoglobin 10.8 gm/dl (11.8-15.2); Lymphocytes # (Auto) 0.6 K/mm3 (1.2-5.4); Mean Corpuscular HGB Conc 33 % (32-34); Mean Corpuscular Volume 83 fl (84-94); Monocytes # (Auto) 1.1 K/mm3 (0.0-0.8); Monocytes % (Auto) 12.3 % (0.0-7.3); Platelet Count 338 K/mm3 (140-440); Red Blood Count 3.89 M/mm3 (3.65-5.03)
--- NOTE | 2020-08-03 01:47 | XRay Report ---
CHEST 1 VIEW INDICATION: Dyspnea COMPARISON: 07/29/2020 FINDINGS: SUPPORT DEVICES: None. HEART / MEDIASTINUM: Cardiac enlargement LUNGS / PLEURA: No significant pulmonary or pleural abnormality. No pneumothorax. ADDITIONAL FINDINGS: IMPRESSION: 1. No acute cardiopulmonary disease Signer Name: Corey Snow MD Signed: 08/03/2020 1:43 AM Workstation Name: [id number]
[2020-08-03 01:58] LABS: Creatine Kinase MB 4.5 ng/mL (0.0-4.0)
[2020-08-03 02:05] LABS: Calcium 5.8 mg/dL (8.4-10.2)
--- NOTE | 2020-08-03 03:43 | Cat Scan Report ---
CT HEAD WITHOUT CONTRAST HISTORY: Syncope COMPARISON: None TECHNIQUE: CT imaging of the head was performed in the axial, sagittal, and coronal projections and bone algori thm in axial projection in the soft tissue algorithm. All CT scans at this location are performed using CT dose reduction for ALARA by means of automated e xposure control. CONTRAST: None. FINDINGS: Cerebral and Cerebellar Hemispheres: No evidence of mass or mass effect. No midline shift. No acute hemorrhage. No acute cortical infarction. No extra-axial fluid collection. Ventricles: Normal in size and configuration for age. Osseous Structures: No significant abnormality. Visualized Paranasal Sinuses: No significant abnormality. Additional Findings: None IMPRESSION: 1. No acute intracranial abnormality. NOTE: Acute infarct may not be visible by noncontrast CT. Signer Name: Corey Snow MD Signed: 08/03/2020 3:38 AM Workstation Name: [id number]
[2020-08-03] MEDS ORDERED: CALCIUM GLUCONATE 1,000 MG in SODIUM CHLORIDE 0.9% 100 ML IV ONE (06:03)
[2020-08-03] MEDS ORDERED: ACETAMINOPHEN 325 MG TAB PO PRN (06:05)
[2020-08-03] MEDS ORDERED: ONDANSETRON 4 MG/2 ML INJ IV PRN (06:05)
[2020-08-03] MEDS ORDERED: DEXTROSE 50% IN WATER (25GM) 50 ML SYRINGE IV PRN (06:06)
--- NOTE | 2020-08-03 06:22 | History and Physical Report ---
History of Present Illness Date of examination: 08/03/20 Date of admission: 08/03/20 04:43 Chief complaint: SHORTNESS OF BREATH History of present illness: 54 year old male presenting with shortness of breath, and swelling of thigh up to abdominal level . patient also said that he passed out while seated. There was no history of chest pain, fever or chills, cough, nausea or vomiting. Patient is known for noncompliance with his dialysis and missed dialysis and g huber a reason that he could not get a ride to his dialysis center, there is no history of dizziness. Past History Past Medical History: CAD, COPD, diabetes, DVT, ESRD, heart failure, hypertension Past Surgical History: Other (DIALYSIS ACESS) Social history: no significant social history Family history: no significant family history Medications and Allergies Allergies Allergy/AdvReac Type Severity Reaction Status Date / Time No Known Allergies Allergy Unverified 05/04/20 04:13 Home Medications Medication Instructions Recorded Confirmed Last Taken Type Acetaminophen [Acetaminophen TAB] 650 mg PO Q4H PRN tablet 05/19/20 07/29/20 07/25/20 Rx Calcium 600-Vit D3 800 Tablet 600 mg PO BID #60 05/19/20 07/29/20 07/25/20 Rx Gabapentin 300 mg PO BID #30 capsule 05/19/20 07/29/20 07/19/20 08:00 Rx Midodrine [Proamatine] 5 mg PO BID #60 tablet 05/19/20 07/29/20 07/19/20 08:00 Rx AtorvaSTATin [Lipitor] 40 mg PO QHS #30 tablet 07/28/20 07/29/20 Unknown Rx Calcium Acetate [Phoslo] 1,334 mg PO TID #90 cap 07/28/20 07/29/20 Unknown Rx Active Meds: Active Medications Acetaminophen (Tylenol) 650 mg PO Q4H PRN PRN Reason: Fever >101 Dextrose (D50w (25gm) Syringe) 50 ml IV Q30MIN PRN; Protocol PRN Reason: Hypoglycemia Heparin Sodium (Porcine) (Heparin) 5,000 unit SUB-Q Q12HR LIBORIO Calcium Gluconate 1,000 mg/ (Sodium Chloride) 110 mls @ 660 mls/hr IV ONCE ONE Stop: 08/03/20 06:12 Insulin Human Regular (Humulin R) 0 unit SUB-Q AC LIBORIO; Protocol Insulin Human Regular (Humulin R) 0 unit SUB-Q QHS LIBORIO; Protocol Ondansetron HCl (Zofran) 4 mg IV Q8H PRN PRN Reason: Nausea And Vomiting Review of Systems Constitutional: weight gain, weakness, no weight loss, no fever, no chills, no sweats, no malaise Eyes: bilateral: other (NO BILATERAL EYE SYMPTOM) Ears, nose, mouth and throat: no ear pain, no ear discharge, no headache, no vertigo Cardiovascular: edema, syncope, shortness of breath, no chest pain, no palpitations, no rapid/irregular heart beat, no lightheadedness Respiratory: shortness of breath, dyspnea on exertion, no cough, no hemoptysis, no congestion, no wheezing, no pleurisy Gastrointestinal: abdominal pain, no nausea, no vomiting, no diarrhea, no constipation, no change in bowel habits, no hematemesis, no coffee ground emesis, no melena, no hematochezia, no loss of appetite, no early satiety, no heartburn, no indigestion Genitourinary Male: no dysuria, no hematuria, no flank pain, no discharge, no urinary frequency, no urinary hesitancy, no nocturia, no incontinence, no erectile dysfunction Rectal: no pain Musculoskeletal: muscle weakness, no neck stiffness, no neck pain, no shooting arm pain Integumentary: no rash, no pruritis, no redness, no sores, no wounds, no jaundice, no boils, no lesions, no depigmentation Neurological: weakness, no paralysis, no parathesias, no numbness, no tingling, no seizures, no syncope, no tremors, no ataxia, no vertigo, no headaches, no convulsions, no change in speech, no change in mentation, no confusion Psychiatric: no anxiety, no insomnia, no hypersomnia, no confusion Endocrine: no cold intolerance, no polydipsia, no polyuria, no nocturia, no flushing, no palpatations Hematologic/Lymphatic: no easy bruising, no easy bleeding Allergic/Immunologic: no anaphylaxis Exam - Constitutional Vitals: Temp Pulse Resp BP Pulse Ox 98.5 F 82 18 118/67 96 08/02/20 22:44 08/03/20 06:00 08/03/20 06:00 08/03/20 06:00 08/03/20 06:00 General appearance: Present: mild distress - EENT Eyes: Present: PERRL, EOM intact ENT: hearing intact - Neck Neck: Present: supple, normal ROM - Respiratory Respiratory effort: normal - Cardiovascular Rhythm: regular Heart Sounds: Present: S1 & S2. Absent: gallop, systolic murmur, diastolic murmur - Extremities Extremities: no ischemia Extremity abnormal: edema Peripheral Pulses: within normal limits - Abdominal General gastrointestinal: Present: soft, non-tender, non-distended. Absent: tender, distended, rigid, mass Male genitourinary: Present: deferred - Rectal Rectal Exam: deferred - Integumentary Integumentary: Present: clear, warm, dry - Musculoskeletal Musculoskeletal: strength equal bilaterally - Psychiatric Psychiatric: appropriate mood/affect - Neurologic Neurologic: CNII-XII intact HEART Score - HEART Score Risk factors: > 3 risk factors or hx of atherosclerotic disease Troponin: Troponin T 0.125 ng/mL (0.00-0.029) H* 08/03/20 01:11 Troponin: 1-3x normal limit - Critical Actions Critical Actions: 4-6 pts:12-16.6% risk of adverse cardiac event. Should be admitted (PATIENT TO BE EVALUATED FOR CARDIAC LESION) Results - Labs CBC & Chem 7: 08/03/20 01:11 08/03/20 01:11 Labs: Laboratory Last Values WBC 8.7 K/mm3 (4.5-11.0) 08/03/20 01:11 RBC 3.89 M/mm3 (3.65-5.03) 08/03/20 01:11 Hgb 10.8 gm/dl (11.8-15.2) L 08/03/20 01:11 Hct 32.4 % (35.5-45.6) L 08/03/20 01:11 MCV 83 fl (84-94) L 08/03/20 01:11 MCH 28 pg (28-32) 08/03/20 01:11 MCHC 33 % (32-34) 08/03/20 01:11 RDW 20.0 % (13.2-15.2) H 08/03/20 01:11 Plt Count 338 K/mm3 (140-440) 08/03/20 01:11 Lymph % (Auto) 7.0 % (13.4-35.0) L 08/03/20 01:11 [place] % (Auto) 12.3 % (0.0-7.3) H 08/03/20 01:11 Eos % (Auto) 1.4 % (0.0-4.3) 08/03/20 01:11 Baso % (Auto) 0.6 % (0.0-1.8) 08/03/20 01:11 Lymph # 0.6 K/mm3 (1.2-5.4) L 08/03/20 01:11 [place] # 1.1 K/mm3 (0.0-0.8) H 08/03/20 01:11 Eos # 0.1 K/mm3 (0.0-0.4) 08/03/20 01:11 Baso # 0.1 K/mm3 (0.0-0.1) 08/03/20 01:11 Seg Neutrophils % 78.7 % (40.0-70.0) H 08/03/20 01:11 Seg Neutrophils # 6.8 K/mm3 (1.8-7.7) 08/03/20 01:11 Sodium 128 mmol/L (137-145) L D 08/03/20 01:11 Potassium 5.2 mmol/L (3.6-5.0) H D 08/03/20 01:11 Chloride 89.8 mmol/L (98-107) L 08/03/20 01:11 Carbon Dioxide 19 mmol/L (22-30) L 08/03/20 01:11 Anion Gap 24 mmol/L 08/03/20 01:11 BUN 33 mg/dL (9-20) H 08/03/20 01:11 Creatinine 6.6 mg/dL (0.8-1.3) H 08/03/20 01:11 Estimated GFR 11 ml/min 08/03/20 01:11 BUN/Creatinine Ratio 5 % 08/03/20 01:11 Glucose 122 mg/dL (75-100) H 08/03/20 01:11 Lactic Acid 1.50 mmol/L (0.7-2.0) 08/03/20 01:11 Calcium 5.8 mg/dL (8.4-10.2) L* 08/03/20 01:11 Total Bilirubin 0.60 mg/dL (0.1-1.2) 08/03/20 01:11 AST 26 units/L (5-40) 08/03/20 01:11 ALT 14 units/L (7-56) 08/03/20 01:11 Alkaline Phosphatase 161 units/L (35-129) H 08/03/20 01:11 Total Creatine Kinase 298 units/L (55-170) H 08/03/20 01:11 CK-MB (CK-2) 4.5 ng/mL (0.0-4.0) H 08/03/20 01:11 CK-MB (CK-2) Rel Index 1.5 (0-4) 08/03/20 01:11 Troponin T 0.125 ng/mL (0.00-0.029) H* 08/03/20 01:11 Total Protein 8.2 g/dL (6.3-8.2) 08/03/20 01:11 Albumin 4.0 g/dL (3.9-5) 08/03/20 01:11 Albumin/Globulin Ratio 1.0 % 08/03/20 01:11 Lee/IV: IV Catheter Type [Right Wrist] INT / Saline Lock Assessment and Plan - Patient Problems (1) Elevated troponin Current Visit: Yes Status: Acute Plan to address problem: SERIAL TROPONIN LEVEL WHILE ON TELEMETRY (2) Fluid overload Current Visit: Yes Status: Acute Qualifiers: Hypervolemia type: unspecified Qualified Code(s): E87.70 - Fluid overload, unspecified Plan to address problem: DIALYSIS THIS MORNING (3) Hyponatremia Current Visit: Yes Status: Acute Plan to address problem: 1. FLUID RESTRICTION TO 1200ML/DAY 2. SERIAL BMP (4) Missed dialysis Current Visit: Yes Status: Acute Plan to address problem: 1.NEPHROLOGY CONSULT 2. ELECTROLYTE CORRECTION
[2020-08-03] MEDS ORDERED: MORPHINE 2 MG/1 ML INJ ONE (06:40)
[2020-08-03 08:25] LABS: Calcium 5.6 mg/dL (8.4-10.2)
[2020-08-03] MEDS: HEPARIN 5,000 UNIT/1 ML VIAL SUB-Q SCH ×2 (09:36→21:52)
[2020-08-03] MEDS: INSULIN REGULAR, HUMAN 100 UNIT/ML 3ML VIAL SUB-Q SCH ×4 (09:37→22:15)
--- NOTE | 2020-08-03 11:09 | Progress Note ---
Assessment and Plan Assessment and plan: 54 year old M with a medical history of CAD, ESRD, PATRICIA here with shortness of breath and bilateral leg swelling. patient also said that he passed out while seated. There was no history of chest pain, fever or chills, cough, nausea or vomiting. Patient is known for noncompliance with his dialysis and missed dialysis and give a reason that he could not get a ride to his dialysis center. 08/03. Patient will get hemodialysis today. He will also get hemodialysis tomorrow. Plan to discharge after hemodialysis tomorrow. - Patient Problems (1) SOB (shortness of breath) Current Visit: Yes Status: Acute Plan to address problem: From fluid overload HD as scheduled. Nephrology following (2) End-stage renal disease needing dialysis Current Visit: Yes Status: Chronic Plan to address problem: Resume HD Nephrology following (3) End stage renal disease Current Visit: No Status: Acute Plan to address problem: Continue HD (4) Pulmonary edema Current Visit: No Status: Acute Qualifiers: Chronicity: acute Qualified Code(s): J81.0 - Acute pulmonary edema Plan to address problem: Plan for HD (5) DVT prophylaxis Current Visit: No Status: Acute (6) Full code status Current Visit: No Status: Acute History Interval history: See assessment and plan Hospitalist Physical - Constitutional Vitals: Temp Pulse Resp BP Pulse Ox 98.5 F 82 16 118/67 96 08/02/20 22:44 08/03/20 06:00 08/03/20 07:10 08/03/20 06:00 08/03/20 06:00 General appearance: Present: mild distress - EENT Eyes: Present: PERRL - Neck Neck: Present: supple - Respiratory Respiratory: bilateral: rales - Cardiovascular Heart Sounds: Present: S1 & S2 - Extremities Extremity abnormal: edema - Abdominal General gastrointestinal: soft, non-tender, non-distended, normal bowel sounds - Neurologic Neurologic: CNII-XII intact HEART Score - HEART Score Risk factors: > 3 risk factors or hx of atherosclerotic disease Troponin: Troponin T 0.109 ng/mL (0.00-0.029) H* 08/03/20 07:15 Troponin: 1-3x normal limit - Critical Actions Critical Actions: 4-6 pts:12-16.6% risk of adverse cardiac event. Should be admitted (PATIENT TO BE EVALUATED FOR CARDIAC LESION) Results - Labs CBC & Chem 7: 08/03/20 01:11 08/03/20 07:15 Labs: Laboratory Last Values WBC 8.7 K/mm3 (4.5-11.0) 08/03/20 01:11 RBC 3.89 M/mm3 (3.65-5.03) 08/03/20 01:11 Hgb 10.8 gm/dl (11.8-15.2) L 08/03/20 01:11 Hct 32.4 % (35.5-45.6) L 08/03/20 01:11 MCV 83 fl (84-94) L 08/03/20 01:11 MCH 28 pg (28-32) 08/03/20 01:11 MCHC 33 % (32-34) 08/03/20 01:11 RDW 20.0 % (13.2-15.2) H 08/03/20 01:11 Plt Count 338 K/mm3 (140-440) 08/03/20 01:11 Lymph % (Auto) 7.0 % (13.4-35.0) L 08/03/20 01:11 [place] % (Auto) 12.3 % (0.0-7.3) H 08/03/20 01:11 Eos % (Auto) 1.4 % (0.0-4.3) 08/03/20 01:11 Baso % (Auto) 0.6 % (0.0-1.8) 08/03/20 01:11 Lymph # 0.6 K/mm3 (1.2-5.4) L 08/03/20 01:11 [place] # 1.1 K/mm3 (0.0-0.8) H 08/03/20 01:11 Eos # 0.1 K/mm3 (0.0-0.4) 08/03/20 01:11 Baso # 0.1 K/mm3 (0.0-0.1) 08/03/20 01:11 Seg Neutrophils % 78.7 % (40.0-70.0) H 08/03/20 01:11 Seg Neutrophils # 6.8 K/mm3 (1.8-7.7) 08/03/20 01:11 Sodium 128 mmol/L (137-145) L 08/03/20 07:15 Potassium 5.9 mmol/L (3.6-5.0) H 08/03/20 07:15 Chloride 90.0 mmol/L (98-107) L 08/03/20 07:15 Carbon Dioxide 21 mmol/L (22-30) L 08/03/20 07:15 Anion Gap 23 mmol/L 08/03/20 07:15 BUN 33 mg/dL (9-20) H 08/03/20 07:15 Creatinine 6.9 mg/dL (0.8-1.3) H 08/03/20 07:15 Estimated GFR 10 ml/min 08/03/20 07:15 BUN/Creatinine Ratio 5 % 08/03/20 07:15 Glucose 94 mg/dL (75-100) 08/03/20 07:15 Lactic Acid 1.50 mmol/L (0.7-2.0) 08/03/20 01:11 Calcium 5.6 mg/dL (8.4-10.2) L* 08/03/20 07:15 Total Bilirubin 0.60 mg/dL (0.1-1.2) 08/03/20 01:11 AST 26 units/L (5-40) 08/03/20 01:11 ALT 14 units/L (7-56) 08/03/20 01:11 Alkaline Phosphatase 161 units/L (35-129) H 08/03/20 01:11 Total Creatine Kinase 298 units/L (55-170) H 08/03/20 01:11 CK-MB (CK-2) 4.5 ng/mL (0.0-4.0) H 08/03/20 01:11 CK-MB (CK-2) Rel Index 1.5 (0-4) 08/03/20 01:11 Troponin T 0.109 ng/mL (0.00-0.029) H* 08/03/20 07:15 Total Protein 8.2 g/dL (6.3-8.2) 08/03/20 01:11 Albumin 4.0 g/dL (3.9-5) 08/03/20 01:11 Albumin/Globulin Ratio 1.0 % 08/03/20 01:11 Lee/IV: IV Catheter Type [Right Wrist] INT / Saline Lock Active Medications - Current Medications Current Medications: Generic Name Dose Route Start Last Admin Trade Name Freq PRN Reason Stop Dose Admin Acetaminophen 650 mg 08/03/20 06:05 Tylenol PO Q4H PRN Fever >101 Dextrose 0 ml 08/03/20 06:06 D50w (25gm) Syringe IV Q30MIN PRN Hypoglycemia Protocol Heparin Sodium (Porcine) 5,000 unit 08/03/20 10:00 08/03/20 09:36 Heparin SUB-Q 5,000 unit Q12HR LIBORIO Administration Insulin Human Regular 0 unit 08/03/20 07:30 08/03/20 09:37 Humulin R SUB-Q Not Given AC LIBORIO Protocol Insulin Human Regular 0 unit 08/03/20 22:00 Humulin R SUB-Q QHS [facility] Protocol Ondansetron HCl 4 mg 08/03/20 06:05 Zofran IV Q8H PRN Nausea And Vomiting
--- NOTE | 2020-08-03 11:13 | Consultation ---
History of Present Illness - Reason for Consult Consult date: 08/03/20 end stage renal disease - History of Present Illness patient with ESRD on HD, was admitted yesterday for worsening SOB and fatigue, he is well known to our service, he had multiple admission sin the past for the same reason due to missing dialysis tx. in the Ed he was found to have hyperkalemia and hyponatremia with volume overload. renal consult was requested for HD management Past History Past Medical History: CAD, COPD, diabetes, DVT, ESRD, heart failure, hypertension Past Surgical History: Other (DIALYSIS ACESS) Social history: no significant social history Family history: no significant family history Medications and Allergies Allergies Allergy/AdvReac Type Severity Reaction Status Date / Time No Known Allergies Allergy Unverified 05/04/20 04:13 Home Medications Medication Instructions Recorded Confirmed Last Taken Type Acetaminophen [Acetaminophen TAB] 650 mg PO Q4H PRN tablet 05/19/20 07/29/20 07/25/20 Rx Calcium 600-Vit D3 800 Tablet 600 mg PO BID #60 05/19/20 07/29/20 07/25/20 Rx Gabapentin 300 mg PO BID #30 capsule 05/19/20 07/29/20 07/19/20 08:00 Rx Midodrine [Proamatine] 5 mg PO BID #60 tablet 05/19/20 07/29/20 07/19/20 08:00 Rx AtorvaSTATin [Lipitor] 40 mg PO QHS #30 tablet 07/28/20 07/29/20 Unknown Rx Calcium Acetate [Phoslo] 1,334 mg PO TID #90 cap 07/28/20 07/29/20 Unknown Rx Active Meds: Active Medications Acetaminophen (Tylenol) 650 mg PO Q4H PRN PRN Reason: Fever >101 Dextrose (D50w (25gm) Syringe) 0 ml IV Q30MIN PRN; Protocol PRN Reason: Hypoglycemia Heparin Sodium (Porcine) (Heparin) 5,000 unit SUB-Q Q12HR [facility]IO Last Admin: 08/03/20 09:36 Dose: 5,000 unit Documented by: Insulin Human Regular (Humulin R) 0 unit SUB-Q [facility]; Protocol Last Admin: 08/03/20 09:37 Dose: Not Given Documented by: Insulin Human Regular ([facility] R) [facility]; Protocol Ondansetron HCl (Zofran) 4 mg IV Q8H PRN PRN Reason: Nausea And Vomiting Review of Systems All systems: negative (SOB) Exam - Vital Signs Vital signs: Vital Signs Temp Pulse Resp BP Pulse Ox 98.5 F 91 H 18 111/78 94 08/02/20 22:44 08/02/20 22:44 08/02/20 22:44 08/02/20 22:44 08/02/20 22:44 - General Appearance General appearance: well-developed, well-nourished, obese EENT: ATNC, PERRL Neck: Present: neck supple Respiratory: Decreased Breath Sounds Heart: regular, S1S2 Gastrointestinal: Present: normoactive bowel sounds. Absent: tenderness, distended Integumentary: no rash, warm and dry Neurologic: no focal deficit, no asterixis Musculoskeletal: Present: other (edema in BLE) Psychiatric: cooperative Results - Lab Results 08/03/20 01:11 08/03/20 07:15 Most recent lab results Calcium 5.6 mg/dL (8.4-10.2) L* 08/03/20 07:15 Assessment and Plan ESRD on HD hyperkalemia hyponatremia due to hypervolemia SOB due to volume overload HTN HD ordered this AM for clearance and volume removal will assess HD needs daily strict I&O daily weight renally dose meds Casper Riley MD
[2020-08-04] MEDS: INSULIN REGULAR, HUMAN 100 UNIT/ML 3ML VIAL SUB-Q SCH ×4 (09:44→22:09)
[2020-08-04] MEDS: HEPARIN 5,000 UNIT/1 ML VIAL SUB-Q SCH ×2 (09:45→21:30)
--- NOTE | 2020-08-04 11:35 | Progress Note ---
Assessment and Plan ESRD on HD hyperkalemia hyponatremia due to hypervolemia SOB due to volume overload HTN HD again for cleranace and volume removal will assess HD needs daily strict I&O daily weight renally dose meds Casper Riley MD Subjective Date of service: 08/04/20 Principal diagnosis: ESRD Interval history: patient is more confused this AM,. refusing carotid doppler Objective - Vital Signs Vital signs: Vital Signs - 12hr 08/03/20 08/04/20 08/04/20 23:55 01:00 03:28 Temperature 97.3 F L 97.3 F L Pulse Rate 82 76 Respiratory 20 20 Rate Blood Pressure 113/68 80/55 O2 Sat by Pulse 97 Oximetry 08/04/20 04:17 Temperature Pulse Rate 82 Respiratory Rate Blood Pressure O2 Sat by Pulse 97 Oximetry - General Appearance General appearance: cachectic EENT: ATNC, PERRL, mucous membranes dry Neck: no JVD, no carotid bruit Respiratory: Present: Decreased Breath Sounds. Absent: Rales, Ronchi, Wheezes Cardiology: regular, S1S2 Gastrointestinal: normoactive bowel sounds, no tenderness, no distended Integumentary: no rash, warm and dry Neurologic: other (does not follow commands) Musculoskeletal: other (trace pitting edema in BLE) Psychiatric: other (answers simple questions) - Lab 08/03/20 01:11 08/03/20 07:15 Most recent lab results Calcium 5.6 mg/dL (8.4-10.2) L* 08/03/20 07:15 Medications & Allergies - Medications Allergies/Adverse Reactions: Allergies No Known Allergies Allergy (Unverified 05/04/20 04:13) Home Medications: Home Medications Medication Instructions Recorded Confirmed Last Taken Type Acetaminophen [Acetaminophen TAB] 650 mg PO Q4H PRN tablet 05/19/20 08/04/20 07/25/20 Rx Calcium 600-Vit D3 800 Tablet 600 mg PO BID #60 05/19/20 08/04/20 07/25/20 Rx Gabapentin 300 mg PO BID #30 capsule 05/19/20 08/04/20 07/19/20 08:00 Rx Midodrine [Proamatine] 5 mg PO BID #60 tablet 05/19/20 08/04/20 07/19/20 08:00 Rx AtorvaSTATin [Lipitor] 40 mg PO QHS #30 tablet 07/28/20 08/04/20 Unknown Rx Calcium Acetate [Phoslo] 1,334 mg PO TID #90 cap 07/28/20 08/04/20 Unknown Rx Active Medications: Generic Name Dose Route Start Last Admin Trade Name Freq PRN Reason Stop Dose Admin Acetaminophen 650 mg 08/03/20 06:05 Tylenol PO Q4H PRN Fever >101 Dextrose 0 ml 08/03/20 06:06 D50w (25gm) Syringe IV Q30MIN PRN Hypoglycemia Protocol Heparin Sodium (Porcine) 5,000 unit 08/03/20 10:00 08/04/20 09:45 Heparin SUB-Q 5,000 unit Q12HR [facility]ORIO Administration Insulin Human Regular 0 unit 08/03/20 07:30 08/04/20 09:44 Humulin R SUB-Q Not Given AC [facility] Protocol Insulin Human Regular 0 unit 08/03/20 22:00 08/03/20 22:15 Humulin R SUB-Q Not Given QHS [facility] Protocol Ondansetron HCl 4 mg 08/03/20 06:05 Zofran IV Q8H PRN Nausea And Vomiting
--- NOTE | 2020-08-04 11:38 | Discharge Summary ---
Providers - Providers Date of Admission: 08/03/20 04:43 Date of discharge: 08/04/20 Attending physician: ESPINOZA ROCK 08/03/20 04:46 Consult to Physician [CONS] Routine Comment: Consulting Provider: TORRIE MONTANO Physician Instructions: Reason For Exam: ESRD [facility] Condition: Critical Hospital course: 54 year old M with a medical history of CAD, ESRD, PATRICIA here with shortness of breath and bilateral leg swelling. patient also said that he passed out while seated. There was no history of chest pain, fever or chills, cough, nausea or vomiting. Patient is known for noncompliance with his dialysis and missed dialysis and give a reason that he could not get a ride to his dialysis center. 08/03. Patient will get hemodialysis today. He will also get hemodialysis tomorrow. Plan to discharge after hemodialysis tomorrow. 08/04. Plan for DC after HD today. he has been told to continue HD as scheduled. He will need to see the cardiology for an event monitor to rule out underlying arrhythmia. Disposition: [id number] TO HOME OR SELFCARE - Discharge Diagnoses (1) SOB (shortness of breath) Status: Acute (2) End-stage renal disease needing dialysis Status: Chronic (3) End stage renal disease Status: Acute (4) Pulmonary edema Status: Acute Qualifiers: Chronicity: acute Qualified Code(s): J81.0 - Acute pulmonary edema (5) DVT prophylaxis Status: Acute (6) Full code status Status: Acute Core Measure Documentation - Palliative Care Palliative Care/ Comfort Measures: Not Applicable - Core Measures Any of the following diagnoses?: none Exam - Constitutional Vitals: Temp Pulse Resp BP Pulse Ox 97.3 F L 82 20 80/55 97 08/04/20 03:28 08/04/20 04:17 08/04/20 03:28 08/04/20 03:28 08/04/20 04:17 General appearance: Present: no acute distress, well-nourished - EENT Eyes: Present: PERRL ENT: hearing intact, clear oral mucosa - Neck Neck: Present: supple, normal ROM - Respiratory Respiratory effort: normal Respiratory: bilateral: diminished, rales (trace) - Cardiovascular Heart Sounds: Present: S1 & S2. Absent: rub, click - Extremities Extremities: pulses symmetrical Extremity abnormal: edema Peripheral Pulses: within normal limits - Abdominal General gastrointestinal: Present: soft, non-tender, non-distended, normal bowel sounds Male genitourinary: Present: normal - Integumentary Integumentary: Present: clear, warm, dry - Musculoskeletal Musculoskeletal: gait normal, strength equal bilaterally - Psychiatric Psychiatric: appropriate mood/affect, intact judgment & insight - Neurologic Neurologic: CNII-XII intact, moves all extremities Plan Additional Instructions: Continue HD. Follow up with cardiology for event monitor Follow up with: MAYCOL KIDD MD [Primary Care Provider] - 3-5 Days CASEY MELO MD [Staff Physician] - 7 Days Prescriptions: Gabapentin 300 mg PO BID #30 capsule Midodrine [Proamatine] 5 mg PO BID #60 tablet
[2020-08-05] MEDS: INSULIN REGULAR, HUMAN 100 UNIT/ML 3ML VIAL SUB-Q SCH ×4 (09:45→22:51)
[2020-08-05] MEDS: HEPARIN 5,000 UNIT/1 ML VIAL SUB-Q SCH ×2 (09:46→22:50)
--- NOTE | 2020-08-05 10:36 | Progress Note ---
Assessment and Plan Assessment and plan: 54 year old M with a medical history of CAD, ESRD, PATRICIA here with shortness of breath and bilateral leg swelling. patient also said that he passed out while seated. There was no history of chest pain, fever or chills, cough, nausea or vomiting. Patient is known for noncompliance with his dialysis and missed dialysis and give a reason that he could not get a ride to his dialysis center. 08/03. Patient will get hemodialysis today. He will also get hemodialysis tomorrow. Plan to discharge after hemodialysis tomorrow. 08/04. Plan for DC after HD today. he has been told to continue HD as scheduled. He will need to see the cardiology for an event monitor to rule out underlying arrhythmia. 08/05. Could not be discharged yesterday due to logistic reasons. [facility]. - Patient Problems (1) SOB (shortness of breath) Current Visit: Yes Status: Acute Plan to address problem: From fluid overload HD as scheduled. Nephrology following (2) End-stage renal disease needing dialysis Current Visit: Yes Status: Chronic Plan to address problem: Resume HD Nephrology following (3) End stage renal disease Current Visit: No Status: Acute Plan to address problem: Continue HD (4) Pulmonary edema Current Visit: No Status: Acute Qualifiers: Chronicity: acute Qualified Code(s): J81.0 - Acute pulmonary edema Plan to address problem: Plan for HD (5) DVT prophylaxis Current Visit: No Status: Acute History Interval history: See assessment and plan Hospitalist Physical - Constitutional Vitals: Temp Pulse Resp BP Pulse Ox 98.8 F 76 22 124/78 98 08/05/20 07:59 08/05/20 07:59 08/05/20 07:59 08/05/20 07:59 08/05/20 07:59 General appearance: Present: no acute distress, well-nourished - EENT Eyes: Present: PERRL - Neck Neck: Present: supple - Respiratory Respiratory: bilateral: diminished - Cardiovascular Heart Sounds: Present: S1 & S2 - Extremities Extremity abnormal: edema - Abdominal General gastrointestinal: soft, non-tender, non-distended, normal bowel sounds - Psychiatric Psychiatric: appropriate mood/affect - Neurologic Neurologic: CNII-XII intact HEART Score - HEART Score Risk factors: > 3 risk factors or hx of atherosclerotic disease Troponin: Troponin T 0.098 ng/mL (0.00-0.029) H 08/03/20 14:46 Troponin: 1-3x normal limit - Critical Actions Critical Actions: 4-6 pts:12-16.6% risk of adverse cardiac event. Should be admitted (PATIENT TO BE EVALUATED FOR CARDIAC LESION) Results - Labs CBC & Chem 7: 08/03/20 01:11 08/03/20 07:15 Labs: Laboratory Last Values WBC 8.7 K/mm3 (4.5-11.0) 08/03/20 01:11 RBC 3.89 M/mm3 (3.65-5.03) 08/03/20 01:11 Hgb 10.8 gm/dl (11.8-15.2) L 08/03/20 01:11 Hct 32.4 % (35.5-45.6) L 08/03/20 01:11 MCV 83 fl (84-94) L 08/03/20 01:11 MCH 28 pg (28-32) 08/03/20 01:11 MCHC 33 % (32-34) 08/03/20 01:11 RDW 20.0 % (13.2-15.2) H 08/03/20 01:11 Plt Count 338 K/mm3 (140-440) 08/03/20 01:11 Lymph % (Auto) 7.0 % (13.4-35.0) L 08/03/20 01:11 Burnett % (Auto) 12.3 % (0.0-7.3) H 08/03/20 01:11 Eos % (Auto) 1.4 % (0.0-4.3) 08/03/20 01:11 Baso % (Auto) 0.6 % (0.0-1.8) 08/03/20 01:11 Lymph # 0.6 K/mm3 (1.2-5.4) L 08/03/20 01:11 Burnett # 1.1 K/mm3 (0.0-0.8) H 08/03/20 01:11 Eos # 0.1 K/mm3 (0.0-0.4) 08/03/20 01:11 Baso # 0.1 K/mm3 (0.0-0.1) 08/03/20 01:11 Seg Neutrophils % 78.7 % (40.0-70.0) H 08/03/20 01:11 Seg Neutrophils # 6.8 K/mm3 (1.8-7.7) 08/03/20 01:11 Sodium 128 mmol/L (137-145) L 08/03/20 07:15 Potassium 5.9 mmol/L (3.6-5.0) H 08/03/20 07:15 Chloride 90.0 mmol/L (98-107) L 08/03/20 07:15 Carbon Dioxide 21 mmol/L (22-30) L 08/03/20 07:15 Anion Gap 23 mmol/L 08/03/20 07:15 BUN 33 mg/dL (9-20) H 08/03/20 07:15 Creatinine 6.9 mg/dL (0.8-1.3) H 08/03/20 07:15 Estimated GFR 10 ml/min 08/03/20 07:15 BUN/Creatinine Ratio 5 % 08/03/20 07:15 Glucose 94 mg/dL (75-100) 08/03/20 07:15 POC Glucose 84 (70-105) 08/05/20 07:41 Lactic Acid 1.50 mmol/L (0.7-2.0) 08/03/20 01:11 Calcium 5.6 mg/dL (8.4-10.2) L* 08/03/20 07:15 Total Bilirubin 0.60 mg/dL (0.1-1.2) 08/03/20 01:11 AST 26 units/L (5-40) 08/03/20 01:11 ALT 14 units/L (7-56) 08/03/20 01:11 Alkaline Phosphatase 161 units/L (35-129) H 08/03/20 01:11 Total Creatine Kinase 298 units/L (55-170) H 08/03/20 01:11 CK-MB (CK-2) 4.5 ng/mL (0.0-4.0) H 08/03/20 01:11 CK-MB (CK-2) Rel Index 1.5 (0-4) 08/03/20 01:11 Troponin T 0.098 ng/mL (0.00-0.029) H 08/03/20 14:46 Total Protein 8.2 g/dL (6.3-8.2) 08/03/20 01:11 Albumin 4.0 g/dL (3.9-5) 08/03/20 01:11 Albumin/Globulin Ratio 1.0 % 08/03/20 01:11 Lee/IV: IV Catheter Type [Right Wrist] INT / Saline Lock Active Medications - Current Medications Current Medications: Generic Name Dose Route Start Last Admin Trade Name Freq PRN Reason Stop Dose Admin Acetaminophen 650 mg 08/03/20 06:05 Tylenol PO Q4H PRN Fever >101 Dextrose 0 ml 08/03/20 06:06 D50w (25gm) Syringe IV Q30MIN PRN Hypoglycemia Protocol Heparin Sodium (Porcine) 5,000 unit 08/03/20 10:00 08/05/20 09:46 Heparin SUB-Q 5,000 unit Q12HR LIBORIO Administration Insulin Human Regular 0 unit 08/03/20 07:30 08/05/20 09:45 Humulin R SUB-Q Not Given AC LIBORIO Protocol Insulin Human Regular 0 unit 08/03/20 22:00 08/04/20 22:09 Humulin R SUB-Q Not Given QHS LIBORIO Protocol Ondansetron HCl 4 mg 08/03/20 06:05 Zofran IV Q8H PRN Nausea And Vomiting Nutrition/Malnutrition Assess - Dietary Evaluation Nutrition/Malnutrition Findings: Nutrition Notes Start: 08/04/20 12:25 Freq: Status: Active Protocol: Document 08/04/20 12:25 [email or web address] (Rec: 08/04/20 13:26 [email or web address]) Co-Sign 08/04/20 12:25 LM Nutrition Notes Need for Assessment generated from: ultrasound technol Initial or Follow up Brief Note Current Diagnosis CKD (stage V CKD),COPD, Diabetes,Hypertension,Heart Failure Other Pertinent Diagnosis on HD, Suspected COVID Current Diet Renal Subjective/Other Information Pt screened for skin risk assessment. Pt has a j carlos score of 18 with no breakdown. Pt eating 100% Nutrition Intervention Revisit per MD consult or patient Sign Off request:
--- NOTE | 2020-08-05 11:24 | Progress Note ---
Assessment and Plan ESRD on HD Hyperkalemia Hyponatremia due to hypervolemia SOB due to volume overload HTN Plan: S/p HD yesterday for UF and clearance, UF removed 3 liters HD again today for UF and clearance with higher calcium bath, goal UF 3-4 liters as tolerated I spoke with dialysis nurse about plan to draw labs prior to start of HD today and notify us with results in case adjustments are needed to HD prescription Assess HD needs daily Ordered Ammonia level per hospitalist Hold discharge today per hospitalist, I updated pt's nurse about plan to hold discharge today as well Strict I&O Renally dose meds Renal plan d/w Dr Wallace Subjective Principal diagnosis: ESRD Interval history: Pt seen sitting up on the side of the bed eating lunch. Pt states he doesn't remember his name, location, or year. Pt started having shaking movements in both hands after I mentioned that pt was going home today. I left the room to talk with his nurse who states pt was oriented to her, knew his name, and he had just signed paperwork as he was scheduled to be discharged to a [facility] today around 1315 or so via transportation service. Upon going back in his room, pt w as using both arms without shaking/tremor movements. Pt was using his knife to spread butter on his biscuit/roll and once he saw me he started back shaking both hands again. Pt also complained of worsening shortness of breath. I spoke with hospitalist about above observations. Plan is to hold discharge today, dialyze pt, will draw ammonia level, BMP, and CBC as well Objective - Vital Signs Vital signs: Vital Signs - 12hr 08/05/20 08/05/20 08/05/20 00:47 04:00 05:26 Temperature 98.0 F 98.6 F Pulse Rate 88 88 68 Respiratory 18 Rate Blood Pressure 116/53 Blood Pressure 121/68 [Right] O2 Sat by Pulse 96 Oximetry 08/05/20 07:59 Temperature 98.8 F Pulse Rate 76 Respiratory 22 Rate Blood Pressure 124/78 Blood Pressure [Right] O2 Sat by Pulse 98 Oximetry - General Appearance General appearance: other EENT: ATNC Respiratory: Present: Other (Lung sounds coarse bilaterally) Cardiology: regular, S1S2, other (ACCESS: Right femoral perm catheter intact) Gastrointestinal: normoactive bowel sounds Integumentary: other (chronic skin changes to BLE) Neurologic: confused Musculoskeletal: other (1+ edema to BLE) - Lab 08/03/20 01:11 08/03/20 07:15 Most recent lab results Calcium 5.6 mg/dL (8.4-10.2) L* 08/03/20 07:15 Medications & Allergies - Medications Allergies/Adverse Reactions: Allergies No Known Allergies Allergy (Unverified 05/04/20 04:13) Home Medications: Home Medications Medication Instructions Recorded Confirmed Last Taken Type Acetaminophen [Acetaminophen TAB] 650 mg PO Q4H PRN tablet 05/19/20 08/04/20 07/25/20 Rx Calcium 600-Vit D3 800 Tablet 600 mg PO BID #60 05/19/20 08/04/20 07/25/20 Rx AtorvaSTATin [Lipitor] 40 mg PO QHS #30 tablet 07/28/20 08/04/20 Unknown Rx Calcium Acetate [Phoslo] 1,334 mg PO TID #90 cap 07/28/20 08/04/20 Unknown Rx Gabapentin 300 mg PO BID #30 capsule 08/04/20 Unknown Rx Midodrine [Proamatine] 5 mg PO BID #60 tablet 08/04/20 Unknown Rx Active Medications: Generic Name Dose Route Start Last Admin Trade Name Freq PRN Reason Stop Dose Admin Acetaminophen 650 mg 08/03/20 06:05 Tylenol PO Q4H PRN Fever >101 Dextrose 0 ml 08/03/20 06:06 D50w (25gm) Syringe IV Q30MIN PRN Hypoglycemia Protocol Heparin Sodium (Porcine) 5,000 unit 08/03/20 10:00 08/05/20 09:46 Heparin SUB-Q 5,000 unit Q12HR LIBORIO Administration Insulin Human Regular 0 unit 08/03/20 07:30 08/05/20 09:45 Humulin R SUB-Q Not Given AC [facility] Protocol Insulin Human Regular 0 unit 08/03/20 22:00 08/04/20 22:09 Humulin R SUB-Q Not Given QHS [facility] Protocol Ondansetron HCl 4 mg 08/03/20 06:05 Zofran IV Q8H PRN Nausea And Vomiting
[2020-08-05] MEDS ORDERED: SODIUM CHLORIDE 0.9% 100 ML IV PRN (13:54)
[2020-08-05 15:42] LABS: Hematocrit 29.3 % (35.5-45.6); Hemoglobin 9.3 gm/dl (11.8-15.2); Mean Corpuscular HGB Conc 32 % (32-34); Mean Corpuscular Volume 85 fl (84-94); Platelet Count 325 K/mm3 (140-440); Red Blood Count 3.44 M/mm3 (3.65-5.03)
[2020-08-05 15:44] LABS: Red Cell Distribution Width 20.5 % (13.2-15.2)
[2020-08-05 16:01] LABS: Calcium 6.6 mg/dL (8.4-10.2)
[2020-08-05] MEDS ORDERED: CALCIUM GLUCONATE 1,000 MG in SODIUM CHLORIDE 0.9% 100 ML IV ONE (21:23)
[2020-08-05] MEDS ORDERED: traMADol 50 MG TAB PO ONE (23:14)
[2020-08-06] MEDS: INSULIN REGULAR, HUMAN 100 UNIT/ML 3ML VIAL SUB-Q SCH ×2 (08:22→11:57)
[2020-08-06] MEDS: HEPARIN 5,000 UNIT/1 ML VIAL SUB-Q SCH (09:54)
--- NOTE | 2020-08-06 10:45 | Discharge Summary ---
Providers - Providers Date of Admission: 08/03/20 04:43 Date of discharge: 08/06/20 Attending physician: ESPINOZA RCOK 08/03/20 04:46 Consult to Physician [CONS] Routine Comment: Consulting Provider: TORRIE MONTANO Physician Instructions: Reason For Exam: ESRD [facility] Hospital[facility] Condition: Critical Hospital course: 54 year old M with a medical history of CAD, ESRD, PATRICIA here with shortness of breath and bilateral leg swelling. patient also said that he passed out while seated. There was no history of chest pain, fever or chills, cough, nausea or vomiting. Patient is known for noncompliance with his dialysis and missed dialysis and give a reason that he could not get a ride to his dialysis center. 08/03. Patient will get hemodialysis today. He will also get hemodialysis tomorrow. Plan to discharge after hemodialysis tomorrow. 08/04. Plan for DC after HD today. he has been told to continue HD as scheduled. He will need to see the cardiology for an event monitor to rule out underlying arrhythmia. 08/05. Could not be discharged yesterday due to logistic reasons. Patient will get additional HD today as per nephrologiust so DC was cancelled. 08/06. Tolerated HD. He is saturating 99% in RA this morning. He will be discharged to a [facility] and will continue HD as scheduled by renal. Discussed with comp field case manager Disposition: DC-01 TO HOME OR SELFCARE - Discharge Diagnoses (1) SOB (shortness of breath) Status: Acute (2) End-stage renal disease needing dialysis Status: Chronic (3) End stage renal disease Status: Acute (4) Pulmonary edema Status: Acute Qualifiers: Chronicity: acute Qualified Code(s): J81.0 - Acute pulmonary edema (5) DVT prophylaxis Status: Acute Core Measure Documentation - Palliative Care Palliative Care/ Comfort Measures: Not Applicable - Core Measures Any of the following diagnoses?: none Exam - Constitutional Vitals: Temp Pulse Resp BP Pulse Ox 98.3 F 82 22 123/71 98 08/06/20 08:29 08/06/20 08:29 08/06/20 08:29 08/06/20 08:29 08/06/20 08:29 General appearance: Present: no acute distress, well-nourished - EENT Eyes: Present: PERRL ENT: hearing intact, clear oral mucosa - Neck Neck: Present: supple, normal ROM - Respiratory Respiratory effort: normal Respiratory: bilateral: CTA - Cardiovascular Heart Sounds: Present: S1 & S2. Absent: rub, click - Extremities Extremities: pulses symmetrical, No edema Peripheral Pulses: within normal limits - Abdominal General gastrointestinal: Present: soft, non-tender, non-distended, normal bowel sounds Male genitourinary: Present: normal - Integumentary Integumentary: Present: clear, warm, dry - Musculoskeletal Musculoskeletal: gait normal, strength equal bilaterally - Psychiatric Psychiatric: appropriate mood/affect, intact judgment & insight - Neurologic Neurologic: CNII-XII intact, moves all extremities Plan Diet: renal Additional Instructions: Continue HD as scheduled. Continue home medications Follow up with: CASEY MELO MD [Staff Physician] - 7 Days LATTA MAYCOL MARSHALL MD [Primary Care Provider] - 3-5 Days Prescriptions: Gabapentin 300 mg PO BID #30 capsule Midodrine [Proamatine] 5 mg PO BID #60 tablet
--- NOTE | 2020-08-06 10:45 | Discharge Summary ---
Providers - Providers Date of Admission: 08/03/20 04:43 Date of discharge: 08/06/20 Attending physician: ESPINOZA ROCK 08/03/20 04:46 Consult to Physician [CONS] Routine Comment: Consulting Provider: TORRIE MONTANO Physician Instructions: Reason For Exam: ESRD [facility] Reason for admission: Shortness of breath Condition: Critical Disposition: DC-01 TO HOME OR SELFCARE - Discharge Diagnoses (1) SOB (shortness of breath) Status: Acute (2) End-stage renal disease needing dialysis Status: Chronic (3) End stage renal disease Status: Acute (4) Pulmonary edema Status: Acute Qualifiers: Chronicity: acute Qualified Code(s): J81.0 - Acute pulmonary edema (5) DVT prophylaxis Status: Acute Core Measure Documentation - Palliative Care Palliative Care/ Comfort Measures: Not Applicable - Core Measures Any of the following diagnoses?: none Exam - Constitutional Vitals: Temp Pulse Resp BP Pulse Ox 98.3 F 82 22 123/71 98 08/06/20 08:29 08/06/20 08:29 08/06/20 08:29 08/06/20 08:29 08/06/20 08:29 Plan Follow up with: CASEY MELO MD [Staff Physician] - 7 Days LAMY MAYCOL MARSHALL MD [Primary Care Provider] - 3-5 Days Prescriptions: Gabapentin 300 mg PO BID #30 capsule Midodrine [Proamatine] 5 mg PO BID #60 tablet
[2020-08-06 11:34] VITALS: BP 113/62
--- NOTE | 2020-08-06 12:57 | Progress Note ---
Assessment and Plan ESRD on HD Hyperkalemia Hyponatremia due to hypervolemia SOB due to volume overload HTN Plan: S/p HD yesterday for UF and clearance, UF removed 5 liters No acute indication for HD today Ok for pt to be discharged from nephrology standpoint [facility] Strict I&O Renally dose meds Renal plan d/w Dr Wallace Subjective Principal diagnosis: ESRD Interval history: Pt seen in bed resting, arouses to verbal stimuli, no acute distress Objective - Vital Signs Vital signs: Vital Signs - 12hr 08/06/20 08/06/20 08/06/20 04:00 04:03 08:29 Temperature 98.0 F 98.3 F Pulse Rate 85 92 H 82 Pulse Rate [ Right Brachial] Respiratory 20 22 Rate Blood Pressure 112/64 123/71 O2 Sat by Pulse 74 L 98 Oximetry 08/06/20 08/06/20 08/06/20 10:00 11:24 11:44 Temperature 98.3 F Pulse Rate 74 81 Pulse Rate [ 92 H Right Brachial] Respiratory 24 22 Rate Blood Pressure 113/62 O2 Sat by Pulse 97 100 Oximetry - General Appearance General appearance: other (resting in bed) EENT: ATNC Neck: no JVD Respiratory: Present: Decreased Breath Sounds Cardiology: regular, S1S2, other (ACCESS: Left femoral perm catheter intact) Gastrointestinal: normoactive bowel sounds Integumentary: other (chronic lower extremity skin changes) Neurologic: other (resting in bed, arouses to verbal stimuli, no acute distress) Musculoskeletal: other (1-2+ edema to BLE) - Lab 08/05/20 15:15 08/05/20 15:15 Most recent lab results Calcium 6.6 mg/dL (8.4-10.2) L D 08/05/20 15:15 Medications & Allergies - Medications Allergies/Adverse Reactions: Allergies No Known Allergies Allergy (Unverified 05/04/20 04:13) Home Medications: Home Medications Medication Instructions Recorded Confirmed Last Taken Type Acetaminophen [Acetaminophen TAB] 650 mg PO Q4H PRN tablet 05/19/20 08/04/20 07/25/20 Rx Calcium 600-Vit D3 800 Tablet 600 mg PO BID #60 05/19/20 08/04/20 07/25/20 Rx AtorvaSTATin [Lipitor] 40 mg PO QHS #30 tablet 07/28/20 08/04/20 Unknown Rx Calcium Acetate [Phoslo] 1,334 mg PO TID #90 cap 07/28/20 08/04/20 Unknown Rx Gabapentin 300 mg PO BID #30 capsule 08/04/20 Unknown Rx Midodrine [Proamatine] 5 mg PO BID #60 tablet 08/04/20 Unknown Rx Active Medications: Generic Name Dose Route Start Last Admin Trade Name Joeq PRN Reason Stop Dose Admin Acetaminophen 650 mg 08/03/20 06:05 Tylenol PO Q4H PRN Fever >101 Dextrose 0 ml 08/03/20 06:06 D50w (25gm) Syringe IV Q30MIN PRN Hypoglycemia Protocol Heparin Sodium (Porcine) 5,000 unit 08/03/20 10:00 08/06/20 09:54 Heparin SUB-Q 5,000 unit Q12HR LIBORIO Administration Sodium Chloride 100 mls @ 999 mls/hr 08/05/20 13:54 Nacl 0.9% IV PEDRITO PRN Hypotension Insulin Human Regular 0 unit 08/03/20 07:30 08/06/20 11:57 Humulin R SUB-Q Not Given AC [facility] Protocol Insulin Human Regular 0 unit 08/03/20 22:00 08/05/20 22:51 Humulin R SUB-Q Not Given QHS [facility] Protocol Ondansetron HCl 4 mg 08/03/20 06:05 Zofran IV Q8H PRN Nausea And Vomiting
== END 2020-08-06 15:08 | disposition home or self-care (01) ==
LOC: ED 21:00 → 4A 08-03 04:43
PROVIDERS: ADMIT Internal Medicine; ATTEND Internal Medicine
DX: E87.70 Fluid overload, unspecified (principal); R74.8 Abnormal levels of other serum enzymes; E87.1 Hypo-osmolality and hyponatremia; R06.02 Shortness of breath; I13.2 Hypertensive heart and chronic kidney disease with heart failure and with stage 5 chronic kidney disease, or end stage renal disease; I50.9 Heart failure, unspecified; N18.6 End stage renal disease; E11.22 Type 2 diabetes mellitus with diabetic chronic kidney disease; I25.10 Atherosclerotic heart disease of native coronary artery without angina pectoris; D63.1 Anemia in chronic kidney disease; R55 Syncope and collapse; J44.9 Chronic obstructive pulmonary disease, unspecified; J81.1 Chronic pulmonary edema; E87.5 Hyperkalemia; Z91.15 Patient's noncompliance with renal dialysis; Z99.2 Dependence on renal dialysis; Z86.718 Personal history of other venous thrombosis and embolism; Z79.4 Long term (current) use of insulin
CPT/HCPCS: 36415; 70450; 71045; 80048; 80053; 82140; 82550; 82553; 82962; 84484; 85025; 85027; 93005; 96372; 96374; 96375; 96376; 99291; G0378; J0610; J1644; J2270